=== PATIENT | female | born 1940 | race Caucasian/White ===

== ENCOUNTER → 2019-10-10 09:57 | Outpatient (CLI) | payer MEDICARE, SELFPAY ==
--- NOTE | ~2019-10-10 | XR_ITS ---
EXAMINATION: XR chest 2V EXAM DATE: 10/10/2019 10:33 INDICATION: Left anterior mid chest pain, symptoms for 2 weeks. TECHNIQUE: Frontal and lateral projections of the chest obtained and reviewed. There is no prior aguilar dy for comparison. FINDINGS: The lungs are clear. There are no pleural effusions. The cardiomediastinal silhouette is within normal limits. There is no pneumothorax suspected. The bones and soft tissues are unremarkab le. Moderate hyperinflation. IMPRESSION: No acute cardiopulmonary findings. Reviewed, dictated and finalized at location B. PROFIT JOB TITLES
== END ==
PROVIDERS: PCP Family Medicine; Visit Provider Physician Assistant
DX: R07.89 Other chest pain (principal)
CPT/HCPCS: 71046

== ENCOUNTER 2019-10-11 08:54 | Outpatient (CLI) | payer MEDICARE, SELFPAY ==
--- NOTE | 2019-10-11 09:01 | ECG_ITS ---
Measurements Intervals [place] Rate: 57 P: 62 MS: 206 QRS: 12 QRSD: 109 T: 56 QT: 419 QTc: 409 Interpretive Statements SINUS BRADYCARDIA WITH FIRST DEGREE AV BLOCK INTRAVENTRICULAR CONDUCTION DELAY DELAYED PRECORDIAL R/S TRANSITION ABNORMAL ECG Electronically Signed On 10-11-2019 9:31:52 AIRCRAFT TIME CLERK by Dipak Henry D.O.
== END 2019-10-11 08:55 | disposition home or self-care (01) ==
PROVIDERS: PCP Family Medicine; Visit Provider Physician Assistant
DX: R07.89 Other chest pain (principal); I45.9 Conduction disorder, unspecified; I44.0 Atrioventricular block, first degree
CPT/HCPCS: 93005

== ENCOUNTER 2020-05-05 07:46 | Outpatient (CLI) | payer MEDICARE, SELFPAY ==
--- NOTE | ~2020-05-05 | DEXA_ITS ---
Bone Density Report Name: Heavenly Sarmiento Age: 80 Sex: Female Ethnicity: White Date of : 1940 Indication: postmenopausal; height loss; hysterectomy; Referring Provider: BARRY FRAZIER Study: Bone densitometry was performed. Exam Date: May 05, 2020 Accession number: [id number] Bone Density: Region BMD T-score Z-score Classification AP Spine (L1-L4) 0.992 -0.5 2.2 Normal Femoral Neck (Left) 0.642 -1.9 0.5 Osteopenia Total Hip (Left) 0.746 -1.6 0.5 Osteopenia Total Hip Bilateral Avg 0.731 -1.8 0.4 Osteopenia Femoral Neck (Right) 0.603 -2.2 0.1 Osteopenia Total Hip (Right) 0.715 -1.9 0.3 Osteopenia World Health Organization criteria for BMD impression classify patients as: Normal (T-score at or above -1.0), Osteopenia (T-score between -1.0 and -2.5), or Osteoporosis (T-score at or below -2.5). 10-year Fracture Risk: FRAX not reported because: Treated for osteoporosis Clinical Information Provided by Patient: Is being treated for osteoporosis Has used the following medications: Evista (i.e. raloxifene), Vitamin D, Calcium Has the following medical conditions: Hysterectomy Patient maximum height was 65.5 Menopause Age: 44 Onset of menses at age 12 Number of children 3 Impression: The patient has low bone mass, based on the Right Femoral Neck T-score. Discussion: It is important to ask patients whether they are taking their medications and to encourage continued and appropriate compliance with their osteoporosis therapies to reduce fracture risk. It is also important to review their risk factors and encourage appropriate calcium and vitamin D intakes, exercise, fall prevention and other lifestyle measures. Follow-Up: Consider a repeat BMD and Vertebral Fracture Assessment (VFA) exam in 2 years or sooner if medically necessary, to reassess this patient's status. Reported by: ANA on 05/05/2020 8:23:00 AM. Reviewed, dictated and finalized at location AAldair SIEGEL
--- NOTE | ~2020-05-05 | MM_ITS ---
EXAMINATION: MM screening nandini BI [place] HISTORY: Screening mammogram TECHNIQUE: Craniocaudal and mediolateral oblique 3-D tomosynthesis images were obtained and synthetic 2-D images were generated. CAD analysis was submitted and interpreted. COMPARISON: 04/08/2019, 03/29/2017, 03/21/2016 bilateral digital screening mammogram examinations BREAST PARENCHYMAL COMPOSITION: There are scattered areas of fibroglandular density. FINDINGS: There is a biopsy marker on the left; history of prior benign left breast biopsies includin g a needle biopsy and an open biopsy. Stable 6 mm circumscribed low-density mass lower outer left breast. There is no evidence of suspicious mass, calcification, or architectural distortion to suggest malign william in either breast. There has been no suspicious interval change. IMPRESSION: 1. No mammographic evidence of malignancy. 2. Recommend routine screening mammography in one year. BI-RADS Category 2: Benign finding(s). Reviewed, dictated and finalized at location A.
== END 2020-05-05 07:47 | disposition home or self-care (01) ==
LOC: ANHIMG 07:48
PROVIDERS: PCP Family Medicine; Visit Provider Obstetrics & Gynecology Gynecology
DX: Z12.31 Encounter for screening mammogram for malignant neoplasm of breast (principal); Z78.0 Asymptomatic menopausal state; M85.852 Other specified disorders of bone density and structure, left thigh; M85.851 Other specified disorders of bone density and structure, right thigh
CPT/HCPCS: 77063; 77067; 77080

== ENCOUNTER → 2020-10-12 12:15 | Outpatient (CLI) | payer MEDICARE, SELFPAY ==
--- NOTE | ~2020-10-12 | US_ITS ---
EXAMINATION: US thyroid DATE: 10/12/2020 12:35 INDICATION: Thyroid nodule. TECHNIQUE: Multiple ultrasound images of the thyroid were obtained. COMPARISON: Ultrasound 11/16/2018 FINDINGS: The right thyroid lobe measures 3.1 x 1.3 x 0.9 cm. The left thyroid lobe is absent. There is a 4 mm nodule in right thyroid lobe. IMPRESSION: 1. Stable 4 mm nodule in right thyroid lobe, likely not clinically significant. No follow-up is neede d. Reviewed, dictated and finalized at location A. E MILLER IMPRESSION: 1. Stable 4 mm nodule in right thyroid lobe, likely not clinically significant. No follow-up is needed.
== END ==
PROVIDERS: PCP Family Medicine; Visit Provider Family Medicine
DX: E04.1 Nontoxic single thyroid nodule (principal)
CPT/HCPCS: 76536

== ENCOUNTER 2021-05-07 09:27 | Outpatient (CLI) | payer MEDICARE, SELFPAY ==
--- NOTE | ~2021-05-07 | MM_ITS ---
EXAMINATION: MM screening nandini BI [place] HISTORY: Screening mammogram TECHNIQUE: Craniocaudal and mediolateral oblique 3-D tomosynthesis images were obtained and synthetic 2-D images were generated. CAD analysis was submitted and interpreted. COMPARISON: No prior mammogram is available for comparison at this institution. BREAST PARENCHYMAL COMPOSITION: FINDINGS: 7 and 7.6 mm masses are noted in the upper outer posterior left breast. Diagnostic left nandini mogram and left breast ultrasound examination are recommended. Otherwise there is no evidence of suspicious mass, calcification, or architectural distortion to sugg est malignancy in either breast. There has been no other suspicious interval change. IMPRESSION: 1. Mid to upper outer left breast masses 2. Diagnostic left mammogram and left breast ultrasound are recommended BI-RADS Category 0: Incomplete: Needs additional imaging evaluation. Reviewed, dictated and finalized at location A.
== END 2021-05-07 09:28 | disposition home or self-care (01) ==
LOC: ANHIMG 09:29
PROVIDERS: PCP Family Medicine; Visit Provider Obstetrics & Gynecology Gynecology
DX: Z12.31 Encounter for screening mammogram for malignant neoplasm of breast (principal); R92.8 Other abnormal and inconclusive findings on diagnostic imaging of breast
CPT/HCPCS: 77063; 77067

== ENCOUNTER 2021-05-26 12:24 | Outpatient (CLI) | payer MEDICARE, SELFPAY ==
--- NOTE | ~2021-05-26 | MMUS_ITS ---
EXAMINATION: MM diagnostic nandini LT w [place], US breast LT limited HISTORY: Follow-up left breast masses TECHNIQUE: Additional 3-D tomosynthesis images of the left breast were performed and synthetic 2-D im ages were generated. CAD analysis was submitted and interpreted. High resolution Limited left breast ultrasound was performed. COMPARISON: Comparison to multiple prior studies sequentially, with oldest reviewed study dated 03/29. BREAST PARENCHYMAL COMPOSITION: Breast composed of scattered areas of fibroglandular density. FINDINGS: MAMMOGRAPHIC FINDINGS: There are 2 masses in the upper outer quadrant of the left breast. There is a tissue marker in the up per outer quadrant posteriorly. The masses bilingual case manager 8 mm or less with circumscribed margins. ULTRASOUND: Left breast ultrasound: At 1:00 near the nipple there is a small cluster of microcysts measuring 3 mm . At 2:00, 5 cm from the nipple there is a 6 mm cyst. At 3:00, 4 cm from the nipple, there is an irregular shaped hypoechoic mass with internal vascularity and mixed posterior attenuation measuring 7 x 5 x 4 mm. IMPRESSION: 1. Irregular shape 7 mm left breast mass at 3:00, 4 cm from the nipple with internal vascularity. 2. Ultrasound-guided left breast biopsy recommended. BI-RADS category 4, suspicious findings. Reviewed, dictated and finalized at location A. IMPRESSION: 1. Irregular shape 7 mm left breast mass at 3:00, 4 cm from the nipple with int ernal vascularity. 2. Ultrasound-guided left breast biopsy recommended. BI-RADS category 4, suspicious findings.
== END 2021-05-26 12:25 | disposition home or self-care (01) ==
LOC: ANHIMG 12:25
PROVIDERS: PCP Family Medicine; Visit Provider Obstetrics & Gynecology Gynecology
DX: R92.8 Other abnormal and inconclusive findings on diagnostic imaging of breast (principal)
CPT/HCPCS: 76642; 77061; 77065; G0279

== ENCOUNTER 2021-11-19 00:48 | Day surgery (SDC) | payer MEDICARE, SELFPAY ==
[2021-11-09 15:01] VITALS: BMI 25.7
[2021-11-19 09:31] VITALS: BP 173/81; PULSE 83; RESP 20; TEMP 36.4; O2SAT 100; BMI 25.4
--- NOTE | 2021-11-19 09:42 | WPDANESEPPF ---
Anes - Initial Pre Proc Eval Procedure: Operation Date: 11/19/21 10:30 Proposed Procedures p Screening Colonoscopy - Prabhu Vickers MD Date/Time: 11/19/21 09:42 Surgeon: Prabhu Vickers MD Pre Op Diagnosis: neoplasm screening Patient Data Age: 81 Gender: F Height: 1.63 m Weight: 67.1 kg Last Vital Signs Temp 36.4 C 11/19/21 09:31 Pulse 83 11/19/21 09:31 Resp 20 11/19/21 09:31 BP 173/81 H 11/19/21 09:31 Pulse Ox 100 11/19/21 09:31 Allergies Allergy/AdvReac Type Severity Reaction Status Date / Time No Known Allergies Allergy Verified 11/19/21 09:26 Home Medications Medication Instructions Recorded Confirmed Type cholecalciferol (vitamin D3) 1,250 1,250 mcg PO .COMPLEX 12/17/20 11/09/21 History mcg (50,000 unit) capsule risedronate 150 mg tablet 150 mg PO MONTHLY 04/26/21 11/09/21 History zolpidem 10 mg tablet 10 mg PO .HS PRN #30 tablet 09/20/21 11/09/21 Rx lisinopril 20 mg tablet 20 mg PO DAILY #90 tablet 10/18/21 11/09/21 Rx levothyroxine 50 mcg tablet See Rx Instructions .ROUTE 11/03/21 11/09/21 Rx .COMPLEX #90 tablet simvastatin 20 mg tablet See Rx Instructions .ROUTE 11/08/21 11/09/21 Rx .COMPLEX #90 tablet lorazepam 0.5 mg tablet 0.5 mg PO TID PRN #90 tablet 11/18/21 Rx Patient hx anesthesia problems: none Family hx anesthesia problems: none Results Review: All pre-operative results and documents have been reviewed as part of the pre-operative evaluation. FORMERLY [facility], [facility] Past Medical History Medical History Acute sinusitis Allergic rhinitis Anxiety Arthralgia of right hip Bleeding hemorrhoids Bruise Calculus of gallbladder with cholecystitis Chronic renal insufficiency Chronic renal insufficiency, stage III (moderate) Constipation Dry mouth Dysuria Essential (primary) hypertension Hypothyroidism (acquired) Impacted cerumen of right ear Insomnia Mixed hyperlipidemia Mouth sore Multinodular goiter Pain in both lower extremities Paresthesia of foot Renal failure Situational depression Stress Thrush, oral Thyroid nodule Vitamin D deficiency Surgical History Surgical History S/P cholecystectomy Family History Family History Other Family history of chronic obstructive pulmonary disease Family history of elevated blood lipids Family history of lung disease Family history of thyroid disease Hypertension Social History Social History Second hand tobacco smoke exposure: No Alcohol intake: never Substance use: never Substance use type: does not use Living arrangements: with family Gender identity (if verbalized by the patient): Female Anes - Eval Final PreProcedure Day of Procedure 11/19/21 09:42 Patient weight: normal Heart: regular rate and rhythm Lungs: clear to auscultation Airway: Mallampati scale class II Neurological: alert and oriented Last oral intake: >/= 8 hours ASA classification: III Emergent: no Anesthetic plan: proceed Anesthesia type and monitoring: general GIVS and standard monitoring Results Review: All pre-operative results and documents have been reviewed as part of the pre-operative evaluation. Informed Consent: The patient's anesthetic plan and its attendant risks and benefits were discussed with the patient/family/POA. Questions were solicited and answers provided to the satisfaction of the patient/family/POA.
[2021-11-19] MEDS: LACTATED RINGERS 1,000 ML 150 ML IV CONT (09:44)
--- NOTE | 2021-11-19 09:57 | WPDGICN ---
Assessment and Plan Assessment and plan (1) History of colon polyps: Code(s): Z86.010 - Personal history of colonic polyps Status: Acute Assessment and Plan: Patient has a prior history of colon polyps. In fact required surgical resection at 1 point. Plan is for surveillance colonoscopy now and consider this at intervals in the future if she remains healthy. (2) Family hx of colon cancer: Code(s): Z80.0 - Family history of malignant neoplasm of digestive organs Status: Acute Assessment and Plan: Family history is significant there is sister has had colon cancer. Suggesting genetic tendency towards colon polyps and cancer. Plan is for surveillance colonoscopy at this time. GI Consult Note Consult date/time: 11/19/21 09:57 HPI: Heavenly Sarmiento is a 81 year old female Presents for screening colonoscopy. Patient has a prior history of colon polyps most recently performed elsewhere in 2017. Her family history is significant for colon cancer in her sister. Patient herself has had a large colon polyp requiring surgical resection in the past. At present she complains of rather vague left-sided abdominal pain. But denies to call it a pain. She states her bowel habits tend towards constipation. patient presents today for neoplasia screening. Review of Systems Review of Systems: All systems reviewed & are unremarkable except as noted in HPI and below PMFSH Past Medical History Medical History Acute sinusitis Allergic rhinitis Anxiety Arthralgia of right hip Bleeding hemorrhoids Bruise Calculus of gallbladder with cholecystitis Chronic renal insufficiency Chronic renal insufficiency, stage III (moderate) Constipation Dry mouth Dysuria Essential (primary) hypertension Hypothyroidism (acquired) Impacted cerumen of right ear Insomnia Mixed hyperlipidemia Mouth sore Multinodular goiter Pain in both lower extremities Paresthesia of foot Renal failure Situational depression Stress Thrush, oral Thyroid nodule Vitamin D deficiency Surgical History Surgical History S/P cholecystectomy Family History Family History Other Family history of chronic obstructive pulmonary disease Family history of elevated blood lipids Family history of lung disease Family history of thyroid disease Hypertension Social History Social History Second hand tobacco smoke exposure: No Alcohol intake: never Substance use: never Substance use type: does not use Living arrangements: with family Gender identity (if verbalized by the patient): Female Meds Home Medications and Allergies Home Medications Medication Instructions Recorded Confirmed Type cholecalciferol (vitamin D3) 1,250 1,250 mcg PO .COMPLEX 12/17/20 11/19/21 History mcg (50,000 unit) capsule risedronate 150 mg tablet 150 mg PO MONTHLY 04/26/21 11/19/21 History zolpidem 10 mg tablet 10 mg PO .HS PRN #30 tablet 09/20/21 11/19/21 Rx lisinopril 20 mg tablet 20 mg PO DAILY #90 tablet 10/18/21 11/19/21 Rx levothyroxine 50 mcg tablet See Rx Instructions .ROUTE 11/03/21 11/19/21 Rx .COMPLEX #90 tablet simvastatin 20 mg tablet See Rx Instructions .ROUTE 11/08/21 11/19/21 Rx .COMPLEX #90 tablet lorazepam 0.5 mg tablet 0.5 mg PO TID PRN #90 tablet 11/18/21 11/19/21 Rx Allergies Allergy/AdvReac Type Severity Reaction Status Date / Time No Known Allergies Allergy Verified 11/19/21 09:26 Vital Signs Vital Signs - 24 hr 11/19/21 09:31 Temperature 97.6 F Pulse Rate 83 Respiratory Rate 20 Blood Pressure 173/81 H Pulse Oximetry 100 Exam Narrative: Physical exam reveals patient to be alert. Vital signs stable. HEENT exam is unremarkable. Lungs are clear to auscultation and p
[2021-11-19 10:40] VITALS: BP 128/63; PULSE 67; RESP 20; O2SAT 99
[2021-11-19 10:50] VITALS: BP 136/73; PULSE 65; RESP 19; O2SAT 100
[2021-11-19 11:00] VITALS: BP 149/82; PULSE 64; RESP 17; O2SAT 100
== END 2021-11-19 11:22 | disposition home or self-care (01) ==
PROVIDERS: PCP Family Medicine; Visit Provider Internal Medicine Gastroenterology
PROC: 0DJD8ZZ Inspection of Lower Intestinal Tract, Via Natural or Artificial Opening Endoscopic (ICD-10-PCS; CPT 45378; principal; 2021-11-19 10:30)
DX: Z12.11 Encounter for screening for malignant neoplasm of colon (principal); K64.8 Other hemorrhoids; Z98.0 Intestinal bypass and anastomosis status; Z86.010 Personal history of colon polyps; Z80.0 Family history of malignant neoplasm of digestive organs; E78.2 Mixed hyperlipidemia; E55.9 Vitamin D deficiency, unspecified; I12.9 Hypertensive chronic kidney disease with stage 1 through stage 4 chronic kidney disease, or unspecified chronic kidney disease; N18.30 Chronic kidney disease, stage 3 unspecified; E03.9 Hypothyroidism, unspecified; K59.00 Constipation, unspecified
CPT/HCPCS: G0105; J2704; J7120

== ENCOUNTER 2022-06-10 10:12 | Outpatient (CLI) | payer MEDICARE, SELFPAY ==
--- NOTE | ~2022-06-10 | MM_ITS ---
EXAMINATION: MM screening nandini BI [place] HISTORY: Screening mammogram, family history of breast cancer in her sister. TECHNIQUE: Craniocaudal and mediolateral oblique 3-D tomosynthesis images were obtained and synthetic 2-D images were generated. CAD analysis was submitted and interpreted. COMPARISON: 05/26/2021, 05/07/2021, 05/05/2020 BREAST PARENCHYMAL COMPOSITION: There are scattered areas of fibroglandular density. FINDINGS: Stable left breast masses are consistent with benign findings. No suspicious mass, calcific ation, or architectural distortion are identified in either breast to suggest malignancy. There has b een no suspicious interval change. IMPRESSION: 1. No mammographic evidence of malignancy. 2. Recommend routine screening mammography while the patient remains in good health. BI-RADS Category 2: Benign finding(s). Reviewed, dictated and finalized at location A. IMPRESSION: 1. No mammographic evidence of malignancy. 2. Recommend routine screening mammography while the patient remains in good he alth. BI-RADS Category 2: Benign finding(s).
--- NOTE | ~2022-06-10 | DEXA_ITS ---
Bone Density Report Name: CHIO MORENO Age: 82 Sex: Female Ethnicity: White Date of : 1940 Indication: osteopenia; monitoring treatment; hysterectomy; Referring Provider: BARRY FRAZIER Study: Bone densitometry was performed. Exam Date: June 10, 2022 Accession number: [id number] Bone Density: Region BMD T-score Z-score Classification AP Spine(L1-L4) 1.049 0.0 2.8 Normal Femoral Neck (Left) 0.626 -2.0 0.4 Osteopenia Total Hip (Left) 0.712 -1.9 0.4 Osteopenia Femoral Neck (Right) 0.600 -2.2 0.2 Osteopenia Total Hip (Right) 0.717 -1.8 0.4 Osteopenia Total Hip Mean 0.715 -1.9 0.4 Osteopenia World Health Organization criteria for BMD impression classify patients as: Normal (T-score at or above -1.0), Osteopenia (T-score between -1.0 and -2.5), or Osteoporosis (T-score at or below -2.5). 10-year Fracture Risk: FRAX not reported because: Treated for osteoporosis Previous Exams: Region Exam Age BMD T-score BMD Change BMD Change Date g/cm2 vs Baseline vs Previous AP Spine (L1-L4) 06/10/2022 82 1.049 0.0 0.056 (5.7%)* 0.056 (5.7%)* 05/05/2020 80 0.992 -0.5 Total Hip(Left) 06/10/2022 82 0.712 -1.9 -0.033 (-4.5%) -0.033 (-4.5%) 05/05/2020 80 0.746 -1.6 Total Hip(Right) 06/10/2022 82 0.717 -1.8 0.002 (0.3%) 0.002 (0.3%) 05/05/2020 80 0.715 -1.9 *Denotes significance at 95% confidence level, LSC for AP Spine = 0.022 g/cm2, LSC for Total Hip = 0.027 g/cm2 Clinical Information Provided by Patient: Is being treated for osteoporosis Has used the following medications: Actonel (i.e. risedronate), Vitamin D, Calcium Has the following medical conditions: Hysterectomy Menopause Age: 44 Does not regularly consume dairy products Onset of menses at age 12 Number of children 0 Impression: The patient has low bone mass, based on the Right Femoral Neck T-score. The BMD for the Total Hip(Left) decreased, changing by -4.5% since the last DXA exam. Discussion: SIGNIFICANT BONE LOSS OBSERVED. Adherence to therapy (including calcium and vitamin D intake) should be assessed. If compliance is not a factor, review management and exclusion of secondary causes of bone loss. It is important to ask patients whether they are taking their medications and to encourage continued and appropriate compliance with their osteoporosis therapies to reduce fracture risk. It is also important to review their risk factors and encoura
== END 2022-06-10 10:13 | disposition home or self-care (01) ==
PROVIDERS: PCP Family Medicine; Visit Provider Obstetrics & Gynecology Gynecology
DX: Z12.31 Encounter for screening mammogram for malignant neoplasm of breast (principal); Z78.0 Asymptomatic menopausal state; M85.88 Other specified disorders of bone density and structure, other site; M85.852 Other specified disorders of bone density and structure, left thigh; M85.851 Other specified disorders of bone density and structure, right thigh
CPT/HCPCS: 77063; 77067; 77080

== ENCOUNTER 2023-07-17 13:34 | Outpatient (CLI) | payer MEDICARE, SELFPAY ==
--- NOTE | ~2023-07-17 | MM_ITS ---
EXAMINATION: MM screening nandini BI w [place] HISTORY: Screening mammogram, family history of breast cancer in her sister. TECHNIQUE: Craniocaudal and mediolateral oblique 3-D tomosynthesis images were obtained and synthetic 2-D images were generated. CAD analysis was submitted and interpreted. COMPARISON: 06/10/2022, 05/26/2021, 05/07/2021 BREAST PARENCHYMAL COMPOSITION: There are scattered areas of fibroglandular density. FINDINGS: There are stable left breast masses, consistent with benign findings. No suspicious mass, c alcification, or architectural distortion are identified in either breast to suggest malignancy. Ther e has been no suspicious interval change. IMPRESSION: 1. No mammographic evidence of malignancy. 2. Recommend routine screening mammography while the patient remains in good health. BI-RADS Category 2: Benign finding(s). Reviewed, dictated and finalized at location A. E RESEARCHER IMPRESSION: 1. No mammographic evidence of malignancy. 2. Recommend routine screening mammography while the patient remains in good he alth. BI-RADS Category 2: Benign finding(s).
== END 2023-07-17 13:35 | disposition home or self-care (01) ==
LOC: ANHIMG 13:36
PROVIDERS: PCP Family Medicine; Visit Provider Obstetrics & Gynecology Gynecology
DX: Z12.31 Encounter for screening mammogram for malignant neoplasm of breast (principal)
CPT/HCPCS: 77063; 77067

== ENCOUNTER 2024-04-12 10:42 | Outpatient (CLI) | payer MEDICARE, SELFPAY ==
--- NOTE | ~2024-04-12 | CT_ITS ---
CT of the Abdomen and Pelvis: Indication: Diverticular Technique: 2.5 mm axial scans were obtained through the abdomen and pelvis following intravenous adm inistration of 100 cc of Omnipaque 350. Dose reduction technique was used on this scan by utilizing a utomated exposure control and iterative reconstruction technique. The dose-length product (DLP) was 5 24.08 mGy-cm. Findings: Scans through the lung bases are unremarkable. The liver, spleen, pancreas, right adrenal gland, and kidneys are within normal limits. Cholecystecto my clips are present. Left adrenal nodule measures 1 cm in diameter, statistically speaking indetermi micheal. There are atherosclerotic calcifications of the aorta. No lymphadenopathy. No bowel obstruction or bowel wall thickening. Bowel anastomosis noted. Images through the pelvis were performed. Urinary bladder unremarkable. No pelvic mass seen. No ascit es. Impression: No acute abnormality evident. 1 cm left adrenal gland, statistically most likely adenoma, though indeterminate by Hounsfield units. Reviewed, dictated and finalized at location . Impression: No acute abnormality evident. 1 cm left adrenal gland, statistically most likely adenoma, though indeterminat e by Hounsfield units.
[2024-04-12 11:27] LABS: Estimated Glomerular Filt Rate 39
== END 2024-04-12 10:43 ==
PROVIDERS: PCP Family Medicine; Visit Provider Physician Assistant Medical
DX: R19.5 Other fecal abnormalities (principal); K57.90 Diverticulosis of intestine, part unspecified, without perforation or abscess without bleeding
CPT/HCPCS: 74177; Q9967

== ENCOUNTER 2024-08-21 08:37 | Outpatient (CLI) | payer MEDICARE, SELFPAY ==
--- NOTE | ~2024-08-21 | MM_ITS ---
EXAMINATION: MM screening [facility] BI [facility] [place] HISTORY: Screening TECHNIQUE: Craniocaudal and mediolateral oblique 3-D tomosynthesis images were obtained and synthetic 2-D images were generated. CAD analysis was submitted and interpreted. COMPARISON: Comparison to multiple prior studies sequentially, with oldest reviewed study dated 04/08. BREAST PARENCHYMAL COMPOSITION: Not dense: There are scattered areas of fibroglandular density. FINDINGS: There are developing asymmetries in the upper central aspect of the right breast with possi ble architectural distortion. Stable left breast masses. There is tissue marker from previous benign left breast biopsy in the upper outer quadrant of the left breast posteriorly. IMPRESSION: 1. Developing right breast asymmetries with possible architectural distortion. 2. Additional mammographic views and possible breast ultrasound are recommended. BI-RADS Category 0: Incomplete: Needs additional imaging evaluation. Reviewed, dictated and finalized at location B. S DESIGNER IMPRESSION: 1. Developing right breast asymmetries with possible architectural distortion. 2. Additional mammographic views and possible breast ultrasound are recommended . BI-RADS Category 0: Incomplete: Needs additional imaging evaluation.
== END 2024-08-21 08:38 | disposition home or self-care (01) ==
LOC: ANHIMG 08:40
PROVIDERS: PCP Family Medicine; Visit Provider Obstetrics & Gynecology Gynecology
DX: Z12.31 Encounter for screening mammogram for malignant neoplasm of breast (principal); R92.8 Other abnormal and inconclusive findings on diagnostic imaging of breast
CPT/HCPCS: 77063; 77067

== ENCOUNTER 2024-08-30 12:08 | Outpatient (CLI) | payer MEDICARE, SELFPAY ==
--- NOTE | ~2024-08-30 | MMUS_ITS ---
EXAMINATION: MM diagnostic nandini RT w odell, US breast RT limited HISTORY: Follow-up right breast asymmetry TECHNIQUE: Additional 3-D tomosynthesis images of the right breast were performed and synthetic 2-D i mages were generated. CAD analysis was submitted and interpreted. High resolution Limited right breas t ultrasound was performed. COMPARISON: Comparison to multiple prior studies sequentially, with oldest reviewed study dated 05/15. BREAST PARENCHYMAL COMPOSITION: Not dense: There are scattered areas of fibroglandular density. FINDINGS: MAMMOGRAPHIC FINDINGS: There is a focal asymmetry in the upper central aspect of the right breast, posterior third with poss ible associated architectural distortion. ULTRASOUND: Limited right breast ultrasound: At 9:00, 7 cm from the nipple there is a normal-appearing intramamma ry lymph node measuring 6 mm with echogenic hilum and no cortical thickening. At 1:00, 4 cm from the nipple there is an irregular heterogeneous ill-defined mass with marginal vascularity and mixed poste rior attenuation measuring approximately 8 x 7 mm. This area of abnormality is indeterminate for amari elation to the mammographic findings. IMPRESSION: 1. Focal irregular shaped mass upper central aspect of the right breast posteriorly with possible cor related by ultrasound, although this is indeterminate. 2. Correlation with MRI of the breast with contrast recommended for further assessment. BI-RADS CATEGORY 0 - INCOMPLETE STUDY, NEED ADDITIONAL IMAGING EVALUATION. Reviewed, dictated and finalized at location A. NG TEACHER IMPRESSION: 1. Focal irregular shaped mass upper central aspect of the right breast posteri kendall with possible correlated by ultrasound, although this is indeterminate. 2. Correlation with MRI of the breast with contrast recommended for further ass essment. BI-RADS CATEGORY 0 - INCOMPLETE STUDY, NEED ADDITIONAL IMAGING EVALUATION.
--- OUTSIDE RECORDS SUMMARY | 2024-09-05 06:44 | XMS_ITS ---
Author Organization [facility] Address [address] [facility] [address] [place] [address] Care Team Providers Care Perinatal Educator Name Role Phone zzzzMigration, zzzzProvider Unavailable Unav ailable REASON FOR VISIT [facility] Encounters Encounter Location Date Provider Diagnosis [facility] [address] [facility] [address] [place] [address] 06/04/2023 zzzzProvider zzzzMigration Plan Of Treatment No Information Progress Notes * Roxy SARMIENTODOB:1940 (84 yo F)Acc No.[id number]:06/04/2023 Patient:?Roxy SARMIENTO :1940???Age:83 Y???Sex:Female [place]: [place], [address] Subjective: * Chief Complaints: * ???[facility] * Medical History:? * Surgical History:? * Hospitalization/Major Diagno stic Procedure:? * Medications:? Objective: * Vitals:? * Physical Examination:? Assessment: Plan: * Treatment: * Procedure Codes:? * * Date:?
--- OUTSIDE RECORDS SUMMARY | 2024-09-05 06:44 | XMS_ITS | Patient Health Record ---
Author Organization [facility] Address [address] [facility] [address] [place] [address] Support Name Relationship Address Phone Roxy Sarmiento Guarantor Unknown [phone] Reason For Referral No Information Plan Of Treatment No Information Insurance Providers Payer Name Payer Address Payer Phone Subscriber Number Group Number Insured Name Patient Relationship to Insured Coverage Start Date Coverage End Date DO NOT USE [id number] Roxy Sarmiento Self - patient is the insured 1
--- OUTSIDE RECORDS SUMMARY | 2024-09-05 06:44 | XMS_ITS ---
Author Organization [facility] Address [address] [facility] [address] [place] [address] Care Team Providers Care Warehouse Attendant Name Role Phone zzzzMigration, zzzzProvider Unavailable Unav ailable REASON FOR VISIT [facility] Encounters Encounter Location Date Provider Diagnosis [facility] [address] [facility] [address] [place] [address] 06/03/2023 zzzzProvider zzzzMigration Plan Of Treatment No Information Progress Notes * Roxy SARMIENTODOB:1940 (84 yo F)Acc No.[id number]:06/03/2023 Patient:?Roxy SARMIENTO :1940???Age:83 Y???Sex:Female [address]: [address] [place], [address] Subjective: * Chief Complaints: * ???[facility] * Medical History:? * Surgical History:? * Hospitalization/Major Diagno stic Procedure:? * Medications:? Objective: * Vitals:? * Physical Examination:? Assessment: Plan: * Treatment: * Procedure Codes:? * * Date:?
--- OUTSIDE RECORDS SUMMARY | 2024-09-05 06:46 | XMS_ITS | Continuity of Care Document ---
Author Organization [facility] Address [address] [place] [address] Phone Care Team Providers Care Shank Faker Name Role Phone [facility] Unavailable Unavail able Corinna Mendoza Unavailable Unavailable Advance Directives Directive Yes / No Effective Date File Name No Information Encounters Encounter Description Practice Location Reason(s) For Visit Diagnoses Date Provider Providers Copied on Encounter [facility], [id number] [place] [address] [address], [place], [place], [id number], [place] tel:[phone] [facility] No Information 0-200 0 [facility] [address] [facility], [address], [place], [place], [address] , [place]. tel:[phone] Consulting Provider: Corinna Mendoza, [address] [place] [address], [address]. tel:[phone] Family History Family Member Type Diagnosis Age At Onset No Information Payers Payer name Insurance type Covered green party ID Authoriza tion(s) No Information Social History Type Description Quantity Date Captured Comments Sex Female Smoking Status No Information Chief Complaint And Reason For Visit No Information Reason For Referral Reason For Referral No Information History Of Present Illness Encounter Date Complaint History Of Prese nt Illness No Information Functional Status Date Functional Assessmen t No Information Instructions Date Instruction Additional Infor mation No Information Assessments Type Assessment Date No Information Patient Care Teams Name Effective Dates (start - stop) Status Members No Information
--- OUTSIDE RECORDS SUMMARY | 2024-09-05 06:46 | XMS_ITS | Referral Summary ---
Author Organization [facility] Address [address] [place] [address] Care Team Providers Care Core Winder Name Role Phone Tisha Tubbs MD Primary Care Provider [phone] Kelley Perez MD Unavailable [phone] Allergies No known active allergies Medications simvastatin (ZOCOR) 20 mg tablet TK 1 T PO QD 2 02/27/2018 Active LORazepam (ATIVAN) 0.5 mg tablet TK 1 T PO QD PRN 1 02/20/2018 Active lisinopril (PRINIVIL,ZESTR IL) 40 mg tablet Take 20 mg by mouth 03/22/2018 Active levothyroxine (SYNTHROID, LEVOTHROID) 50 mcg tablet TK 1 T PO QD 1 03/01/2018 Activ e ergocalciferol (VITAMIN D) 50,000 unit capsule TK ONE C PO THREE TIMES A MONTH 4 02/26/2018 Active cranberry 400 mg capsule Take by mouth. Active calcium carbonate (CALCIUM 600 ORAL) Take by mouth. Active multivit-min/ir on/folic/lutein (CENTRUM SILVER WOMEN ORAL) Take by mouth Active zolpidem (AMBIEN) 10 mg tablet Take 10 mg by mouth daily 01/29/2020 Active risedronate (ACTONEL) 150 mg tablet Take 150 mg by mouth every 30 (thirty) days with water on empty stomach, nothing by mouth or lie down for next 30 minutes. 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 Gender Identity Not on file Sexual Orientation Not on file Last Filed Vital Signs Vital Sign Reading Time Taken Comments Blood Pressure 134/80 05/05/2021 1:33 PM CDT Pulse 74 05/05/2021 1:33 PM CDT Temperature - - Respiratory Rate - - Oxygen Saturation 95% 05/05/2021 1:33 PM CDT Inhaled Oxygen Concentration - - Weight 68.5 kg (151 lb 0.2 oz) 06/11/2021 9:40 A M CDT Height 165.1 cm (5' 5 ) 06/11/2021 9:40 AM CDT Body Mass Index 25.13 06/11/2021 9:40 AM CDT Plan of Treatment Not on file Insurance MEDICARE SOLUTIONS MEDICARE SOLUTIONS Care Teams Core Winder Relationship Specialty Start Date End Date Tisha Tubbs MD PCP - General 02/16/10 Kelley Perez MD [address] [place] [address] Referring Physician Gynecology 06/11/21
--- OUTSIDE RECORDS SUMMARY | 2024-09-05 06:46 | XMS_ITS | Clinical Summary ---
Author Organization [facility] Address [address] [place] [address] Care Team Providers Care Research Assistant Professor Name Role Phone Tisha Tubbs MD Primary Care Provider [phone] Kelley Perez MD Unavailable [phone] Allergies No known active allergies Medications simvastatin [...] salivary glan d 04/05/2018 Oral candidiasis 04/05/2018 Surgical History Surgery Date Site/Laterality Comments HYSTERECTOMY 08/14/1974 - 08/13/1975 COLECTOMY 08/14/2008 - 08/13/2009 GALLBLADDER SURGERY 08/14/2014 - 08/13/2015 THYROIDECTOMY / EXCISION CYST THYROID 08/14/2016 - 08/13 Medical History Medical History Date Comments Thyroid disease HTN (hypertension) Anxiety Hypothyroidism Hyperlipidemia Family History Medical History Relation Name Comments Lung cancer Brother Lung cancer Father Breast cancer Maternal Grandmother Aneurysm Mother Colon cancer Other sister Lung cancer Other sister Breast cancer Sister Relation Name Status Comments Brother Father Maternal Grandmother Mother Other sister Sister Social History Tobacco Use Types Packs/Day Years [...] on file 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 Gender Identity Not on file Sexual Orientation Not on file Obstetrics History Last Filed Vital Signs Vital Sign Reading [...] Treatment Not on file Insurance MEDICARE [facility] MEDICARE Address: [address] [address] [place] [address] MEDICARE SOL[facility]IONS [facility] MEDICARE Address: [address] [address] [place] [address] Care Teams Research Assistant Professor Relationship Specialty Start Date End Date Tisha Tubbs MD PCP - General 02/16/10 Kelley Perez MD [address] [place] [address] Referring Physician Gynecology 06/11/21
== END 2024-08-30 12:09 | disposition home or self-care (01) ==
LOC: ANHIMG 12:11
PROVIDERS: PCP Family Medicine; Visit Provider Obstetrics & Gynecology Gynecology
DX: R92.8 Other abnormal and inconclusive findings on diagnostic imaging of breast (principal)
CPT/HCPCS: 76642; 77061; 77065; G0279

== ENCOUNTER 2024-09-25 08:33 | Outpatient (CLI) | payer MEDICARE, SELFPAY ==
--- OUTSIDE RECORDS SUMMARY | 2024-09-24 11:11 | XMS_ITS | Patient Health Record ---
Author Organization [facility] Address [address] [facility] [address] [place] [address] Support Name Relationship Address Phone Roxy Sarmiento Guarantor Unknown [phone] Reason For Referral No Information Plan Of Treatment No Information Insurance Providers Payer Name Payer Address Payer Phone Subscriber Number Group Number Insured Name Patient Relationship to Insured Coverage Start Date Coverage End Date DO NOT USE [id number] Roxy Sarmiento Self - patient is the insured 1
--- OUTSIDE RECORDS SUMMARY | 2024-09-24 11:11 | XMS_ITS | Continuity of Care Document ---
Author Organization [facility] [place] [place] Address [address] [place] [address] Phone Care Team Providers Care Software Support Analyst Name Role Phone [facility] Unavailable Unavail able Corinna Mendoza Unavailable Advance Directives Directive Yes / No Effective Date File Name No Information Encounters Encounter Description Practice Location Reason(s) For Visit Diagnoses Date Provider Providers Copied on Encounter [facility], [address] [place] [address] [address], [place], [place], [address], [place] tel:[phone] [facility] No Information 0-200 0 [facility] [address] [facility], [address], [place], [place], [address] , [place]. tel:[phone] Consulting Provider: Corinna Mendoza, [address] [place] [address], [address]. tel:[phone] Family History Family Member Type Diagnosis Age At Onset No Information Payers Payer name Insurance type Covered alliance party ID Authoriza tion(s) No Information Social [...]
--- OUTSIDE RECORDS SUMMARY | 2024-09-24 11:11 | XMS_ITS | Clinical Summary ---
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
--- OUTSIDE RECORDS SUMMARY | 2024-09-24 11:11 | XMS_ITS | Referral Summary ---
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
--- OUTSIDE RECORDS SUMMARY | 2024-09-24 11:13 | XMS_ITS ---
Author Organization [facility] Address [address] [facility] [address] [place] [address] Care Team Providers Care Laborer Adjustable Steel Joist Name Role Phone zzzzMigration, zzzzProvider Unavailable Unav ailable REASON FOR VISIT [facility] Encounters Encounter Location Date Provider Diagnosis [facility] [address] [facility] [address] [place] [address] 06/03/2023 zzzzProvider zzzzMigration Plan Of Treatment No Information Progress Notes * Roxy MORENODOB:1940 (84 yo F)Acc No.[id number]:06/03/2023 Patient: Roxy TURCIOS :1940 A ge:83 Y S ex:Female [place]: [place], [address] Subjective: * Chief Complaints: * E MR-[facility]el * Medical History: * Surgical History: * Hospitalization/Major Diagno stic Procedure: * Medications: Objective: * Vitals: * Physical Examination: Assessment: Plan: * Treatment: * Procedure Codes: * * Date:
--- OUTSIDE RECORDS SUMMARY | 2024-09-24 11:13 | XMS_ITS ---
Author Organization [facility] Address [address] [facility] [address] [place] [address] Care Team Providers Care Neuropsychiatrist Name Role Phone zzzzMigration, zzzzProvider Unavailable Unav ailable REASON FOR VISIT [facility] [place] Encounter Location Date Provider Diagnosis [facility] [address] [facility] [address] [place] [address] 06/04/2023 zzzzProvider zzzzMigration Plan Of Treatment No Information Progress Notes * Roxy MORENODOB:1940 (84 yo F)Acc No.[id number]:06/04/2023 Patient: Roxy TURCIOS :1940 A ge:83 Y S ex:Female Address: [address] [place], [address] Subjective: * Chief Complaints: * E MR-Abel * Medical History: * Surgical History: * Hospitalization/Major Diagno stic Procedure: * Medications: Objective: * Vitals: * Physical Examination: Assessment: Plan: * Treatment: * Procedure Codes: * * Date:
--- NOTE | ~2024-09-25 | MR_ITS ---
MR breast BI wo/w con 09/25/2024 12:39 ROLL SKINNER INDICATION: Breast mass seen on recent examination. TECHNIQUE: MRI of the breasts perform using standard protocol pre-and post IV contrast with the follo wing sequences: Axial T2 STIR, axial T1, axial vibrant T1 with fat suppression precontrast and multip hasic postcontrast. 14 cc MultiHance administered intravenously. COMPARISON: Mammogram and ultrasound dated 08/30/2024 FINDINGS: There are scattered areas of fibroglandular elements. On precontrast sequences there is a m ass in the upper outer quadrant of the right breast which is slightly hyperintense on T1 and hypointe nse on T2. There is minimal background parenchymal enhancement. There is heterogeneous enhancement of mass in the upper outer quadrant at 12:00, posteriorly measuring 1.5 x 1 x 0.7 cm, 7.1 cm from the n ipple. The margins are irregular and the shape is irregular. There is rapid plateau enhancement. No e vidence of signal abnormalities in the axillary or internal mammary node distributions. LEFT BREAST: There are scattered areas of fibroglandular elements. No signal abnormalities on precont rast sequences. There is minimal background parenchymal enhancement. No enhancing lesions following contrast administration. No areas of enhancement meeting threshold criteria on CAD analysis. No e vidence of signal abnormalities in the axillary or internal mammary node distributions. IMPRESSION: 1: Right breast: Irregular shaped 1.5 cm right breast mass in the upper outer quadrant at approximat nikko 12:00, posteriorly. This mass exhibits rapid plateau enhancement and corresponds to the mammograp hic and ultrasound finding on prior examination. Recommend ultrasound-guided right breast biopsy. BI- RADS Category 4. 2: Left breast: Negative. No evidence of malignancy. BI-RADS category 1. Recommend annual mammogr aphy follow-up. Reviewed, dictated and finalized at location B. SKINNER IMPRESSION: 1: Right breast: Irregular shaped 1.5 cm right breast mass in the upper outer quadrant at approximately 12:00, posteriorly. This mass exhibits rapid plateau enhancement and corresponds to the mammographic and ultrasound finding on prior examination. Recommend ultrasound-guided right breast biopsy. BI-RADS Category 4. 2: Left breast: Negative. No evidence of malignancy. BI-RADS category 1. Re commend annual mammography follow-up.
--- OUTSIDE RECORDS SUMMARY | 2024-09-25 09:01 | XMS_ITS | Patient Health Record ---
Author Organization [facility] Address [address] [facility] [address] [place] [address] Support Name Relationship Address Phone Roxy Sarmiento Guarantor Unknown [phone] Reason For Referral No Information Plan Of Treatment No Information Insurance Providers Payer Name Payer Address Payer Phone Subscriber Number Group Number Insured Name Patient Relationship to Insured Coverage Start Date Coverage End Date DO NOT USE [id number] Roxy Sarmiento Self - patient is the insured 1
--- OUTSIDE RECORDS SUMMARY | 2024-09-25 09:02 | XMS_ITS ---
Author Organization [facility] Address [address] [facility] [address] [place] [address] Care Team Providers Care Route Returner Name Role Phone zzzzMigration, zzzzProvider Unavailable Unav ailable REASON FOR VISIT [facility] Encounters Encounter Location Date Provider Diagnosis [facility] [address] [facility] [address] [place] [address] 06/04/2023 zzzzProvider zzzzMigration Plan Of Treatment No Information Progress Notes * Roxy MORENODOB:1940 (84 yo F)Acc No.[id number]:06/04/2023 Patient: Roxy TURCIOS :1940 A ge:83 Y S ex:Female [place]: [address] [place], [address] Subjective: * Chief Complaints: * E MR-Abel * Medical History: * Surgical History: * Hospitalization/Major Diagno stic Procedure: * Medications: Objective: * Vitals: * Physical Examination: Assessment: Plan: * Treatment: * Procedure Codes: * * Date:
--- OUTSIDE RECORDS SUMMARY | 2024-09-25 09:02 | XMS_ITS | Referral Summary ---
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
--- OUTSIDE RECORDS SUMMARY | 2024-09-25 09:02 | XMS_ITS | Continuity of Care Document ---
Author Organization [facility] Address [address] [place] [address] Phone Care Team Providers Care Airset Molder Name Role Phone [facility] Unavailable Unavail able Corinna Mendoza Unavailable Advance Directives Directive Yes / No Effective Date File Name No Information Encounters Encounter Description Practice Location Reason(s) For Visit Diagnoses Date Provider Providers Copied on Encounter [facility], [address] [place] [address] [address], [place], [place], [address], [place] tel:[phone] [facility] No Information 0-200 0 [facility] [address] [facility], [address], [place], [place], [address] , [place]. tel:[phone] Consulting Provider: Corinna Mendoza, [address] [place] [address], [address]. tel:[phone] Family History Family Member Type Diagnosis Age At Onset No Information Payers Payer name Insurance type Covered constitution party ID Authoriza tion(s) No Information Social [...]
--- OUTSIDE RECORDS SUMMARY | 2024-09-25 09:02 | XMS_ITS ---
Author Organization [facility] Address [address] [facility] [address] [place] [address] Care Team Providers Care Applied Psychology Professor Name Role Phone zzzzMigration, zzzzProvider Unavailable Unav ailable REASON FOR VISIT [facility] [place] Encounter Location Date Provider Diagnosis [facility] [address] [facility] [address] [place] [address] 06/03/2023 zzzzProvider zzzzMigration Plan Of Treatment No Information Progress Notes * Roxy MORENODOB:1940 (84 yo F)Acc No.[id number]:06/03/2023 Patient: Roxy TURCIOS :1940 A ge:83 Y S ex:Female Address: [place], [address] Subjective: * Chief Complaints: * E MR-Abel * Medical History: * Surgical History: * Hospitalization/Major Diagno stic Procedure: * Medications: Objective: * Vitals: * Physical Examination: Assessment: Plan: * Treatment: * Procedure Codes: * * Date:
--- OUTSIDE RECORDS SUMMARY | 2024-09-25 09:02 | XMS_ITS | Clinical Summary ---
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
== END 2024-09-25 08:34 | disposition home or self-care (01) ==
PROVIDERS: PCP Family Medicine; Visit Provider Nurse Practitioner Women's Health
DX: R92.8 Other abnormal and inconclusive findings on diagnostic imaging of breast (principal); N63.10 Unspecified lump in the right breast, unspecified quadrant
CPT/HCPCS: 77049; A9577; C8908

== ENCOUNTER 2024-10-07 13:13 | Outpatient (CLI) | payer MEDICARE, SELFPAY ==
--- NOTE | ~2024-10-07 | DEXA_ITS ---
Bone Density Report Name: CHIO MORENO Age: 84 Sex: Female Ethnicity: White Date of : 1940 Indication: osteopenia; monitoring treatment; height loss; hysterectomy; Referring Provider: BARRY FRAZIER Study: Bone densitometry was performed. Exam Date: October 07, 2024 Accession number: [id number] Bone Density: Region BMD T-score Z-score Classification AP Spine(L1-L4) 1.032 -0.1 2.7 Normal Femoral Neck (Left) 0.621 -2.1 0.5 Osteopenia Total Hip (Left) 0.740 -1.7 0.7 Osteopenia Femoral Neck (Right) 0.618 -2.1 0.4 Osteopenia Total Hip (Right) 0.755 -1.5 0.8 Osteopenia Total Hip Mean 0.748 -1.6 0.8 Osteopenia World Health Organization criteria for BMD impression classify patients as: Normal (T-score at or above -1.0), Osteopenia (T-score between -1.0 and -2.5), or Osteoporosis (T-score at or below -2.5). 10-year Fracture Risk: FRAX not reported because: Treated for osteoporosis Previous Exams: Region Exam Age BMD T-score BMD Change BMD Change Date g/cm2 vs Baseline vs Previous AP Spine (L1-L4) 10/07/2024 84 1.032 -0.1 0.040 (4.0%)* -0.017 (-1.6%) 06/10/2022 82 1.049 0.0 0.056 (5.7%)* 0.056 (5.7%)* 05/05/2020 80 0.992 -0.5 Total Hip(Left) 10/07/2024 84 0.740 -1.7 -0.006 (-0.8%) 0.028 (3.9%)* 06/10/2022 82 0.712 -1.9 -0.033 (-4.5%) -0.033 (-4.5%) 05/05/2020 80 0.746 -1.6 Total Hip(Right) 10/07/2024 84 0.755 -1.5 0.040 (5.5%)* 0.038 (5.3%)* 06/10/2022 82 0.717 -1.8 0.002 (0.3%) 0.002 (0.3%) 05/05/2020 80 0.715 -1.9 *Denotes significance at 95% confidence level, LSC for AP Spine = 0.022 g/cm2, LSC for Total Hip = 0.027 g/cm2 Clinical Information Provided by Patient: Is being treated for osteoporosis Has used the following medications: Vitamin D, Calcium Has the following medical conditions: Hysterectomy Patient maximum height was 65.5 Menopause Age: 44 Does not regularly consume dairy products Onset of menses at age 12 Number of children 0 Impression: The patient has low bone mass, based on the Left Femoral Neck T-score. No significant bone loss was observed. Discussion: PATIENT UNDER TREATMENT WITH NO SIGNIFICANT BMD LOSS SINCE LAST EXAM. In an untreated patient, BMD typically declines with age. A lack of decline or gain is usually a sign that treatment is efficacious and fracture risk is reduced. It is important to ask patients whether they are taking their medications and to encourage continued and appropriate compliance with their osteoporosis therapies to reduce fracture risk. It is also important to review their risk factors and encourage appropriate calcium and vitamin D intakes, exercise, fall prevention and other lifestyle measures. Follow-Up: Consider a repeat BMD and Vertebral Fracture Assessment (VFA) exam in 2 years or sooner if medically necessary, to reassess this patient's status. Reported by: KAVEH on 10/07/2024 1:52:00 PM. Reviewed, dictated and finalized at location A. [facility]
--- OUTSIDE RECORDS SUMMARY | 2024-10-07 15:08 | XMS_ITS | Patient Health Record ---
Author Organization [facility] Address [address] [facility] [address] [place] [address] Support Name Relationship Address Phone Roxy Sarmiento Guarantor Unknown [phone] Reason For Referral No Information Plan Of Treatment No Information Insurance Providers Payer Name Payer Address Payer Phone Subscriber Number Group Number Insured Name Patient Relationship to Insured Coverage Start Date Coverage End Date DO NOT USE [id number] Roxy Sarmiento Self - patient is the insured 1
--- OUTSIDE RECORDS SUMMARY | 2024-10-07 15:11 | XMS_ITS ---
Author Organization [facility] ck Address [address] [facility] [address] [place] [address] Care Team Providers Care Glass Calibrator Name Role Phone zzzzMigration, zzzzProvider Unavailable Unav ailable REASON FOR VISIT [facility] Encounters Encounter Location Date Provider Diagnosis [facility] [address] [facility] [address] [place] [address] 06/04/2023 zzzzProvider zzzzMigration Plan Of Treatment No Information Progress Notes * Roxy MORENODOB:1940 (84 yo F)Acc No.[id number]:06/04/2023 Patient: Roxy TURCIOS :1940 A ge:83 Y S ex:Female [address]: [address] [place], [address] Subjective: * Chief Complaints: * E MR-Abel * Medical History: * Surgical History: * Hospitalization/Major Diagno stic Procedure: * Medications: Objective: * Vitals: * Physical Examination: Assessment: Plan: * Treatment: * Procedure Codes: * * Date:
--- OUTSIDE RECORDS SUMMARY | 2024-10-07 15:11 | XMS_ITS | Referral Summary ---
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
--- OUTSIDE RECORDS SUMMARY | 2024-10-07 15:11 | XMS_ITS ---
Author Organization [facility] ck Address [address] [facility] [address] [place] [address] Care Team Providers Care Nursery Nurse Name Role Phone zzzzMigration, zzzzProvider Unavailable Unav ailable REASON FOR VISIT [facility] Encounters Encounter Location Date Provider Diagnosis [facility] [address] [facility] [address] [place] [address] 06/03/2023 zzzzProvider zzzzMigration Plan Of Treatment No Information Progress Notes * Roxy MORENODOB:1940 (84 yo F)Acc No.[id number]:06/03/2023 Patient: Roxy TURCIOS :1940 A ge:83 Y S ex:Female Address: [address], [address] Subjective: * Chief Complaints: * E MR-Abel * Medical History: * Surgical History: * Hospitalization/Major Diagno stic Procedure: * Medications: Objective: * Vitals: * Physical Examination: Assessment: Plan: * Treatment: * Procedure Codes: * * Date:
--- OUTSIDE RECORDS SUMMARY | 2024-10-07 15:11 | XMS_ITS | Clinical Summary ---
Author Organization [facility] Address [address] [place] [address] Care Team Providers Care Photoengraver Apprentice Name Role Phone Tisha Tubbs MD Primary Care Provider [phone] Kelley Perez MD Unavailable [phone] Allergies No known active allergies Medications simvastatin [...] salivary glan d 04/05/2018 Oral candidiasis 04/05/2018 Encounters Date Type Department Care Team Description 09/30/2024 Orders Only [facility] Surgery [facility] [facility] [address] [place] [id number] Gladys Sheldon NP Abnormal mammogram (Primary Dx) from Last 3 Months Surgical History Surgery Date Site/Laterality Comments HYSTERECTOMY [...] on file Legal Sex Female 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 Gender Identity Not on file Sexual Orientation [...] 06/11/2021 9:40 AM CDT Plan of Treatment Health Maintenance Due Date Last Done Comments Depression Screening 1940 Fall Risk Assessment 1940 Osteoporosis Screening-Bone Density Scan 1940 Hepatitis B Screening 1957 Pneumococcal vaccine 65+ (1 of 1 - PCV) 1989 Zoster Vaccine (1 of 2) 1989 Well Visit 65+ 2004 Influenza Vaccine (#1) 2024 05/22/2018 DTaP/Tdap/Td Vaccine (2 - Td or Tdap) 05/02/2027 Insurance MEDICARE SOLUTIONS MEDICARE SOLUTIONS Care Teams Photoengraver Apprentice Relationship Specialty Start Date End Date Tisha Tubbs MD PCP - General 02/16/10 Kelley Perez MD [address] [address] Referring Physician Gynecology 06/11/21
--- OUTSIDE RECORDS SUMMARY | 2024-10-07 15:11 | XMS_ITS | Continuity of Care Document ---
Author Organization [facility] Address [address] [place] [address] Phone Care Team Providers Care Oil Filters Inspector Name Role Phone [facility] Unavailable Unavail able Corinna Mendoza Unavailable Advance Directives Directive Yes / No Effective Date File Name No Information Encounters Encounter Description Practice Location Reason(s) For Visit Diagnoses Date Provider Providers Copied on Encounter [facility], [id number] [place] [address] [address], [place], [place], [id number], [place] tel:[phone] [facility] No Information 0-200 0 [facility] [address] [facility], [address], [place], [place], [id number] , [place]. tel:[phone] Consulting Provider: Corinna Mendoza, [address] [place] [address], [address]. tel:[phone] Family History Family Member Type Diagnosis Age At Onset No Information Payers Payer name Insurance type Covered libertarian ID Authoriza tion(s) No Information Social History [...]
== END 2024-10-07 13:14 | disposition home or self-care (01) ==
LOC: ANHIMG 13:19
PROVIDERS: PCP Family Medicine; Visit Provider Obstetrics & Gynecology Gynecology
DX: Z78.0 Asymptomatic menopausal state (principal); M85.852 Other specified disorders of bone density and structure, left thigh; M85.851 Other specified disorders of bone density and structure, right thigh
CPT/HCPCS: 77080

== ENCOUNTER 2024-10-08 08:16 | Outpatient (CLI) | payer MEDICARE, SELFPAY ==
--- NOTE | ~2024-10-08 | CT_ITS ---
CLINICAL INDICATION: Adrenal mass COMPARISON: 04/12/2024 and dating back to 06/20/2011. TECHNIQUE: Multiple contiguous axial images of the abdomen and pelvis were performed following the ad ministration of with 100 mL Omnipaque-350 intravenous contrast The dose-length product (DLP) was 479.72 mGy-cm. Automated exposure control and iterative reconstruction technique were employed. FINDINGS/OBSERVATIONS: Visualized lower thorax: The bilateral lung bases are clear. The heart is enlarged, without pericardial effusion. Liver: The liver enhances homogeneously and is not enlarged measuring 17 cm in longitudinal dimension Gallbladder and biliary system: The gallbladder is surgically absent. Pancreas: The pancreas enhances homogeneously without ductal dilatation. Spleen: The spleen enhances homogeneously and is not enlarged measuring 9 cm in longitudinal dimension. Kidneys: The bilateral kidneys enhance symmetrically without hydronephrosis or renal calculi. Adrenal glands: 9.7 x 7.7 mm left adrenal nodule seen on the previous examination is less prominent on today's study, now measuring only 8.1 x 7 mm, likely secondary to patient positioning within the gantry. In compari son to previous examination performed 06/20/2011, this nodule measured 9.2 x 7.7 mm, demonstrating the same morphology, and most likely benign as it has not changed in more than 13 years. Gastrointestinal tract: Colonic diverticulosis without surrounding inflammatory change. Fecal stasis within the rectum. Appendix: The appendix is not definitively visualized. However, no pericecal inflammatory change is identified suggest the presence of acute appendicitis. Vasculature: Densely calcified atherosclerotic disease without aneurysmal dilatation. Lymph nodes: No pathologically enlarged or morphologically suspicious lymph nodes within the retroperitoneum or at the root of the mesentery. Pelvic structures: The bladder is distended, and otherwise unremarkable. The uterus is either surgically absent or markedly atrophic. Body wall and musculoskeletal: Small fat-containing umbilical hernia. Degenerative disease within the lower lumbar spine at the level of L5/S1 with disc space narrowing an d endplate changes. IMPRESSION: Stable findings within the left adrenal gland on contrast-enhanced imaging dating back to 2010, as de tailed above. Adrenal mass protocol imaging with MRI may be performed for confirmation, but not specifically recomm ended due to the longevity of the single contrast phase enhanced CT findings. Reviewed, dictated and finalized at location A. C TECHNICIAN IMPRESSION: Stable findings within the left adrenal gland on contrast-enhanced imaging dati ng back to 2010, as detailed above. Adrenal mass protocol imaging with MRI may be performed for confirmation, but n ot specifically recommended due to the longevity of the single contrast phase e nhanced CT findings.
[2024-10-08 08:34] LABS: Estimated Glomerular Filt Rate 39
== END 2024-10-08 08:17 | disposition home or self-care (01) ==
PROVIDERS: PCP Family Medicine; Visit Provider Family Medicine
DX: E27.8 Other specified disorders of adrenal gland (principal)
CPT/HCPCS: 74177; Q9967

== ENCOUNTER 2024-12-14 14:09 | Emergency (ER) | payer MEDICARE, SELFPAY ==
--- NOTE | 2024-12-14 14:19 | ED.GENADULT ---
HPI - General Adult General Chief complaint: Unspecified Stated complaint: SWELLING Time Seen by Provider: 12/14/24 14:19 Source: patient Mode of arrival: ambulatory Limitations: no limitations History of Present Illness HPI narrative: 84-year-old female with history of hypertension, stage III renal failure presents today with complaint of new swelling to bilateral lower extremities and to both hands for the past 4-5 days. Getting increasingly worse. Patient states rings to her fingers are tight. Has been checking her blood pressure at home and has been elevated. Thought maybe her machine was wrong so she went to the [facility] today and her blood pressure there was 177/90. No chest pain or shortness of breath. Patient states her sodium level was decreased on October labs, had labs recently rate checked and sodium level was normal. Patient states her creatinine was higher on November labs but has not discussed this with her primary care physician yet. Patient states she has increased fatigue over the past few days. All systems reviewed and negative except as noted above. Related Data Home Medications ?Medication ?Instructions ?Recorded ?Confirmed ?Last Taken ?Type calcium 600 mg (as carbonate)-vit 1 tablet PO DAILY 06/20/24 11/22/24 Unknown History D3 20 mcg (800 unit) chewable tablet (Caltrate plus D) perfluorohexyloctane (PF) 100 % 1 drp EACH EYE QID 06/20/24 11/22/24 Unknown History eye drops (Miebo (PF)) ergocalciferol (vitamin D2) 1,250 12/14/24 Unknown History mcg (50,000 unit) capsule Allergies Allergy/AdvReac Type Severity Reaction Status Date / Time No Known Allergies Allergy Verified 11/22/24 10:32 Review of Systems Review of Systems: CONSTITUTIONAL: Denies fever, chills, or sweats. Reports fatigue. EYES: Denies visual changes, redness, or discharge. ENT: Denies rhinorrhea, congestion, sore throat, or otalgia. CARDIOVASCULAR: Denies chest pain, palpitations. Reports edema bilateral lower extremities and to her hands.. RESPIRATORY: Denies cough or dyspnea. GASTROINTESTINAL: Denies abdominal pain, nausea, vomiting, or diarrhea. GENITOURINARY: Denies dysuria or hematuria. SKIN: Denies rash or itching. MUSCULOSKELETAL: Denies back pain, joint pain, or myalgia. NEUROLOGIC: Denies headache, numbness, or weakness. PSYCHIATRIC: Denies anxiety or depression. All other systems reviewed are negative, except as documented in HPI. [facility] Past Medical History Medical History (Updated 12/14/24 @ 14:44 by Tamara Leslie NP) Lump in throat Xerostomia Invasive ductal carcinoma of breast, female LLQ pain Irritable bowel syndrome Renal insufficiency Paresthesia of foot, bilateral Other halfway (current) drug therapy Other hyperlipidemia Gallstones Body mass index (BMI) exceeds 25 (02/23/18) Arthralgia of left hip Cataract (lens) fragments in eye following cataract surgery, bilateral Bruise Arthralgia of right hip Bleeding hemorrhoids Impacted cerumen of right ear Calculus of gallbladder with cholecystitis Renal failure Allergic rhinitis Acute sinusitis Pain in both lower extremities Dry mouth Chronic renal insufficiency Dysuria Constipation Thrush, oral Insomnia Stress Mouth sore Thyroid nodule Anxiety Chronic renal insufficiency, stage III (moderate) Essential (primary) hypertension Hypothyroidism (acquired) Mixed hyperlipidemia Multinodular goiter Situational depression Vitamin D deficiency Surgical History Surgical History S/P cholecystectomy Family History Family History Other Family history of chronic obstructive pulmonary disease Family history of elevated blood lipids Family history of lung disease Family history of thyroid disease Hypertension Social History Social History (Updated 11/22/24 @ 10:36 by Dolores Gracia) Social History: Caffeine-occasionally Smoking status: Never smoker Second hand tobacco smoke exposure: No Alcohol intake: never Substance use: never Substance use type: does not use Do You Feel Safe in your Home?: Yes Lack of Transportation: No Lack of Food: Never True Current Housing: I Have Housing Concerned About Future Housing: No Difficulty Paying Gas/Electric Bills: No Difficulty Paying for Meds: No Currently Unemployed: No Education: Trade/Vocational Certificate Difficulty w/ Childcare or Family Care: No Living arrangements: alone Additional living arrangements comments: Patient lives alone, is now living in a memory care facility. Occupation/Education: retired Gender identity (if verbalized by the patient): Female Sexual Orientation (if Verbalized by the Patient): Straight or Heterosexual Spiritual care concerns: No Agree to blood products: Yes Comments At time of signature, agree with nursing past medical, surgical, social and family history. There is no relevant family history pertinent to the presenting complaint. Exam Narrative: GENERAL: This is a well-nourished, well-developed patient, in no apparent distress. HEAD: normocephalic, atraumatic. EYES: PERRL. Sclera clear/white. Vision is grossly intact. EARS: External ears normal NOSE: External nose normal NECK: Neck supple, non-tender without lymphadenopathy, masses or thyromegaly. CARDIOVASCULAR: Regular rate and rhythm without murmurs, gallops, or rubs. RESPIRATORY: Clear to auscultation. Breath sounds equal bilaterally. No wheezes, rales, or rhonchi. SKIN: warm, Dry, intact with no suspicious lesions or rash, good texture and turgor. NEURO: awake, alert, and oriented to person, place and time. There were no obvious focal neurologic abnormalities. EXTREMITIES: No joint tenderness, effusion. 2+ nonpitting edema noted. Hands and fingers appear swollen and skin tight and shiny Course Course Level of Care: Express Care Visit Vital Signs Vital signs: Vital Signs Temperature 36.5 C 12/14/24 14:22 Pulse Rate 82 12/14/24 14:22 Respiratory Rate 16 12/14/24 14:22 Blood Pressure 211/57 H 12/14/24 14:22 Pulse Oximetry 98 12/14/24 14:22 Temperature 36.5 C 12/14/24 14:22 Pulse Rate 82 12/14/24 14:22 Respiratory Rate 16 12/14/24 14:22 Blood Pressure 211/57 H 12/14/24 14:22 Pulse Oximetry 98 12/14/24 14:22 Reviewed Transfer Transfered to: [place] Transportation: Other (private car with family member) Transfer rationale: Transferring patient to ER for further evaluation of elevated blood pressure, lower extremity edema. Accepting physician: Dr. Moncada Medical Decision Making MDM Narrative Medical decision making narrative: EKG normal sinus rhythm, heart rate 61, no ischemic findings 4-5 days of lower extremity edema, swelling to both hands. History of stage III renal failure. Blood pressure elevated today 200 systolic. No chest pain or shortness of breath. Transferring to ER for further evaluation. Vital Signs Vital Signs: Vital Signs Temperature 36.5 C 12/14/24 14:22 Pulse Rate 82 12/14/24 14:22 Respiratory Rate 16 12/14/24 14:22 Blood Pressure 211/57 H 12/14/24 14:22 Pulse Oximetry 98 12/14/24 14:22 Temperature 36.5 C 12/14/24 14:22 Pulse Rate 82 12/14/24 14:22 Respiratory Rate 16 12/14/24 14:22 Blood Pressure 211/57 H 12/14/24 14:22 Pulse Oximetry 98 12/14/24 14:22 Discharge Plan Discharge Clinical Impression: Hypertension, uncontrolled, Bilateral edema of lower extremity Patient Disposition: Acute Care Hospital Condition: Stable Patient Language: Albanian Prescriptions: No Action ergocalciferol (vitamin D2) 1,250 mcg (50,000 unit) capsule Caltrate 600 plus D 600 mg-20 mcg (800 unit) tablet,chewable 1 tablet PO DAILY Miebo (PF) 100 % drops 1 drp EACH EYE QID levothyroxine 50 mcg tablet 50 mcg PO DAILY Qty: 90 3RF cevimeline 30 mg capsule 1 cap PO TID 30 Days Qty: 90 2RF (DME) orthotics See Rx Instructions .Route .MEDSUPPLY Qty: 1 0RF Rx Instructions: As directed amlodipine 5 mg tablet 5 mg PO DAILY Qty: 90 1RF lorazepam 0.5 mg tablet 0.5 mg PO TID PRN (Reason: anxiety) Qty: 90 0RF zolpidem [Ambien] 10 mg tablet 10 mg PO .HS PRN (Reason: insomnia) Qty: 30 2RF lisinopril 30 mg tablet 30 mg PO DAILY Qty: 90 0RF simvastatin 20 mg tablet See Rx Instructions .ROUTE .COMPLEX Qty: 90 3RF Dose Instruction: TAKE 1 TABLET BY MOUTH EVERY DAY Rx Instructions: TAKE 1 TABLET BY MOUTH EVERY DAY Follow-up/Referrals: Tisha Tubbs MD [Primary Care Provider] - Time of Disposition: 14:44
--- NOTE | 2024-12-14 14:21 | ECG_ITS ---
Test Date: 2024-12-14 14:34:21 Measurements Intervals [place] Rate: 61 P: 60 CT: 181 QRS: 2 QRSD: 100 T: 58 QT: 382 QTc: 387 Interpretive Statements SINUS RHYTHM LOW QRS VOLTAGE IN EXTREMITY LEADS [QRS DEFLECTION < 0.5 mV IN LIMB LEADS] No previous ECG available for comparison Electronically Signed On 12-15-2024 16:00:15 CDT by Collin Crandall
[2024-12-14 14:22] VITALS: BP 211/57; PULSE 82; RESP 16; TEMP 36.5; O2SAT 98
== END 2024-12-14 14:58 | disposition short-term general hospital (02) ==
PROVIDERS: Emergency Provider Nurse Practitioner Family; PCP Family Medicine
DX: R60.0 Localized edema (principal); I12.9 Hypertensive chronic kidney disease with stage 1 through stage 4 chronic kidney disease, or unspecified chronic kidney disease; N18.30 Chronic kidney disease, stage 3 unspecified; E03.9 Hypothyroidism, unspecified; E55.9 Vitamin D deficiency, unspecified
CPT/HCPCS: 93005; 99213; G0463

== ENCOUNTER 2024-12-14 15:03 | Emergency (ER) | payer MEDICARE, SELFPAY ==
[2024-12-14] VITALS (17 sets, daily range): BP systolic 180–197; BP diastolic 59–85; PULSE 62–97; RESP 14–18; TEMP 36.5; O2SAT 96–100
--- NOTE | ~2024-12-14 | US_ITS ---
EXAMINATION: US venous doppler [facility] DATE: 12/14/2024 17:27 INDICATION: swelling, recent breast cancer dx . TECHNIQUE: Grayscale images without and with compression and Doppler images of the bilateral lower ex tremity veins were obtained. COMPARISON: None FINDINGS: The right common femoral vein, profunda (deep) femoral vein, femoral vein, popliteal vein, peroneal v ein, posterior tibial veins, gastrocnemius vein, and greater saphenous vein are patent. The left common femoral vein, profunda (deep) femoral vein, femoral vein, popliteal vein, peroneal v ein, posterior tibial veins, gastrocnemius vein, and greater saphenous vein are patent. IMPRESSION: Patent bilateral lower extremity veins. No evidence of deep venous thrombosis. Reviewed, dictated and finalized at location K.
--- NOTE | ~2024-12-14 | XR_ITS ---
EXAMINATION: XR chest 2V Exam Date/Time: 12/14/2024 17:00 CDT HISTORY: ble swelling, elev bnp Comparison: 10/10/2019. RESULT: Lines, tubes, and devices: Cholecystectomy clips. Lungs and pleura: No focal consolidation or pneumothorax. Mild diffuse and peripheral reticular opac ities. Mild bilateral costophrenic angle blunting. Cardiomediastinal silhouette: Stable. Other: No acute osseous or upper abdominal finding. IMPRESSION: Mild pulmonary edema with small bilateral pleural effusions. Reviewed, dictated and finalized at location K.
--- OUTSIDE RECORDS SUMMARY | 2024-12-14 16:42 | XMS_ITS | Clinical Summary ---
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 Active zolpidem (AMBIEN) 10 mg tablet Take 1 tablet (10 mg total) by mouth daily 0 Active amLODIPine (NORVASC) 5 mg tablet Take 1 tablet (5 mg total) by mouth daily 5 Active Miebo, PF, 100 % drops 5 Active cranberry 400 mg capsule Take by mouth. 12/03/19 25 Discontinu ed(Therapy completed) multivit-min/ir on/folic/lutein (CENTRUM SILVER WOMEN ORAL) Take by mouth 12/03/19 25 Discontinu ed(Therapy completed) risedronate (ACTONEL) 150 mg tablet Take 150 mg by mouth every 30 (thirty) days with water on empty stomach, nothing by mouth or lie down for next 30 minutes. 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 04/05/2018 Oral candidiasis 04/05/2018 Encounters Date Type Department Care Team Description 12/04/2024 Orders Only [facility] Surgery [address] [place] [phone] Kimmie Bradley MD PhD Encounter for other preprocedural examination (Primary Dx) 12/02/2024 2:30 PM CDT Office Visit [facility] Surgery [address] [place] [phone] Kimmie Bradley MD PhD Infiltrating ductal carcinoma of right breast (HCC) 11/05/2024 Telephone [facility] ([facility]) [address] [place] [phone] Viktoria Martinez RN Test Results (Right Breast Biopsy results 11/01/24) 11/01/2024 1:13 PM CDT - 11/01/2024 11:59 PM CDT Hospital Encounter [facility] [address] [place] [address] [phone] Abnormal mammogram Discharge Disposition: Discharge to home or self care 11/01/2024 12:30 PM CDT - 11/01/2024 11:59 PM CDT Hospital Encounter [facility] ([facility]) [address] [place] [address]18 Abnormal mammogram Discharge Disposition: Discharge to home or self care 10/25/2024 Results Follow-Up [facility] Surgery [facility] [place] [address] Gladys Sheldon NP 10/25/2024 Telephone [facility] ([facility]) [address] [place] [address] [phone] Nubia Linares RN 10/25/2024 Orders Only [facility] Surgery [facility] Floor [address] [place] [phone] Kathleen Mast CMA Mass of breast, unspecified laterality (Primary Dx); Malignant neoplasm of overlapping sites of right female breast, unspecified estrogen receptor status (HCC) 10/24/2024 7:27 PM CDT - 10/24/2024 11:59 PM CDT Hospital Encounter [facility] ([facility]) [address] [place] [address] [phone] Mass of right breast, unspecified quadrant Discharge Disposition: Discharge to home or self care 10/10/2024 Orders Only [facility] Surgery [facility] Floor [address] [place] [phone] Gladys Sheldon NP Mass of right breast, unspecified quadrant (Primary Dx) 09/30/2024 Orders Only [facility] Surgery [facility] Floor [address] [place] [phone] Gladys Sheldon, KAUSHIK Abnormal mammogram (Primary Dx) 09/25/2024 - 09/25/2024 11:59 PM 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 ([facility]) [address] [place] [phone] Discharge Disposition: Discharge to home or self care from Last 3 Months Immunizations Immunization Administration Dates Next Due Influenza, Quadrivalent, Hig h Dose, Preservative Free, Intrr 06/04/2020 Influenza, Quadrivalent, Spl it, Preservative Free, Intramuscular 05/22/2018 Tdap 05/02/2017 Surgical History Surgery Date Site/Laterality Comments HYSTERECTOMY 08/14/1974 - 08/13/1975 COLECTOMY 08/14/2008 - 08/13/2009 GALLBLADDER SURGERY 08/14/2014 - 08/13/2015 THYROIDECTOMY / EXCISION CYST THYROID 08/14/2016 - 08/13 BREAST BIOPSY 11/01/2024 Right CATARACT EXTRACTION 08/14/2021 - 08/13/2022 Bilateral Medical History Medical History Date Comments Thyroid disease HTN (hypertension) Anxiety Hypothyroidism Hyperlipidemia Family History Medical History Relation Name Comments Lung cancer Brother Throat cancer Brother Lung cancer Father Breast cancer Maternal Grandmother Aneurysm Mother Breast cancer Sister 1 Colon cancer Sister 2 Lung cancer Sister 2 Relation Name Status Comments Brother Father Maternal Grandmother Mother Sister 1 Sister 2 Social History Tobacco Use Types Packs/Day Years Used Date Smoking Tobacco: Never Smokeless Tobacco: Never Tobacco Cessation:Counseling Given: Not Answered Alcohol Use Standard Drinks/Week Comments No 0 (1 standard drink = 0.6 oz pur e alcohol) Comments No Sex and Gender Information Value Date Recorded Sex Assigned at Not on file Legal Sex Female 12:18 AM 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 AGENT Gender Identity Not on file Sexual Orientation Not on file Obstetrics History Last Filed Vital Signs Vital Sign Reading Time Taken Comments Blood Pressure 134/80 05/05/2021 1:33 PM CDT Pulse 74 05/05/2021 1:33 PM CDT Temperature - - Respiratory Rate - - Oxygen Saturation 95% 05/05/2021 1:33 PM CDT Inhaled Oxygen Concentration - - Weight 67.5 kg (148 lb 12.8 oz) 12/02/2024 2:53 PM CDT Height 165.1 cm (5' 5 ) 06/11/2021 9:40 AM CDT Body Mass Index 24.76 06/11/2021 9:40 AM CDT Plan of Treatment Upcoming Encounters Date Type Department Care Team (Latest Contact Info) Description 01/07/2025 9:40 AM CDT Hospital Encounter [facility] [address] [place] [address] [phone] Kimmie Bradley MD PhD [address] [place] [address] 01/07/2025 9:40 AM CDT - 01/07/2025 10:[address] [facility] [address] [place] [phone] Kimmie Bradley MD PhD [address] [place] [address] BIOPSY BREAST NEEDLE LOCALIZATION Scheduled Procedures Name Priority Associated Diagnoses Date/Ti me BIOPSY BREAST NEEDLE LOCALIZATION Malignant neoplasm of right female breast, unspecified estrogen receptor status, unspecified site of breast (HCC) 01/07/2025 9:40 AM CDT LUMPECTOMY Malignant neoplasm of right female breast, unspecified estrogen receptor status, unspecified site of breast (HCC) 01/07/2025 9:40 AM CDT Health Maintenance Due Date Last Done Comments Depression Screening 1940 Fall Risk Assessment 1940 Osteoporosis Screening-Bone Density Scan 1940 Hepatitis B Screening 1957 Pneumococcal vaccine 65+ (1 of 1 - PCV) 1989 Zoster Vaccine (1 of 2) 1989 Well Visit 65+ 2004 Influenza Vaccine (Season Ended) 2025 06/04/20 20, 05/22/2018 DTaP/Tdap/Td Vaccine (2 - Td or Tdap) 05/02/2027 Medical Devices Implanted Type Area Edging Machine Feeder Device Identifier Shelf Expiration Date Model / Serial / Lot [employer] Marker Image Hydromark Plus T5 Titanium 15ga Radiological Implant Sterile 3097-59-45-T5 - [id number] Implanted:Qty: 1 on 11/01/2024 at [facility] [employer] [id number] 10/04/2025 [id number] -T5 / / [id number] Procedures Procedure Name Priority Date/Time Associated Diagnosis Comments JUAN ANTONIO POST CLIP PLACEMENT RIGHT Schedule Routine, Read Routine (OP Routine) 11/01/2024 1:27 PM CDT Abnormal mammogram US GUIDED BREAST BIOPSY RIGHT Schedule Routine, Read Routine (OP Routine) 11/01/2024 1:13 PM CDT Abnormal mammogram SURGICAL PATHOLOGY Routine 11/01/2024 1: 06 PM CDT Abnormal mammogram BREAST IMAGING MG DIAGNOSTIC OUTSIDE CONSULT Routine 10/24/2024 7:27 PM CDT Mass of right breast, unspecified quadrant BREAST MRI OUTSIDE REFERENCE Routine 09/25/2024 12:00 AM RESERVATION SALES AGENT Mass of right breast, unspecified quadrant from Last 3 Months Results * Juan Antonio Post Clip Placement Right (11/01/2024 1:27 PM CDT) Anatomical Region Laterality Modality Breast Right Mammography 11/01/2024 1:43 PM CDT Addenda Addendum by Katie Suggs MD on 11/05/2024 1:32 PM CDT ADDENDUM: Pathology from biopsy of the RIGHT breast, 1:00, 4 cm from the nipple, showed invasive ductal carcinoma with lobular features, histologic grade 2/3; please refer to pathology report for details. Pathology is malignant and concordant. Surgical management is recommended. Radiology-pathology concordance was reviewed with Dr. George Manzo. Results and recommendations will be discussed with the patient by [facility] or referring provider staff and will be separately documented in the medical record. Electronically signed by: Katie Suggs M.D. Impressions 11/01/2024 1:43 PM CDT Successful vacuum-assisted core needle biopsy of the RIGHT breast. Pathology is pending. ASSESSMENT: Post Procedure Mammograms for Marker Placement Electronically signed by: Katie Suggs M.D. Narrative 11/01/2024 1:43 PM CDT EXAMINATION: RIGHT BREAST CORE BIOPSY UTILIZING SONOGRAPHIC GUIDANCE, PLACEMENT OF A BIOPSY TISSUE MARKER CLIP, AND RIGHT FULL FIELD DIGITAL MAMMOGRAM WITH DIGITAL BREAST TOMOSYNTHESIS HISTORY: Abnormal breast imaging. 84-year-old woman with outside hospital screening detected mass in the RIGHT breast at 1:00, 4 cm from the nipple. Ultrasound guided core needle biopsy is requested to evaluate for malignancy. COMPARISON: Outside hospital breast MRI 09/25/2024. Outside hospital RIGHT breast mammogram and ultrasound, most recently 08/30/2024. BREAST PARENCHYMAL COMPOSITION: There are scattered areas of fibroglandular density. PROCEDURE AND FINDINGS: The risks and potential benefits of the procedures were discussed with the patient and written informed consent was obtained. After sterile preparation of the skin, 1% lidocaine and 2% lidocaine with epinephrine were utilized for local anesthesia. A small skin incision was made with a #11 scalpel blade. A 14G vacuum-assisted biopsy needle was then advanced through the skin incision to the edge of the lesion of interest at 1:00, 4 cm from the nipple, from a lateral approach utilizing sonographic guidance. A total of 3 tissue cores were obtained through the lesion. A Hydromark dragonfly tissue marker clip was then placed at the biopsy site. Hemostasis was achieved. Dermabond bandage and an ice pack were applied. There was no evidence of significant immediate complication. The patient was given verbal as well as written post procedural instructions prior to release from the department. The tissue cores were submitted to surgical pathology in formalin for histologic analysis. A two-view RIGHT digital mammogram, including digital breast tomosynthesis, obtained post procedure demonstrates that the tissue marker clip is in expected position. The attending radiologist, Dr. Katie Suggs M.D., performed the entire procedure. Procedure Note Katie Suggs MD - 11/01/2024 EXAMINATION: RIGHT BREAST CORE BIOPSY UTILIZING SONOGRAPHIC GUIDANCE, PLACEMENT OF A BIOPSY TISSUE MARKER CLIP, AND RIGHT FULL FIELD DIGITAL MAMMOGRAM WITH DIGITAL BREAST TOMOSYNTHESIS HISTORY: Abnormal breast imaging. 84-year-old woman with outside hospital screening detected mass in the RIGHT breast at 1:00, 4 cm from the nipple. Ultrasound guided core needle biopsy is requested to evaluate for malignancy. COMPARISON: Outside hospital breast MRI 09/25/2024. Outside hospital RIGHT breast mammogram and ultrasound, most recently 08/30/2024. BREAST PARENCHYMAL COMPOSITION: There are scattered areas of fibroglandular density. PROCEDURE AND FINDINGS: The risks and potential benefits of the procedures were discussed with the patient and written informed consent was obtained. After sterile preparation of the skin, 1% lidocaine and 2% lidocaine with epinephrine were utilized for local anesthesia. A small skin incision was made with a #11 scalpel blade. A 14G vacuum-assisted biopsy needle was then advanced through the skin incision to the edge of the lesion of interest at 1:00, 4 cm from the nipple, from a lateral approach utilizing sonographic guidance. A total of 3 tissue cores were obtained through the lesion. A Hydromark dragonfly tissue marker clip was then placed at the biopsy site. Hemostasis was achieved. Dermabond bandage and an ice pack were applied. There was no evidence of significant immediate complication. The patient was given verbal as well as written post procedural instructions prior to release from the department. The tissue cores were submitted to surgical pathology in formalin for histologic analysis. A two-view RIGHT digital mammogram, including digital breast tomosynthesis, obtained post procedure demonstrates that the tissue marker clip is in expected position. The attending radiologist, Dr. Katie Suggs M.D., performed the entire procedure. IMPRESSION: Successful vacuum-assisted core needle biopsy of the RIGHT breast. Pathology is pending. ASSESSMENT: Post Procedure Mammograms for Marker Placement Electronically signed by: Katie Suggs M.D. us Kelley Perez MD IMG MAMMO PROCEDURES Chris andrea Result - Final * US Guided Breast Biopsy Right (11/01/2024 1:13 PM CDT) Anatomical Region Laterality Modality Breast Right Ultrasound 11/01/2024 1:43 PM CDT Addenda Addendum by Katie Suggs MD on 11/05/2024 1:32 PM CDT ADDENDUM: Pathology from biopsy of the RIGHT breast, 1:00, 4 cm from the nipple, showed invasive ductal carcinoma with lobular features, histologic grade 2/3; please refer to pathology report for details. Pathology is malignant and concordant. Surgical management is recommended. Radiology-pathology concordance was reviewed with Dr. George Manzo. Results and recommendations will be discussed with the patient by [facility] or referring provider staff and will be separately documented in the medical record. Electronically signed by: Katie Suggs M.D. Impressions 11/01/2024 1:43 PM CDT Successful vacuum-assisted core needle biopsy of the RIGHT breast. Pathology is pending. ASSESSMENT: Post Procedure Mammograms for Marker Placement Electronically signed by: Katie Suggs M.D. Narrative 11/01/2024 1:43 PM CDT EXAMINATION: RIGHT BREAST CORE BIOPSY UTILIZING SONOGRAPHIC GUIDANCE, PLACEMENT OF A BIOPSY TISSUE MARKER CLIP, AND RIGHT FULL FIELD DIGITAL MAMMOGRAM WITH DIGITAL BREAST TOMOSYNTHESIS HISTORY: Abnormal breast imaging. 84-year-old woman with outside hospital screening detected mass in the RIGHT breast at 1:00, 4 cm from the nipple. Ultrasound guided core needle biopsy is requested to evaluate for malignancy. COMPARISON: Outside hospital breast MRI 09/25/2024. Outside hospital RIGHT breast mammogram and ultrasound, most recently 08/30/2024. BREAST PARENCHYMAL COMPOSITION: There are scattered areas of fibroglandular density. PROCEDURE AND FINDINGS: The risks and potential benefits of the procedures were discussed with the patient and written informed consent was obtained. After sterile preparation of the skin, 1% lidocaine and 2% lidocaine with epinephrine were utilized for local anesthesia. A small skin incision was made with a #11 scalpel blade. A 14G vacuum-assisted biopsy needle was then advanced through the skin incision to the edge of the lesion of interest at 1:00, 4 cm from the nipple, from a lateral approach utilizing sonographic guidance. A total of 3 tissue cores were obtained through the lesion. A Hydromark dragonfly tissue marker clip was then placed at the biopsy site. Hemostasis was achieved. Dermabond bandage and an ice pack were applied. There was no evidence of significant immediate complication. The patient was given verbal as well as written post procedural instructions prior to release from the department. The tissue cores were submitted to surgical pathology in formalin for histologic analysis. A two-view RIGHT digital mammogram, including digital breast tomosynthesis, obtained post procedure demonstrates that the tissue marker clip is in expected position. The attending radiologist, Dr. Katie Suggs M.D., performed the entire procedure. Procedure Note Katie Suggs MD - 11/01/2024 EXAMINATION: RIGHT BREAST CORE BIOPSY UTILIZING SONOGRAPHIC GUIDANCE, PLACEMENT OF A BIOPSY TISSUE MARKER CLIP, AND RIGHT FULL FIELD DIGITAL MAMMOGRAM WITH DIGITAL BREAST TOMOSYNTHESIS HISTORY: Abnormal breast imaging. 84-year-old woman with outside hospital screening detected mass in the RIGHT breast at 1:00, 4 cm from the nipple. Ultrasound guided core needle biopsy is requested to evaluate for malignancy. COMPARISON: Outside hospital breast MRI 09/25/2024. Outside hospital RIGHT breast mammogram and ultrasound, most recently 08/30/2024. BREAST PARENCHYMAL COMPOSITION: There are scattered areas of fibroglandular density. PROCEDURE AND FINDINGS: The risks and potential benefits of the procedures were discussed with the patient and written informed consent was obtained. After sterile preparation of the skin, 1% lidocaine and 2% lidocaine with epinephrine were utilized for local anesthesia. A small skin incision was made with a #11 scalpel blade. A 14G vacuum-assisted biopsy needle was then advanced through the skin incision to the edge of the lesion of interest at 1:00, 4 cm from the nipple, from a lateral approach utilizing sonographic guidance. A total of 3 tissue cores were obtained through the lesion. A Hydromark dragonfly tissue marker clip was then placed at the biopsy site. Hemostasis was achieved. Dermabond bandage and an ice pack were applied. There was no evidence of significant immediate complication. The patient was given verbal as well as written post procedural instructions prior to release from the department. The tissue cores were submitted to surgical pathology in formalin for histologic analysis. A two-view RIGHT digital mammogram, including digital breast tomosynthesis, obtained post procedure demonstrates that the tissue marker clip is in expected position. The attending radiologist, Dr. Katie Suggs M.D., performed the entire procedure. IMPRESSION: Successful vacuum-assisted core needle biopsy of the RIGHT breast. Pathology is pending. ASSESSMENT: Post Procedure Mammograms for Marker Placement Electronically signed by: Katie Suggs M.D. Kelley Perez MD IMG MAMMO PROCEDURES Chris andrea Result - Final * Surgical pathology (11/01/2024 1:06 PM CDT) Tissue specimen (specimen) (Breast biopsy, needle core) 11/01/2024 1:06 PM CDT Comment:RIGHT breast 1:00, 4 cm fn. ultrasound guided biopsy. BIRADS 4C Narrative PATHOLOGY MERGED WITH [facility] - 11/05/2024 10:57 AM CDT EPIC results best viewed via link to PDF [facility] Wendy Contreras [facility] of Surgical Pathology [place] [address] Note to Patients: This report may contain a detailed description of human tissue sent by a health care provider to the laboratory for pathologic evaluation. The content of this report is essential for diagnosis and may provide important critical findings. This information may be unfamiliar to patients to review without a medical professional present. It is advised that the patient review this report in the presence of a health care provider who can answer questions and explain the details. SURGICAL PATHOLOGY REPORT FINAL Patient Name: CHIO SARMIENTO Gender: F : 1940 (Age: 84) Address: [address] [place] [address] [place] [address] Hospital #: [id number] Taken:11/01/2024 Received:11/01/2024 Reported: 11/05/2024 Patient Type: MERGED WITH [facility] Ancillary Service: Laboratory Location: Physician(s): Teresita Ma M.D. Ami Jay Trivedi, M.D. Diagnosis: Breast, right, 1:00 4 cm from nipple, ultrasound-guided core biopsy: - Invasive ductal carcinoma with lobular features - Linear dimension = 4 mm in core biopsy material, present in multiple cores - Histologic grade = 2/3 (tubules 3 + nuclei 2 + mitosis 1 = 6/9) by ESBR criteria - See biomarker report and comment. lns/11/04/2024 09:25 By this signature, I attest that the above diagnosis is based upon my personal examination of the slides(and/or other material indicated in the diagnosis). Kolby Yeager M.D. Report Electronically Reviewed and Signed Out By Kolby Yeager M.D. 11/05/2024 10:57:52 Diagnosis Comment This result was flagged as significant and was sent to Dr. Perez via [facility] chat on 11/04/[address] Wendy Marrero. Reason(s): To the best of our knowledge, this is the first diagnosis of this type of malignancy rendered for this patient. Sections of the breast lesion show an invasive carcinoma with primarily linear tumor cell growth with no definitive glandular formation. To differentiate between a ductal versus lobular carcinoma, an immunohistochemical stain for E-cadherin was performed (single antibody procedure with appropriate controls). The tumor cells are reactive to E-cadherin, supporting the diagnosis of invasive ductal carcinoma. Wendy Marrero D.O. History: The patient is an 84-year-old woman presenting for abnormal mammogram. Operative procedure: Right breast ultrasound-guided biopsy BI-RADS 4C. Specimen(s) Received: A: Right breast 1:00, 4cm fn. ultrasound guided biopsy. BIRADS 4C Gross Description: Received in formalin, labeled with the patient s identifiers and right breast 1:00 4 cm FN ultrasound-guided biopsy BI-RADS 4C are four yellow white cores of fibrofatty tissue (measuring 1.3-3.6 cm in length by 0.2 cm in diameter. Labeled A1 to A2. Jar 0. Placed in formalin immediately after collection. Total fixation time= 8.0 hours. [facility]/11/01/2024 18:58 PA(s): Brea Jett BREAST BIOMARKER RESULTS ESTROGEN RECEPTOR: Positive Ella Score: Proportion 5/5 Intensity 3/3 Total Score 8/8 PROGESTERONE RECEPTOR: Positive Ella Score: Proportion 5/5 Intensity 3/3 Total Score 8/8 HER-2: negative (score 0 by IHC - no membrane staining) Her2 Interpretation Guide Score 0: No membrane staining is observed in any tumor cells; Score 0/HER-2 ultralow: Incomplete membrane staining that is faint/barely perceptible in <=10% of tumor cells; Score 1+: Incomplete membrane staining that is faint/barely perceptible in >10% of tumor cells; Score 2+: circumferential membrane staining that is weak/moderate and within >10% of tumor cells, or complete and circumferential membrane staining that is intense and within <=10% of tumor cells; Score 3+: intense and uniform circumferential membrane staining in >10% of tumor cells. A strong membranous (chicken-wire) pattern should be present. KI-67: Not evaluated TUMOR HISTOLOGIC TYPE: Invasive ductal carcinoma (no special type) HISTOLOGICAL GRADE BY ESBR CRITERIA: 2 Technical Notes Estrogen receptor (ER), progesterone receptor (MI), and HER2 were evaluated by immunohistochemistry (IHC) by morphometric analysis in routine formalin-fixed paraffin-embedded tissue using a proprietary polymer- based detection system and instrumentation by [employer] per film reproducer's recommendation. The IHC results for ER (antibody SP1) and MI (antibody 1E2) were quantified and interpreted (positive vs negative) using the Elal score (total score range = 0 to 8; positive >2) (see: Mod Pathol 11:155, 1997; J Clin Oncol 17:1474, 1998; Mod Pathol 17:1545, 2004; Arch Pathol Lab Med 144:545, 2020). Pathway Her2 is a trademark of [employer] The IHC results for Pathway Her2 (antibody 4B5 rabbit monoclonal antibody) were scored in compliance with the ASCO/CAP guidelines (see: J Clin Oncol 25:118, 2007; Arch Pathol Lab Med 131:18, 2007, Arch Pathol Lab Med 142:1364, 2018). Ella score for estrogen and progesterone receptor evaluation: The Ella score combines the percentage of positive cells [proportion score: 0 (0%), 1 (<1%), 2 (1-10%), 3 (11- 33%), 4 (34-66%), 5 (>67%)] and the intensity of the reaction product (intensity score: 0-3). The two scores are added together for a final score. A combined score of >2 is considered positive. Her2 Interpretation guide Score 0: No membrane staining is observed, or immunoreactivity in <=10% of tumor cells; score 1+: incomplete membrane staning that is faint/barely perceptible and within >10% of tumor cells; score 2+: circumferential membrane staining that is incomplete and/or weak/moderate and within >10% of tumor cells, or complete and circumferential membrane staining that is intense and within <=10% of tumor cells; score 3+: intense and uniform circumferential membrane staining in >10% of tumor cells. A strong membranous (chicken-wire) pattern should be present. Ki-67 Technical Note and Interpretation: Testing for Ki-67 is performed at the request of the clinical teams. Ki-67 was evaluated by immunohistochemistry (IHC) in routine formalin-fixed paraffin-embedded tissue using rabbit monoclonal antibody to Ki-67 (clone [id number])and a proprietary polymer-based detection system andinstrumentation by [employer] per film reproducer's recommendation. The index was determined by manual morphometric analysis of at least 3 high power welch and calculating the proportion of tumor cells with positive nuclear staining. Control expression, sample adequacy, and uniformity of staining were all assessed. For uniform staining the index is determined by 3 randomly selected high power welch and calculating the proportion of tumor cells with positive nuclear staining. For non-uniform staining, the average across the stained specimen is reported (see: J Natl Cancer Inst 103:1656, 2011). Given the absence of inter-laboratory standardization for this assay, proliferation indices must be interpreted with caution and no prognostic thresholds can be provided. Published thresholds may or may not be relevant to the reported results and findings should be interpreted in conjunction with allother relevant clinical and pathological data. By this signature, I attest that the above diagnosis is based upon my personal examination of the slides(and/or other material). Addenda/Procedures The performance characteristics of some immunohistochemical stains, fluorescence in-situ hybridization tests and immunophenotyping by flow cytometry cited in this report (if any) were determined by the Surgical Pathology and Flow Cytometry Departments at [facility] as part of an ongoing quality assurance technician program and in compliance with federally mandated regulations drawn from the Clinical Laboratory Improvement Act of 1988 (CLIA '88). Some of these tests rely on the use of analyte specific reagents and are subject to specific labeling requirements by the US Food and Drug Administration. Such diagnostic tests may only be performed in a facility that is certified by the Department of Health and Human Services as a high complexity laboratory under CLIA '88. The FDA has determined that such clearance or approval is not necessary. This test is used for clinical purposes. It should not be regarded as investigational or for research. Nevertheless, federal rules concerning the medical use of analyte specific reagents require that the following disclaimer be attached to the report: This test was developed and its performance characteristics determined by the Surgical Pathology and Flow Cytometry Departments of [facility]. It has not been cleared or approved by the U. S. Food and Drug Administration. IMAGES AND SCANNED DOCUMENTS, IF INCLUDED, ONLY VIEWABLE IN PDF VERSION OF REPORT Kelley Perez MD LAB PATHOLOGY ORDERABLES Final Result PATHOLOGY [facility] [address]rd Floor [place], [place] [phone] * Breast Imaging DX Outside Consult (10/24/2024 7:27 PM CDT) Anatomical Region Laterality Modality Breast N/A Mammography 10/25/2024 10:2 7 AM CDT Impressions 10/25/2024 10:54 AM CDT 1. 1.6 cm irregular mass with spiculated margins within the upper central right breast is highly suspicious for malignancy and ultrasound-guided biopsy is recommended. 2. No evidence of malignancy in the left breast. The method of initial detection of finding was 3D screening mammography (Sdbt). OVERALL FINAL ASSESSMENT: SUSPICIOUS. BI-RADS Category 4C: High suspicion for malignancy. RECOMMENDATION: Ultrasound-guided biopsy of the irregular mass within the upper central right breast at approximately 1:00, 4 cm from the nipple. NOTE: The findings, conclusions and recommendations within this report do not replace the initial findings, conclusions and recommendations made at the facility where the study was performed based upon the imaging and clinical condition at that time. Review of the prior report and correlation with the clinical history are necessary. The provided images may or may not represent the [place] source data set and thus may contain changes which may lower the sensitivity of the second opinion interpretation. Dictated by: Khurram Sanhcez MD The radiology attending physician has personally reviewed this study, and had reviewed and/or edited this written report and agrees with it. Electronically signed by: Corinna Noe M.D. Narrative 10/25/2024 10:54 AM CDT EXAMINATION: REVIEW AND INTERPRETATION OF OUTSIDE IMAGING FACILITY PERFORMING OUTSIDE IMAGING: [facility] EXAM(S) REVIEWED: 1. BILATERAL SCREENING MAMMOGRAM WITH TOMOSYNTHESIS, 08/21/2024 2. RIGHT UNILATERAL DIAGNOSTIC MAMMOGRAM WITH TOMOSYNTHESIS, 08/30/2024 3. BILATERAL BREAST MRI WITH AND WITHOUT INTRAVENOUS CONTRAST, 09/25/2024 DATE OF INTERPRETATION: 10/25/2024 HISTORY: 84-year-old female with a developing right breast asymmetry on mammography, found to have a right breast mass on MRI, for which biopsy has been recommended but not yet performed. COMPARISON: 07/17/2023, 06/10/2022 BREAST PARENCHYMAL COMPOSITION: There are scattered areas of fibroglandular density. FINDINGS: Screening mammography with tomosynthesis, 08/21/2024: There is a focal asymmetry within the upper central right breast at posterior depth. No suspicious finding is seen in the left breast. There are two unchanged oval and circumscribed masses within the upper outer left breast, with biopsy clip associated with one of these. Right diagnostic mammogram with tomosynthesis, 08/30/2024: There is a spiculated mass within the upper central right breast at posterior depth corresponding to the focal asymmetry seen on screening mammography. By report, there is an irregular and heterogenous ill-defined mass with marginal vascularity and mixed posterior acoustic attenuation measuring up to 1.4 cm located at 1:00, 4 cm from the nipple. There are additionally normal appearing intramammary lymph nodes at 9:00, 7 cm from the nipple. There is no right axillary adenopathy. Breast MRI: Within the upper central right breast at posterior depth, there is a 1.6 cm irregular mass with spiculated margins corresponding to the mammographic findings. This mass is associated with type I persistent delayed enhancement kinetics. No suspicious mass or non-mass enhancement is seen in the left breast. 2 oval masses correspond with mammographically stable findings and are benign. There are no suspicious axillary lymph nodes. Procedure Note Corinna Noe MD - 10/25/2024 EXAMINATION: REVIEW AND INTERPRETATION OF OUTSIDE IMAGING FACILITY PERFORMING OUTSIDE IMAGING: [facility] EXAM(S) REVIEWED: 1. BILATERAL SCREENING MAMMOGRAM WITH TOMOSYNTHESIS, 08/21/2024 2. RIGHT UNILATERAL DIAGNOSTIC MAMMOGRAM WITH TOMOSYNTHESIS, 08/30/2024 3. BILATERAL BREAST MRI WITH AND WITHOUT INTRAVENOUS CONTRAST, 09/25/2024 DATE OF INTERPRETATION: 10/25/2024 HISTORY: 84-year-old female with a developing right breast asymmetry on mammography, found to have a right breast mass on MRI, for which biopsy has been recommended but not yet performed. COMPARISON: 07/17/2023, 06/10/2022 BREAST PARENCHYMAL COMPOSITION: There are scattered areas of fibroglandular density. FINDINGS: Screening mammography with tomosynthesis, 08/21/2024: There is a focal asymmetry within the upper central right breast at posterior depth. No suspicious finding is seen in the left breast. There are two unchanged oval and circumscribed masses within the upper outer left breast, with biopsy clip associated with one of these. Right diagnostic mammogram with tomosynthesis, 08/30/2024: There is a spiculated mass within the upper central right breast at posterior depth corresponding to the focal asymmetry seen on screening mammography. By report, there is an irregular and heterogenous ill-defined mass with marginal vascularity and mixed posterior acoustic attenuation measuring up to 1.4 cm located at 1:00, 4 cm from the nipple. There are additionally normal appearing intramammary lymph nodes at 9:00, 7 cm from the nipple. There is no right axillary adenopathy. Breast MRI: Within the upper central right breast at posterior depth, there is a 1.6 cm irregular mass with spiculated margins corresponding to the mammographic findings. This mass is associated with type I persistent delayed enhancement kinetics. No suspicious mass or non-mass enhancement is seen in the left breast. 2 oval masses correspond with mammographically stable findings and are benign. There are no suspicious axillary lymph nodes. IMPRESSION: 1. 1.6 cm irregular mass with spiculated margins within the upper central right breast is highly suspicious for malignancy and ultrasound-guided biopsy is recommended. 2. No evidence of malignancy in the left breast. The method of initial detection of finding was 3D screening mammography (Sdbt). OVERALL FINAL ASSESSMENT: SUSPICIOUS. BI-RADS Category 4C: High suspicion for malignancy. RECOMMENDATION: Ultrasound-guided biopsy of the irregular mass within the upper central right breast at approximately 1:00, 4 cm from the nipple. NOTE: The findings, conclusions and recommendations within this report do not replace the initial findings, conclusions and recommendations made at the facility where the study was performed based upon the imaging and clinical condition at that time. Review of the prior report and correlation with the clinical history are necessary. The provided images may or may not represent the [place] source data set and thus may contain changes which may lower the sensitivity of the second opinion interpretation. Dictated by: Khurram Sanchez MD The radiology attending physician has personally reviewed this study, and had reviewed and/or edited this written report and agrees with it. Electronically signed by: Corinna Noe M.D. us Gladys Sheldon NP IMG MAMMO PROCEDURES Fi nal Result * Breast MRI Outside Reference (09/25/2024 12:00 AM RESERVATION SALES AGENT) Impressions RAD_MAMMO_[facility] - 10/24/2024 6:49 PM CDT These images are for Reference purposes only and have not been reviewed by [facility] Radiology. There will be no report generated by a [facility] Radiologist. 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
--- OUTSIDE RECORDS SUMMARY | 2024-12-14 16:43 | XMS_ITS | Encounter Summary ---
Author Organization [facility] Address [address] [facility] [address] [place] [address] Phone Care Team Providers Care Microbiological Laboratory Technician Name Role Phone Tisha Tubbs MD Primary Care Provider [phone] Kelley Perez MD Unavailable [phone] Encounter Details Date Type Department Care Team (Late st Contact Info) Description 10/25/2024 Results Follow-Up [facility] [address] [place] [address] Gladys Sheldon, [employer] [address] [id number] Social History Tobacco Use Types Packs/Day Years Used Date Smoking Tobacco: Never Smokeless Tobacco: Never Alcohol Use Standard Drinks/Week Comments No 0 (1 standard drink = 0.6 oz pur e alcohol) Comments No Sex and Gender Information Value Date Recorded Sex Assigned at Not on file 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 Gender Identity Not on file Sexual Orientation Not on file documented as of this encounter Plan of Treatment Upcoming Encounters Date Type Department Care Team (Latest Contact Info) Description 01/07/2025 9:40 AM CDT Hospital Encounter [facility] [address] [place], [place] [id number] Aft, Kimmie Ceballos MD PhD [address] [place], [place] [id number] 01/07/2025 9:40 AM CDT - 01/07/2025 10:55 AM CDT Surgery [facility] Operating [facility] [address] [place] [address] Aft, Kimmie Ceballos MD PhD [address] [place] [address] BIOPSY BREAST NEEDLE LOCALIZATION Scheduled Procedures Name Priority Associated Diagnoses Date/Ti fl BIOPSY BREAST NEEDLE LOCALIZATION Malignant neoplasm of right female breast, unspecified estrogen receptor status, unspecified site of breast (HCC) 01/07/2025 9:40 AM CDT LUMPECTOMY Malignant neoplasm of right female breast, unspecified estrogen receptor status, unspecified site of breast (HCC) 01/07/2025 9:40 AM CDT documented as of this encounter Visit Diagnoses Not on filedocumented in this encounter Care Teams Microbiological Laboratory Technician Relationship Specialty Start Date End Date Tisha Tubbs MD PCP - General 02/16/10 Kelley Perez MD [address] [address] Referring Physician Gynecology 06/11/21 documented as of this encounter
--- OUTSIDE RECORDS SUMMARY | 2024-12-14 16:43 | XMS_ITS | Referral Summary ---
Author Organization [facility] Address [address] [place] [phone] Care Team Providers [employer] Name Role Phone Tisha Tubbs MD Primary Care Provider [phone] Kelley Perez MD Unavailable [phone] Encounters Date Type Department Care Team Description 12/04/[address] [facility] Surgery [address] [place] [phone] AftKimmie MD PhD Encounter for other preprocedural examination (Primary Dx) 12/02/2024 2:30 PM CDT Office Visit 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) 11/05/2024 Telephone [facility] ([facility]) [address] [place] [phone] Viktoria Martinez RN Test Results (Right Breast Biopsy results 11/01/24) 11/01/2024 1:13 PM CDT - 11/01/2024 11:59 PM CDT Hospital Encounter [facility]) [address] [place] [address] Abnormal mammogram Discharge Disposition: Discharge to home or self care 11/01/2024 12:30 PM CDT - 11/01/2024 11:59 PM CDT Hospital Encounter [facility] ([facility]) [address] [place] [phone] Abnormal mammogram Discharge Disposition: Discharge to home or self care 10/25/2024 Results Follow-Up [facility] Surgery [address] [place] [address] Gladys Sheldon NP 10/25/2024 Telephone [facility] ([facility]) [address] [place] [phone] Nubia Linares RN 10/25/[address] [facility] Surgery [address] [place] [address] Floor [address] [place] [phone] Kathleen Mast CMA Mass of breast, unspecified laterality (Primary Dx); Malignant neoplasm of overlapping sites of right female breast, unspecified estrogen receptor status (HCC) 10/24/2024 7:27 PM CDT - 10/24/2024 11:59 PM CDT Hospital Encounter [facility] ([facility]) [address] [place] [address] Mass of right breast, unspecified quadrant Discharge Disposition: Discharge to home or self care 10/10/[address] [facility] Surgery [address] [place] [address] Floor [address] [place] [phone] Gladys Sheldon NP Mass of right breast, unspecified quadrant (Primary Dx) 09/30/[address] 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 Oral candidiasis 04/05/2018 Immunizations Immunization Administration Dates Next Due Influenza, Quadrivalent, Hig h Dose, Preservative Free, Intrr 06/04/2020 Influenza, Quadrivalent, Spl it, Preservative Free, Intramuscular 05/22/2018 Tdap 05/02/2017 Social History Tobacco Use Types Packs/Day Years Used Date Smoking Tobacco: Never Smokeless Tobacco: Never Tobacco Cessation:Counseling Given: Not Answered Alcohol Use Standard Drinks/Week Comments No 0 (1 standard drink = 0.6 oz pur e alcohol) Comments No Sex and Gender Information Value Date Recorded Sex Assigned at Not on file Legal Sex Female 12:18 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 Gender Identity Not on file Sexual Orientation Not on file Last Filed Vital Signs Vital Sign Reading Time Taken Comments Blood Pressure 134/80 05/05/2021 1:33 PM CDT Pulse 74 05/05/2021 1:33 PM CDT Temperature - - Respiratory Rate - - Oxygen Saturation 95% 05/05/2021 1: 33 PM CDT Inhaled Oxygen Concentration - - Weight 67.5 kg (148 lb 12.8 oz) 12/02/2024 2:53 PM CDT Height 165.1 cm (5' 5 ) 06/11/2021 9:40 AM CDT Body Mass Index 24.76 06/11/2021 9:40 AM CDT Plan of Treatment Upcoming Encounters Date Type Department Care Team (Latest Contact Info) Description 01/07/2025 9:40 AM CDT Hospital Encounter [facility] Operating [facility] [address] [place] [phone] Ramyt, Kimmie Ceballos MD PhD [address] [place] [address] 01/07/2025 9:40 AM CDT - 01/07/2025 10:55 AM CDT Surgery [facility] Operating [facility]) [address] [place] [phone] Kirk, Kimmie Ceballos MD PhD [address] [place] [address] BIOPSY BREAST NEEDLE LOCALIZATION Scheduled Procedures Name Priority Associated Diagnoses Date/Ti me BIOPSY BREAST NEEDLE LOCALIZATION Malignant neoplasm of right female breast, unspecified estrogen receptor status, unspecified site of breast (HCC) 01/07/2025 9:40 AM CDT LUMPECTOMY Malignant neoplasm of right female breast, unspecified estrogen receptor status, unspecified site of breast (HCC) 01/07/2025 9:40 AM CDT Medical Devices Implanted Type Area Personal Banking Representative Device Identifier Shelf Expiration Date Model / Serial / Lot [employer] Marker Image Hydromark Plus T5 Titanium 15ga Radiological Implant Sterile 4009-09-28-T5 - [id number] Implanted:Qty: 1 on 11/01/2024 at [facility] [employer] [id number] 10/04/2025 [id number] -T5 / / [id number] Procedures Procedure Name Priority Date/Time Associated Diagnosis [...] MRI OUTSIDE REFERENCE Routine 09/25/2024 12:00 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 Mass of right breast, unspecified quadrant from [...] will be discussed with the patient by [facility] or referring provider staff and will [...] will be discussed with the patient by [facility] or referring provider staff and will [...] cores were obtained through the lesion. A [employer] tissue marker clip was then placed at [...] ultrasound guided biopsy. BIRADS 4C Narrative PATHOLOGY [facility] - 11/05/2024 10:57 AM CDT EPIC results best viewed via link to PDF [facility] Wendy Contreras [facility] [place] [address] Note to Patients: This report may contain [...] Gender: F : 1940 (Age: 84) Address: [address] [place], [place] [id number] Hospital #: [id number] Taken:11/01/2024 Received:11/01/2024 Reported: 11/05/2024 Patient Type: [facility] Ancillary Service: Laboratory Location: Physician(s): Teresita [...] criteria - See biomarker report and comment. 11/04/2024 09:25 By this signature, I attest that the above diagnosis is based upon my personal examination of the slides(and/or other material indicated in the diagnosis). Kolby Yeager M.D. Report Electronically Reviewed and Signed Out By Kolby Yeager M.D. 11/05/2024 10:57:52 Diagnosis Comment This result was flagged as significant and was sent to Dr. Perez via [facility] on 11/04/[address] Wendy Marrero. Reason(s): [...] after collection. Total fixation time= 8.0 hours. [facility]/11/01/2024 18:58 PA(s): Brea Jett BREAST BIOMARKER RESULTS [...] Technical Notes Estrogen receptor (ER), progesterone receptor (AL), and HER2 were evaluated by immunohistochemistry (IHC) by morphometric analysis in routine formalin-fixed paraffin-embedded tissue using a proprietary polymer- based detection system and instrumentation by [employer] per ar manager's recommendation. The IHC results for ER (antibody SP1) and AL (antibody 1E2) were quantified and interpreted (positive vs negative) using the Ella score (total score range = 0 to 8; positive >2) (see: Mod Pathol 11:155, 1998; J Clin Oncol 17:1474, 1998; Mod Pathol 17:1545, 2004; Arch Pathol Lab Med 144:545, 2020). Pathway Her2 is a trademark of [employer] The IHC results for Pathway Her2 [...] a proprietary polymer-based detection system andinstrumentation by [employer] per ar manager's recommendation. The index was determined by manual [...] Surgical Pathology and Flow Cytometry Departments at [facility] as part of an ongoing advanced quality engineer program and in compliance with federally mandated [...] Surgical Pathology and Flow Cytometry Departments of [facility]. It has not been cleared or approved by the U. S. Food and Drug Administration. IMAGES AND SCANNED DOCUMENTS, IF INCLUDED, ONLY VIEWABLE IN PDF VERSION OF REPORT us Kelley Perez MD LAB PATHOLOGY ORDERABLES Final Result PATHOLOGY [facility] 3rd Floor [place], [place] [phone] * Breast Imaging DX Outside Consult (10/24/2024 [...] images may or may not represent the [place] source data set and thus may contain changes which may lower the sensitivity of the second opinion interpretation. Dictated by: Khurram Sanchez MD The radiology attending physician has personally reviewed this study, and had reviewed and/or edited this written report and agrees with it. Electronically signed by: Corinna Neo M.D. Narrative 10/25/2024 10:54 AM CDT EXAMINATION: REVIEW AND INTERPRETATION OF OUTSIDE IMAGING FACILITY PERFORMING OUTSIDE IMAGING: [facility] EXAM(S) REVIEWED: 1. BILATERAL SCREENING MAMMOGRAM WITH [...] OF OUTSIDE IMAGING FACILITY PERFORMING OUTSIDE IMAGING: [facility] EXAM(S) REVIEWED: 1. BILATERAL SCREENING MAMMOGRAM WITH [...] images may or may not represent the [place] source data set and thus may contain changes which may lower the sensitivity of the second opinion interpretation. Dictated by: Khurram Sanchez MD The radiology attending physician has personally reviewed this study, and had reviewed and/or edited this written report and agrees with it. Electronically signed by: Corinna Noe M.D. Gladys Sheldon CSM CONSULTANT IMG MAMMO PROCEDURES Fi nal Result * Breast MRI Outside Reference (09/25/2024 12:00 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) Impressions [facility] - 10/24/2024 6:49 PM CDT These images are for Reference purposes only and have not been reviewed by [facility] Radiology. There will be no report generated by a [facility] Radiologist. Narrative [facility] - 10/24/2024 6:49 PM CDT EXAMINATION: Images For Reference Purposes Only Gladys Sheldon NP IMG MAMMO PROCEDURES Fi nal Result [facility] from Last 3 [address] [facility] MEDICARE ADVANTAGE [facility] MEDICARE ADVANTAGE [facility] MEDICARE ADVANTAGE Care Teams [employer] Relationship Specialty Start Date End Date Tisha Tubbs MD PCP - General 02/16/10 Kelley Perez MD [address] [address] Referring Physician Gynecology 06/11/21
--- NOTE | 2024-12-14 17:05 | ED.RECABL ---
HPI - Recheck/Abnormal Lab/Rx General Chief Complaint: Recheck/Abnormal Lab/Rx Stated Complaint: sent from with leg swelling Time Seen by Provider: 12/14/24 15:31 Source: patient Mode of arrival: ambulatory Limitations: no limitations History of Present Illness HPI narrative: Patient is an 84-year-old female who presents the ED with report of elevated blood pressure. Patient reports she woke up this morning and took her weight and noted she has gained 5 lbs over the past 1 week. She has been having some swelling in her BLE. She states she became very anxious about this weight gain. She then went to the [facility] and had her blood pressure taken, at which point it was elevated into the 150s systolic. Patient has history of hypertension and is on lisinopril 30 mg, amlodipine 5 mg daily. She took both of her blood pressure medications today, but states her blood pressure remained elevated. She reports over the past week, she has had some swelling in her lower extremities. She went to an urgent care prior to arrival and was sent here for further evaluation. Patient denies dizziness, lightheadedness, vision changes, headache, focal numbness or weakness, lower extremity pain, chest pain, shortness of breath. She does admit to feeling anxious. She reports she was also recently diagnosed with a right breast cancer which is well contained, negative lymph nodes, scheduled to undergo lumpectomy later this month. She has been increasingly anxious about this diagnosis as well. Has history of anxiety, is prescribed Ativan at home p.r.n.. Has not taken this today. Related Data Home Medications ?Medication ?Instructions ?Recorded ?Confirmed ?Last Taken ?Type calcium 600 mg (as carbonate)-vit 1 tablet PO DAILY 06/20/24 11/22/24 Unknown History D3 20 mcg (800 unit) chewable tablet (Caltrate plus D) perfluorohexyloctane (PF) 100 % 1 drp EACH EYE QID 06/20/24 11/22/24 Unknown History eye drops (Miebo (PF)) ergocalciferol (vitamin D2) 1,250 12/14/24 Unknown History mcg (50,000 unit) capsule Allergies Allergy/AdvReac Type Severity Reaction Status Date / Time No Known Allergies Allergy Verified 11/22/24 10:32 Review of Systems Review of Systems: All systems reviewed & are unremarkable except as noted in HPI. All systems reviewed & are unremarkable except as noted in HPI and below PMFSH Past Medical History Medical History Lump in throat Xerostomia Invasive ductal carcinoma of breast, female LLQ pain Irritable bowel syndrome Renal insufficiency Paresthesia of foot, bilateral Other [facility] drug therapy Other hyperlipidemia Gallstones Body mass index (BMI) exceeds 25 (02/23/18) Arthralgia of left hip Cataract (lens) fragments in eye following cataract surgery, bilateral Bruise Arthralgia of right hip Bleeding hemorrhoids Impacted cerumen of right ear Calculus of gallbladder with cholecystitis Renal failure Allergic rhinitis Acute sinusitis Pain in both lower extremities Dry mouth Chronic renal insufficiency Dysuria Constipation Thrush, oral Insomnia Stress Mouth sore Thyroid nodule Anxiety Chronic renal insufficiency, stage III (moderate) Essential (primary) hypertension Hypothyroidism (acquired) Mixed hyperlipidemia Multinodular goiter Situational depression Vitamin D deficiency Surgical History Surgical History S/P cholecystectomy Family History Family History Other Family history of chronic obstructive pulmonary disease Family history of elevated blood lipids Family history of lung disease Family history of thyroid disease Hypertension Social History Social History Social History: Caffeine-occasionally Smoking status: Never smoker Second hand tobacco smoke exposure: No Alcohol intake: never Substance use: never Substance use type: does not use Do You Feel Safe in your Home?: Yes Lack of Transportation: No Lack of Food: Never True Current Housing: I Have Housing Concerned About Future Housing: No Difficulty Paying Gas/Electric Bills: No Difficulty Paying for Meds: No Currently Unemployed: No Education: Trade/Vocational Certificate Difficulty w/ Childcare or Family Care: No Living arrangements: alone Additional living arrangements comments: Patient lives alone, is now living in a memory care facility. Occupation/Education: retired Gender identity (if verbalized by the patient): Female Sexual Orientation (if Verbalized by the Patient): Straight or Heterosexual Spiritual care concerns: No Agree to blood products: Yes Exam Narrative: GENERAL: Well appearing, well-nourished, non-toxic, in no acute distress. HEAD: Normocephalic, atraumatic. RESPIRATORY: Airway patent, respirations nonlabored. Clear to auscultation bilaterally, no rales, rhonchi, wheezing. No significant focal lung sounds. CARDIOVASCULAR: Regular rate and rhythm without murmurs, rubs, or gallops. Peripheral pulses intact. MUSCULOSKELETAL: Moves all extremities. No gross deformities. Trace pitting edema in bilateral lower extremities. Symmetric. No significant calf tenderness or pain throughout extremities. SKIN: Warm, dry, normal color. NEURO: A&O X3. Speech clear. Cranial nerves II-XII grossly intact. Steady gait. No ataxic movements. PSYCHIATRIC: Mildly anxious. Normal interaction. Course Vital Signs Vital signs: Vital Signs Temperature 97.7 F 12/14/24 15:08 Pulse Rate 83 12/14/24 15:08 Respiratory Rate 18 12/14/24 15:08 Blood Pressure 196/59 H 12/14/24 15:08 Pulse Oximetry 98 12/14/24 15:08 Oxygen Delivery Room Air 12/14/24 15:08 Temperature 97.7 F 12/14/24 15:08 Pulse Rate 76 12/14/24 21:30 Respiratory Rate 14 12/14/24 21:10 Blood Pressure 197/71 H 12/14/24 20:01 Pulse Oximetry 97 12/14/24 21:30 Oxygen Delivery Room Air 12/14/24 15:08 MDM - Recheck/Abnormal Lab/Rx MDM Narrative Medical decision making narrative: Patient presented to ED with lower extremity swelling, hypertension, anxiety. Patient was hypertensive upon arrival here to the [address] [place] [address]. She does have history of hypertension and is on lisinopril and amlodipine. She does admit to feeling very anxious about her blood pressure being elevated. She showed me records of her blood pressure recordings over the past week and blood pressure does seem fairly well controlled, typically 130s to 150 systolic. She is asymptomatic regarding this. She is denying any red flag symptoms. Denies chest pain or shortness of breath, dizziness, lightheadedness, vision changes, focal weakness or numbness, headache. EKG performed at urgent care today reviewed, no ischemic changes. Troponin here within normal limits. Basic laboratory studies were unremarkable. No leukocytosis. Very mild anemia, consistent with previous records. Stable electrolytes. Stable kidney function. TSH within normal range. Venous Doppler ultrasound was obtained and negative for DVT bilaterally. BNP was obtained and was slightly elevated to 1110. Patient does not have any previous history of CHF. She denies any respiratory complaints, shortness of breath, dyspnea with exertion. She notes that she walked 2 miles on the treadmill yesterday without issue. Chest x-ray was obtained and does show mild pulmonary edema/pleural effusions. BLE swelling is mild, no signs of severe fluid overload. Discussed lab and imaging findings extensively with patient and family at bedside. Discussed possibility of new onset CHF. Overall patient has been stable throughout ED stay. No oxygen requirement. Discussed admission for further workup/echo versus discharge home with close outpatient follow-up. Utilize shared decision-making. Patient would prefer to go home. She does not wish to be admitted at this time. She states she will contact her PCP on Monday to follow-up. Family is in agreement with this. Patient feels comfortable going home. She states she will not feel less anxious until she is able to be at home. She was given small dose of Ativan here with some improvement. Blood pressure down to 180s systolic. She was given her nighttime dose of amlodipine here. She remains asymptomatic otherwise regarding this. Will start patient on small dose of Lasix to help with diuresis. Discussed VERY strict return precautions and patient voiced understanding. She is in agreement with plan. Discharged in stable condition. Medical Records Attestation: I reviewed the patient's medical records. Lab Data Attestation: I reviewed the patient's lab results. 12/14/24 17:32 12/14/24 17:32 Labs: Lab Results 12/14/24 Range/Units 17:32 WBC 9.0 (4.5-10.0) K/mm3 RBC 3.79 L (4.2-5.4) M/mm3 Hgb 10.8 L (12.0-15.0) g/dL Hct 33.4 L (37.0-47.0) % MCV 88.1 (80-100) fl MCH 28.5 (26-34) pg MCHC 32.3 (32-36) g/dl RDW 13.3 (11.5-14.5) % Plt Count 284 (150-375) k/mm3 MPV 9.6 (7.4-10.4) fl Immature Gran % (Auto) 0.3 (0-0.5) % Neut % (Auto) 87.3 H (45.5-73.1) % Lymph % (Auto) 5.8 L (18.3-44.2) % [place] % (Auto) 6.0 (2.6-8.5) % Eos % (Auto) 0.3 (0-4.4) % Baso % (Auto) 0.3 (0.2-1.2) % Lymph # (Auto) 0.52 L (0.9-3.2) K/mm3 [place] # (Auto) 0.5 (0.1-0.6) K/mm3 Eos # (Auto) 0.0 (0-0.3) K/mm3 Baso # (Auto) 0.0 (0.0-0.1) K/mm3 Abs Immat Gran (auto) 0.03 (0.00-0.031) K/mm3 Absolute Neuts (auto) 7.9 H (1.3-6.7) K/mm3 Absolute Nucleated RBC 0.000 (0.0-0.012) K/mm3 Nucleated RBC % 0.0 (0.0-0.2) % PT 13.2 (11.1-14.7) Seconds INR 1.0 APTT 21.1 L (22.3-36.8) Seconds Sodium 135 L (137-145) mmol/L Potassium 4.2 (3.4-5.0) mmol/L Chloride 106 (98-107) mmol/L Carbon Dioxide 18 L (22-30) mmol/L Anion Gap 11 (4-12) mmol/L BUN 28 H (7-17) mg/dL Creatinine 1.34 H (0.7-1.0) mg/dL Estim Creat Clear Calc 24 ml/min Estimated GFR 38 L (59 - ) Glucose 111 H (65-110) mg/dL Calcium 9.1 (8.4-10.2) mg/dL Total Bilirubin 0.5 (0.2-1.3) mg/dL AST 27 (14-36) U/L ALT 26 (6-35) U/L Alkaline Phosphatase 68 (38-126) U/L Troponin I 0.033 (0.000-0.034) ng/mL NT-Pro-B Natriuret Pep 1110 H (19.9-100) pg/mL Total Protein 7.0 (6.3-8.2) g/dL Albumin 4.0 (3.5-5.1) g/dL TSH (Reflex) 1.940 (0.465-4.68) uIU/mL Imaging Data Attestation: I personally reviewed and interpreted this imaging study as follows: Radiologist's impression: ITS Impressions Venous Doppler Study 12/14/24 18:22 IMPRESSION: Patent bilateral lower extremity veins. No evidence of deep venous thrombosis. Chest X-Ray 12/14/24 19:24 IMPRESSION: Mild pulmonary edema with small bilateral pleural effusions. Discharge Plan Discharge Clinical Impression: Elevated brain natriuretic peptide (BNP) level, Swelling of both lower extremities, Elevated blood pressure reading with diagnosis of hypertension Patient Disposition: Home Condition: Stable Instructions: Antibiotic Form, Heart Failure (ED), Chronic Hypertension (ED), Leg Edema (ED) Additional Instructions: Take Lasix daily as prescribed in the mornings. Your marker for congestive heart failure was elevated today. You will need further workup for congestive heart failure, including an echocardiogram. Follow-up closely with your primary care doctor for further evaluation of this. Call office first thing Monday morning to make appointment WITHIN THE NEXT 1 WEEK. Also recommend follow-up with Cardiology. Continue blood pressure medications. Continue to monitor blood pressure and keep recording of numbers. Return to the ED if you experience worsening or severe swelling of legs, persistent weight gain, difficulty breathing or feeling short of breath, chest pain, dizziness, lightheadedness, vision changes, numbness or weakness of arm or leg, passing out, or any other symptoms of concern. Patient Language: Divehi Prescriptions: New furosemide [Lasix] 20 mg tablet 20 mg PO DAILY Qty: 15 0RF No Action ergocalciferol (vitamin D2) 1,250 mcg (50,000 unit) capsule Caltrate 600 plus D 600 mg-20 mcg (800 unit) tablet,chewable 1 tablet PO DAILY Miebo (PF) 100 % drops 1 drp EACH EYE QID levothyroxine 50 mcg tablet 50 mcg PO DAILY Qty: 90 3RF cevimeline 30 mg capsule 1 cap PO TID 30 Days Qty: 90 2RF (DME) orthotics See Rx Instructions .Route .MEDSUPPLY Qty: 1 0RF Rx Instructions: As directed amlodipine 5 mg tablet 5 mg PO DAILY Qty: 90 1RF lorazepam 0.5 mg tablet 0.5 mg PO TID PRN (Reason: anxiety) Qty: 90 0RF zolpidem [Ambien] 10 mg tablet 10 mg PO .HS PRN (Reason: insomnia) Qty: 30 2RF lisinopril 30 mg tablet 30 mg PO DAILY Qty: 90 0RF simvastatin 20 mg tablet See Rx Instructions .ROUTE .COMPLEX Qty: 90 3RF Dose Instruction: TAKE 1 TABLET BY MOUTH EVERY DAY Rx Instructions: TAKE 1 TABLET BY MOUTH EVERY DAY Follow-up/Referrals: Tisha Tubbs MD [Primary Care Provider] - Collin Crandall MD [Physician] - (CARDIOLOGY) Time of Disposition: 21:38
[2024-12-14 17:46] LABS: Alanine Aminotransferase 26 U/L (6-35); Alkaline Phosphatase 68 U/L (38-126); Anion Gap 11 mmol/L (4-12); Aspartate Amino Transferase 27 U/L (14-36); Bilirubin,Total 0.5 mg/dL (0.2-1.3); Blood Urea Nitrogen 28 mg/dL (7-17); Calcium 9.1 mg/dL (8.4-10.2); Carbon Dioxide 18 mmol/L (22-30); Chloride 106 mmol/L (98-107); Estimated CRCL calculation 24 ml/min; Estimated Glomerular Filt Rate 38; Glucose 111 mg/dL (65-110); Potassium 4.2 mmol/L (3.4-5.0); Sodium 135 mmol/L (137-145)
[2024-12-14 17:48] LABS: Basophils Percent Auto 0.3 % (0.2-1.2); Eosinophils Percent Auto 0.3 % (0-4.4); Hematocrit 33.4 % (37.0-47.0); Hemoglobin 10.8 g/dL (12.0-15.0); Immature Granulocyte Absolute 0.03 K/mm3 (0.00-0.031); Immature Granulocyte Percent A 0.3 % (0-0.5); Lymphocytes Absolute Auto 0.52 K/mm3 (0.9-3.2); Lymphocytes Percent Auto 5.8 % (18.3-44.2); Mean Corpuscular HGB Conc 32.3 g/dl (32-36); Mean Corpuscular Hemoglobin 28.5 pg (26-34); Mean Corpuscular Volume 88.1 fl (80-100); Mean Platelet Volume 9.6 fl (7.4-10.4); Monocytes Absolute Auto 0.5 K/mm3 (0.1-0.6); Neutrophils Absolute Auto 7.9 K/mm3 (1.3-6.7); Neutrophils Percent Auto 87.3 % (45.5-73.1); Platelet Count Result 284 k/mm3 (150-375); Red Blood Count 3.79 M/mm3 (4.2-5.4); Red Cell Distribution Width 13.3 % (11.5-14.5)
[2024-12-14 17:53] LABS: Partial Thromboplastin Time 21.1 Seconds (22.3-36.8)
[2024-12-14 17:54] LABS: Prothrombin Time 13.2 Seconds (11.1-14.7)
[2024-12-14 17:58] LABS: NT Pro B Type Natriuretic Pept 1110 pg/mL (19.9-100); Troponin I 0.033 ng/mL (0.000-0.034)
[2024-12-14] MEDS: FUROSEMIDE 20 MG TABLET PO (20:32)
[2024-12-14] MEDS: LORazepam (*CRX) 0.5 MG TABLET PO (20:32)
[2024-12-14] MEDS: amLODIPine BESYLATE 5 MG TABLET PO (21:45)
== END 2024-12-14 22:13 | disposition home or self-care (01) ==
PROVIDERS: Emergency Provider Physician Assistant; PCP Family Medicine
DX: R22.43 Localized swelling, mass and lump, lower limb, bilateral (principal); I12.9 Hypertensive chronic kidney disease with stage 1 through stage 4 chronic kidney disease, or unspecified chronic kidney disease; R79.89 Other specified abnormal findings of blood chemistry; N18.30 Chronic kidney disease, stage 3 unspecified; C50.911 Malignant neoplasm of unspecified site of right female breast; E03.9 Hypothyroidism, unspecified; E78.2 Mixed hyperlipidemia; E55.9 Vitamin D deficiency, unspecified; K58.9 Irritable bowel syndrome, unspecified; H59.023 Cataract (lens) fragments in eye following cataract surgery, bilateral; F41.9 Anxiety disorder, unspecified; Z90.49 Acquired absence of other specified parts of digestive tract; Z79.899 Other long term (current) drug therapy
CPT/HCPCS: 36415; 71046; 80053; 83880; 84443; 84484; 85025; 85610; 85730; 93970; 99284; A9270

== ENCOUNTER 2025-01-03 08:25 | Outpatient (CLI) | payer MEDICARE, SELFPAY ==
--- NOTE | ~2025-01-03 | NM_ITS ---
EXAMINATION: NM nicki stress w perfusion DATE: 01/03/2025 13:30 CDT INDICATION: Heart failure TECHNIQUE: Rest images were obtained following intravenous administration of 8.9 mCi Tc99m tetrofosmi n (Myoview). The patient was infused intravenously with Lexiscan (regadenoson). Then, 30 mCi Tc99m te trofosmin (Myoview) was administered intravenously, and stress images were obtained. Data was reconst ructed into short axis and horizontal and vertical long axis SPECT images. Gated SPECT images were al so obtained. COMPARISON: None. FINDINGS: There is no definite reversible or fixed perfusion abnormality to suggest ischemia or infar ction. There is no segmental wall motion abnormality. Left ventricular ejection fraction measures 8 0%. IMPRESSION: 1. No definite ischemia or infarct. 2. Normal left ventricular ejection fraction measuring 80%. Reviewed, dictated and finalized at location B.
--- OUTSIDE RECORDS SUMMARY | 2025-01-03 08:32 | XMS_ITS | Referral Summary ---
Author Organization [facility] Address [address] [place] [address] Care Team Providers Care Front Desk Officer Name Role Phone Tisha Tubbs MD Primary Care Provider [phone] Kelley Perez MD Unavailable Encounters Date Type Department Care Team Description 01/01/2025 Telephone [facility] for Preoperative Assessment and Planning [facility] ([facility]) [address] [place], [place] [phone] Arely Thompson, LÓPEZ 12/04/2024 Orders Only [facility] Surgery [address] [place] [phone] Kimmie Bradley MD PhD Encounter for other preprocedural examination (Primary Dx) 12/02/2024 2:30 PM CDT Office Visit [facility] Surgery [address] [place] [phone] Kimmie Bradley MD PhD Infiltrating ductal carcinoma of right breast (HCC) 11/05/2024 Telephone [facility] Breast Imaging [facility] ([facility]) [facility] [place] [address] Viktoria Martinez RN Test Results (Right Breast Biopsy results 11/01/24) 11/01/2024 1:13 PM CDT - 11/01/2024 11:59 PM CDT Hospital Encounter [facility] [address] [place] [address] Abnormal mammogram Discharge Disposition: Discharge to home or self care 11/01/2024 12:30 PM CDT - 11/01/2024 11:59 PM CDT Hospital Encounter [facility] ([facility]) [address] [place] [address] Abnormal mammogram Discharge Disposition: Discharge to home or self care 10/25/2024 Results Follow-Up [facility] Surgery [address] [place] [address] Gladys Sheldon NP Breast Imaging DX Outside Consult 10/25/2024 Telephone [facility] ([facility]) [address] [place] [address] Nubia Linares RN 10/25/2024 Orders Only [facility] Surgery [address] [place] [address] Floor [address] [place] [phone] Kathleen Mast CMA Mass of breast, unspecified laterality (Primary Dx); Malignant neoplasm of overlapping sites of right female breast, unspecified estrogen receptor status (HCC) 10/24/2024 7:27 PM CDT - 10/24/2024 11:59 PM CDT Hospital Encounter [facility] Radiology [facility] ([facility]) [address] [place] [address] Mass of right breast, unspecified quadrant Discharge Disposition: Discharge to home or self care 10/10/2024 Orders Only [facility] Surgery [facility] Floor [address] [place] [phone] Gladys Sheldon NP Mass of right breast, unspecified quadrant (Primary Dx) from Last 3 Months Allergies No known active allergies Medications simvastatin (ZOCOR) 20 mg tabletIndicati ons:hyperlipid emia Take 1 tablet (20 mg total) by mouth nightly 2 02/28/20 18 Active LORazepam (ATIVAN) 0.5 mg tabletIndicati ons:anxiety Take 1 tablet (0.5 mg total) by mouth as needed for anxiety 1 02/21/20 18 Active levothyroxine (SYNTHROID, LEVOTHROID) 50 mcg tabletIndicati ons:hypothyroi dism Take 1 tablet (50 mcg total) by mouth line rider before breakfast 1 03/01/20 18 Active ergocalciferol (VITAMIN D) 50,000 unit capsuleIndicat ions:Vitamin D Deficiency Take 1 capsule (50,000 Units total) by mouth every 14 (fourteen) days Takes every other 02/27/20 18 Active calcium carbonate (CALCIUM 600 ORAL)Indicatio ns:supplement Take 1 tablet by mouth with lunch Active zolpidem (AMBIEN) 10 mg tabletIndicati ons:Sleep-Onse t Insomnia Take 1 tablet (10 mg total) by mouth daily 01/29/20 20 Active amLODIPine (NORVASC) 5 mg tabletIndicati ons:hypertensi on Take 1 tablet (5 mg total) by mouth every morning 09/08/19 25 Active Miebo, PF, 100 % dropsIndicatio ns:Dry Eye Administer 1 drop into both eyes 4 (four) times a day 11/27/19 25 Active cevimeline (EVOXAC) 30 mg capsuleIndicat ions:Xerostomi a Secondary to Sjogren's Syndrome Take 1 capsule (30 mg total) by mouth 3 (three) times a day Active lisinopriL (PRINIVIL,ZEST RIL) 30 mg tabletIndicati ons:hypertensi on Take 1 tablet (30 mg total) by mouth every morning Active xylitoL (XyliMelts) 550 mg muco-adhesive buccal tabletIndicati ons:dry mouth Apply 1 tablet to mouth as needed Active furosemide (LASIX) 20 mg tabletIndicati ons:Edema Take 2 tablets (40 mg total) by mouth daily New medication x 6 days for swelling 12/21/19 25 Active lisinopril (PRINIVIL,ZEST RIL) 40 mg tablet Take 30 mg by mouth 03/22/20 18 025 Discontinued Active Problems Problem Noted Date Diagnosed Date [...] Packs/Day Years Used Date Smoking Tobacco: Never Passive Smoke Exposure: Past Smokeless Tobacco: Never Alcohol Use Standard Drinks/Week Comments No 0 (1 standard drink = 0.6 oz pur e alcohol) AUDIT-C Answer Date Recorded Q1: How often do you have a drink containing alcohol? Never 12/19/2024 Q2: How many drinks containi ng alcohol do you have on a typical day when you are drinking? Patient does not drink Q3: How often do you have si x or more drinks on one occasion? 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 Gender Identity Not on file Sexual Orientation Not on file Last Filed Vital Signs Vital Sign Reading Time Taken Comments Blood Pressure 134/80 05/05/2021 1:33 PM CDT Pulse 74 05/05/2021 1:33 PM CDT Temperature - - Respiratory Rate - - Oxygen Saturation 95% 05/05/2021 1:33 PM CDT Inhaled Oxygen Concentration - - Weight 65.3 kg (144 lb) 12/19/2024 2:54 PM CDT Height 166.4 cm (5' 5.5 ) 12/19/2024 2:54 PM CDT Body Mass Index 23.6 12/19/2024 2:54 PM CDT Plan of Treatment Upcoming Encounters Date Type Department Care Team (Latest Contact Info) Description 01/07/2025 9:40 AM CDT Hospital Encounter [facility]) [address] [place] [address] Kimmie Bradley MD PhD [address] [place] [address] 01/07/2025 9:40 AM CDT Anesthesia Event [facility]) [address] [place] [address] Marielena Barnes, KAUSHIK [address] [place] [address] 01/07/2025 9:40 AM CDT - 01/07/2025 10:55 AM CDT Surgery [facility]) [address] [place] [address] Aft, Kimmie Ceballos MD PhD [address] [place] [address] BIOPSY BREAST NEEDLE LOCALIZATION Scheduled Procedures Name Priority Associated Diagnoses Date/Ti me BIOPSY BREAST NEEDLE LOCALIZATION Malignant neoplasm of right female breast, unspecified estrogen receptor status, unspecified site of breast (HCC) 01/07/2025 9:40 AM CDT LUMPECTOMY Malignant neoplasm of right female breast, unspecified estrogen receptor status, unspecified site of breast (HCC) 01/07/2025 9:40 AM CDT Medical Devices Implanted Type Area Business Travel Consultant Device Identifier Shelf Expiration Date Model / Serial / Lot Sybari Marker Image Hydromark Plus T5 Titanium 15ga Radiological Implant Sterile 4009-09-28-T5 - [id number] Implanted:Qty: 1 on 11/01/2024 at [facility] Sy[employer]ari [id number] 10/04/2025 4009-09-28 -T5 / / [id number] Procedures Procedure Name Priority Date/Time Associated Diagnosis [...] CDT Mass of right breast, unspecified quadrant from [...] will be discussed with the patient by [facility] or referring provider staff and will [...] will be discussed with the patient by [facility] or referring provider staff and will [...] ultrasound guided biopsy. BIRADS 4C Narrative PATHOLOGY [facility] - 11/05/2024 10:57 AM CDT EPIC results best viewed via link to PDF [facility] Wendy Contreras [facility] [place] [address] Note to Patients: This report may contain [...] Gender: F : 1940 (Age: 84) Address: [address] [place] [address] , [place] [address] Hospital #: [id number] Taken:11/01/2024 Received:11/01/2024 Reported: 11/05/2024 Patient Type: [facility] Ancillary Service: Laboratory Location: Physician(s): Teresita Ma [...] and was sent to Dr. Perez via [employer] chat on 11/04/[address] Wendy Marrero. [...] after collection. Total fixation time= 8.0 hours. [facility]/11/01/2024 18:58 PA(s): Brea Jett BREAST BIOMARKER [...] Technical Notes Estrogen receptor (ER), progesterone receptor ([place]), and HER2 were evaluated by immunohistochemistry (IHC) by morphometric analysis in routine formalin-fixed paraffin-embedded tissue using a proprietary polymer- based detection system and instrumentation by [employer] per child development assistant's recommendation. The IHC results for ER (antibody SP1) and [place] (antibody 1E2) were quantified and interpreted (positive vs negative) using the Ella score (total score range = 0 to 8; positive >2) (see: Mod Pathol 11:155, 1998; J Clin Oncol 17:1474, 1999; Mod Pathol 17:1545, 2004; Arch Pathol Lab Med 144:545, 2020). Pathway Her2 is a trademark of [employer] The IHC results for Pathway Her2 [...] a proprietary polymer-based detection system andinstrumentation by [employer] per child development assistant's recommendation. The index was determined by manual [...] Surgical Pathology and Flow Cytometry Departments at [facility] as part of an ongoing quality worker program and in compliance with federally mandated [...] Surgical Pathology and Flow Cytometry Departments of [facility]. It has not been cleared or approved by the U. S. Food and Drug Administration. IMAGES AND SCANNED DOCUMENTS, IF INCLUDED, ONLY VIEWABLE IN PDF VERSION OF REPORT us Kelley Perez MD LAB PATHOLOGY ORDERABLES Final Result PATHOLOGY [facility] 3rd Floor [place], [place] [phone] * Breast Imaging DX Outside Consult (10/24/2024 [...] images may or may not represent the [place] source data set and thus may contain [...] OF OUTSIDE IMAGING FACILITY PERFORMING OUTSIDE IMAGING: [facility] EXAM(S) REVIEWED: 1. BILATERAL SCREENING MAMMOGRAM WITH [...] OF OUTSIDE IMAGING FACILITY PERFORMING OUTSIDE IMAGING: [facility] EXAM(S) REVIEWED: 1. BILATERAL SCREENING MAMMOGRAM WITH [...] images may or may not represent the [place] source data set and thus may contain changes which may lower the sensitivity of the second opinion interpretation. Dictated by: Khurram Sanchez MD The radiology attending physician has personally reviewed this study, and had reviewed and/or edited this written report and agrees with it. Electronically signed by: Corinna Noe M.D. Gladys Sheldon MEDICAL ADMINISTRATIVE SPECIALIST IMG MAMMO PROCEDURES Fi nal Result from Last 3 Months Insurance [facility] MEDICARE ADVANTAGE [facility] MEDICARE ADVANTAGE [facility] MEDICARE ADVANTAGE Care Teams Front Desk Officer Relationship Specialty Start Date End Date Tisha Tubbs MD PCP - General 02/16/10 Kelley Perez MD [address] [place] [address] Referring Physician Gynecology 06/11/21
--- OUTSIDE RECORDS SUMMARY | 2025-01-03 08:32 | XMS_ITS | Clinical Summary ---
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 1 03/01/20 18 Active ergocalciferol (VITAMIN D) 50,000 unit capsuleIndicat ions:Vitamin D Deficiency Take 1 capsule (50,000 Units total) by mouth every 14 (fourteen) days Takes every other 4 02/27/20 18 Active calcium carbonate (CALCIUM 600 [...] Type Department Care Team Description 01/01/2025 Telephone [facility] for Preoperative Assessment and Planning [facility] ([facility]) [address] [place] [address] Arely Thompson RN 12/04/2024 Orders Only [facility] Surgery [address] [place] [phone] Kimmie Bradley MD PhD Encounter for other preprocedural examination (Primary Dx) 12/02/2024 2:30 PM CDT Office Visit [facility] Surgery [address] [place] [phone] Kimmie Bradley MD PhD Infiltrating ductal carcinoma of right breast (HCC) 11/05/2024 Telephone [facility] ([facility]) [address] [place] [address] Viktoria Martinez RN Test Results (Right Breast Biopsy results 11/01/24) 11/01/2024 1:13 PM CDT - 11/01/2024 11:59 PM CDT Hospital Encounter [facility] ([facility]) [address] [place] [address] Abnormal mammogram Discharge Disposition: Discharge to home or self care 11/01/2024 12:30 PM CDT - 11/01/2024 11:59 PM CDT Hospital Encounter [facility] Breast Imaging [facility] ([facility]) [address] [place] [address] Abnormal mammogram Discharge Disposition: Discharge to home or self care 10/25/2024 Results Follow-Up [facility] Surgery [address] [place] [phone] Gladys Sheldon NP Breast Imaging DX Outside Consult 10/25/2024 Telephone [facility] ([facility]) [address] [place] [address] Nubia Linares RN 10/25/2024 Orders Only [facility] Surgery [facility] Floor [address] [place] [phone] Kathleen Mast CMA Mass of breast, unspecified laterality (Primary Dx); Malignant neoplasm of overlapping sites of right female breast, unspecified estrogen receptor status (HCC) 10/24/2024 7:27 PM CDT - 10/24/2024 11:59 PM CDT Hospital Encounter [facility] ([facility]) [address] [place] [address] Mass of right breast, unspecified quadrant Discharge Disposition: Discharge to home or self care 10/10/2024 Orders Only [facility] Surgery [address] [place] [address] Floor [address] [place] [phone] Gladys Sheldon NP Mass of right breast, unspecified quadrant (Primary Dx) from Last 3 Months Immunizations Immunization Administration Dates Next Due Influenza, Quadrivalent, Hig h Dose, Preservative Free, Intrr 06/04/2020 Influenza, Quadrivalent, Spl it, Preservative Free, Intramuscular 05/22/2018 Tdap 05/02/2017 Surgical History Surgery Date Site/Laterality Comments HYSTERECTOMY 08/14/1974 - 08/13/1975 partial COLECTOMY 08/14/2008 - 08/13/2009 CHOLECYSTECTOMY 08/14/2014 - 08/13/2015 THYROIDECTOMY / EXCISION CYST [...] cancer Sister 2 Lung cancer Sister 2 Anesthesia problems Neg Hx Malig Hyperthermia Neg Hx Pseudochol deficiency Neg Hx Relation Name Status Comments Brother Father Maternal [...] on file 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 Gender Identity Not on file Sexual Orientation [...] Description 01/07/2025 9:40 AM CDT Hospital Encounter [facility] ([facility]) [address] [place] [address] Aft, Kimmie Ceballos MD PhD [address] [place] [address] 01/07/2025 9:40 AM CDT Anesthesia Event [facility] Operating Room [facility] ([facility]) [address] [place] [address] Marielena Barnes NP [address] [place] [address] 01/07/2025 9:40 AM CDT - 01/07/2025 10:55 AM CDT Surgery [facility] Operating Room [facility] ([facility]) [address] [place] [address] Aft, Kimmie Ceballos MD PhD [address] [place] [address] BIOPSY BREAST NEEDLE LOCALIZATION Scheduled Procedures Name [...] Tdap) 05/02/2027 Medical Devices Implanted Type Area Core Blower Operator Device Identifier Shelf Expiration Date Model / Serial / Lot TRAN.SL Marker Image Hydromark Plus T5 Titanium 15ga Radiological Implant Sterile 4009-09-28-T5 - [id number] Implanted:Qty: 1 on 11/01/2024 at [facility] TRAN.SL [id number] 10/04/2025 4009-09-28 -T5 / / [id number] Procedures Procedure Name Priority Date/Time Associated Diagnosis [...] be discussed with the patient by [facility] or referring provider staff and [...] will be discussed with the patient by [facility] or referring provider staff and [...] were obtained through the lesion. A Hydromark Fliporaonfly tissue marker clip was then placed at [...] ultrasound guided biopsy. BIRADS 4C Narrative PATHOLOGY [facility] - 11/05/2024 10:57 AM CDT EPIC results best viewed via link to PDF [facility] Wendy Contreras [facility] [place] [address] Note to Patients: This report may contain [...] Gender: F : 1940 (Age: 84) Address: [address] [place], [place] [phone] Hospital #: [id number] Taken:11/01/2024 Received:11/01/2024 Reported: 11/05/2024 Patient Type: [facility] Ancillary Service: Laboratory Location: Physician(s): Teresita Ma [...] criteria - See biomarker report and comment. /11/04/2024 09:25 By this signature, I attest that the above diagnosis is based upon my personal examination of the slides(and/or other material indicated in the diagnosis). Kolby Yeager M.D. Report Electronically Reviewed and Signed Out By Kolby Yeager M.D. 11/05/2024 10:57:52 Diagnosis Comment This result was flagged as significant and was sent to Dr. Perez via [employer] chat on 11/04/[address] Wendy Marrero. [...] after collection. Total fixation time= 8.0 hours. [facility]/11/01/2024 18:58 PA(s): Brea Jett BREAST BIOMARKER [...] Technical Notes Estrogen receptor (ER), progesterone receptor ([place]), and HER2 were evaluated by immunohistochemistry (IHC) by morphometric analysis in routine formalin-fixed paraffin-embedded tissue using a proprietary polymer- based detection system and instrumentation by [employer] per program clinician's recommendation. The IHC results for ER (antibody SP1) and [place] (antibody 1E2) were quantified and interpreted (positive vs negative) using the Ella score (total score range = 0 to 8; positive >2) (see: Mod Pathol 11:155, 1997; J Clin Oncol 17:1474, 1998; Mod Pathol 17:1545, 2004; Arch Pathol Lab Med 144:545, 2020). Pathway Her2 is a trademark of [employer] The IHC results for Pathway Her2 [...] a proprietary polymer-based detection system andinstrumentation by [employer] per program clinician's recommendation. The index was determined by manual [...] Surgical Pathology and Flow Cytometry Departments at [facility] as part of an ongoing quality compliance consultant program and in compliance with federally mandated [...] Surgical Pathology and Flow Cytometry Departments of [facility]. It has not been cleared or approved by the U. S. Food and Drug Administration. IMAGES AND SCANNED DOCUMENTS, IF INCLUDED, ONLY VIEWABLE IN PDF VERSION OF REPORT us Kelley Perez MD LAB PATHOLOGY ORDERABLES Final Result PATHOLOGY [facility] 3rd Floor [place], [place] [phone] * Breast Imaging DX Outside Consult (10/24/2024 [...] images may or may not represent the [place] source data set and thus may contain [...] OF OUTSIDE IMAGING FACILITY PERFORMING OUTSIDE IMAGING: [facility] EXAM(S) REVIEWED: 1. BILATERAL SCREENING [...] OF OUTSIDE IMAGING FACILITY PERFORMING OUTSIDE IMAGING: [facility] EXAM(S) REVIEWED: 1. BILATERAL SCREENING [...] images may or may not represent the hughes source data set and thus may contain changes which may lower the sensitivity of the second opinion interpretation. Dictated by: Khurram Sanchez MD The radiology attending physician has personally reviewed this study, and had reviewed and/or edited this written report and agrees with it. Electronically signed by: Corinna Noe M.D. Gladys Sheldon PATENT DRAFTER IMG MAMMO PROCEDURES Fi nal Result from Last 3 Months Insurance [facility] MEDICARE ADVANTAGE U[employer] MEDICARE ADVANTAGE [facility] MEDICARE ADVANTAGE Care Teams Air Battle Manager Relationship Specialty Start Date End Date Tisha Tubbs MD PCP - General 02/16/10 Kelley Perez MD [address] [address] Referring Physician Gynecology 06/11/21
--- NOTE | 2025-01-03 08:37 | EST_ITS ---
Patient Info Name: Heavenly Sarmiento Age: 84 years : 1940 Gender: Female Ht: 64 in Wt: 148 lbs BSA: 1.75 m2 HR: 82 bpm BP: 194 / 79 mmHg Exam Date: 01/03/2025 8:37 AM Patient Status: O Admit Date: 01/03/2025 Exam Type: CA stress nicki w NM A regadenoson stress test was performed. Staff Referring Physician: Dipak Henry DO Attending Provider: Dipak Henry DO Exercise Technologist: Marla Llamas Exercise Physician: Dipak Henry DO Summary 1. 1. Negative lexiscan stress test for ischemic ST changes by ECG criteria. 2. 2. Baseline hypertension. 3. 3. Nuclear scan to follow and will be reported separately. Please correlate with it. 4. 4. Patient informed of the above results. Protocol: Lexiscan Stress ECG Details Stage: REST Duration (min): 3 min : 43 sec HR (bpm): 81 SBP (mmHg): 194 DBP (mmHg): 79 Stage: REST Duration (min): 9 min : 10 sec HR (bpm): 83 SBP (mmHg): 194 DBP (mmHg): 79 Stage: STAGE 1 Duration (min): 1 min : 0 sec HR (bpm): 100 SBP (mmHg): 194 DBP (mmHg): 79 Stage: RECOVERY Duration (min): 1 min : 0 sec HR (bpm): 100 SBP (mmHg): 213 DBP (mmHg): 75 Stage: RECOVERY Duration (min): 2 min : 0 sec HR (bpm): 99 SBP (mmHg): 213 DBP (mmHg): 75 Stage: RECOVERY Duration (min): 3 min : 0 sec HR (bpm): 97 SBP (mmHg): 184 DBP (mmHg): 73 Stage: RECOVERY Duration (min): 4 min : 0 sec HR (bpm): 96 SBP (mmHg): 184 DBP (mmHg): 73 Stage: RECOVERY Duration (min): 5 min : 0 sec HR (bpm): 85 SBP (mmHg): 185 DBP (mmHg): 64 Stage: RECOVERY Duration (min): 5 min : 20 sec HR (bpm): 94 SBP (mmHg): 185 DBP (mmHg): 64 Rest HR: 83 bpm Peak HR: 101 bpm Rest Sys BP: 194 mmHg Peak Sys BP: 213 mmHg Max Pred HR: 135 bpm % Max Pred HR: 75 % Target HR: 115 bpm Max RPP: 21,513 bpm*mmHg Termination Reason: Completed protocol Cardiac Symptoms: Shortness of breath, Stomach discomfort Total Time: 1 min : 0 sec Rest Arreola BP: 79 mmHg Peak Arreola BP: 75 mmHg Total Dose: 0.4 mg Resting ECG Sinus rhythm. Stress ECG No ST changes. Arrhythmias None. Report Signatures
--- NOTE | 2025-01-03 12:03 | ECHO_ITS ---
Patient Info Name: Heavenly Sarmiento Age: 84 years : 1940 Gender: Female Ht: 65 in Wt: 148 lbs BSA: 1.76 m2 BP: 192 / 91 mmHg Technical Quality: Good Exam Date: 01/03/2025 12:10 PM Patient Status: O Admit Date: 01/03/2025 Exam Type: CA echo doppler color flow Complete two-dimensional, color flow and Doppler transthoracic echocardiogram is performed. Staff Referring Physician: Dipak Henry DO Manager Commission: Sendy Chi Attending Provider: Dipak Henry DO Summary 1. Complete two-dimensional, color flow and Doppler transthoracic echocardiogram is performed. 2. Left ventricular chamber dimension is normal. 3. Left ventricular systolic function is normal, estimated at 65-70. 4. The left ventricular diastolic function is grade I diastolic dysfunction. 5. E/e' 16 is elevated. 6. Left atrial chamber dimension is moderately enlarged. 7. There is mild aortic valve sclerosis. 8. There is trace mitral valve regurgitation. 9. There is trace tricuspid valve regurgitation. 10. Mild pulmonary hypertension, estimated pulmonary arterial systolic pressure is 45 mmHg. 11. There is small circumferential pericardial effusion. Left Ventricle E/e' 16 is elevated. Left ventricular chamber dimension is normal. Left ventricular systolic function is normal, estimated at 65-70. The left ventricular diastolic function is grade I diastolic dysfunction. Right Ventricle Right ventricular chamber dimension is normal. Right ventricular systolic function is normal and with normal TAPSE 2.3 cm. Left Atria Left atrial chamber dimension is moderately enlarged. Right Atria Right atrial chamber dimension is normal. Aortic Valve The aortic valve is trileaflet. There is mild aortic valve sclerosis. There is no aortic valve stenosis. There is no aortic valve regurgitation. Pulmonic Valve There is no pulmonic regurgitation. Mitral Valve There is no mitral valve stenosis. There is trace mitral valve regurgitation. Tricuspid Valve There is trace tricuspid valve regurgitation. Mild pulmonary hypertension, estimated pulmonary arterial systolic pressure is 45 mmHg. Pericardium/Pleural There is small circumferential pericardial effusion. No cardiac tamponade. Inferior Vena Cava Normal inferior vena cava with >50% collapse upon inspiration consistent with normal right atrial pressure, 5 mmHg. Aorta The aortic root size at the sinus of Valsalva is normal. Left Ventricular Outflow Tract Name Value Normal LVOT 2D LVOT Diameter 2.0 cm LVOT Doppler LVOT Peak Velocity 121 cm/s LVOT Peak Gradient 6 mmHg LVOT Mean Gradient 3 mmHg LVOT VTI 31 cm LVOT VTI/AV VTI Ratio 0.8 LVOT Stroke Volume 98 ml LVOT CO 15.3 l/min LVOT CI 8.7 l/min/m2 Pulmonic Valve Name Value Normal PV Doppler PV Peak Velocity 126 cm/s PV Peak Gradient 6 mmHg Mitral Valve Name Value Normal MV Diastolic Function MV E Peak Velocity 107 cm/s MV A Peak Velocity 145 cm/s MV E/A 0.7 MV Decel Time (PW) 231 ms MV Annular TDI MV E/e' (Septal) 19.6 MV E/e' (Lateral) 13.7 MV E/e' (Average) 16.7 Tricuspid Valve Name Value Normal TV Regurgitation Doppler TR Peak Velocity 315 cm/s TR Peak Gradient 40 mmHg Estimated PAP/RSVP RA Pressure 5 mmHg <=5 PA Systolic Pressure 45 mmHg <36 RV Systolic Pressure 45 mmHg <36 TV Annular TDI TV Lateral Perla s' Velocity 15.2 cm/s >=9.5 Aorta Name Value Normal Ascending Aorta Ao Root Diameter (MM) 3.5 cm Ao Root Diam Index (MM) 2.0 cm/m2 Aortic Valve Name Value Normal AV Doppler AV Peak Velocity 159 cm/s AV Peak Gradient 10 mmHg AV Mean Gradient 6 mmHg AV VTI 39 cm AV Area (Cont Eq VTI) 2.5 cm2 >=3.0 AV Area (Cont Eq Odell) 2.4 cm2 AV DI (Odell) 0.76 AV Regurgitation 2D LVOT Area 3.1 cm2 Ventricles Name Value Normal LV Dimensions 2D/MM IVS Diastolic Thickness (2D) 1.1 cm 0.6-1.0 LVID Diastole (2D) 4.5 cm 3.8-5.2 LVIW Diastolic Thickness (2D) 1.0 cm 0.6-0.9 LVID Systole (2D) 2.6 cm 2.2-3.5 LVOT Diameter 2.0 cm LV Mass (2D Cubed) 171.64 g 67.00-162.00 LV Mass Index (2D Cubed) 97 g/m2 43-95 Relative Wall Thickness (2D) 0.45 <=0.42 LV Fractional Shortening/Ejection Fraction 2D/MM LV Fractional Shortening (2D) 44 % 27-45 LV EF (2D Teichholz) 75 % LV Diastolic Volume (4C MOD) 105 ml LV EF (4C MOD) 71 % LV Diastolic Volume (2C MOD) 109 ml LV EF (2C MOD) 71 % LV Diastolic Volume (BP MOD) 108 ml 46-106 LV Diastolic Volume Index (BP MOD) 61 ml/m2 29-61 LV Systolic Volume (BP MOD) 31 ml 14-42 LV Systolic Volume Index (BP MOD) 18 ml/m2 8-24 LV EF (BP MOD) 71 % 54-74 LV Diastolic Length (4C) 8.6 cm LV Systolic Length (4C) 6.3 cm LV Stroke Volume (4C MOD) 74 ml RV Dimensions 2D/MM RVID Diastole (2D) 3.4 cm 2.1-3.5 Atria Name Value Normal LA Dimensions LA Dimension (MM) 3.8 cm 2.7-3.8 LA Volume (4C A-L) 91 ml LA Volume (BP A-L) 79 ml RA Dimensions RA Systolic Major [place] Length (4C) 4.7 cm 2.2-2.8 RA Area (4C) 16.5 cm2 <=18.0 Report Signatures
== END 2025-01-03 08:26 | disposition home or self-care (01) ==
PROVIDERS: PCP Family Medicine; Visit Provider Internal Medicine Cardiovascular Disease
DX: I50.9 Heart failure, unspecified (principal); Z01.810 Encounter for preprocedural cardiovascular examination; I08.3 Combined rheumatic disorders of mitral, aortic and tricuspid valves
CPT/HCPCS: 78452; 93017; 93306; A9502; J2785

== ENCOUNTER 2025-02-24 10:50 | Outpatient (CLI) | payer MEDICARE, SELFPAY ==
--- NOTE | ~2025-02-24 | US_ITS ---
Renal-Bladder ultrasound Clinical History: Heart failure Technique: Real-time sonographic imaging of the kidneys and urinary bladder was performed. Findings: The right kidney measures 10.1 cm in length and the left kidney measures 9.3 cm. There is n o hydronephrosis or renal calculus identified. Renal cortical echogenicity is increased. No renal mas s lesion is identified. The urinary bladder is moderately distended at the time of this exam. No intraluminal echoes are iden tified. No abnormal wall thickening is seen. Bilateral pleural effusions are noted. Impression: Echogenic kidneys suggest chronic medical renal disease. Bilateral pleural effusions noted. Reviewed, dictated and finalized at location . Impression: Echogenic kidneys suggest chronic medical renal disease. Bilateral pleural effusions noted.
== END 2025-02-24 10:51 | disposition home or self-care (01) ==
LOC: MICIMG 10:52
PROVIDERS: PCP Family Medicine; Visit Provider Internal Medicine Nephrology
DX: I50.30 Unspecified diastolic (congestive) heart failure (principal); I13.0 Hypertensive heart and chronic kidney disease with heart failure and stage 1 through stage 4 chronic kidney disease, or unspecified chronic kidney disease; N18.32 Chronic kidney disease, stage 3b; N17.9 Acute kidney failure, unspecified
CPT/HCPCS: 76775

== ENCOUNTER 2025-03-18 13:21 | Emergency (ER) | payer MEDICARE, SELFPAY ==
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
[2025-03-18 13:23] VITALS: BP 160/59; PULSE 94; RESP 16; TEMP 36.4; O2SAT 96
--- OUTSIDE RECORDS SUMMARY | 2025-03-18 13:24 | XMS_ITS | Clinical Summary ---
Author Organization [facility] Address [address] [place] [phone] Care Team Providers Care Roof Shingler Name Role Phone Kelley Perez MD Unavailable [phone] Aft, Kimmie Ceballos MD PhD Unavailable [phone] Inder Chaves DO Unavailable [phone] Tisha Tubbs MD Primary Care Provider [phone] Aleksandra Hawkins MD Unavailable [phone] Allergies No known active allergies Medications simvastatin (ZOCOR) 20 mg tablet Take 1 tablet (20 mg total) by mouth nightly 2 8 Active LORazepam (ATIVAN) 0.5 mg tablet Take 1 tablet (0.5 mg total) by mouth as needed for anxiety 1 8 Active levothyroxine (SYNTHROID, LEVOTHROID) 50 mcg tablet Take 1 tablet (50 mcg total) by mouth 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 1 8 Active ergocalciferol (VITAMIN D) 50,000 unit capsule Take 1 capsule (50,000 Units total) by mouth every 14 (fourteen) days Takes every other 4 8 Active calcium carbonate (CALCIUM 600 ORAL) Take 1 tablet by mouth with lunch Active zolpidem (AMBIEN) 10 mg tablet Take 1 tablet (10 mg total) by mouth daily 0 Active amLODIPine (NORVASC) 5 mg tablet Take 1 tablet (5 mg total) by mouth 2 (two) times a day 5 Active Miebo, PF, 100 % drops Administer 1 drop into both eyes 4 (four) times a day 5 Active lisinopriL (PRINIVIL,ZEST RIL) 30 mg tablet Take 1 tablet (30 mg total) by mouth every morning Active xylitoL (XyliMelts) 550 mg muco-adhesive buccal tablet Apply 1 tablet to mouth as needed Active spironolactone (ALDACTONE) 25 mg tablet Take 1 tablet (25 mg total) by mouth daily 5 Active clobetasoL (TEMOVATE) 0.05 % cream 5 Active metOLazone (ZAROXOLYN) 2.5 mg tablet TAKE 1 TABLET BY MOUTH EVERY MORNING WITH BUMETANIDE 5 Active bumetanide (BUMEX) 1 mg tablet Take 1 tablet (1 mg total) by mouth 2 (two) times a day 5 Active cevimeline (EVOXAC) 30 mg capsule Take 1 capsule (30 mg total) by mouth 3 (three) times a day 03/10/20 Discontinu ed(Patient Reported) furosemide (LASIX) 20 mg tablet Take 2 tablets (40 mg total) by mouth daily New medication x 6 days for swelling 5 03/10/20 Discontinu ed(Patient Reported) oxyCODONE (ROXICODONE) 5 mg immediate release tabletIndicati ons:Pain Take 1 tablet (5 mg total) by mouth every 4 (four) hours as needed for pain 5 tablet 5 03/10/20 Discontinu ed(Patient Reported) potassium chloride ER 10 mEq CR capsule TAKE 1 CAPSULE BY MOUTH EVERY OTHER DAY 5 03/10/20 Discontinu ed(Patient Reported) Active Problems Problem Noted Date Diagnosed Date Malignant neoplasm of upper- inner quadrant of right breast in female, estrogen receptor positive 11/01/2024 Cancer Staging:Pathologic stage from 03/10/2025:Stage Unknown(pT1c, pNX, cM0, G2, ER+, GA+, HER2-) - Signed by Aleksandra Hawkins MD on 03/10/2025 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 04/05/2018 Oral candidiasis 04/05/2018 Encounters Date Type Department Care Team Description 03/10/2025 11:30 AM CDT Treatment [facility] Office Building 2 Radiation Oncology [address] [place] [phone] Aleksandra Hawkins MD 03/10/2025 10:30 AM CDT Consult [facility] Medical Office Building 2 Radiation Oncology [address] [place] [phone] Aleksandra Hawkins MD Malignant neoplasm of upper-inner quadrant of right breast in female, estrogen receptor positive (HCC) 02/26/2025 Telephone [facility] Oncology [address] [place] [phone] Lindsay Poe CMA 02/17/2025 Telephone [facility] Office Building 2 Radiation Oncology [address] [place] [phone] Evelia Urrutia MA 02/13/2025 2:30 PM CDT Office Visit [facility] Oncology [address] [place] [phone] Inder Chaves DO Malignant neoplasm of upper-inner quadrant of right breast in female, estrogen receptor positive (HCC) (Primary Dx); Malignant neoplasm of right female breast, unspecified estrogen receptor status, unspecified site of breast (HCC) 01/15/2025 1:45 PM CDT Office Visit [facility] Surgery [address] [place] [address] [address] [place] [phone] Kimmie Bradley MD PhD Malignant neoplasm of right female breast, unspecified estrogen receptor status, unspecified site of breast (HCC) (Primary Dx) 01/15/2025 Orders Only [facility] Surgery [address] [place] [address] [address] [place] [phone] Kimmie Bradley MD PhD Malignant neoplasm of right female breast, unspecified estrogen receptor status, unspecified site of breast (HCC) (Primary Dx) 01/07/2025 10:03 AM CDT Anesthesia Event [facility] Operating Room [facility] ([facility]) [address] [place] [phone] Olvin Ramos MD DDS Wilkens, Kelly Ann, NP 01/07/2025 9:40 AM CDT - 01/07/2025 10:55 AM CDT Surgery [facility] Operating Room [facility] ([facility]) [address] [place] [phone] Aft, Kimmie Ceballos MD PhD BIOPSY BREAST NEEDLE LOCALIZATION 01/07/2025 7:44 AM CDT - 01/07/2025 11:59 PM CDT Hospital Encounter [facility] ([facility]) [address] [place] [phone] Encounter for other preprocedural examination Discharge Disposition: Discharge to home or self care 01/07/2025 6:45 AM CDT - 01/07/2025 11:59 PM CDT Hospital Encounter [facility] Breast [facility] ([facility]) [address] [place] [phone] Encounter for other preprocedural examination Discharge Disposition: Discharge to home or self care 01/07/2025 6:00 AM CDT - 01/07/2025 12:36 PM CDT Hospital Encounter [facility] Operating Room [facility] ([facility]) [address] [place] [phone] Kimmie Bradley MD PhD Encounter for other preprocedural examination (Primary Dx); Malignant neoplasm of right female breast, unspecified estrogen receptor status, unspecified site of breast (HCC) Discharge Disposition: Discharge to home or self care 01/01/2025 Telephone [facility] for Preoperative Assessment and Planning [facility] ([facility]) [address] [place] [phone] Arely Thompson RN from Last 3 Months Immunizations Immunization Administration [...] Right CATARACT EXTRACTION 08/14/2021 - 08/13/2022 Bilateral BREAST LUMPECTOMY 01/07/2025 Right Medical History Medical History Date Comments Thyroid disease HTN (hypertension) Anxiety Hypothyroidism Hyperlipidemia Congestive heart failure (CHF) (HCC) Kidney disease with fluid retention Family History Medical History Relation Name Comments Lung cancer Brother 1 Throat cancer Brother 2 Lung cancer Father Cancer Father's Brother No Known Problems Maternal Grandfather Breast cancer Maternal Grandmother Aneurysm Mother No Known Problems Paternal Grandfather No Known Problems Paternal Grandmother Breast cancer Sister 1 Colon cancer Sister 2 Lung cancer Sister 2 Anesthesia problems Neg Hx Malig Hyperthermia Neg Hx Pseudochol deficiency Neg Hx Relation Name Status Comments Brother 1 Brother 2 Father Father's Brother Maternal Grandfather Maternal Grandmother Mother Paternal Grandfather Paternal Grandmother Sister 1 Sister 2 Social History Tobacco Use Types Packs/Day Years Used Date Smoking Tobacco: Never Passive Smoke Exposure: Past Smokeless Tobacco: Never Alcohol Use Standard Drinks/Week Comments No 0 (1 standard drink = 0.6 oz pur e alcohol) AUDIT-C Answer Date Recorded Q1: How often do you have a drink containing alcohol? Never 02/14/2025 Q2: How many drinks containi ng alcohol do you have on a typical day when you are drinking? Patient does not drink Q3: How often do you have si x or more drinks on one occasion? Never 02/14/2025 Personal Safety Answer Date Recorded Have you ever been in or are you currently in a harmful physical or emotional relationship or is someone making you feel afraid or unsafe? 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 Gender Identity Not on file Sexual Orientation Not on file Occupation Industry Job Start Date Job End Date Retired Not on file Not on file Not on file Obstetrics History Last Filed Vital Signs Vital Sign Reading Time Taken Comments Blood Pressure 177/66 03/10/2025 10:00 AM CDT Pulse 71 03/10/2025 10:00 AM CDT Temperature 36.7 C (98 F) 02/13/2025 2:38 PM CDT Respiratory Rate 16 02/13/2025 2:38 PM CDT Oxygen Saturation 95% 03/10/2025 10:00 AM CDT Inhaled Oxygen Concentration - - Weight 67 kg (147 lb 12.8 oz) 03/10/2025 10:00 A M CDT Height 161 cm (5' 3.39) 02/13/2025 2:45 PM CDT Body Mass Index 25.86 02/13/2025 2:45 PM CDT Plan of Treatment Health Maintenance Due Date Last Done Comments Depression Screening 1940 Osteoporosis Screening-Bone Density Scan 1940 Hepatitis B Screening 1957 Pneumococcal vaccine 65+ (1 of 1 - PCV) 1989 Zoster Vaccine (1 of 2) 1989 Well Visit 65+ 2004 Influenza Vaccine (#1) 2025 06/04/2020, 2017 Fall Risk Assessment 01/07/2026 01/07/2025 DTaP/Tdap/Td Vaccine (2 - Td or Tdap) 05/02/2027 Medical Devices Implanted Type Area Customer Relations Advisor Device Identifier Shelf Expiration Date Model / Serial / Lot Hammer & Chisel Marker Image Hydromark Plus T5 Titanium 15ga Radiological Implant Sterile 4009-09-28-T5 - [id number] Implanted:Qty: 1 on 11/01/2024 at [facility] [employer] [id number] 10/04/2025 4010-02-1 5-T5 / / [id number] D [employer] Ghiatas 20ga 20cm 7cm Beaded Needle Breast Wire Localization [id number] - [id number] Implanted:Qty: 1 on 01/07/2025 at [facility] Right: Breast [employer] [id number] / / Procedures Procedure Name Priority Date/Time Associated Diagnosis Comments RADIOLOGIC EXAMINATION OF SURGICAL SPECIMEN Schedule Routine, Read Routine (OP Routine) 01/07/2025 10:57 AM CDT Encounter for other preprocedural examination SURGICAL PATHOLOGY Routine 01/07/2025 10 :34 AM CDT Malignant neoplasm of right female breast, unspecified estrogen receptor status, unspecified site of breast (HCC) LUMPECTOMY 01/07/2025 10:08 AM CDT Malignant neoplasm of right female breast, unspecified estrogen receptor status, unspecified site of breast (HCC) Special Needs Faxitron BIOPSY BREAST NEEDLE LOCALIZATION 01/07/2025 10:08 AM CDT Malignant neoplasm of right female breast, unspecified estrogen receptor status, unspecified site of breast (HCC) Special Needs Faxitron JUAN ANTONIO POST CLIP PLACEMENT RIGHT IP Routine 01/07/2025 9:19 AM CDT Encounter for other preprocedural examination US GUIDED BREAST LOCALIZATION RIGHT Schedule Routine, Read Routine (OP Routine) 01/07/2025 8:56 AM CDT Encounter for other preprocedural examination from Last 3 Months Results * Radiologic Examination of Surgical Specimen (01/07/2025 10:57 AM CDT) Anatomical Region Laterality Modality Breast N/A Mammography 01/07/2025 3:20 PM CDT Impressions 01/07/2025 3:20 PM CDT Successful ultrasound-guided wire localization of the area of interest within the RIGHT breast. Electronically signed by: Melody Jacobs M.D. Narrative 01/07/2025 3:20 PM CDT EXAMINATION: RIGHT BREAST NEEDLE LOCALIZATION UTILIZING ULTRASOUND GUIDANCE; SURGICAL SPECIMEN RADIOGRAPH HISTORY: 84-year-old woman with recently diagnosed right breast malignancy at 1:00, 4 cm from the nipple presenting for localization prior to partial mastectomy. PROCEDURE AND FINDINGS: The procedure was discussed with the patient and informed consent was obtained. After sterile preparation of the skin, 1% lidocaine was utilized for local anesthesia. A hook-wire system was inserted into the area of interest from a lateral approach utilizing sonographic guidance. There was no evidence of significant immediate complication. A surgical specimen was subsequently received from the operating room and was imaged using digital radiography. The lesion of interest (dragonfly tissue marker, wire and mass) is included within the surgical specimen. These findings were communicated to the surgeon. The attending radiologist, Dr. Melody Jacobs M.D., was present throughout the entire procedure. Dr. Inder Guillen (diagnostic resident doctor) also participated in this examination. Procedure Note Melody Jacobs MD - 01/07/2025 EXAMINATION: RIGHT BREAST NEEDLE LOCALIZATION UTILIZING ULTRASOUND GUIDANCE; SURGICAL SPECIMEN RADIOGRAPH HISTORY: 84-year-old woman with recently diagnosed right breast malignancy at 1:00, 4 cm from the nipple presenting for localization prior to partial mastectomy. PROCEDURE AND FINDINGS: The procedure was discussed with the patient and informed consent was obtained. After sterile preparation of the skin, 1% lidocaine was utilized for local anesthesia. A hook-wire system was inserted into the area of interest from a lateral approach utilizing sonographic guidance. There was no evidence of significant immediate complication. A surgical specimen was subsequently received from the operating room and was imaged using digital radiography. The lesion of interest (dragonfly tissue marker, wire and mass) is included within the surgical specimen. These findings were communicated to the surgeon. The attending radiologist, Dr. Melody Jacobs M.D., was present throughout the entire procedure. Dr. Inder Guillen (diagnostic resident doctor) also participated in this examination. IMPRESSION: Successful ultrasound-guided wire localization of the area of interest within the RIGHT breast. Electronically signed by: Melody Jacobs M.D. Kimmie Bradley MD PhD IMG MAMMO PROCEDURES Final Result * Surgical pathology (01/07/2025 10:34 AM CDT) Tissue (Breast, excisional biopsy/ partial mastectomy) 01/07/2025 10:34 AM CDT Narrative PATHOLOGY [facility] - 01/10/2025 11:52 AM CDT EPIC results best viewed via link to PDF [facility]re[facility] [place] [address] Note to Patients: This report may contain [...] Gender: F : 1940 (Age: 84) Address: [address] [place], [place] [id number] Hospital #: [id number] Taken:01/07/2025 Received:01/07/2025 Reported: 01/10/2025 Patient Type: [facility] Service: Surgery Location: Physician(s): Aldair Head M.D. Laura S. Bird, M.D. 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 Delta Parr MD PhD Report Electronically Reviewed and Signed Out By Delta Parr MD PhD 01/10/2025 11:52:33 Microscopic Description and Comment: Microscopic examination substantiates the above cited diagnosis. The attending pathologist personally reviewed one or more Faxitron radiograph(s) taken for the purpose of radiographic/pathologic correlation, including localizing clip(s) and/or calcification(s). The radiographic findings were correlated with the histologic findings. The areas of interest were embedded for histologic examination. The imaging findings support the above diagnosis. Don Edwards M.D. History: The patient is an 84-year-old woman with right breast invasive ductal carcinoma. Operative Procedure: Right lumpectomy with needle localization. Specimen(s) Received: A: Right breast cancer, long stitch lateral short stitch superior Gross Description: Received in formalin, labeled with the patient s identifiers and right breast cancer, long stitch lateral short stitch superior -Collected: 1034 on 01/07/2025 -Received: 1111 on 01/07/2025 -Placed in formalin: 1113 on 01/07/2025 -Cold ischemic time: Less than 1 hour -Formalin Fixation time: 33.5 hours -Specimen dimensions: Medial to Lateral: 3.8 cm Superior to Inferior: 3.4 cm Anterior to Posterior: 1.5 cm -Skin dimensions: No skin included -Weight: 10 g -Orientation: There is a short stitch superior and a long stitch lateral. Additionally, a needle localization wire protrudes from the lateral aspect. - Margins inked: Superior: Blue Inferior: Green Anterior: Yellow Posterior: Black -Sectioned: Lateral to medial -Number of slices: 9 (slice 1 = lateral end) -Gross findings: A 1.5 x 1.5 x 0.9 cm firm, infiltrative and ill-defined rodriguez-white mass is identified in slices 3-7. A dragonfly biopsy clip is identified within the mass in slice 6. -Distance from surgical margin: Mass Superior: 0.7 cm Inferior: 0.5 cm Anterior: 0.2 cm Posterior: 0.1 cm Medial: 1.0 cm Lateral: 1.5 cm -Specimen radiographed: Yes -Radiograph findings: A dragonfly biopsy clip is identified. -Diagram: No -Additional notes: It is entirely submitted. -Summary of sections: A1-A2 Slice 1, perpendicular (lateral end) A3-A4 Slice 2, bisected A5-A6 Slice 3 with mass, bisected A7-A8 Slice 4 with mass, bisected A9-A10 Slice 5 with mass, bisected A11-A12 Slice 6 with mass and site of biopsy clip, bisected A13-A14 Slice 7 with mass, bisected A15 Slice 8, intact A16 Slice 9, perpendicular (medial end). Jar 0 dxb/01/08/2025 16:13 PA(s): ZEE Johnson, PA(ASCP)CM CANCER CASE SUMMARY FOR INVASIVE CARCINOMA OF THE BREAST Procedure: Excision (less than total mastectomy) Specimen laterality: Right Tumor site invasive carcinoma: 1 o c lock Distance from nipple (centimeters): 4cm Histologic type of invasive carcinoma: Invasive ductal carcinoma (no special type or not otherwise specified) Tumor size: Greatest dimension: 15mm Histologic grade (Izzy Histologic Score): Tubular differentiation: Score 3 Nuclear pleomorphism: Score 2 Mitotic rate: Score 1 Overall grade: Grade 2: scores of 6 or 7 Tumor focality: Single focus of invasive carcinoma Ductal carcinoma in situ (DCIS): DCIS is present Negative for extensive intraductal component (EIC) Estimated size (extent) of DCIS (greatest dimension using gross & microscopic evaluation): at least 5 mm Architectural patterns: Solid Nuclear grade: Grade 2 (intermediate) Necrosis: Not identified Lobular carcinoma in situ (LCIS): Not identified Extent of tumor: Not applicable (skin, nipple, and skeletal muscle are absent or are uninvolved) Margins for invasive carcinoma: Margins negative for invasive carcinoma Distance from closest margin: 1 mm Margin: anterior and posterior Margins for DCIS: Margins uninvolved by DCIS Distance from closest margin: 4 mm Margin: anterior and posterior Lymph nodes: Total number of lymph nodes examined (sentinel and nonsentinel): 0 Lymph node involvement: Not Applicable (no regional lymph nodes submitted or found) Response to presurgical therapy: No known presurgical therapy Lymphovascular Invasion: Not identified Dermal Lymphovascular Invasion: No skin present Distant Site(s) Involved, if applicable (select all that apply): Not applicable Pathologic Stage Classification (pTNM, AJCC 8th Edition): Primary tumor (invasive carcinoma) (pT): pT1: Tumor <=20 mm in greatest dimension pT1c: Tumor >10 mm but <=20 mm in greatest dimension Lymph nodes (pN): pN not assigned (no nodes submitted or found) Distant metastasis (pM): Not applicable The pathologic stage assigned here should be regarded as provisional, and may change after integration of clinical data not provided with this report. CAP VERSION: InvasiveBreast 4.10 By this signature, I attest that the above diagnosis is based upon my personal examination of the slides(and/or other material). Addenda/Procedures The performance characteristics of some immunohistochemical stains, fluorescence in-situ hybridization tests and immunophenotyping by flow cytometry cited in this report (if any) were determined by the Surgical Pathology and Flow Cytometry Departments at [facility] as part of an ongoing quality control manager program and in compliance with federally mandated [...] Surgical Pathology and Flow Cytometry Departments of [facility]. It has not been cleared or approved by the U. S. Food and Drug Administration. IMAGES AND SCANNED DOCUMENTS, IF INCLUDED, ONLY VIEWABLE IN PDF VERSION OF REPORT us Kimmie Bradley MD PhD LAB PATHOLOGY ORDERABLES F inal Result PATHOLOGY [facility] 3rd Floor [place], [place] [phone] * Juan Antonio Post Clip Placement Right (01/07/2025 9:19 AM CDT) Anatomical Region Laterality Modality Breast Right Mammography 01/07/2025 3:20 PM CDT Impressions 01/07/2025 3:20 PM CDT Successful ultrasound-guided wire localization of the area of interest within the RIGHT breast. Electronically signed by: Melody Jacobs M.D. Narrative 01/07/2025 3:20 PM CDT EXAMINATION: RIGHT BREAST NEEDLE LOCALIZATION UTILIZING ULTRASOUND GUIDANCE; SURGICAL SPECIMEN RADIOGRAPH HISTORY: 84-year-old woman with recently diagnosed right breast malignancy at 1:00, 4 cm from the nipple presenting for localization prior to partial mastectomy. PROCEDURE AND FINDINGS: The procedure was discussed with the patient and informed consent was obtained. After sterile preparation of the skin, 1% lidocaine was utilized for local anesthesia. A hook-wire system was inserted into the area of interest from a lateral approach utilizing sonographic guidance. There was no evidence of significant immediate complication. A surgical specimen was subsequently received from the operating room and was imaged using digital radiography. The lesion of interest (dragonfly tissue marker, wire and mass) is included within the surgical specimen. These findings were communicated to the surgeon. The attending radiologist, Dr. Melody Jacobs M.D., was present throughout the entire procedure. Dr. Inder Guillen (diagnostic resident doctor) also participated in this examination. Procedure Note Melody Jacobs MD - 01/07/2025 EXAMINATION: RIGHT BREAST NEEDLE LOCALIZATION UTILIZING ULTRASOUND GUIDANCE; SURGICAL SPECIMEN RADIOGRAPH HISTORY: 84-year-old woman with recently diagnosed right breast malignancy at 1:00, 4 cm from the nipple presenting for localization prior to partial mastectomy. PROCEDURE AND FINDINGS: The procedure was discussed with the patient and informed consent was obtained. After sterile preparation of the skin, 1% lidocaine was utilized for local anesthesia. A hook-wire system was inserted into the area of interest from a lateral approach utilizing sonographic guidance. There was no evidence of significant immediate complication. A surgical specimen was subsequently received from the operating room and was imaged using digital radiography. The lesion of interest (dragonfly tissue marker, wire and mass) is included within the surgical specimen. These findings were communicated to the surgeon. The attending radiologist, Dr. Melody Jacobs M.D., was present throughout the entire procedure. Dr. Inder Guillen (diagnostic resident doctor) also participated in this examination. IMPRESSION: Successful ultrasound-guided wire localization of the area of interest within the RIGHT breast. Electronically signed by: Melody Jacobs M.D. Kimmie Bradley MD PhD IMG MAMMO PROCEDURES Final Result * US Guided Breast Localization Right (01/07/2025 8:56 AM CDT) Anatomical Region Laterality Modality Breast Right Ultrasound 01/07/2025 3:20 PM CDT Impressions 01/07/2025 3:20 PM CDT Successful ultrasound-guided wire localization of the area of interest within the RIGHT breast. Electronically signed by: Melody Jacobs M.D. Narrative 01/07/2025 3:20 PM CDT EXAMINATION: RIGHT BREAST NEEDLE LOCALIZATION UTILIZING ULTRASOUND GUIDANCE; SURGICAL SPECIMEN RADIOGRAPH HISTORY: 84-year-old woman with recently diagnosed right breast malignancy at 1:00, 4 cm from the nipple presenting for localization prior to partial mastectomy. PROCEDURE AND FINDINGS: The procedure was discussed with the patient and informed consent was obtained. After sterile preparation of the skin, 1% lidocaine was utilized for local anesthesia. A hook-wire system was inserted into the area of interest from a lateral approach utilizing sonographic guidance. There was no evidence of significant immediate complication. A surgical specimen was subsequently received from the operating room and was imaged using digital radiography. The lesion of interest (dragonfly tissue marker, wire and mass) is included within the surgical specimen. These findings were communicated to the surgeon. The attending radiologist, Dr. Melody Jacobs M.D., was present throughout the entire procedure. Dr. Inder Guillen (diagnostic resident doctor) also participated in this examination. Procedure Note Melody Jacobs MD - 01/07/2025 EXAMINATION: RIGHT BREAST NEEDLE LOCALIZATION UTILIZING ULTRASOUND GUIDANCE; SURGICAL SPECIMEN RADIOGRAPH HISTORY: 84-year-old woman with recently diagnosed right breast malignancy at 1:00, 4 cm from the nipple presenting for localization prior to partial mastectomy. PROCEDURE AND FINDINGS: The procedure was discussed with the patient and informed consent was obtained. After sterile preparation of the skin, 1% lidocaine was utilized for local anesthesia. A hook-wire system was inserted into the area of interest from a lateral approach utilizing sonographic guidance. There was no evidence of significant immediate complication. A surgical specimen was subsequently received from the operating room and was imaged using digital radiography. The lesion of interest (dragonfly tissue marker, wire and mass) is included within the surgical specimen. These findings were communicated to the surgeon. The attending radiologist, Dr. Melody Jacobs M.D., was present throughout the entire procedure. Dr. Inder Guillen (diagnostic resident doctor) also participated in this examination. IMPRESSION: Successful ultrasound-guided wire localization of the area of interest within the RIGHT breast. Electronically signed by: Melody Jacobs M.D. Kimmie Bradley MD PhD IMG MAMMO PROCEDURES Final Result from Last 3 Months Insurance UHC MEDICARE ADVANTAGE UHC MEDICARE ADVANTAGE UHC MEDICARE ADVANTAGE Advance Directives For more information, please contact: [phone] Documents on File Type Date Recorded Patient Office Technician [place] Advance Directives and Damon shah Will 01/07/2025 6:13 AM Care Teams Roof Shingler Relationship Specialty Start Date End Date Tisha Tubbs MD [address] [place] [address] MEDICAL ONCOLOGY, [address] [address] PCP - General Family Medicine 02/11/25 Kelley Perez MD [address] [address] Referring Physician Gynecology 06/11/21 Aft, Kimmie Ceballos MD PhD [address] [place] [address] 8 [place] [address] Surgeon Surgical Oncology 02/11/25 Inder Chaves DO [address] [place] [address] MEDICAL ONCOLOGY, [address] [address] Medical Oncologist/Scalp Treatment Operator Hematology and Oncology 02/11/25 Aleksandra Hawkins MD [address] [place] [id number] Radiation Oncologist Radiation Oncology 02/24/25
--- OUTSIDE RECORDS SUMMARY | 2025-03-18 13:24 | XMS_ITS | Referral Summary ---
Author Organization [facility] Address [address] [place] [address] Care Team Providers Care Crossing Gateman Name Role Phone Kelley Perez MD Unavailable [phone] Aft, Kimmie Ceballos MD PhD Unavailable [phone] Inder Chaves DO Unavailable [phone] Tisha Tubbs MD Primary Care Provider [phone] Aleksandra Hawkins MD Unavailable [phone] Encounters Date Type Department Care Team Description 03/10/2025 11:30 AM CDT Treatment [facility] Office Building 2 Radiation Oncology [address] [place] [address] Aleksandra Hawkins MD 03/10/2025 10:30 AM CDT Consult [facility] Office Building 2 Radiation Oncology [address] [place] [address] [phone] Aleksandra Hawkins MD Malignant neoplasm of upper-inner quadrant of right breast in female, estrogen receptor positive (HCC) 02/26/2025 Telephone [facility] Oncology [address] [place] [address] [address] [place] [address] Lindsay Poe CMA 02/17/2025 Telephone [facility] Medical Office Building 2 Radiation Oncology [address] [place] [address] Evelia Urrutia MA 02/13/2025 2:30 PM CDT Office Visit [facility] [place] On[facility] [address] [place] [address] Inder Chaves DO Malignant neoplasm of upper-inner quadrant of right breast in female, estrogen receptor positive (HCC) (Primary Dx); Malignant neoplasm of right female breast, unspecified estrogen receptor status, unspecified site of breast (HCC) 01/15/2025 Orders Only [facility] Surgery [address] [place] [address] 8 [place] [phone] Kimmie Bradley MD PhD Malignant neoplasm of right female breast, unspecified estrogen receptor status, unspecified site of breast (HCC) (Primary Dx) 01/15/2025 1:45 PM CDT Office Visit [facility] Surgery [address] [place] [phone] Kimmie Bradley MD PhD Malignant neoplasm of right female breast, unspecified estrogen receptor status, unspecified site of breast (HCC) (Primary Dx) 01/07/2025 6:45 AM CDT - 01/07/2025 11:59 PM CDT Hospital Encounter [facility] Advanced [facility] ([facility]) [address] [place] [address] Encounter for other preprocedural examination Discharge Disposition: Discharge to home or self care 01/07/2025 7:44 AM CDT - 01/07/2025 11:59 PM CDT Hospital Encounter [facility] Advanced Medicine [facility] ([facility]) [address] [place] [address] Encounter for other preprocedural examination Discharge Disposition: Discharge to home or self care 01/07/2025 9:40 AM CDT - 01/07/2025 10:55 AM CDT Surgery [facility] ([facility]) [address] [place] [address] Kimmie Bradley MD PhD BIOPSY BREAST NEEDLE LOCALIZATION 01/07/2025 10:03 AM CDT Anesthesia Event [facility] ([facility]) [address] [place] [address] Olvin Ramos MD DDS Marielena Barnes NP 01/07/2025 6:00 AM CDT - 01/07/2025 12:36 PM CDT Hospital Encounter [facility] ([facility]) [address] [place] [address] Aft, Kimmie Ceballos MD PhD Encounter for other preprocedural examination (Primary Dx); Malignant neoplasm of right female breast, unspecified estrogen receptor status, unspecified site of breast (HCC) Discharge Disposition: Discharge to home or self care 01/01/2025 Telephone [facility] for Preoperative Assessment and Planning [facility] Advanced [facility] ([facility]) [address] [place] [address] [phone] Arely Thompson RN from Last 3 Months Allergies No known active allergies Medications simvastatin (ZOCOR) 20 mg tablet Take 1 tablet (20 mg total) by mouth nightly 2 8 Active LORazepam (ATIVAN) 0.5 mg tablet Take 1 tablet (0.5 mg total) by mouth as needed for anxiety 1 8 Active levothyroxine (SYNTHROID, LEVOTHROID) 50 mcg tablet Take 1 tablet (50 mcg total) by mouth legal research analyst before breakfast 1 8 Active ergocalciferol (VITAMIN [...] mouth 3 (three) times a day 03/10/20 25 Discontinu ed(Patient Reported) furosemide (LASIX) 20 mg tablet Take 2 tablets (40 mg total) by mouth daily New medication x 6 days for swelling 5 03/10/20 25 Discontinu ed(Patient Reported) oxyCODONE (ROXICODONE) 5 mg immediate release tabletIndicati ons:Pain Take 1 tablet (5 mg total) by mouth every 4 (four) hours as needed for pain 5 tablet 5 03/10/20 25 Discontinu ed(Patient Reported) potassium chloride ER 10 mEq CR capsule TAKE 1 CAPSULE BY MOUTH EVERY OTHER DAY 5 03/10/20 25 Discontinu ed(Patient Reported) Active Problems Problem Noted Date Diagnosed Date Malignant neoplasm of upper- inner quadrant of right breast in female, estrogen receptor positive 11/01/2024 Cancer Staging:Pathologic stage from 03/10/2025:Stage Unknown(pT1c, pNX, cM0, G2, ER+, SD+, HER2-) - Signed by Aleksandra Hawkins MD [...] on file Legal Sex Female 12:18 AM PULLER THROUGH Gender Identity Not on file Sexual Orientation Not on file Occupation Industry Job Start Date Job End Date Retired Not on file Not on file Not on file Last Filed Vital Signs [...] 02/13/2025 2:45 PM CDT Plan of Treatment Not on file Medical Devices Implanted Type Area Remelt Sugar Boiler Device Identifier Shelf Expiration Date Model / Serial / Lot ViperMed Marker Image Hydromark Plus T5 Titanium 15ga Radiological Implant Sterile 5479-89-01-T5 - [id number] Implanted:Qty: 1 on 11/01/2024 at [facility] ViperMed [id number] 10/04/20254009-09-1 5-T5 / / [id number] D Bard Peripheral Vascular Enzo 20ga 20cm 7cm Beaded Needle Breast Wire Localization [id number] - [id number] Implanted:Qty: 1 on 01/07/2025 at [facility] Right: Breast Bard Peripheral Vascular [id number] / / Procedures Procedure Name Priority Date/Time [...] the entire procedure. Dr. Inder Guillen (diagnostic residential builder) also participated in this examination. Procedure Note [...] the entire procedure. Dr. Inder Guillen (diagnostic residential builder) also participated in this examination. IMPRESSION: Successful ultrasound-guided wire localization of the area of interest within the RIGHT breast. Electronically signed by: Melody Jacobs M.D. us Kimmie Bradley MD PhD IMG MAMMO PROCEDURES Final Result * Surgical pathology (01/07/2025 10:34 AM CDT) Tissue (Breast, excisional biopsy/ partial mastectomy) 01/07/2025 10:34 AM CDT Narrative PATHOLOGY [facility] - 01/10/2025 11:52 AM CDT EPIC results best viewed via link to PDF [facility] Wendy Contreras [facility] [place] [address] Note to Patients: This report may contain [...] Gender: F : 1940 (Age: 84) Address: [address] [place], [place] [id number] Hospital #: [id number] Taken:01/07/2025 Received:01/07/2025 Reported: 01/10/2025 Patient Type: [facility] Service: Surgery Location: Physician(s): Aldair Head M.D. Laura S. Bird, M.D. 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 It has not been cleared or approved by the U. S. Food and Drug Administration. IMAGES AND SCANNED DOCUMENTS, IF INCLUDED, ONLY VIEWABLE IN PDF VERSION OF REPORT us Kimmie Bradley MD PhD LAB PATHOLOGY ORDERABLES F inal Result PATHOLOGY [facility] 3rd Floor [place], [place] [phone] * Juan Antonio Post Clip Placement Right [...] the entire procedure. Dr. Inder Guillen (diagnostic residential builder) also participated in this examination. Procedure Note [...] the entire procedure. Dr. Inder Guillen (diagnostic residential builder) also participated in this examination. IMPRESSION: Successful [...] the entire procedure. Dr. Inder Guillen (diagnostic residential builder) also participated in this examination. Procedure Note [...] the entire procedure. Dr. Inder Guillen (diagnostic residential builder) also participated in this examination. IMPRESSION: Successful ultrasound-guided wire localization of the area of interest within the RIGHT breast. Electronically signed by: Melody Jacobs M.D. Kimmie Bradley MD PhD IMG MAMMO PROCEDURES Final Result from Last 3 Months Insurance [facility] MEDICARE ADVANTAGE [facility] MEDICARE Address: [address] [address] UHC MEDICARE ADVANTAGE [facility] MEDICARE Address: [facility] [address] [place] [address] [facility] MEDICARE ADVANTAGE [facility] MEDICARE Address: [facility] [address] [place] [address] Advance Directives For more information, please contact: [phone] Documents on File Type Date Recorded Patient Blower And Compressor Assembler Expl anation Advance Directives and Livin g Will 01/07/2025 6:13 AM Care Teams Crossing Gateman Relationship Specialty Start Date End Date Tisha Tubbs MD [address] [place] [address] MEDICAL ONCOLOGY, [address] [address] PCP - General Family Medicine 02/11/25 Kelley Perez MD 2022 [facility] [address] [place] [address] Referring Physician Gynecology 06/11/21 Aft, Kimmie Ceballos MD PhD 4500 [facility] 8 [place] [address] Surgeon Surgical Oncology 02/11/25 Inder Chaves DO [address] [place] [address] MEDICAL ONCOLOGY, [facility] [address] [place] [address] Medical Oncologist/Credit Investigator Hematology and Oncology 02/11/25 Aleksandra Hawkins MD [address] [place] [address] [address] [place] [address] Radiation Oncologist Radiation Oncology 02/24/25
--- OUTSIDE RECORDS SUMMARY | 2025-03-18 14:35 | XMS_ITS | Referral Summary ---
Author Organization [facility] Address [address] [place] [address] Care Team Providers Care Magento Developer Name Role Phone Kelley Perez MD Unavailable [phone] Aft, Kimmie Ceballos MD PhD Unavailable [phone] Inder Chaves DO Unavailable [phone] Tisha Tubbs MD Primary Care Provider [phone] Aleksandra Hawkins MD Unavailable [phone] Encounters Date Type Department Care Team Description 03/10/2025 11:30 AM CDT Treatment [facility] Office Building 2 Radiation Oncology [address] [place] [address] Aleksandra Hawkins MD 03/10/2025 10:30 AM CDT Consult [facility] Office Building 2 Radiation Oncology [address] [place] [phone] Aleksandra Hawkins MD Malignant neoplasm of upper-inner quadrant of right breast in female, estrogen receptor positive (HCC) 02/26/2025 Telephone [facility] Oncology [address] [place] [address] [address] [place] [address] Lindsay Poe CMA 02/17/2025 Telephone [facility] Medical Office Building 2 Radiation Oncology [address] [place] [address] Evelia Urrutia MA 02/13/2025 2:30 PM CDT Office Visit [facility] [place] Oncology [facility] [address] [place] [address] Inder Chaves DO Malignant neoplasm of upper-inner quadrant of right breast in female, estrogen receptor positive (HCC) (Primary Dx); Malignant neoplasm of right female breast, unspecified estrogen receptor status, unspecified site of breast (HCC) 01/15/2025 Orders Only [facility] Surgery [address] [place] [address] 8 [place] [phone] Kimmie Bradley MD PhD Malignant neoplasm of right female breast, unspecified estrogen receptor status, unspecified site of breast (HCC) (Primary Dx) 01/15/2025 1:45 PM CDT Office Visit [facility] Surgery [address] [place] [phone] Kimmie Bradley MD PhD Malignant neoplasm of right female breast, unspecified estrogen receptor status, unspecified site of breast (HCC) (Primary Dx) 01/07/2025 6:45 AM CDT - 01/07/2025 11:59 PM CDT Hospital Encounter [facility] Advanced [facility] ([facility]) [address] [place] [address] Encounter for other preprocedural examination Discharge Disposition: Discharge to home or self care 01/07/2025 7:44 AM CDT - 01/07/2025 11:59 PM CDT Hospital Encounter [facility] Advanced [facility] ([facility]) [address] [place] [address] Encounter for other preprocedural examination Discharge Disposition: Discharge to home or self care 01/07/2025 9:40 AM CDT - 01/07/2025 10:[address] [facility] ([facility]) [address] [place] [address] Kimmie Bradley MD PhD BIOPSY BREAST NEEDLE LOCALIZATION 01/07/2025 10:03 AM CDT Anesthesia Event [facility] ([facility]) [address] [place] [address] Olvin Ramos MD DDS Marielena Barnes NP 01/07/2025 6:00 AM CDT - 01/07/2025 12:36 PM CDT Hospital Encounter [facility] Operating Room [place] [facility] ([facility]) [address] [place] [address] Aft, Kimmie Ceballos MD PhD Encounter for other preprocedural examination (Primary Dx); Malignant neoplasm of right female breast, unspecified estrogen receptor status, unspecified site of breast (HCC) Discharge Disposition: Discharge to home or self care 01/01/2025 Telephone [facility] for Preoperative Assessment and Planning [facility] ([facility]) [address] [place] [phone] Arely Thompson RN from Last 3 Months [...] 1 tablet (50 mcg total) by mouth call center assistant before breakfast 1 8 Active ergocalciferol (VITAMIN [...] from 03/10/2025:Stage Unknown(pT1c, pNX, cM0, G2, ER+, WA+, HER2-) - Signed by Aleksandra Hawkins MD [...] on file Legal Sex 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 Gender Identity Not on file Sexual Orientation [...] on file Medical Devices Implanted Type Area Accordion Repairer Device Identifier Shelf Expiration Date Model / Serial / Lot Fonality Marker Image Hydromark Plus T5 Titanium 15ga Radiological Implant Sterile 1704-00-13-T5 - [id number] Implanted:Qty: 1 on 11/01/2024 at [facility] Fonality [id number] 10/04/20254009-09-1 5-T5 / / [id number] Bard Peripheral Vascular Enoz 20ga 20cm 7cm Beaded Needle Breast Wire Localization 14566 - [id number] Implanted:Qty: 1 on 01/07/2025 at [facility] Right: Breast Bard Peripheral Vascular [id number] / / Procedures Procedure Name Priority Date/Time [...] the entire procedure. Dr. Inder Guillen (diagnostic vice president precision market insights) also participated in this examination. Procedure Note [...] the entire procedure. Dr. Inder Guillen (diagnostic vice president precision market insights) also participated in this examination. IMPRESSION: Successful ultrasound-guided wire localization of the area of interest within the RIGHT breast. Electronically signed by: Melody Jacobs M.D. us Kimmie Bradley MD PhD IMG MAMMO PROCEDURES Final Result * Surgical pathology (01/07/2025 10:34 AM CDT) Tissue (Breast, excisional biopsy/ partial mastectomy) 01/07/2025 10:34 AM CDT Narrative PATHOLOGY [facility] - 01/10/2025 11:52 AM CDT EPIC results best viewed via link to PDF [facility] Wendy Contreras Laboratory [place] [address] Note to Patients: This report may contain [...] Gender: F : 1940 (Age: 84) Address: [address] [place], [place] [address] Hospital #: [id number] Taken:01/07/2025 Received:01/07/2025 Reported: 01/10/2025 Patient Type: [facility] Service: Surgery Location: Physician(s): Aldair [...] and posterior margins - Biopsy site changes [facility]/01/10/2025 06:40 By this signature, I attest [...] and Flow Cytometry Departments at [facility] as part of an ongoing chief quality [...] and Flow Cytometry Departments of [facility]. It has not been cleared or approved by the U. S. Food and Drug Administration. IMAGES AND SCANNED DOCUMENTS, IF INCLUDED, ONLY VIEWABLE IN PDF VERSION OF REPORT us Kimmie Bradley MD PhD LAB PATHOLOGY ORDERABLES F inal Result PATHOLOGY [facility] 3rd Floor [place], [place] [phone] * Juan Antonio Post Clip Placement Right [...] the entire procedure. Dr. Inder Guillen (diagnostic vice president precision market insights) also participated in this examination. Procedure Note [...] the entire procedure. Dr. Inder Guillen (diagnostic vice president precision market insights) also participated in this examination. IMPRESSION: Successful [...] the entire procedure. Dr. Inder Guillen (diagnostic vice president precision market insights) also participated in this examination. Procedure Note [...] the entire procedure. Dr. Inder Guillen (diagnostic vice president precision market insights) also participated in this examination. IMPRESSION: Successful ultrasound-guided wire localization of the area of interest within the RIGHT breast. Electronically signed by: Melody Jacobs M.D. Kimmie Bradley MD PhD IMG MAMMO PROCEDURES Final Result from Last 3 Months Insurance [facility] MEDICARE ADVANTAGE [facility]ICARE Address: [address] [address] UHC MEDICARE ADVANTAGE [facility] MEDICARE Address: [facility] [address] [place] [address] [facility] MEDICARE ADVANTAGE [facility] MEDICARE Address: [facility] [address] [place] [address] Advance Directives For more information, please contact: [phone] Documents on File Type Date Recorded Patient Speed Winder Expl anation Advance Directives and Livin g Will 01/07/2025 6:13 AM Care Teams Magento Developer Relationship Specialty Start Date End Date Tisha Tubbs MD [address] [place] [address] MEDICAL ONCOLOGY, [address] [address] PCP - General Family Medicine 02/11/25 Kelley Perez MD 2022 [facility] [address] [place] [address] Referring Physician Gynecology 06/11/21 Aft, Kimmie Ceballos MD PhD 4500 [facility] 8 [place] [address] Surgeon Surgical Oncology 02/11/25 Inder Chaves DO [address] [place] [address] MEDICAL ONCOLOGY, [facility] [address] [place] [address] Medical Oncologist/Public Health Internship Hematology and Oncology 02/11/25 Aleksandra Hawkins MD [address] [place] [address] 160 [place] [address] Radiation Oncologist Radiation Oncology 02/24/25
--- OUTSIDE RECORDS SUMMARY | 2025-03-18 14:35 | XMS_ITS | Clinical Summary ---
Author Organization [facility] Address [address] [place] [id number] Care Team Providers Care Ecclesiastical Worker Name Role Phone Kelley Perez MD Unavailable [phone] Aft, Kimmie Ceballos MD PhD Unavailable [phone] Inder Chaves DO Unavailable [phone] Tisha Tubbs MD Primary Care Provider [phone] Aleksandra Hawkins MD Unavailable [phone] Allergies No known active allergies Medications simvastatin (ZOCOR) 20 mg tablet Take 1 tablet (20 mg total) by mouth nightly 2 8 Active LORazepam (ATIVAN) 0.5 mg tablet Take 1 tablet (0.5 mg total) by mouth as needed for anxiety 1 8 Active levothyroxine (SYNTHROID, LEVOTHROID) 50 mcg tablet Take 1 tablet (50 mcg total) by mouth external grinder tool before breakfast 1 8 Active ergocalciferol (VITAMIN [...] from 03/10/2025:Stage Unknown(pT1c, pNX, cM0, G2, ER+, VA+, HER2-) - Signed by Aleksandra Hawkins MD on 03/10/2025 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 04/05/2018 Oral candidiasis 04/05/2018 Encounters Date Type Department Care Team Description 03/10/2025 11:30 AM CDT Treatment [facility] Office Building 2 Radiation Oncology [address] [place] [phone] Aleksandra Hawkins MD 03/10/2025 10:30 AM CDT Consult [facility] Medical Office Building 2 Radiation Oncology [address] [place] [phone] Aleksandra Hawkins MD Malignant neoplasm of upper-inner quadrant of right breast in female, estrogen receptor positive (HCC) 02/26/2025 Telephone [facility] Oncology [address] [place] [phone] Lindsay Poe CMA 02/17/2025 Telephone [facility] Office Building 2 Radiation Oncology [address] [place] [phone] Evelia Urrutia MA 02/13/2025 2:30 PM CDT Office Visit [facility] Oncology [address] [place] [phone] Inder Chaves DO Malignant neoplasm of upper-inner quadrant of right breast in female, estrogen receptor positive (HCC) (Primary Dx); Malignant neoplasm of right female breast, unspecified estrogen receptor status, unspecified site of breast (HCC) 01/15/2025 1:45 PM CDT Office Visit [facility] Surgery [address] [place] [address] 8 [place] [phone] Kimmie Bradley MD PhD Malignant neoplasm of right female breast, unspecified estrogen receptor status, unspecified site of breast (HCC) (Primary Dx) 01/15/2025 Orders Only [facility] Surgery [address] [place] [address] 8 [place] [phone] Kimmie Bradley MD PhD Malignant neoplasm of right female breast, unspecified estrogen receptor status, unspecified site of breast (HCC) (Primary Dx) 01/07/2025 10:03 AM CDT Anesthesia Event [facility] ([facility]) [address] [place] [phone] Olvin Ramos MD DDS Wilkens, Kelly Ann, NP 01/07/2025 9:40 AM CDT - 01/07/2025 10:55 AM CDT Surgery [facility] Operating [facility] ([facility]) [address] [place] [phone] Aft, Kimmie Ceballos MD PhD BIOPSY BREAST NEEDLE LOCALIZATION 01/07/2025 7:44 AM CDT - 01/07/2025 11:59 PM CDT Hospital Encounter [facility] Breast [facility] ([facility]) [address] [place] [phone] Encounter for other preprocedural examination Discharge Disposition: Discharge to home or self care 01/07/2025 6:45 AM CDT - 01/07/2025 11:59 PM CDT Hospital Encounter [facility] Breast [facility] ([facility]) [address] [place] [phone] Encounter for other preprocedural examination Discharge Disposition: Discharge to home or self care 01/07/2025 6:00 AM CDT - 01/07/2025 12:36 PM CDT Hospital Encounter [facility] Operating [facility] ([facility]) [address] [place] [phone] Kimmie Bradley MD PhD Encounter for other preprocedural examination (Primary Dx); Malignant neoplasm of right female breast, unspecified estrogen receptor status, unspecified site of breast (HCC) Discharge Disposition: Discharge to home or self care 01/01/2025 Telephone [facility] for Preoperative Assessment and Planning [facility] ([facility]) [address] [place] [phone] Arely Thompson RN from Last 3 Months [...] on file Legal Sex Female 12:18 AM DIRECTOR OF PUBLICATIONS Gender Identity Not on file Sexual Orientation [...] Tdap) 05/02/2027 Medical Devices Implanted Type Area Sorting And Folding Supervisor Device Identifier Shelf Expiration Date Model / Serial / Lot Weeleo Marker Image Hydromark Plus T5 Titanium 15ga Radiological Implant Sterile 4009-09-28-T5 - [id number] Implanted:Qty: 1 on 11/01/2024 at [facility] [employer] [id number] 10/04/2025 4010-02-1 5-T5 / / [id number] D Bard Peripheral V[employer] Ghiatas 20ga 20cm 7cm Beaded Needle Breast Wire Localization [id number] - [id number] Implanted:Qty: 1 on 01/07/2025 at [facility] Right: Breast [employer] [id number] / / Procedures Procedure Name Priority Date/Time [...] procedure. Dr. Inder Guillen (diagnostic vice president safety) also participated in this examination. Procedure Note [...] procedure. Dr. Inder Guillen (diagnostic vice president safety) also participated in this examination. IMPRESSION: Successful [...] results best viewed via link to PDF [facility]re[facility] [place] [address] Note to Patients: This report may contain [...] Gender: F : 1940 (Age: 84) Address: [address] [place], [place] [id number] Hospital #: [id number] Taken:01/07/2025 Received:01/07/2025 Reported: 01/10/2025 Patient Type: [facility] Service: Surgery Location: Physician(s): Aldair Head M.D. [...] and posterior margins - Biopsy site changes [facility]/01/10/2025 06:40 By this signature, I attest that [...] Surgical Pathology and Flow Cytometry Departments at [facility] as part of an ongoing software quality automation engineer program and in compliance with federally [...] Surgical Pathology and Flow Cytometry Departments of [facility]. It has not been cleared or approved by the U. S. Food and Drug Administration. IMAGES AND SCANNED DOCUMENTS, IF INCLUDED, ONLY VIEWABLE IN PDF VERSION OF REPORT us Kimmie Bradley MD PhD LAB PATHOLOGY ORDERABLES F inal Result PATHOLOGY [facility] 3rd Floor [place], [place] [phone] * Juan Antonio Post Clip Placement Right [...] procedure. Dr. Inder Guillen (diagnostic vice president safety) also participated in this examination. Procedure Note [...] procedure. Dr. Inder Guillen (diagnostic vice president safety) also participated in this examination. IMPRESSION: Successful [...] procedure. Dr. Inder Guillen (diagnostic vice president safety) also participated in this examination. Procedure Note [...] procedure. Dr. Inder Guillen (diagnostic vice president safety) also participated in this examination. IMPRESSION: Successful ultrasound-guided wire localization of the area of interest within the RIGHT breast. Electronically signed by: Melody Jacobs M.D. Kimmie Bradley MD PhD IMG MAMMO PROCEDURES Final Result from Last 3 Months Insurance UHC MEDICARE ADVANTAGE UHC MEDICARE ADVANTAGE UHC MEDICARE ADVANTAGE Advance Directives For more information, please contact: [phone] Documents on File Type Date Recorded Patient Poultry Scalder [place] Advance Directives and Damon shah Will 01/07/2025 6:13 AM Care Teams Ecclesiastical Worker Relationship Specialty Start Date End Date Tisha Tubbs MD [address] [place] [address] MEDICAL ONCOLOGY, [address] [phone] PCP - General Family Medicine 02/11/25 Kelley Perez MD [address] [address] Referring Physician Gynecology 06/11/21 Aft, Kimmie Ceballos MD PhD [address] [place] [address] 8 [place] [address] Surgeon Surgical Oncology 02/11/25 Inder Chaves DO [address] [place] [address] MEDICAL ONCOLOGY, [address] [address] Medical Oncologist/Spider Assembler Hematology and Oncology 02/11/25 Aleksandra Hawkins MD [address] [place] [address] [phone] Radiation Oncologist Radiation Oncology 02/24/25
[2025-03-18] MEDS: TETANUS,DIPHTHERIA,AC PERTUSSIS ADULT (0.5 ML) BOOSTRIX IM (15:04)
[2025-03-18 15:43] VITALS: BP 174/66; PULSE 80; RESP 14; O2SAT 99
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
== END 2025-03-18 16:46 | disposition home or self-care (01) ==
PROVIDERS: Emergency Provider Emergency Medicine; PCP Family Medicine
DX: S02.2XXA Fracture of nasal bones, initial encounter for closed fracture (principal); S01.21XA Laceration without foreign body of nose, initial encounter; Z23 Encounter for immunization; I12.9 Hypertensive chronic kidney disease with stage 1 through stage 4 chronic kidney disease, or unspecified chronic kidney disease; N18.30 Chronic kidney disease, stage 3 unspecified; E03.9 Hypothyroidism, unspecified; E78.2 Mixed hyperlipidemia; K58.9 Irritable bowel syndrome, unspecified; Z85.3 Personal history of malignant neoplasm of breast; Z90.49 Acquired absence of other specified parts of digestive tract; Z79.899 Other long term (current) drug therapy; V47.0XXA Car driver injured in collision with fixed or stationary object in nontraffic accident, initial encounter
CPT/HCPCS: 70450; 70486; 90471; 90715; 99282; 99284

== ENCOUNTER 2025-03-21 18:12 | Inpatient (IN) | payer MEDICARE, SELFPAY ==
[2025-03-21] VITALS (8 sets, daily range): BP systolic 169–192; BP diastolic 62–74; PULSE 86–100; RESP 16–19; TEMP 36.5–36.6; O2SAT 95–98; BMI 24.2
--- NOTE | ~2025-03-21 | XR_ITS ---
CHEST RADIOGRAPH CLINICAL HISTORY: Shortness of breath COMPARISON: 03/25/2025. Reference is also made to a CT examination of the chest dated 03/25/2025 which demonstrated a large pericardial effusion and bilateral pleural effusions.. TECHNIQUE: Single portable view of the chest. FINDINGS The cardiomediastinal silhouette is enlarged, unchanged. Bilateral pleural effusions persist, left gr eater than right. Increased interstitial markings are identified bilaterally, findings suggesting mild pulmonary vascul ar congestion. The remainder of the lungs are otherwise clear. IMPRESSION: Redemonstration of cardiomegaly, likely representing pericardial effusion, unchanged from CT examinat ion dated 03/25/2025 (prior to thoracentesis). Bilateral pleural effusions, left greater than right with mild pulmonary vascular congestion. Reviewed, dictated and finalized at location A. IMPRESSION: Redemonstration of cardiomegaly, likely representing pericardial effusion, unch anged from CT examination dated 03/25/2025 (prior to thoracentesis). Bilateral pleural effusions, left greater than right with mild pulmonary vascul ar congestion.
--- NOTE | ~2025-03-21 | XR_ITS ---
XR chest 1V 03/25/2025 13:11 Indication: Shortness of breath Procedure: AP view of the chest Comparison: Comparison to multiple prior studies sequentially, with oldest reviewed study dated 10/10. Findings: Enlarged cardiopericardial silhouette, consider pericardial effusion. There is pulmonary ed veronica. Small pleural effusions. No pneumothorax. No significant change from prior examination. Impression: 1: Pulmonary edema. 2: Bilateral pleural effusions. 3: Enlarged cardiopericardial silhouette. Cannot exclude pericardial effusion. Reviewed, dictated and finalized at location A. Impression: 1: Pulmonary edema. 2: Bilateral pleural effusions. 3: Enlarged cardiopericardial silhouette. Cannot exclude pericardial effusion.
--- NOTE | ~2025-03-21 | CT_ITS ---
CLINICAL INDICATION: Abnormal chest x-ray COMPARISON: Reference is made to radiographic evaluation of the chest performed approximately 20 rebecca sebastien earlier TECHNIQUE: Multiple contiguous axial images of the chest was performed without the administration of intravenous contrast. This CT examination was performed utilizing dose reduction techniques. DLP: 223 mGy-cm FINDINGS/OBSERVATIONS: LUNG: Redemonstration of large bilateral pleural effusions, with only the bilateral upper lobes aerated. HEART: The heart is enlarged, with a large pericardial effusion. MEDIASTINUM: Extensive mediastinal and hilar lymphadenopathy is identified, along with a large pericardial effusio n SOFT TISSUES OF THE CHEST: Unremarkable. BONES OF THE CHEST: No acute fracture. No lytic or blastic lesions are identified. IMPRESSION: Extensive mediastinal and hilar lymphadenopathy, for which malignancy is suspected. Large bilateral pleural effusions are redemonstrated, with only the bilateral upper lobes aerated. All findings are a significant interval change from previous CT examination of the abdomen and pelvis dated 10/08/2024, which was without lymphadenopathy and without pericardial effusion. No pleural effusions were detected on the previous examination for which cross-sectional imaging of t he abdomen and pelvis is recommended. Reviewed, dictated and finalized at location A. IMPRESSION: Extensive mediastinal and hilar lymphadenopathy, for which malignancy is suspec andrea. Large bilateral pleural effusions are redemonstrated, with only the bilateral u pper lobes aerated. All findings are a significant interval change from previous CT examination of the abdomen and pelvis dated 10/08/2024, which was without lymphadenopathy and w ithout pericardial effusion. No pleural effusions were detected on the previous examination for which cross- sectional imaging of the abdomen and pelvis is recommended.
--- NOTE | ~2025-03-21 | CT_ITS ---
EXAMINATION: CT brain wo con DATE: 03/25/2025 13:21 INDICATION: Altered mental status TECHNIQUE: Computed tomography (CT) of the head was performed without intravenous contrast. Sagittal and coronal reconstructions were performed. Automated exposure control and iterative reconstruction t echnique were employed. The dose-length product was 605.33 mGy-cm. COMPARISON: head CT dated 03/18/2025 and brain MR dated 03/25/2025 FINDINGS: No acute intracranial hemorrhage, acute infarction or abnormal extra axial fluid collection. There is mild scattered white matter hypoattenuation consistent with chronic small vessel ischemic disease. S ymmetric prominence of the sulci and subarachnoid spaces overlying the convexities consistent with m ild age-appropriate diffuse cerebral volume loss. Ventricles are normal and symmetric. No mass/mass effect. Changes of bilateral intraocular lens replacement. The orbits and mastoid air cells are diamante l. Mild mucosal thickening the bilateral ethmoid sinuses and dependent mucus in the lateral aspect of the bilateral sphenoid sinuses. Bilateral cj bullosa. IMPRESSION: 1. Normal aging brain. No acute intracranial process. 2. Persistent sinus disease. Reviewed, dictated and finalized at location A.
--- NOTE | ~2025-03-21 | MR_ITS ---
EXAMINATION: MR brain/brain stem wo/w con DATE: 03/25/2025 13:06 INDICATION: Persistent altered mental status. Assess for stroke. TECHNIQUE: Magnetic resonance imaging (MRI) of the brain and brainstem was performed without and with 14 mL Multihance intravenous contrast. Sequences included sagittal and axial T1-weighted SE, axial d iffusion-weighted FS SE, axial T2*-weighted GRE, axial T2-weighted FLAIR, and axial T2-weighted FSE. Postcontrast axial and coronal T1-weighted SE was obtained. Apparent diffusion coefficient (ADC) maps were created. COMPARISON: Head CT and CT angiogram dated 03/21/2025 FINDINGS: There are no areas of restricted diffusion to suggest acute infarction. No intracranial hemorrhage or abnormal intracranial mass lesion. There are scattered areas of nonspecific increased T2-weighted si gnal intensity in the cerebral white matter, predominantly involving the deep and periventricular whi te matter. There are no intraparenchymal signal abnormalities seen on the other pulse sequences. The ventricles are symmetric and normal in size. There are no abnormal extra-axial fluid collections. Abdulaziz w voids are seen in the cerebral arteries on the T2-weighted sequences consistent with their expected patency. Mild mucosal thickening the bilateral ethmoid and sphenoid sinuses with fluid/mucus in the lateral aspect of the bilateral sphenoid sinuses. Changes of bilateral intraocular lens replacement. There are no areas of abnormal enhancement on the post contrast images. IMPRESSION: 1. Normal aging brain with mild periventricular predominant scattered white matter T2 hyperintensity consistent with chronic small vessel ischemic disease. No acute intracranial process. 2. Mucus in the bilateral sphenoid sinuses. Correlate clinically for acute sinusitis. Reviewed, dictated and finalized at location A. IMPRESSION: 1. Normal aging brain with mild periventricular predominant scattered white mat ter T2 hyperintensity consistent with chronic small vessel ischemic disease. No acute intracranial process. 2. Mucus in the bilateral sphenoid sinuses. Correlate clinically for acute sinu sitis.
--- NOTE | ~2025-03-21 | XR_ITS ---
EXAMINATION: [id number] DATE: 03/26/2025 11:57 INDICATION: Status post right thoracentesis TECHNIQUE: frontal and lateral views of the chest were obtained. COMPARISON: Chest radiograph dated 03/25/2025 FINDINGS: Significant interval decrease in size of a now very small right pleural effusion with blunting at the tricuspid and ankle. Opacities at the medial right lower lung zone could represent residual atelecta sis and/or pneumonia. Persistent opacities in the left mid to lower lung zone consistent with unchang ed moderate sized left pleural effusion with associated atelectasis and/or pneumonia. No pneumothorax . Enlarged cardiac silhouette which on prior CT correspond to a combination of both cardiomegaly and a large pericardial effusion. Cholecystectomy clips in right upper quadrant. IMPRESSION: 1. Very small residual right pleural effusion with no pneumothorax post right thoracentesis. 2. Unchanged moderate-sized left pleural effusion. 3. Opacities at the medial right lung base and in the left mid to lower lung zone consistent with ass ociated atelectasis and/or pneumonia. 4. Enlarged cardiac silhouette which on prior CT corresponding to a combination of cardiomegaly and a large pericardial effusion. Reviewed, dictated and finalized at location A. IMPRESSION: 1. Very small residual right pleural effusion with no pneumothorax post right t horacentesis. 2. Unchanged moderate-sized left pleural effusion. 3. Opacities at the medial right lung base and in the left mid to lower lung zo ne consistent with associated atelectasis and/or pneumonia. 4. Enlarged cardiac silhouette which on prior CT corresponding to a combination of cardiomegaly and a large pericardial effusion.
--- NOTE | ~2025-03-21 | US_ITS ---
EXAMINATION: US biopsy renal DATE: 03/26/2025 12:44 INDICATION: Nephrotic range proteinuria and paraproteinemia TECHNIQUE: The procedure including the risks, benefits, and alternatives was discussed with the patie nt. Risks discussed included bleeding and infection. The patient understood the risks and agreed to p roceed. A timeout was performed to verify the patient's name, date of , and procedure to be p erformed. The skin overlying the left kidney was prepped and draped in usual sterile fashion. Anest hetic was administered with 1% lidocaine subcutaneously. An 18 gauge core biopsy needle was then use d to obtain 4 core biopsy specimens under continuous sonographic guidance. The entry site was cleaned and dressed. There were no immediate complications. FINDINGS: Ultrasound images demonstrate the needle in the kidney. IMPRESSION: 1. Ultrasound-guided random left kidney core needle biopsy. Reviewed, dictated and finalized at location A.
--- NOTE | ~2025-03-21 | XR_ITS ---
EXAMINATION: XR chest 1V portable DATE: 03/22/2025 11:12 INDICATION: Congestive heart failure TECHNIQUE: frontal view of the chest was obtained. COMPARISON: Chest radiograph dated 12/14/2024 FINDINGS: There appears to be cardiomegaly which appears new since the prior study even accounting for differen boo in PA versus AP technique. Interstitial opacities in bilateral mid and lower lung zone superimpos ed over basilar predominant groundglass opacity at the right mid to lower lung and more dense retroca rdiac consolidation in the left lower lung zone. No pneumothorax. Calcified mediastinal lymph nodes c onsistent with old granulomatous disease. IMPRESSION: 1. Mild pulmonary edema versus less likely pneumonia superimposed over small right and moderate-sized left pleural effusions. 2. Cardiomegaly which appears new since 12/14/24 Reviewed, dictated and finalized at location A. IMPRESSION: 1. Mild pulmonary edema versus less likely pneumonia superimposed over small ri ght and moderate-sized left pleural effusions. 2. Cardiomegaly which appears new since 12/14/24
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
--- NOTE | ~2025-03-21 | US_ITS ---
EXAMINATION: US thoracentesis DATE: 03/26/2025 12:08 INDICATION: Right pleural effusion TECHNIQUE: The procedure and its risks and benefits were discussed with the patient. Potential risks discussed included bleeding, infection, and pneumothorax. The patient understood the risks and agreed to proceed. The skin was prepped and draped in sterile fashion. 1% lidocaine was used for local anes thesia. Under ultrasound guidance, a 5 Fr catheter with trochar was advanced into the right pleural e ffusion. Fluid was aspirated. The catheter was removed, and a dressing was applied. There were no imm ediate complications. FINDINGS: Ultrasound images demonstrate a moderate-sized right pleural effusion and the catheter within the flu id. IMPRESSION: 1. Successful ultrasound-guided thoracentesis yielding 1000 mL of clear straw-colored fluid. Reviewed, dictated and finalized at location A. IMPRESSION: 1. Successful ultrasound-guided thoracentesis yielding 1000 mL of clear straw- colored fluid.
--- NOTE | 2025-03-21 18:26 | ECG_ITS ---
Test Date: 2025-03-21 18:14:19 Measurements Intervals [place] Rate: 89 P: 46 MO: 242 QRS: 5 QRSD: 109 T: 75 QT: 316 QTc: 386 Interpretive Statements SINUS RHYTHM WITH FIRST DEGREE AV BLOCK WITH OCCASIONAL VENTRICULAR PREMATURE COMPLEXES POSSIBLE LEFT ATRIAL ENLARGEMENT LOW QRS VOLTAGE IN LIMB LEADS BORDERLINE R WAVE PROGRESSION, ANTERIOR LEADS BORDERLINE ST-T WAVE ABNORMALITY- LAT/HIGH LAT LEADS BASELINE ARTIFACT- I, II, III, AVR, AVL, AVF, V1-V6 ABNORMAL ECG Compared to ECG 12/14/2024 14:34:21 NO SIGNIFICANT CHANGE Electronically Signed On 03-22-2025 07:29:36 CDT by Dipak Henry D.O.
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
--- OUTSIDE RECORDS SUMMARY | 2025-03-21 18:42 | XMS_ITS | Encounter Summary ---
Author Organization 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 Name Role Phone Kelley Perez MD Unavailable [phone] Kirk, Kimmie Ceballos MD PhD Unavailable [phone] Inder Chaves DO Unavailable [phone] Tisha Tubbs MD Primary Care Provider [phone] Aleksandra Hawkins MD Unavailable [phone] Encounter Details Date Type Department Care Team (Late st Contact Info) Description 03/19/2025 7:25 PM CDT Treatment [facility] Medical Office Building 2 Radiation Oncology [address] [place] [id number] Social History Tobacco Use Types Packs/Day Years [...] on file 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 Gender Identity Not on file Sexual Orientation Not on file Occupation Industry Job Start Date Job End Date Retired Not on file Not on file Not on file documented as of this encounter Plan of Treatment Not on file documented as of this encounter Visit Diagnoses Not on filedocumented in this encounter Care Teams Shale Planer Operator Helper Relationship Specialty Start Date End Date Tisha Tubbs MD [address] [place] [address] MEDICAL ONCOLOGY, [facility] [address] [place] [address] PCP - General Family Medicine 02/11/25 Kelley Perez MD [id number] [id number] Referring Physician Gynecology 06/11/21 Aft, Kimmie Ceballos MD PhD [id number] [facility] [address] [place] [address] Surgeon Surgical Oncology 02/11/25 Inder Chaves DO [address] [place] [address] MEDICAL ONCOLOGY, [address] [address] Medical Oncologist/Light Rail Signal Technician Hematology and Oncology 02/11/25 Aleksandra Hawkins MD [address] [place] [address] [id number] Radiation Oncologist Radiation Oncology 02/24/25 documented as of this encounter
--- OUTSIDE RECORDS SUMMARY | 2025-03-21 18:42 | XMS_ITS | Clinical Summary ---
Author Organization [facility] Address [address] [place] [phone] Care Team Providers Care Documentation Spec Name Role Phone Kelley Perez MD Unavailable [phone] Aft, Kimmie Ceballos MD PhD Unavailable [phone] Inder Chaves DO Unavailable [phone] Tisha Tubbs MD Primary Care Provider [phone] Aleksandra Hawkins MD Unavailable [phone] Allergies No known active allergies Medications simvastatin (ZOCOR) 20 mg tablet Take 1 tablet (20 mg total) by mouth nightly 2 8 Active LORazepam (ATIVAN) 0.5 mg tablet Take 1 tablet (0.5 mg total) by mouth as needed for anxiety 1 8 Active levothyroxine (SYNTHROID, LEVOTHROID) 50 mcg tablet Take 1 tablet (50 mcg total) by mouth iron pellet tester before breakfast 1 8 Active ergocalciferol (VITAMIN [...] from 03/10/2025:Stage Unknown(pT1c, pNX, cM0, G2, ER+, FL+, HER2-) - Signed by Aleksandra Hawkins MD on 03/10/2025 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 04/05/2018 Oral candidiasis 04/05/2018 Encounters Date Type Department Care Team Description 03/19/2025 7:25 PM CDT Treatment [facility] Medical Office Building 2 Radiation Oncology [address] [place] [address] 03/18/2025 7:40 PM CDT Treatment [facility] Medical [facility] Building 2 Radiation Oncology [address] [place] [address] 03/10/2025 11:30 AM CDT Treatment [facility] Medical [facility] Building 2 Radiation Oncology [address] [place] [address] Aleksandra Hawkins MD 03/10/2025 10:30 AM CDT Consult [facility] Building 2 Radiation Oncology [address] [place] [phone] Aleksandra Hawkins MD Malignant neoplasm of upper-inner quadrant of right breast in female, estrogen receptor positive (HCC) 02/26/2025 Telephone [facility] Oncology [address] [place] [phone] Lindsay Poe CMA 02/17/2025 Telephone [facility] Medical Office Building 2 Radiation Oncology [address] [place] [address] Evelia Urrutia MA 02/13/2025 2:30 PM CDT Office Visit [facility] Physicians [facility] Oncology [address] [place] [phone] Inder Chaves DO Malignant neoplasm of upper-inner quadrant of right breast in female, estrogen receptor positive (HCC) (Primary Dx); Malignant neoplasm of right female breast, unspecified estrogen receptor status, unspecified site of breast (HCC) 01/15/2025 1:45 PM CDT Office Visit [facility] Surgery [facility] [address] [place] [address] Aft, Kimmie Ceballos MD PhD Malignant neoplasm of right female breast, unspecified estrogen receptor status, unspecified site of breast (HCC) (Primary Dx) 01/15/2025 Orders Only [facility] Surgery [address] [facility] Floor 8 [place] [address] Kimmie Bradley MD PhD Malignant neoplasm of right female breast, unspecified estrogen receptor status, unspecified site of breast (HCC) (Primary Dx) 01/07/2025 10:03 AM CDT Anesthesia Event [facility] ([facility]) [address] [place] [address] Olvin Ramos MD DDS Marielena Barnes NP 01/07/2025 9:40 AM CDT - 01/07/2025 10:55 AM CDT Surgery [facility] Operating [facility] ([facility]) [address] [place] [address] Kimmei Bradley MD PhD BIOPSY BREAST NEEDLE LOCALIZATION 01/07/2025 7:44 AM CDT - 01/07/2025 11:59 PM CDT Hospital Encounter [facility] ([facility]) [address] [place] [address] Encounter for other preprocedural examination Discharge Disposition: Discharge to home or self care 01/07/2025 6:45 AM CDT - 01/07/2025 11:59 PM CDT Hospital Encounter [facility] Breast [facility] ([facility]) [address] [place] [address] Encounter for other preprocedural examination Discharge Disposition: Discharge to home or self care 01/07/2025 6:00 AM CDT - 01/07/2025 12:36 PM CDT Hospital Encounter [facility] Operating [facility] ([facility]) [address] [place] [address] Kimmie Bradley MD PhD Encounter for other preprocedural examination (Primary Dx); Malignant neoplasm of right female breast, unspecified estrogen receptor status, unspecified site of breast (HCC) Discharge Disposition: Discharge to home or self care 01/01/2025 Telephone [facility] for Preoperative Assessment and Planning [place] [facility] ([facility]) [address] [place] [address] Arely Thompson RN from Last 3 Months [...] on file 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 Gender Identity Not on file Sexual Orientation [...] Tdap) 05/02/2027 Medical Devices Implanted Type Area Bilingual Patient Support Caseworker Device Identifier Shelf Expiration Date Model / Serial / Lot [employer] Hosting Marker Image Hydromark Plus T5 Titanium 15ga Radiological Implant Sterile 4009-09-28-T5 - [id number] Implanted:Qty: 1 on 11/01/2024 at [facility] [employer] [id number] 10/04/2025 4010-02-1 5-T5 / / [id number] D Bard Peripheral Vascular Ghiatas 20ga 20cm 7cm Beaded Needle Breast Wire Localization [id number] - [id number] Implanted:Qty: 1 on 01/07/2025 at [facility] Right: Breast [employer] [id number] / / Procedures Procedure Name Priority Date/Time [...] of breast (HCC) Special Needs Faxitron JUAN ANTONOI POST CLIP PLACEMENT RIGHT IP Routine 01/07/2025 [...] entire procedure. Dr. Inder Guillen (diagnostic resident hall director) also participated in this examination. Procedure Note [...] to the surgeon. The attending radiologist, Dr. Mleody Jacobs M.D., was present throughout the entire procedure. Dr. Inder Guillen (diagnostic resident hall director) also participated in this examination. IMPRESSION: Successful ultrasound-guided wire localization of the area of interest within the RIGHT breast. Electronically signed by: Melody Jacobs M.D. us Kimmie Bradley MD PhD IMG MAMMO PROCEDURES Final Result * Surgical pathology (01/07/2025 10:34 AM CDT) Tissue (Breast, excisional biopsy/ partial mastectomy) 01/07/2025 10:34 AM CDT Narrative PATHOLOGY [facility] - 01/10/2025 11:52 AM CDT EPIC results best viewed via link to PDF [facility] Contre[facility] [place] [address] Note to Patients: This report may contain [...] Gender: F : 1940 (Age: 84) Address: [address] [place], [place] [id number] Hospital #: [id number] Taken:01/07/2025 Received:01/07/2025 Reported: 01/10/2025 Patient Type: [facility] Service: Surgery Location: Physician(s): Aldair Head M.D. 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 It has not been cleared or approved by the U. S. Food and Drug Administration. IMAGES AND SCANNED DOCUMENTS, IF INCLUDED, ONLY VIEWABLE IN PDF VERSION OF REPORT us Kimmie Bradley MD PhD LAB PATHOLOGY ORDERABLES F inal Result PATHOLOGY [facility] 3rd Floor [place], [place] [phone] * Juan Antonio Post Clip Placement Right [...] entire procedure. Dr. Inder Guillen (diagnostic resident hall director) also participated in this examination. Procedure Note [...] entire procedure. Dr. Inder Guillen (diagnostic resident hall director) also participated in this examination. IMPRESSION: Successful [...] entire procedure. Dr. Inder Guillen (diagnostic resident hall director) also participated in this examination. Procedure Note Meoldy Jacobs MD - 01/07/2025 EXAMINATION: RIGHT BREAST [...] the surgeon. The attending radiologist, Dr. Melody Vidhya Arlene, M.D., was present throughout the entire procedure. Dr. Inder Guillen (diagnostic resident hall director) also participated in this examination. IMPRESSION: Successful ultrasound-guided wire localization of the area of interest within the RIGHT breast. Electronically signed by: Melody Jacobs M.D. Kimmie Bradley MD PhD IMG MAMMO PROCEDURES Final Result from Last 3 Months Insurance [facility] MEDICARE ADVANTAGE Member Subscriber Plan / Payer ( fective 2017-Present) Name:Chio Sarmiento Relation to Subscriber:Self Name:Chio Sarmiento Payer ID:[id number] (NAIC) Type:[facility] MEDICARE Address: [place] [id number] UHC MEDICARE ADVANTAGE [facility] MEDICARE ADVANTAGE Advance Directives For more information, please contact: [phone] Documents on File Type Date Recorded Patient Portable Sawyer Expl anation Advance Directives and Livin g Will 01/07/2025 6:13 AM Care Teams Documentation Spec Relationship Specialty Start Date End Date Tisha Tubbs MD [address] [place] [address] MEDICAL ONCOLOGY, [address] [address] PCP - General Family Medicine 02/11/25 Kelley Perez MD [address] [facility] [address] [place], [place] [phone] Referring Physician Gynecology 06/11/21 Aft, Kimmie Ceballos MD PhD [address] [facility] 8 [place] [address] Surgeon Surgical Oncology 02/11/25 Inder Chaves DO [address] [place] [address] MEDICAL ONCOLOGY, [facility] [address] [place], [place] [phone] Medical Oncologist/Jewelry Appraiser Hematology and Oncology 02/11/25 Aleksandra Hawkins MD [address] [place] [address] [phone] Radiation Oncologist Radiation Oncology 02/24/25
--- OUTSIDE RECORDS SUMMARY | 2025-03-21 18:42 | XMS_ITS | Encounter Summary ---
Author Organization [facility] Address [address] [place] [address] Care Team Providers Care Baggage Porter Name Role Phone Kelley Perez MD Unavailable [phone] Kirk, Kimmie Ceballos MD PhD Unavailable [phone] Inder Chaves DO Unavailable [phone] Tisha Tubbs MD Primary Care Provider [phone] Aleksandra Hawkins MD Unavailable [phone] Encounter Details Date Type Department Care Team (Late st Contact Info) Description 03/18/2025 7:[address] 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 Gender Identity Not on file Sexual Orientation Not on file Occupation Industry Job Start Date Job End Date Retired Not on file Not on file Not on file documented as of this encounter Plan of Treatment Not on file documented as of this encounter Visit Diagnoses Not on filedocumented in this encounter Care Teams Baggage Porter Relationship Specialty Start Date End Date Tisha Tubbs MD [address] [place] [address] MEDICAL ONCOLOGY, [facility] [address] [place] [address] PCP - General Family Medicine 02/11/25 Kelley Perez MD [address] [id number] Referring Physician Gynecology 06/11/21 Aft, Kimmie Ceballos MD PhD [address] [facility] 8 [place] [address] Surgeon Surgical Oncology 02/11/25 Inder Chaves DO [address] [place] [address] MEDICAL ONCOLOGY, [address] [address] Medical Oncologist/Ammonia Still Operator Hematology and Oncology 02/11/25 Aleksandra Hawkins MD [address] [place] [address] [phone] Radiation Oncologist Radiation Oncology 02/24/25 documented as of this encounter
[2025-03-21 18:50] LABS: Hematocrit 28.5 % (37.0-47.0); Hemoglobin 9.6 g/dL (12.0-15.0); Immature Granulocyte Percent A 0.2 % (0-0.5); Lymphocytes Absolute Auto 0.33 K/mm3 (0.9-3.2); Mean Corpuscular HGB Conc 33.7 g/dl (32-36); Mean Corpuscular Hemoglobin 27.1 pg (26-34); Mean Corpuscular Volume 80.5 fl (80-100); Nucleated Red Blood Cells Absolute Auto 0.000 K/mm3 (0.0-0.012); Nucleated Red Blood Cells Perc 0.0 % (0.0-0.2); Platelet Count Result 366 k/mm3 (150-375); Red Blood Count 3.54 M/mm3 (4.2-5.4); White Blood Count 6.1 K/mm3 (4.5-10.0)
[2025-03-21 19:01] LABS: Alanine Aminotransferase 22 U/L (6-35); Albumin Level 3.9 g/dL (3.5-5.1); Alkaline Phosphatase 71 U/L (38-126); Anion Gap 9 mmol/L (4-12); Aspartate Amino Transferase 29 U/L (14-36); Bilirubin,Total 0.2 mg/dL (0.2-1.3); Blood Urea Nitrogen 44 mg/dL (7-17); Calcium 9.0 mg/dL (8.4-10.2); Carbon Dioxide 25 mmol/L (22-30); Chloride 87 mmol/L (98-107); Estimated CRCL calculation 16 ml/min; Estimated Glomerular Filt Rate 24; Glucose 156 mg/dL (65-110); Potassium 2.9 mmol/L (3.4-5.0); Sodium 121 mmol/L (137-145); Total Protein 7.1 g/dL (6.3-8.2)
[2025-03-21 19:12] LABS: Acetaminophen < 10 ug/mL (10-30); Salicylate < 1.0 mg/dL (2-20)
[2025-03-21 19:13] LABS: Troponin I 0.028 ng/mL (0.000-0.034)
[2025-03-21 19:32] LABS: Thyroid Stimulating Hormone Reflex 4.470 uIU/mL (0.465-4.68)
[2025-03-21 19:35] LABS: INR 0.9
[2025-03-21 20:00] LABS: Urea Random Urine 232 MG/DL
[2025-03-21 20:07] LABS: Add Urine Microscopic? YES; Appearance Urine Clear (Clear); Glucose Urine UA Negative (Negative); Leukocyte Esterase Ur Negative LEU/UL (Negative); Nitrate Urine Negative (Negative); Non Pathogenic Casts 0-2; Specific Grav Ur 1.010 (1.001-1.035)
[2025-03-21 20:09] LABS: Cannabinoid Screen Urine Negative (Negative)
[2025-03-21] MEDS: SODIUM CHLORIDE 3% 195 ML 65 ML IV CONT (20:23)
[2025-03-21] MEDS: POTASSIUM CHLORIDE 20 MEQ ER TABLET PO (20:34)
[2025-03-21 20:51] LABS: Partial Thromboplastin Time 20.0 Seconds (22.3-36.8); Prothrombin Time 12.3 Seconds (11.1-14.7)
--- NOTE | 2025-03-21 20:53 | PC.NURSE ---
Patient keeps repeating that she has to pee-spoke with family about a purwick as patient doesn't want a bedpan-they decided that she was too confused to understand, so this RN elected to place a patient diaper on patient
[2025-03-21 21:14] LABS: Free T4 Free Thyroxine Reflex 1.60 ng/dL (0.78-2.19)
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
[2025-03-21] MEDS: KCL 20 MEQ/SW 100 ML 100 ML 50 MEQ IVPB (21:48)
[2025-03-21] MEDS: SODIUM CHLORIDE 0.9% IV 1,000 ML 75 ML IV CONT (21:55)
[2025-03-21 21:56] LABS: Anion Gap 9 mmol/L (4-12); Blood Urea Nitrogen 45 mg/dL (7-17); Calcium 8.6 mg/dL (8.4-10.2); Carbon Dioxide 22 mmol/L (22-30); Chloride 88 mmol/L (98-107); Estimated CRCL calculation 18 ml/min; Estimated Glomerular Filt Rate 28; Glucose 120 mg/dL (65-110); Magnesium 1.9 mg/dL (1.6-2.3); Potassium 2.9 mmol/L (3.4-5.0); Sodium 119 mmol/L (137-145)
[2025-03-21 22:31] LABS: Total Triiodothyronine (T3) 0.70 NG/ML (0.82-1.58)
--- NOTE | 2025-03-21 22:59 | ADMGEN ---
This patient, Heavenly Sarmiento, was admitted to IMU Room 206-02 at 2208. Patient/family oriented to hospital policies and general routines including ID bracelet, bed and alarms, visiting hours, pain management, procedures, bathroom and other care routines, personal items, smoking policy, room service/diet, and visiting hours. Information on how to activate the Rapid Response Team has been discussed. Patient/Family are encouraged to report perceived risks to care and to ask questions if they do not understand what they are told or what they should do.
[2025-03-21] MEDS: MELATONIN 5 MG TABLET PO (23:44)
[2025-03-21] MEDS: ACETAMINOPHEN 500 MG TABLET 1000 MG PO (23:44)
[2025-03-22] VITALS (16 sets, daily range): BP systolic 147–171; BP diastolic 51–64; PULSE 64–96; RESP 18–28; TEMP 36.4–36.9; O2SAT 92–97
[2025-03-22 02:17] LABS: Sodium 121 mmol/L (137-145)
[2025-03-22] MEDS: SODIUM CHLORIDE 3% 200 ML 65 ML IV CONT (03:21)
[2025-03-22 06:22] LABS: Hematocrit 25.3 % (37.0-47.0); Hemoglobin 8.4 g/dL (12.0-15.0); Immature Granulocyte Percent A 0.4 % (0-0.5); Lymphocytes Absolute Auto 0.32 K/mm3 (0.9-3.2); Mean Corpuscular HGB Conc 33.2 g/dl (32-36); Mean Corpuscular Hemoglobin 27.0 pg (26-34); Mean Corpuscular Volume 81.4 fl (80-100); Nucleated Red Blood Cells Absolute Auto 0.000 K/mm3 (0.0-0.012); Nucleated Red Blood Cells Perc 0.0 % (0.0-0.2); Platelet Count Result 300 k/mm3 (150-375); Red Blood Count 3.11 M/mm3 (4.2-5.4); White Blood Count 5.6 K/mm3 (4.5-10.0)
[2025-03-22 06:32] LABS: Ammonia < 9 umol/L (9-30)
[2025-03-22] MEDS: LEVOTHYROXINE SODIUM 50 MCG TABLET PO (06:46)
[2025-03-22 06:49] LABS: Albumin Level 3.0 g/dL (3.5-5.1); Anion Gap 8 mmol/L (4-12); Blood Urea Nitrogen 36 mg/dL (7-17); Calcium 8.2 mg/dL (8.4-10.2); Carbon Dioxide 20 mmol/L (22-30); Chloride 97 mmol/L (98-107); Estimated CRCL calculation 18 ml/min; Estimated Glomerular Filt Rate 27; Glucose 108 mg/dL (65-110); Magnesium 1.8 mg/dL (1.6-2.3); Potassium 3.2 mmol/L (3.4-5.0); Sodium 125 mmol/L (137-145)
[2025-03-22] MEDS: SIMVASTATIN 20 MG TABLET PO (08:28)
[2025-03-22] MEDS: CALCIUM/VITAMIN D 500 MG/5 MCG (200 I.U.) TABLET PO (08:28)
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
[2025-03-22 11:32] LABS: Immature Reticulocyte Fraction 4.1 % (3.0-15.9); Reticulocyte Hemoglobin Conten 30.3 pg (28.2-36.6); Reticulocytes Absolute 0.03 10^6/uL (0.02-0.10)
[2025-03-22 11:41] LABS: Iron 36 ug/dL (37-170)
[2025-03-22 11:44] LABS: Anion Gap 8 mmol/L (4-12); Blood Urea Nitrogen 35 mg/dL (7-17); Calcium 8.4 mg/dL (8.4-10.2); Carbon Dioxide 19 mmol/L (22-30); Chloride 96 mmol/L (98-107); Estimated CRCL calculation 17 ml/min; Estimated Glomerular Filt Rate 26; Glucose 119 mg/dL (65-110); Potassium 3.2 mmol/L (3.4-5.0); Sodium 123 mmol/L (137-145)
[2025-03-22 11:51] LABS: Percent Iron Saturation 14 % (20-50)
[2025-03-22] MEDS: COSYNTROPIN 0.25 MG/ML VIAL IV PUSH (12:00)
[2025-03-22 12:19] LABS: Ferritin 60.80 ng/mL (11.1-264)
--- NOTE | 2025-03-22 13:42 | PM.IMPN ---
Progress Note: A&P Assessment and Plan (1) Acute hyponatremia: Code(s): E87.1 - Hypo-osmolality and hyponatremia Status: Acute Assessment and Plan: Improving Na 123 from 119 On NS with 1600 cc fluid restriction n per Nephrology Metolazone on hold (2) CKD (chronic kidney disease): Code(s): N18.9 - Chronic kidney disease, unspecified Status: Chronic Assessment and Plan: -CKD worsening over last 3 months, better today than February 19 -Cr 2.0, BUN 44, eGFR 24 and eCrCl 16 -Avoid nephrotoxins, hold metolazone and lisinopril Further workup GINNY, ESR, Immunofixation, kappa lambda ratio. Nephrology following, Oncology consulted per Neph request (3) Acute hypokalemia: Code(s): E87.6 - Hypokalemia Status: Acute Assessment and Plan: -Potassium 3.2 from 2.9 -Added magnesium level -continue replacement and monitor (4) Acute metabolic encephalopathy: Code(s): G93.41 - Metabolic encephalopathy Status: Acute Assessment and Plan: -See hyponatremia above -No evidence of infection, urine drug screen negative -CTA Head and Neck with calcified atheromatous disease and Cervical lymphadenopathy with known breast cancer -Urinary retention noted on admission and patient constantly complaining of needing to urinate, even after catheter insertion improving, alert adn oriented x 2 today at bedside (5) Breast cancer: Code(s): C50.919 - Malignant neoplasm of unspecified site of unspecified female breast Status: Acute Assessment and Plan: -Recent diagnosis, need to clarify treatment ongoing. (6) Hypothyroidism (acquired): Code(s): E03.9 - Hypothyroidism, unspecified Status: Chronic Assessment and Plan: -TSH wnl, continue levothyroxine (7) Benign hypertension with chronic kidney disease: Code(s): I12.9 - Hypertensive chronic kidney disease with stage 1 through stage 4 chronic kidney disease, or unspecified chronic kidney disease Status: Chronic Assessment and Plan: -Monitor blood pressure, especially in light of holding lisinopril and metolazone (8) Anemia: Code(s): D64.9 - Anemia, unspecified Status: Chronic Assessment and Plan: -Chronic and multifactoral including breast cancer and CKD worsening -Stable with HGB 9.6 on ER arrival (9) Urinary retention: Code(s): R33.9 - Retention of urine, unspecified Status: Acute Assessment and Plan: -Discovered on patient arrival to IMU from ER -She complained of constant need to urinate -Bladder scan with over 900 mL urine retention -Oliveros catheter inserted -Daughter states patient has always urinated very small amounts at a time -This may be contributing cause of renal dysfunction and current hyponatremia??? (10) Insomnia: Code(s): G47.00 - Insomnia, unspecified Status: Chronic Assessment and Plan: -Patient takes zolpidem at home to sleep or uses Tylenol PM -Ordered Tylenol and melatonin on admission -Avoid zolpidem with ongoing confusion -Consider trazodone as next agent to try if needed Plan Iron deficieincy anemia Hb 8.4, Isat 14 IV iron 500/1000 FOBT pending DVT prophylaxis on SCD, while awaiting FOBT Subjective Date/time seen: 03/22/25 13:42 Interval history: Comfortable at bedside Na improving Review of Systems Review of Systems: ROS unobtainable: Yes unobtainable due to mental status (confusion) Exam Narrative: GENERAL: Moderately ill-appearing, confused elderly female, no acute respiratory distress HEAD: Normocephalic, atraumatic. ENT:? Mucous membranes moist. CHEST: Clear to auscultation.? No respiratory distress. HEART: Regular rate and rhythm. ? Normal peripheral pulses. ABDOMEN: Soft, nontender, nondistended. Urinary catheter draining pale yellow urine that appears clear. EXTREMITIES: Normal range of motion. No peripheral edema. SKIN: Warm dry normal color NEURO: Awake, confused, moves all extremities equally Objective Data Vital Signs Vital Signs: Vital Signs - 24 hr 03/21/25 18:11 03/21/25 18:26 03/21/25 19:00 Temperature 97.8 F Pulse Rate 91 86 90 Respiratory Rate 19 17 Blood Pressure 192/66 H 169/66 H Pulse Oximetry 98 97 Oxygen Delivery Room Air 03/21/25 20:00 03/21/25 20:45 03/21/25 21:45 Temperature Pulse Rate 93 100 96 Respiratory Rate 16 19 17 Blood Pressure 179/71 H 189/74 H 177/68 H Pulse Oximetry 97 96 95 Oxygen Delivery 03/21/25 22:25 03/21/25 23:22 03/22/25 00:00 Temperature 97.7 F 97.8 F Pulse Rate 99 100 Respiratory Rate 18 16 Blood Pressure 186/62 H 177/66 H Pulse Oximetry 96 97 Oxygen Delivery Room Air 03/22/25 00:00 03/22/25 02:00 03/22/25 03:34 Temperature Pulse Rate 96 82 Respiratory Rate Blood Pressure Pulse Oximetry Oxygen Delivery Room Air 03/22/25 04:00 03/22/25 04:44 03/22/25 08:00 Temperature 97.9 F 97.9 F Pulse Rate 85 86 77 Respiratory Rate 18 22 H Blood Pressure 164/57 H 158/64 H Pulse Oximetry 97 96 Oxygen Delivery 03/22/25 08:00 03/22/25 08:00 03/22/25 10:00 Temperature Pulse Rate 64 72 Respiratory Rate Blood Pressure Pulse Oximetry Oxygen Delivery Room Air 03/22/25 12:00 Temperature 97.5 F L Pulse Rate 87 Respiratory Rate 28 H Blood Pressure 147/56 H Pulse Oximetry 96 Oxygen Delivery Intake/Output Intake/Output: Intake & Output 03/19/25 03/20/25 03/21/25 03/22/25 23:59 23:59 23:59 23:59 Intake Total 195 1310 Output Total 1450 600 Balance -1255 710 Meds/Results Medications: Active Medications Generic Name Dose Route Start Last Admin Trade Name Alexandre PRN Reason Stop Dose Admin Acetaminophen 650 mg 03/21/25 23:22 Acetaminophen 325 Mg Tablet PO Q6H PRN Pain or Fever Amlodipine Besylate 5 mg 03/21/25 23:25 03/22/25 08:28 Amlodipine Besylate 5 Mg Tablet PO 5 mg Q12HR [facility] Administration Artificial Tears 1 drop 03/22/25 09:00 03/22/25 08:32 Artificial Tears Ophth Soln 15 Ml Bottle EACH EYE Not Given QID [facility] Azelastine HCl 2 spray 03/22/25 09:00 03/22/25 08:32 Azelastine Hcl Nasal 0.1% 137 Mcg/Spr 30 Ml Btl NASAL Not Given DAILY [facility] Calcium Carbonate 500 mg 03/22/25 09:00 03/22/25 08:28 Calcium/Vitamin D 500 Mg/5 Mcg (200 I.U.) Tablet PO 500 mg QAM [facility] Administration Hydralazine HCl 25 mg 03/21/25 23:25 08/09/25 08:28 Hydralazine Hcl 25 Mg Tablet PO 25 mg TID [facility] Administration Sodium Chloride 1,000 mls @ 75 mls/hr 03/21/25 20:30 03/21/25 21:55 Normal Saline Iv IV CONT 75 mls/hr .[id number] [facility] Administration Levothyroxine Sodium 50 mcg 03/22/25 06:30 03/22/25 06:46 Levothyroxine Sodium 50 Mcg Tablet PO 50 mcg DAILY@0630 [facility] Administration Lisinopril 30 mg 03/22/25 10:50 Lisinopril 10 Mg Tablet PO QAM [facility] Melatonin 5 mg 03/21/25 23:25 03/21/25 23:44 Melatonin 5 Mg Tablet PO 5 mg HS [facility] Administration Nifedipine 60 mg 03/23/25 09:00 Nifedipine 30 Mg Tab.Er.24 PO QAM [facility] Simvastatin 20 mg 03/22/25 09:00 03/22/25 08:28 Simvastatin 20 Mg Tablet PO 20 mg QAM [facility] Administration Radiology Results: ITS Impressions Head/Neck CTA 03/21/25 19:38 IMPRESSION: 1. Moderate to severe calcified atheromatous disease within the carotid bulbs and proximal internal carotid arteries bilaterally. 2. . Percent stenosis per NASCET criteria is 27% on the right and 45% on the left. 3. Cervical lymphadenopathy. 4. Extensive venous collateralization within the posterior soft tissues of the head and neck. 5. No acute intracranial hemorrhage or suspicious mass effect. Chest X-Ray 03/22/25 11:20 IMPRESSION: 1. Mild pulmonary edema versus less likely pneumonia superimposed over small right and moderate-sized left pleural effusions. 2. Cardiomegaly which appears new since 12/14/24 Labs Labs: Laboratory Results - last 24 hr 03/21/25 03/21/25 03/21/25 18:41 19:46 21:10 WBC 6.1 RBC 3.54 L Hgb 9.6 L Hct 28.5 L MCV 80.5 MCH 27.1 MCHC 33.7 RDW 12.9 Plt Count 366 MPV 9.6 Immature Gran % (Auto) 0.2 Neut % (Auto) 87.9 H Lymph % (Auto) 5.4 L [place] % (Auto) 6.0 Eos % (Auto) 0.2 Baso % (Auto) 0.3 Lymph # (Auto) 0.33 L [place] # (Auto) 0.4 Eos # (Auto) 0.0 Baso # (Auto) 0.0 Abs Immat Gran (auto) 0.01 Absolute Neuts (auto) 5.4 Absolute Nucleated RBC 0.000 Nucleated RBC % 0.0 ESR Absolute Retic Percent Retic Immature Retic Fraction Retic Hgb Content PT 12.3 INR 0.9 APTT 20.0 L Sodium 121 L 119 L* Potassium 2.9 L 2.9 L Chloride 87 L 88 L Carbon Dioxide 25 22 Anion Gap 9 9 BUN 44 H D 45 H Creatinine 2.00 H 1.75 H Estim Creat Clear Calc 16 18 Estimated GFR 24 L 28 L Glucose 156 H 120 H Calcium 9.0 8.6 Phosphorus Magnesium 1.9 Iron TIBC % Saturation Ferritin Total Bilirubin 0.2 AST 29 ALT 22 Alkaline Phosphatase 71 Ammonia Troponin I 0.028 Total Protein 7.1 Albumin 3.9 TSH (Reflex) 4.470 Free T4 1.60 Total T3 0.70 L Cortisol Baseline Cortisol Resp 30 Min Urine Color Yellow Urine Appearance Clear Urine pH 7.0 Ur Specific [place] 1.010 Urine Protein 3+ H Urine Glucose (UA) Negative Urine Ketones Negative Ur Blood (Man) Negative Urine Nitrate Negative Urine Bilirubin Negative Urine Urobilinogen 0.2 Leukocyte Esterase Rfl Negative Urine RBC 0-2 Urine WBC 0-5 Ur Squamous Epith Cells None seen Urine Bacteria None seen Urine Casts 0-2 Ur Random Sodium 70 Ur Random Potassium 20.1 Ur Random Urea 232 Urine Creatinine 32.3 Salicylates < 1.0 L Urine Opiates Screen Negative Urine Methadone Screen Negative Acetaminophen < 10 L Ur Barbiturates Screen Negative Ur Phencyclidine Scrn Negative Ur Amphetamine Screen Negative U Benzodiazepines Scrn Negative Urine Cocaine Screen Negative U Cannabinoids Screen Negative Ethyl Alcohol < 10 03/21/25 03/22/25 03/22/25 21:10 01:50 06:14 WBC 5.6 RBC 3.11 L Hgb 8.4 L Hct 25.3 L MCV 81.4 MCH 27.0 MCHC 33.2 RDW 12.9 Plt Count 300 MPV 8.9 Immature Gran % (Auto) 0.4 Neut % (Auto) 88.2 H Lymph % (Auto) 5.7 L [place] % (Auto) 5.3 Eos % (Auto) 0.0 Baso % (Auto) 0.4 Lymph # (Auto) 0.32 L [place] # (Auto) 0.3 Eos # (Auto) 0.0 Baso # (Auto) 0.0 Abs Immat Gran (auto) 0.02 Absolute Neuts (auto) 5.0 Absolute Nucleated RBC 0.000 Nucleated RBC % 0.0 ESR Absolute Retic Percent Retic Immature Retic Fraction Retic Hgb Content PT INR APTT Sodium 121 L 125 L Potassium 3.2 L Chloride 97 L Carbon Dioxide 20 L Anion Gap 8 BUN 36 H Creatinine 1.80 H Estim Creat Clear Calc 18 Estimated GFR 27 L Glucose 108 Calcium 8.2 L Phosphorus 3.8 Magnesium Cancelled 1.8 Iron TIBC % Saturation Ferritin Total Bilirubin AST ALT Alkaline Phosphatase Ammonia < 9 L Troponin I Total Protein Albumin 3.0 L TSH (Reflex) Free T4 Total T3 Cortisol Baseline Cortisol Resp 30 Min Urine Color Urine Appearance Urine pH Ur Specific [place] Urine Protein Urine Glucose (UA) Urine Ketones Ur Blood (Man) Urine Nitrate Urine Bilirubin Urine Urobilinogen Leukocyte Esterase Rfl Urine RBC Urine WBC Ur Squamous Epith Cells Urine Bacteria Urine Casts Ur Random Sodium Ur Random Potassium Ur Random Urea Urine Creatinine Salicylates Urine Opiates Screen Urine Methadone Screen Acetaminophen Ur Barbiturates Screen Ur Phencyclidine Scrn Ur Amphetamine Screen U Benzodiazepines Scrn Urine Cocaine Screen U Cannabinoids Screen Ethyl Alcohol 03/22/25 03/22/25 11:23 12:35 WBC RBC Hgb Hct MCV MCH MCHC RDW Plt Count MPV Immature Gran % (Auto) Neut % (Auto) Lymph % (Auto) [place] % (Auto) Eos % (Auto) Baso % (Auto) Lymph # (Auto) [place] # (Auto) Eos # (Auto) Baso # (Auto) Abs Immat Gran (auto) Absolute Neuts (auto) Absolute Nucleated RBC Nucleated RBC % ESR > 140 H Absolute Retic 0.03 Percent Retic 1.07 Immature Retic Fraction 4.1 Retic Hgb Content 30.3 PT INR APTT Sodium 123 L Potassium 3.2 L Chloride 96 L Carbon Dioxide 19 L Anion Gap 8 BUN 35 H Creatinine 1.82 H Estim Creat Clear Calc 17 Estimated GFR 26 L Glucose 119 H Calcium 8.4 Phosphorus Magnesium Iron 36 L TIBC 254 L % Saturation 14 L Ferritin 60.80 Total Bilirubin AST ALT Alkaline Phosphatase Ammonia Troponin I Total Protein Albumin TSH (Reflex) Free T4 Total T3 Cortisol Baseline 21.20 Cortisol Resp 30 Min 36.70 Urine Color Urine Appearance Urine pH Ur Specific [place] Urine Protein Urine Glucose (UA) Urine Ketones Ur Blood (Man) Urine Nitrate Urine Bilirubin Urine Urobilinogen Leukocyte Esterase Rfl Urine RBC Urine WBC Ur Squamous Epith Cells Urine Bacteria Urine Casts Ur Random Sodium Ur Random Potassium Ur Random Urea Urine Creatinine Salicylates Urine Opiates Screen Urine Methadone Screen Acetaminophen Ur Barbiturates Screen Ur Phencyclidine Scrn Ur Amphetamine Screen U Benzodiazepines Scrn Urine Cocaine Screen U Cannabinoids Screen Ethyl Alcohol Quality VTE Prophylaxis VTE prophylaxis: pharmacologic ordered
[2025-03-22 14:06] LABS: Cortisol 60 Minute 44.20 ug/dL
[2025-03-22] MEDS: ARTIFICIAL TEARS OPHTH SOLN 15 ML BOTTLE 1 DROP EACH EYE ×3 (14:15→20:42)
[2025-03-22] MEDS: IRON SUCROSE COMPLEX 400 MG, IRON SUCROSE COMPLEX 100 MG in SODIUM CHLORIDE 0.9% IV 250 ML 78.57 MG IVPB (14:15)
[2025-03-22 16:48] LABS: Sodium 123 mmol/L (137-145)
[2025-03-22] MEDS: SODIUM CHLORIDE 3% 195 ML 65 ML IV CONT (17:49)
[2025-03-22] MEDS: MELATONIN 5 MG TABLET PO (20:42)
[2025-03-22 21:31] LABS: IFOB Positive Control Positive; Immunochemical Fecal Occult Bl Negative (N)
[2025-03-22 21:53] LABS: Sodium 124 mmol/L (137-145)
[2025-03-23] VITALS (18 sets, daily range): BP systolic 138–169; BP diastolic 50–70; PULSE 69–94; RESP 12–20; TEMP 36.6–36.8; O2SAT 90–96
[2025-03-23] MEDS: SODIUM CHLORIDE 3% 195 ML 65 ML IV CONT (00:54)
[2025-03-23 05:00] LABS: Hematocrit 25.0 % (37.0-47.0); Hemoglobin 8.2 g/dL (12.0-15.0); Immature Granulocyte Percent A 0.4 % (0-0.5); Lymphocytes Absolute Auto 0.56 K/mm3 (0.9-3.2); Mean Corpuscular HGB Conc 32.8 g/dl (32-36); Mean Corpuscular Hemoglobin 27.1 pg (26-34); Mean Corpuscular Volume 82.5 fl (80-100); Nucleated Red Blood Cells Absolute Auto 0.000 K/mm3 (0.0-0.012); Nucleated Red Blood Cells Perc 0.0 % (0.0-0.2); Platelet Count Result 342 k/mm3 (150-375); Red Blood Count 3.03 M/mm3 (4.2-5.4); White Blood Count 6.7 K/mm3 (4.5-10.0)
[2025-03-23 05:21] LABS: Alanine Aminotransferase 16 U/L (6-35); Albumin Level 2.8 g/dL (3.5-5.1); Alkaline Phosphatase 61 U/L (38-126); Anion Gap 7 mmol/L (4-12); Aspartate Amino Transferase 20 U/L (14-36); Bilirubin,Total 0.3 mg/dL (0.2-1.3); Blood Urea Nitrogen 35 mg/dL (7-17); Calcium 8.1 mg/dL (8.4-10.2); Carbon Dioxide 20 mmol/L (22-30); Chloride 99 mmol/L (98-107); Estimated CRCL calculation 17 ml/min; Estimated Glomerular Filt Rate 25; Glucose 96 mg/dL (65-110); Magnesium 2.0 mg/dL (1.6-2.3); Potassium 2.7 mmol/L (3.4-5.0); Sodium 126 mmol/L (137-145); Total Protein 5.5 g/dL (6.3-8.2)
[2025-03-23 05:24] LABS: Iron 332 ug/dL (37-170)
[2025-03-23 05:34] LABS: Percent Iron Saturation 148 % (20-50)
[2025-03-23 06:05] LABS: Ferritin 121.00 ng/mL (11.1-264)
[2025-03-23] MEDS: KCL 20 MEQ/SW 100 ML 100 ML 50 MEQ IVPB (06:55)
[2025-03-23] MEDS: LEVOTHYROXINE SODIUM 50 MCG TABLET PO (06:55)
[2025-03-23] MEDS: POTASSIUM CHLORIDE 20 MEQ PACKET (FOR LIQUID) 40 MEQ PO (06:56)
--- NOTE | 2025-03-23 08:49 | PM.PNNEP ---
Progress Note: A&P Assessment and Plan (1) CKD (chronic kidney disease): Code(s): N18.9 - Chronic kidney disease, unspecified Status: Chronic Assessment and Plan: The patient has chronic kidney disease. Her creatinine has been abnormal for several years. The patient does have chronic hypertension which can cause CKD, and the patient has hyperlipidemia and so could have occult vascular disease in the kidneys as well. her smallish kidneys are consistent with these. The patient also has a monoclonal antibody in her urine. 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 For some reason serum protein electrophoresis has not been done even though ordered. Will check this, and immunofixation, kappa lambda ratio, and consult Dr. Thompson. Sed rate is greater than 140 Urine protein to creatinine ratio is greater than 8 urinalysis is bland renal ultrasound is unremarkable ( in February) creatinine has been up and down. Today it is 1.9. Discussed with Saadia and the patient. The patient probably will need a kidney biopsy. I will let Dr. Coffey decide when to do this. Blood pressure is still a little bit too high for this. Will make more medication adjustments. (2) Hyponatremia: Code(s): E87.1 - Hypo-osmolality and hyponatremia Status: Acute Assessment and Plan: The patient has hyponatremia. Looking back her sodium has been low intermittently but usually only in the low 130s. Never this bad. cortisol level was low but Cortrosyn stim test is okay. TSH is okay. No pulmonary or [employer] issues that would cause hyponatremia. The patient has breast cancer but no evidence of disease. The patient has a paraprotein in the urine. The patient was on metolazone as an outpatient. The patient is pre renal. the sodium level was 121 on admission and then dropped to 119. She received hypertonic saline more than once during the course of treatment yesterday and this morning sodium level is up to 126. At this point will continue fluid restriction and recheck a sodium this afternoon. (3) Hypokalemia: Code(s): E87.6 - Hypokalemia Status: Acute Assessment and Plan: Potassium is low again today. Most likely this is total volume depletion of potassium so it is being a little difficult to correct. She received another K run today. Will check a potassium this afternoon. Check a urine potassium tomorrow morning In case the potassium still low tomorrow. (4) Urinary retention: Code(s): R33.9 - Retention of urine, unspecified Status: Acute Assessment and Plan: The patient has a Oliveros catheter in (5) Acute metabolic encephalopathy: Code(s): G93.41 - Metabolic encephalopathy Status: Acute Assessment and Plan: This is improved with a higher sodium. (6) Anasarca: Code(s): R60.1 - Generalized edema Status: Acute Assessment and Plan: Most likely due to nephrotic range proteinuria and mild pulmonary hypertension. Currently she has no swelling (7) Anemia: Code(s): D64.9 - Anemia, unspecified Status: Chronic Assessment and Plan: hemoglobin is low. iron levels very high, but the ferritin is only 121. Retic count 1.07. She will be seeing Hematology as an outpatient. (8) Essential (primary) hypertension: Code(s): I10 - Essential (primary) hypertension Status: Acute Assessment and Plan: blood pressure has been high. At home she is on amlodipine 5mg twice a day, hydralazine 25 3 times a day, lisinopril 30mg a day, along with the diuretics. Yesterday he restarted the lisinopril and we are starting the nifedipine. Hopefully blood pressure will come down fairly soon. The blood pressure will have to be under better control for her to get a biopsy (9) Mixed hyperlipidemia: Code(s): E78.2 - Mixed hyperlipidemia Status: Acute Assessment and Plan: the patient is on a statin (10) Breast cancer: Code(s): C50.919 - Malignant neoplasm of unspecified site of unspecified female breast Status: Acute Assessment and Plan: she had a lumpectomy. She is getting radiation therapy soon. (11) Xerostomia: Code(s): K11.7 - Disturbances of salivary secretion Status: Acute Assessment and Plan: the patient is very thirsty at home. This may contribute to her hyponatremia although she says that she only drinks three 19oz bottles of fluid per day. She is not on any medication which cause her to be thirsty. Possibly she is chronically pre renal due to her nephrotic syndrome and 3rd spacing and so is thirsty from that issue. She could have Sjogren syndrome as well. Will check antibodies for this Subjective Date/time seen: 03/23/25 08:49 Interval history: patient is alert. Patient is feeling a little better. No appetite. Daughter, Saadia, is in the room. Review of Systems Cardiovascular: Cardiovascular: Reports no additional cardiovascular complaints Respiratory: Respiratory: Reports no additional respiratory complaints Gastrointestinal: Gastrointestinal: Reports no additional gastrointestinal complaints Genitourinary: Genitourinary: Reports no additional female genitourinary complaints Exam Narrative: WDWN in NAD skin no rash head ncat lungs clear cor reg no rub abd BS+ nontender and soft ext no edema. Objective Data Vital Signs Vital Signs: Vital Signs - 24 hr 03/22/25 10:00 03/22/25 12:00 03/22/25 12:00 Temperature 97.5 F L Pulse Rate 72 87 Respiratory Rate 28 H Blood Pressure 147/56 H Pulse Oximetry 96 Oxygen Delivery Room Air 03/22/25 12:00 03/22/25 14:00 03/22/25 16:00 Temperature Pulse Rate 90 87 93 Respiratory Rate Blood Pressure Pulse Oximetry Oxygen Delivery 03/22/25 16:00 03/22/25 16:00 03/22/25 18:00 Temperature 98.5 F Pulse Rate 96 94 Respiratory Rate 18 Blood Pressure 171/51 H Pulse Oximetry 96 Oxygen Delivery Room Air 03/22/25 20:00 03/22/25 20:28 03/22/25 20:35 Temperature 97.8 F Pulse Rate 83 87 87 Respiratory Rate 18 18 Blood Pressure 154/60 H Pulse Oximetry 92 92 Oxygen Delivery Room Air 03/22/25 22:00 03/22/25 22:02 03/22/25 23:34 Temperature 98.3 F Pulse Rate 75 87 Respiratory Rate 18 Blood Pressure 152/53 H Pulse Oximetry 92 92 Oxygen Delivery Room Air 03/23/25 00:00 03/23/25 00:05 03/23/25 01:25 Temperature Pulse Rate 69 87 84 Respiratory Rate 18 Blood Pressure Pulse Oximetry 92 Oxygen Delivery Room Air 03/23/25 03:56 03/23/25 04:00 03/23/25 04:24 Temperature 97.8 F Pulse Rate 94 87 94 Respiratory Rate 16 16 Blood Pressure 169/55 H Pulse Oximetry 95 95 Oxygen Delivery Room Air 03/23/25 06:00 03/23/25 08:00 Temperature 98.3 F Pulse Rate 92 92 Respiratory Rate 16 Blood Pressure 166/70 H Pulse Oximetry 93 Oxygen Delivery Intake/Output Intake/Output: Intake & Output 03/20/25 03/21/25 03/22/25 03/23/25 23:59 23:59 23:59 23:59 Intake Total 195 3080.0 495 Output Total 1450 1150 500 Balance -1255 1930.0 -5 Meds/Results Medications: Active Medications Generic Name Dose Route Start Last Admin Trade Name Freq PRN Reason Stop Dose Admin Acetaminophen 650 mg 03/21/25 23:22 Acetaminophen 325 Mg Tablet PO Q6H PRN Pain or Fever Amlodipine Besylate 5 mg 03/21/25 23:25 03/22/25 20:42 Amlodipine Besylate 5 Mg Tablet PO 5 mg Q12HR [facility] Administration Artificial Tears 1 drop 03/22/25 09:00 03/22/25 20:42 Artificial Tears Ophth Soln 15 Ml Bottle EACH EYE 1 drop QID [facility] Administration Azelastine HCl 2 spray 03/22/25 09:00 03/22/25 08:32 Azelastine Hcl Nasal 0.1% 137 Mcg/Spr 30 Ml Btl NASAL Not Given DAILY [facility] Calcium Carbonate 500 mg 03/22/25 09:00 03/22/25 08:28 Calcium/Vitamin D 500 Mg/5 Mcg (200 I.U.) Tablet PO 500 mg QAM [facility] Administration Hydralazine HCl 25 mg 03/21/25 23:25 03/22/25 17:50 Hydralazine Hcl 25 Mg Tablet PO 25 mg TID [facility] Administration Levothyroxine Sodium 50 mcg 03/22/25 06:30 03/23/25 06:55 Levothyroxine Sodium 50 Mcg Tablet PO 50 mcg DAILY@0630 [facility] Administration Lisinopril 30 mg 03/22/25 10:50 03/22/25 14:16 Lisinopril 10 Mg Tablet PO 30 mg QAM [facility] Administration Melatonin 5 mg 03/21/25 23:25 03/22/25 20:42 Melatonin 5 Mg Tablet PO 5 mg HS [facility] Administration Nifedipine 60 mg 03/23/25 09:00 Nifedipine 30 Mg Tab.Er.24 PO QAM [facility] Simvastatin 20 mg 03/22/25 09:00 03/22/25 08:28 Simvastatin 20 Mg Tablet PO 20 mg QAM [facility] Administration Radiology Results: ITS Impressions Head/Neck CTA 03/21/25 19:38 IMPRESSION: 1. Moderate to severe calcified atheromatous disease within the carotid bulbs and proximal internal carotid arteries bilaterally. 2. . Percent stenosis per NASCET criteria is 27% on the right and 45% on the left. 3. Cervical lymphadenopathy. 4. Extensive venous collateralization within the posterior soft tissues of the head and neck. 5. No acute intracranial hemorrhage or suspicious mass effect. Chest X-Ray 03/22/25 11:20 IMPRESSION: 1. Mild pulmonary edema versus less likely pneumonia superimposed over small right and moderate-sized left pleural effusions. 2. Cardiomegaly which appears new since 12/14/24 Labs Labs: Laboratory Results - last 24 hr 03/22/25 03/22/25 03/22/25 11:23 12:35 13:11 WBC RBC Hgb Hct MCV MCH MCHC RDW Plt Count MPV Immature Gran % (Auto) Neut % (Auto) Lymph % (Auto) [place] % (Auto) Eos % (Auto) Baso % (Auto) Lymph # (Auto) [place] # (Auto) Eos # (Auto) Baso # (Auto) Abs Immat Gran (auto) Absolute Neuts (auto) Absolute Nucleated RBC Nucleated RBC % ESR > 140 H Absolute Retic 0.03 Percent Retic 1.07 Immature Retic Fraction 4.1 Retic Hgb Content 30.3 Sodium 123 L Potassium 3.2 L Chloride 96 L Carbon Dioxide 19 L Anion Gap 8 BUN 35 H Creatinine 1.82 H Estim Creat Clear Calc 17 Estimated GFR 26 L Glucose 119 H Serum Osmolality Cancelled Calcium 8.4 Phosphorus Magnesium Iron 36 L TIBC 254 L % Saturation 14 L Ferritin 60.80 Total Bilirubin AST ALT Alkaline Phosphatase Total Protein Albumin Cortisol Baseline 21.20 Cortisol Resp 30 Min 36.70 Cortisol Resp 60 Min 44.20 Stl Occult Blood (IFOB) 03/22/25 03/22/25 03/22/25 16:37 21:17 21:38 WBC RBC Hgb Hct MCV MCH MCHC RDW Plt Count MPV Immature Gran % (Auto) Neut % (Auto) Lymph % (Auto) [place] % (Auto) Eos % (Auto) Baso % (Auto) Lymph # (Auto) [place] # (Auto) Eos # (Auto) Baso # (Auto) Abs Immat Gran (auto) Absolute Neuts (auto) Absolute Nucleated RBC Nucleated RBC % ESR Absolute Retic Percent Retic Immature Retic Fraction Retic Hgb Content Sodium 123 L 124 L Potassium Chloride Carbon Dioxide Anion Gap BUN Creatinine Estim Creat Clear Calc Estimated GFR Glucose Serum Osmolality Calcium Phosphorus Magnesium Iron TIBC % Saturation Ferritin Total Bilirubin AST ALT Alkaline Phosphatase Total Protein Albumin Cortisol Baseline Cortisol Resp 30 Min Cortisol Resp 60 Min Stl Occult Blood (IFOB) Negative 03/23/25 04:22 WBC 6.7 RBC 3.03 L Hgb 8.2 L Hct 25.0 L MCV 82.5 MCH 27.1 MCHC 32.8 RDW 13.1 Plt Count 342 MPV 9.6 Immature Gran % (Auto) 0.4 Neut % (Auto) 83.3 H Lymph % (Auto) 8.4 L [place] % (Auto) 7.5 Eos % (Auto) 0.1 Baso % (Auto) 0.3 Lymph # (Auto) 0.56 L [place] # (Auto) 0.5 Eos # (Auto) 0.0 Baso # (Auto) 0.0 Abs Immat Gran (auto) 0.03 Absolute Neuts (auto) 5.6 Absolute Nucleated RBC 0.000 Nucleated RBC % 0.0 ESR Absolute Retic Percent Retic Immature Retic Fraction Retic Hgb Content Sodium 126 L Potassium 2.7 L* Chloride 99 Carbon Dioxide 20 L Anion Gap 7 BUN 35 H Creatinine 1.90 H Estim Creat Clear Calc 17 Estimated GFR 25 L Glucose 96 Serum Osmolality Calcium 8.1 L Phosphorus 3.9 Magnesium 2.0 Iron 332 H TIBC 224 L % Saturation 148 H Ferritin 121.00 Total Bilirubin 0.3 AST 20 ALT 16 Alkaline Phosphatase 61 Total Protein 5.5 L Albumin 2.8 L Cortisol Baseline Cortisol Resp 30 Min Cortisol Resp 60 Min Stl Occult Blood (IFOB)
[2025-03-23] MEDS: SIMVASTATIN 20 MG TABLET PO (09:14)
[2025-03-23] MEDS: CALCIUM/VITAMIN D 500 MG/5 MCG (200 I.U.) TABLET PO (09:14)
[2025-03-23] MEDS: AZELASTINE HCL NASAL 0.1% 137 MCG/SPR 30 ML BTL 2 SPRAY NASAL (09:15)
[2025-03-23 09:31] LABS: Magnesium 2.0 mg/dL (1.6-2.3); Potassium 4.0 mmol/L (3.4-5.0)
[2025-03-23] MEDS: ARTIFICIAL TEARS OPHTH SOLN 15 ML BOTTLE 1 DROP EACH EYE ×3 (12:41→20:44)
[2025-03-23 14:47] LABS: Anion Gap 7 mmol/L (4-12); Blood Urea Nitrogen 34 mg/dL (7-17); Calcium 8.3 mg/dL (8.4-10.2); Carbon Dioxide 19 mmol/L (22-30); Chloride 101 mmol/L (98-107); Estimated CRCL calculation 16 ml/min; Estimated Glomerular Filt Rate 24; Glucose 137 mg/dL (65-110); Potassium 3.7 mmol/L (3.4-5.0); Sodium 127 mmol/L (137-145)
--- NOTE | 2025-03-23 16:49 | PM.IMPN ---
Progress Note: A&P Assessment and Plan (1) Acute hyponatremia: Code(s): E87.1 - Hypo-osmolality and hyponatremia Status: Acute Assessment and Plan: Improving Na 127 from 119 On NS with 1600 cc fluid restriction n per Nephrology Metolazone on hold (2) CKD (chronic kidney disease): Code(s): N18.9 - Chronic kidney disease, unspecified Status: Chronic Assessment and Plan: -CKD worsening over last 3 months, better today than February 19 -Cr 2.0, BUN 44, eGFR 24 and eCrCl 16 -Avoid nephrotoxins, hold metolazone and lisinopril Further workup GINNY, ESR, Immunofixation, kappa lambda ratio. Nephrology following, Oncology consulted per Neph request (3) Acute hypokalemia: Code(s): E87.6 - Hypokalemia Status: Acute Assessment and Plan: -Potassium 3.7 from 2.9 -Added magnesium level -continue replacement and monitor (4) Acute metabolic encephalopathy: Code(s): G93.41 - Metabolic encephalopathy Status: Acute Assessment and Plan: -See hyponatremia above -No evidence of infection, urine drug screen negative -CTA Head and Neck with calcified atheromatous disease and Cervical lymphadenopathy with known breast cancer -Urinary retention noted on admission and patient constantly complaining of needing to urinate, even after catheter insertion resolved (5) Breast cancer: Code(s): C50.919 - Malignant neoplasm of unspecified site of unspecified female breast Status: Acute Assessment and Plan: -Recent diagnosis, need to clarify treatment ongoing. (6) Hypothyroidism (acquired): Code(s): E03.9 - Hypothyroidism, unspecified Status: Chronic Assessment and Plan: -TSH wnl, continue levothyroxine (7) Benign hypertension with chronic kidney disease: Code(s): I12.9 - Hypertensive chronic kidney disease with stage 1 through stage 4 chronic kidney disease, or unspecified chronic kidney disease Status: Chronic Assessment and Plan: -Monitor blood pressure, especially in light of holding lisinopril and metolazone (8) Anemia: Code(s): D64.9 - Anemia, unspecified Status: Chronic Assessment and Plan: -Chronic and multifactoral including breast cancer and CKD worsening -Stable with HGB 9.6 on ER arrival (9) Urinary retention: Code(s): R33.9 - Retention of urine, unspecified Status: Acute Assessment and Plan: -Discovered on patient arrival to IMU from ER -She complained of constant need to urinate -Bladder scan with over 900 mL urine retention -Oliveros catheter inserted -Daughter states patient has always urinated very small amounts at a time -This may be contributing cause of renal dysfunction and current hyponatremia??? (10) Insomnia: Code(s): G47.00 - Insomnia, unspecified Status: Chronic Assessment and Plan: -Patient takes zolpidem at home to sleep or uses Tylenol PM -Ordered Tylenol and melatonin on admission -Avoid zolpidem with ongoing confusion -Consider trazodone as next agent to try if needed Plan Iron deficiency anemia Hb 8.2, Isat 14 IV iron 1000/1000 FOBT pending DVT prophylaxis on SCD, while awaiting FOBT Subjective Date/time seen: 03/23/25 16:49 Interval history: Comfortable at bedside Patient markedly improving Review of Systems Review of Systems: ROS unobtainable: Yes unobtainable due to mental status (confusion) Exam Narrative: GENERAL: Moderately ill-appearing, confused elderly female, no acute respiratory distress HEAD: Normocephalic, atraumatic. ENT:? Mucous membranes moist. CHEST: Clear to auscultation.? No respiratory distress. HEART: Regular rate and rhythm. ? Normal peripheral pulses. ABDOMEN: Soft, nontender, nondistended. Urinary catheter draining pale yellow urine that appears clear. EXTREMITIES: Normal range of motion. No peripheral edema. SKIN: Warm dry normal color NEURO: Awake, and oriented x3, non focal Objective Data Vital Signs Vital Signs: Vital Signs - 24 hr 03/22/25 18:00 03/22/25 20:00 03/22/25 20:28 Temperature 97.8 F Pulse Rate 94 83 87 Respiratory Rate 18 Blood Pressure 154/60 H Pulse Oximetry 92 Oxygen Delivery 03/22/25 20:35 03/22/25 22:00 03/22/25 22:02 Temperature Pulse Rate 87 75 Respiratory Rate 18 Blood Pressure Pulse Oximetry 92 92 Oxygen Delivery Room Air Room Air 03/22/25 23:34 03/23/25 00:00 03/23/25 00:05 Temperature 98.3 F Pulse Rate 87 69 87 Respiratory Rate 18 18 Blood Pressure 152/53 H Pulse Oximetry 92 92 Oxygen Delivery Room Air 03/23/25 01:25 03/23/25 03:56 03/23/25 04:00 Temperature Pulse Rate 84 94 87 Respiratory Rate 16 Blood Pressure Pulse Oximetry 95 Oxygen Delivery Room Air 03/23/25 04:24 03/23/25 06:00 03/23/25 08:00 Temperature 97.8 F 98.3 F Pulse Rate 94 92 92 Respiratory Rate 16 16 Blood Pressure 169/55 H 166/70 H Pulse Oximetry 95 93 Oxygen Delivery 03/23/25 08:00 03/23/25 08:00 03/23/25 10:00 Temperature Pulse Rate 77 85 Respiratory Rate Blood Pressure Pulse Oximetry Oxygen Delivery Room Air 03/23/25 12:00 03/23/25 12:00 03/23/25 12:00 Temperature 98.0 F Pulse Rate 90 74 Respiratory Rate 16 Blood Pressure 147/55 H Pulse Oximetry 95 Oxygen Delivery Room Air 03/23/25 14:00 03/23/25 15:18 03/23/25 16:00 Temperature 98.2 F Pulse Rate 78 90 Respiratory Rate 12 Blood Pressure 138/51 L Pulse Oximetry 94 Oxygen Delivery Room Air 03/23/25 16:00 Temperature Pulse Rate 93 Respiratory Rate Blood Pressure Pulse Oximetry Oxygen Delivery Intake/Output Intake/Output: Intake & Output 03/20/25 03/21/25 03/22/25 03/23/25 23:59 23:59 23:59 23:59 Intake Total 195 3080.0 495 Output Total 1450 1150 850 Balance -1255 1930.0 -355 Meds/Results Medications: Active Medications Generic Name Dose Route Start Last Admin Trade Name Freq PRN Reason Stop Dose Admin Acetaminophen 650 mg 03/21/25 23:22 Acetaminophen 325 Mg Tablet PO Q6H PRN Pain or Fever Amlodipine Besylate 5 mg 03/21/25 23:25 03/23/25 09:14 Amlodipine Besylate 5 Mg Tablet PO 5 mg Q12HR [facility] Administration Artificial Tears 1 drop 03/22/25 09:00 03/23/25 12:41 Artificial Tears Ophth Soln 15 Ml Bottle EACH EYE 1 drop QID [facility] Administration Azelastine HCl 2 spray 03/22/25 09:00 03/23/25 09:15 Azelastine Hcl Nasal 0.1% 137 Mcg/Spr 30 Ml Btl NASAL 2 spray DAILY [facility] Administration Calcium Carbonate 500 mg 03/22/25 09:00 03/23/25 09:14 Calcium/Vitamin D 500 Mg/5 Mcg (200 I.U.) Tablet PO 500 mg QAM [facility] Administration Hydralazine HCl 25 mg 03/21/25 23:25 03/23/25 12:41 Hydralazine Hcl 25 Mg Tablet PO 25 mg TID [facility] Administration Levothyroxine Sodium 50 mcg 03/22/25 06:30 03/23/25 06:55 Levothyroxine Sodium 50 Mcg Tablet PO 50 mcg DAILY@0630 [facility] Administration Lisinopril 30 mg 03/22/25 10:50 03/23/25 09:14 Lisinopril 10 Mg Tablet PO 30 mg QAM [facility] Administration Melatonin 5 mg 03/21/25 23:25 03/22/25 20:42 Melatonin 5 Mg Tablet PO 5 mg HS [facility] Administration Nifedipine 60 mg 03/23/25 09:00 03/23/25 09:14 Nifedipine 30 Mg Tab.Er.24 PO 60 mg QAM [facility] Administration Simvastatin 20 mg 03/22/25 09:00 03/23/25 09:14 Simvastatin 20 Mg Tablet PO 20 mg QAM [facility] Administration Radiology Results: ITS Impressions Head/Neck CTA 03/21/25 19:38 IMPRESSION: 1. Moderate to severe calcified atheromatous disease within the carotid bulbs and proximal internal carotid arteries bilaterally. 2. . Percent stenosis per NASCET criteria is 27% on the right and 45% on the left. 3. Cervical lymphadenopathy. 4. Extensive venous collateralization within the posterior soft tissues of the head and neck. 5. No acute intracranial hemorrhage or suspicious mass effect. Chest X-Ray 03/22/25 11:20 IMPRESSION: 1. Mild pulmonary edema versus less likely pneumonia superimposed over small right and moderate-sized left pleural effusions. 2. Cardiomegaly which appears new since 12/14/24 Labs Labs: Laboratory Results - last 24 hr 03/22/25 03/22/25 03/23/25 21:17 21:38 04:22 WBC 6.7 RBC 3.03 L Hgb 8.2 L Hct 25.0 L MCV 82.5 MCH 27.1 MCHC 32.8 RDW 13.1 Plt Count 342 MPV 9.6 Immature Gran % (Auto) 0.4 Neut % (Auto) 83.3 H Lymph % (Auto) 8.4 L Miller % (Auto) 7.5 Eos % (Auto) 0.1 Baso % (Auto) 0.3 Lymph # (Auto) 0.56 L Miller # (Auto) 0.5 Eos # (Auto) 0.0 Baso # (Auto) 0.0 Abs Immat Gran (auto) 0.03 Absolute Neuts (auto) 5.6 Absolute Nucleated RBC 0.000 Nucleated RBC % 0.0 Sodium 124 L 126 L Potassium 2.7 L* Chloride 99 Carbon Dioxide 20 L Anion Gap 7 BUN 35 H Creatinine 1.90 H Estim Creat Clear Calc 17 Estimated GFR 25 L Glucose 96 Calcium 8.1 L Phosphorus 3.9 Magnesium 2.0 Iron 332 H TIBC 224 L % Saturation 148 H Ferritin 121.00 Total Bilirubin 0.3 AST 20 ALT 16 Alkaline Phosphatase 61 Total Protein 5.5 L Albumin 2.8 L Stl Occult Blood (IFOB) Negative 03/23/25 03/23/25 09:15 14:08 WBC RBC Hgb Hct MCV MCH MCHC RDW Plt Count MPV Immature Gran % (Auto) Neut % (Auto) Lymph % (Auto) Miller % (Auto) Eos % (Auto) Baso % (Auto) Lymph # (Auto) Miller # (Auto) Eos # (Auto) Baso # (Auto) Abs Immat Gran (auto) Absolute Neuts (auto) Absolute Nucleated RBC Nucleated RBC % Sodium 127 L Potassium 4.0 3.7 Chloride 101 Carbon Dioxide 19 L Anion Gap 7 BUN 34 H Creatinine 1.96 H Estim Creat Clear Calc 16 Estimated GFR 24 L Glucose 137 H Calcium 8.3 L Phosphorus Magnesium 2.0 Iron TIBC % Saturation Ferritin Total Bilirubin AST ALT Alkaline Phosphatase Total Protein Albumin Stl Occult Blood (IFOB) Quality VTE Prophylaxis VTE prophylaxis: pharmacologic ordered
[2025-03-23] MEDS: IRON SUCROSE COMPLEX 400 MG, IRON SUCROSE COMPLEX 100 MG in SODIUM CHLORIDE 0.9% IV 250 ML 78.57 MG IVPB (17:33)
[2025-03-23] MEDS: MELATONIN 5 MG TABLET PO (20:43)
[2025-03-24] VITALS (16 sets, daily range): BP systolic 140–154; BP diastolic 47–70; PULSE 68–97; RESP 16–18; TEMP 36.6–36.8; O2SAT 92–97
[2025-03-24 04:24] LABS: Hematocrit 27.7 % (37.0-47.0); Hemoglobin 8.6 g/dL (12.0-15.0); Immature Granulocyte Percent A 0.7 % (0-0.5); Lymphocytes Absolute Auto 0.57 K/mm3 (0.9-3.2); Mean Corpuscular HGB Conc 31.0 g/dl (32-36); Mean Corpuscular Hemoglobin 26.6 pg (26-34); Mean Corpuscular Volume 85.8 fl (80-100); Nucleated Red Blood Cells Absolute Auto 0.000 K/mm3 (0.0-0.012); Nucleated Red Blood Cells Perc 0.0 % (0.0-0.2); Platelet Count Result 365 k/mm3 (150-375); Red Blood Count 3.23 M/mm3 (4.2-5.4); White Blood Count 8.8 K/mm3 (4.5-10.0)
[2025-03-24 04:38] LABS: Alanine Aminotransferase 16 U/L (6-35); Albumin Level 3.2 g/dL (3.5-5.1); Alkaline Phosphatase 66 U/L (38-126); Anion Gap 9 mmol/L (4-12); Aspartate Amino Transferase 22 U/L (14-36); Bilirubin,Total 0.3 mg/dL (0.2-1.3); Blood Urea Nitrogen 35 mg/dL (7-17); Calcium 8.6 mg/dL (8.4-10.2); Carbon Dioxide 18 mmol/L (22-30); Chloride 103 mmol/L (98-107); Estimated CRCL calculation 15 ml/min; Estimated Glomerular Filt Rate 22; Glucose 111 mg/dL (65-110); Magnesium 2.1 mg/dL (1.6-2.3); Potassium 3.4 mmol/L (3.4-5.0); Sodium 130 mmol/L (137-145); Total Protein 6.1 g/dL (6.3-8.2)
[2025-03-24] MEDS: LEVOTHYROXINE SODIUM 50 MCG TABLET PO (05:46)
[2025-03-24] MEDS: CALCIUM/VITAMIN D 500 MG/5 MCG (200 I.U.) TABLET PO (08:07)
[2025-03-24] MEDS: ARTIFICIAL TEARS OPHTH SOLN 15 ML BOTTLE 1 DROP EACH EYE ×3 (08:07→20:25)
[2025-03-24] MEDS: SIMVASTATIN 20 MG TABLET PO (08:08)
[2025-03-24 11:09] LABS: Osmolality, Serum 268 mOsmol/kg (280-301)
--- NOTE | 2025-03-24 12:38 | P.PNNP_ITS ---
Progress Note: A&P Assessment and Plan (1) Hyponatremia: Code(s): E87.1 - Hypo-osmolality and hyponatremia Status: Acute Assessment and Plan: * acute on chronic * usually runs in the low 130s * evaluation/risk factors noted: * TSH okay * cortisol low but Cortrosyn stim test is okay * issues with pulmonary edema noted by CXR * no MANAGER SAS issues (head CT negative) * urinary retention noted on admission * does have a history of breast cancer * paraproteinemia noted * was on metolazone as an outpatient * urine electrolytes prerenal * s/p 3% saline x 2 since admission * on fluid restriction as well * follow trend of repeat sodium levels (2) Acute kidney injury: Code(s): N17.9 - Acute kidney failure, unspecified Status: Acute Assessment and Plan: * abrupt decline noted in January 2025 * outpatient evaluation for this issue noted: * renal ultrasound with medical renal disease * nephrotic range proteinuria * complements, ANCA, dsDNA-Ab, antiGBM-Ab negative * SPEP with poorly defined band (possible M-spike) migrating in the gamma region * UPEP with a monoclonal band in the gamma globulin region. * further testing on this admission noted: * elevated sed rate (> 140) * bland urine sediment * further serologies pending * concerning that she received contrast (CTA head/neck on 03/21) * tentative plan renal biopsy for definitive diagnosis * follow trend of labs and UOP (3) Stage 3b chronic kidney disease: Code(s): N18.32 - Chronic kidney disease, stage 3b Status: Acute Assessment and Plan: * baseline creatinine running around 1.1 - 1.4mg/dl since 2020 * presumably due to hypertension, vascular disease, and age-related change (4) Acute metabolic encephalopathy: Code(s): G93.41 - Metabolic encephalopathy Status: Acute Assessment and Plan: * only mild improvement per family * initially thought to be secondary to hyponatremia * however, still persists even with improvement in sodium level * CT of head negative * check MRI of brain * consult Neurology (5) Anasarca: Code(s): R60.1 - Generalized edema Status: Acute Assessment and Plan: * due to nephrotic range proteinuria, LIZ/CKD and mild pulmonary hypertension * swelling/edema better * however, still with issues with pulmonary edema * diuretics on hold given low sodium (but may need to restart) * follow clinical exam (6) Anemia: Code(s): D64.9 - Anemia, unspecified Status: Chronic Assessment and Plan: * as noted * possibly related to LIZ/CKD and maybe malignancy(?) * iron studies noted * consider Epogen while inpatient * follow trend of H/H (7) Essential (primary) hypertension: Code(s): I10 - Essential (primary) hypertension Status: Acute Assessment and Plan: * difficult to control recently * blood pressure adjustment noted * follow trend of hemodynamics (8) Hypokalemia: Code(s): E87.6 - Hypokalemia Status: Acute Assessment and Plan: * suspect due to total body store depletion due to outpatient diuretics and possibly diminished oral intake * replete as needed * follow trend of K+ (9) Urinary retention: Code(s): R33.9 - Retention of urine, unspecified Status: Acute Assessment and Plan: * as noted on admission * marley catheter in place Long and extensive discussion with family at bedside regarding her acute and chronic medical issues -- they are still quite concerned by the patient's altered mental status/encephalopathy which still has not returned to baseline since admission; will order MRI of brain and Neurology consultation for further assessment. Will continue to follow. L Subjective Date/time seen: 03/24/25 12:38 Interval history: Follow-up for acute kidney/acute renal failure on chronic kidney disease and hyponatremia, Chart reviewed -- assuming care from Dr. Marshall; sodium has improved and renal function relatively stable but mentation has not really significantly improved from my discussion with family; slow to respond to questions and diminished appetite noted as well; difficulty with sleeping as well. Exam 2 Narrative: General: elderly but WD/WN female in NAD Heart: normal S1 and S2; no rub Lungs: decreased at the bases Abdomen: soft, nontender, nondistended, positive bowel sounds Extremities: no cyanosis or clubbing; trace edema Skin: warm and dry Objective Data Vital Signs Vital Signs: Vital Signs Temp Pulse Resp BP Pulse Ox O2 Del Method 03/24/25 12:16 97.9 F 94 18 151/70 H 94 03/24/25 12:00 88 03/24/25 12:00 Room Air 03/24/25 10:00 86 03/24/25 08:01 98.3 F 97 18 152/59 H 94 03/24/25 08:00 91 03/24/25 08:00 Room Air 03/24/25 06:00 68 03/24/25 04:00 94 03/24/25 04:00 97.9 F 94 16 150/54 H 97 03/24/25 03:21 Room Air 03/24/25 02:00 76 03/24/25 00:00 85 03/24/25 00:00 Room Air 03/23/25 23:38 98.1 F 88 16 155/52 H 94 03/23/25 22:00 79 Intake/Output Intake/Output: Intake & Output 03/21/25 03/22/25 03/23/25 03/24/25 23:59 23:59 23:59 23:59 Intake Total 195 3080.0 745 600 Output Total 1450 4160 637 1917 Balance -1255 1930.0 -105 -525 Meds/Results Medications: Active Medications Generic Name Dose Route Start Last Admin Trade Name Freq PRN Reason Stop Dose Admin Acetaminophen 650 mg 03/21/25 23:22 Acetaminophen 325 Mg Tablet PO Q6H PRN Pain or Fever Amlodipine Besylate 5 mg 03/21/25 23:25 03/24/25 20:25 Amlodipine Besylate 5 Mg Tablet PO 5 mg Q12HR [facility]AV[facility] Administration Artificial Tears 1 drop 03/22/25 09:00 03/24/25 20:25 Artificial Tears Ophth Soln 15 Ml Bottle EACH EYE 1 drop QID [facility] Administration Azelastine HCl 2 spray 03/22/25 09:00 03/24/25 09:40 Azelastine Hcl Nasal 0.1% 137 Mcg/Spr 30 Ml Btl NASAL Not Given DAILY HEAVEN Calcium Carbonate 500 mg 03/22/25 09:00 03/24/25 08:07 Calcium/Vitamin D 500 Mg/5 Mcg (200 I.U.) Tablet PO 500 mg QAM [facility] Administration Enoxaparin Sodium 30 mg 03/24/25 13:30 03/24/25 15:07 Enoxaparin 30 Mg/0.3 Ml Syringe SUB-Q 30 mg DAILY [facility]AV[facility] Administration Hydralazine HCl 25 mg 03/21/25 23:25 03/24/25 18:21 Hydralazine Hcl 25 Mg Tablet PO 25 mg TID [facility]AV[facility] Administration Levothyroxine Sodium 50 mcg 03/22/25 06:30 03/24/25 05:46 Levothyroxine Sodium 50 Mcg Tablet PO 50 mcg DAILY@0630 [facility] Administration Lisinopril 30 mg 03/22/25 10:50 03/24/25 08:08 Lisinopril 10 Mg Tablet PO 30 mg QAM [facility] Administration Melatonin 5 mg 03/21/25 23:25 03/24/25 20:25 Melatonin 5 Mg Tablet PO 5 mg HS [facility]AV[facility] Administration Nifedipine 60 mg 03/23/25 09:00 03/24/25 08:08 Nifedipine 30 Mg Tab.Er.24 PO 60 mg QAM [facility] Administration Quetiapine Fumarate 12.5 mg 03/24/25 21:00 03/24/25 20:25 Quetiapine Fumarate 12.5 Mg Tablet PO 12.5 mg HS HEAVEN Administration Simvastatin 20 mg 03/22/25 09:00 03/24/25 08:08 Simvastatin 20 Mg Tablet PO 20 mg QAM [facility] Administration Tamsulosin HCl 0.4 mg 03/24/25 13:45 03/24/25 15:07 Tamsulosin Hcl 0.4 Mg Capsule PO 0.4 mg QAM [facility] Administration Radiology Results: ITS Impressions Head/Neck CTA 03/21/25 19:38 IMPRESSION: 1. Moderate to severe calcified atheromatous disease within the carotid bulbs and proximal internal carotid arteries bilaterally. 2. . Percent stenosis per NASCET criteria is 27% on the right and 45% on the left. 3. Cervical lymphadenopathy. 4. Extensive venous collateralization within the posterior soft tissues of the head and neck. 5. No acute intracranial hemorrhage or suspicious mass effect. Chest X-Ray 03/22/25 11:20 IMPRESSION: 1. Mild pulmonary edema versus less likely pneumonia superimposed over small right and moderate-sized left pleural effusions. 2. Cardiomegaly which appears new since 12/14/24 Labs Labs: Laboratory Tests 03/24/25 04:16 03/24/25 04:16 Calcium 8.6 Phosphorus 3.7 Magnesium 2.1 Total Bilirubin 0.3 AST 22 ALT 16 Alkaline Phosphatase 66 Total Protein 6.1 L Albumin 3.2 L
--- NOTE | 2025-03-24 12:38 | PM.PNNEP ---
Progress Note: A&P Assessment and Plan (1) Hyponatremia: Code(s): E87.1 - Hypo-osmolality and hyponatremia Status: Acute Assessment and Plan: acute on chronic usually runs in the low 130s evaluation/risk factors noted: TSH okay cortisol low but Cortrosyn stim test is okay issues with pulmonary edema noted by CXR no FREELANCE DATA ENTRY issues (head CT negative) urinary retention noted on admission does have a history of breast cancer paraproteinemia noted was on metolazone as an outpatient urine electrolytes prerenal s/p 3% saline x 2 since admission on fluid restriction as well follow trend of repeat sodium levels (2) Acute kidney injury: Code(s): N17.9 - Acute kidney failure, unspecified Status: Acute Assessment and Plan: abrupt decline noted in January 2025 outpatient evaluation for this issue noted: renal ultrasound with medical renal disease nephrotic range proteinuria complements, ANCA, dsDNA-Ab, antiGBM-Ab negative SPEP with poorly defined band (possible M-spike) migrating in the gamma region UPEP with a monoclonal band in the gamma globulin region. further testing on this admission noted: elevated sed rate (> 140) bland urine sediment further serologies pending concerning that she received contrast (CTA head/neck on 03/21) tentative plan renal biopsy for definitive diagnosis follow trend of labs and UOP (3) Stage 3b chronic kidney disease: Code(s): N18.32 - Chronic kidney disease, stage 3b Status: Acute Assessment and Plan: baseline creatinine running around 1.1 - 1.4mg/dl since 2020 presumably due to hypertension, vascular disease, and age-related change (4) Acute metabolic encephalopathy: Code(s): G93.41 - Metabolic encephalopathy Status: Acute Assessment and Plan: only mild improvement per family initially thought to be secondary to hyponatremia however, still persists even with improvement in sodium level CT of head negative check MRI of brain consult Neurology (5) Anasarca: Code(s): R60.1 - Generalized edema Status: Acute Assessment and Plan: due to nephrotic range proteinuria, LIZ/CKD and mild pulmonary hypertension swelling/edema better however, still with issues with pulmonary edema diuretics on hold given low sodium (but may need to restart) follow clinical exam (6) Anemia: Code(s): D64.9 - Anemia, unspecified Status: Chronic Assessment and Plan: as noted possibly related to LIZ/CKD and maybe malignancy(?) iron studies noted consider Epogen while inpatient follow trend of H/H (7) Essential (primary) hypertension: Code(s): I10 - Essential (primary) hypertension Status: Acute Assessment and Plan: difficult to control recently blood pressure adjustment noted follow trend of hemodynamics (8) Hypokalemia: Code(s): E87.6 - Hypokalemia Status: Acute Assessment and Plan: suspect due to total body store depletion due to outpatient diuretics and possibly diminished oral intake replete as needed follow trend of K+ (9) Urinary retention: Code(s): R33.9 - Retention of urine, unspecified Status: Acute Assessment and Plan: as noted on admission marley catheter in place Long and extensive discussion with family at bedside regarding her acute and chronic medical issues -- they are still quite concerned by the patient's altered mental status/encephalopathy which still has not returned to baseline since admission; will order MRI of brain and Neurology consultation for further assessment. Will continue to follow. Subjective Date/time seen: 03/24/25 12:38 Interval history: Follow-up for acute kidney/acute renal failure on chronic kidney disease and hyponatremia, Chart reviewed -- assuming care from Dr. Marshall; sodium has improved and renal function relatively stable but mentation has not really significantly improved from my discussion with family; slow to respond to questions and diminished appetite noted as well; difficulty with sleeping as well. Exam Narrative: General: elderly but WD/WN female in NAD Heart: normal S1 and S2; no rub Lungs: decreased at the bases Abdomen: soft, nontender, nondistended, positive bowel sounds Extremities: no cyanosis or clubbing; trace edema Skin: warm and dry Objective Data Vital Signs Vital Signs: Vital Signs Temp Pulse Resp BP Pulse Ox O2 Del Method 03/24/25 12:16 97.9 F 94 18 151/70 H 94 03/24/25 12:00 88 03/24/25 12:00 Room Air 03/24/25 10:00 86 03/24/25 08:01 98.3 F 97 18 152/59 H 94 03/24/25 08:00 91 03/24/25 08:00 Room Air 03/24/25 06:00 68 03/24/25 04:00 94 03/24/25 04:00 97.9 F 94 16 150/54 H 97 03/24/25 03:21 Room Air 03/24/25 02:00 76 03/24/25 00:00 85 03/24/25 00:00 Room Air 03/23/25 23:38 98.1 F 88 16 155/52 H 94 03/23/25 22:00 79 Intake/Output Intake/Output: Intake & Output 03/21/25 03/22/25 03/23/25 03/24/25 23:59 23:59 23:59 23:59 Intake Total 195 3080.0 745 600 Output Total 1450 8915 664 7618 Balance -1255 1930.0 -105 -525 Meds/Results Medications: Active Medications Generic Name Dose Route Start Last Admin Trade Name Freq PRN Reason Stop Dose Admin Acetaminophen 650 mg 03/21/25 23:22 Acetaminophen 325 Mg Tablet PO Q6H PRN Pain or Fever Amlodipine Besylate 5 mg 03/21/25 23:25 03/24/25 20:25 Amlodipine Besylate 5 Mg Tablet PO 5 mg Q12HR [facility] Administration Artificial Tears 1 drop 03/22/25 09:00 03/24/25 20:25 Artificial Tears Ophth Soln 15 Ml Bottle EACH EYE 1 drop QID [facility] Administration Azelastine HCl 2 spray 03/22/25 09:00 03/24/25 09:40 Azelastine Hcl Nasal 0.1% 137 Mcg/Spr 30 Ml Btl NASAL Not Given DAILY [facility] Calcium Carbonate 500 mg 03/22/25 09:00 03/24/25 08:07 Calcium/Vitamin D 500 Mg/5 Mcg (200 I.U.) Tablet PO 500 mg QAM [facility] Administration Enoxaparin Sodium 30 mg 03/24/25 13:30 03/24/25 15:07 Enoxaparin 30 Mg/0.3 Ml Syringe SUB-Q 30 mg DAILY [facility] Administration Hydralazine HCl 25 mg 03/21/25 23:25 03/24/25 18:21 Hydralazine Hcl 25 Mg Tablet PO 25 mg TID [facility] Administration Levothyroxine Sodium 50 mcg 03/22/25 06:30 03/24/25 05:46 Levothyroxine Sodium 50 Mcg Tablet PO 50 mcg DAILY@0630 [facility] Administration Lisinopril 30 mg 03/22/25 10:50 03/24/25 08:08 Lisinopril 10 Mg Tablet PO 30 mg QAM [facility] Administration Melatonin 5 mg 03/21/25 23:25 03/24/25 20:25 Melatonin 5 Mg Tablet PO 5 mg HS [facility] Administration Nifedipine 60 mg 03/23/25 09:00 03/24/25 08:08 Nifedipine 30 Mg Tab.Er.24 PO 60 mg QAM [facility] Administration Quetiapine Fumarate 12.5 mg 03/24/25 21:00 03/24/25 20:25 Quetiapine Fumarate 12.5 Mg Tablet PO 12.5 mg HS [facility] Administration Simvastatin 20 mg 03/22/25 09:00 03/24/25 08:08 Simvastatin 20 Mg Tablet PO 20 mg QAM [facility] Administration Tamsulosin HCl 0.4 mg 03/24/25 13:45 03/24/25 15:07 Tamsulosin Hcl 0.4 Mg Capsule PO 0.4 mg QAM [facility] Administration Radiology Results: ITS Impressions Head/Neck CTA 03/21/25 19:38 IMPRESSION: 1. Moderate to severe calcified atheromatous disease within the carotid bulbs and proximal internal carotid arteries bilaterally. 2. . Percent stenosis per NASCET criteria is 27% on the right and 45% on the left. 3. Cervical lymphadenopathy. 4. Extensive venous collateralization within the posterior soft tissues of the head and neck. 5. No acute intracranial hemorrhage or suspicious mass effect. Chest X-Ray 03/22/25 11:20 IMPRESSION: 1. Mild pulmonary edema versus less likely pneumonia superimposed over small right and moderate-sized left pleural effusions. 2. Cardiomegaly which appears new since 12/14/24 Labs Labs: Laboratory Tests 03/24/25 04:16 03/24/25 04:16 Calcium 8.6 Phosphorus 3.7 Magnesium 2.1 Total Bilirubin 0.3 AST 22 ALT 16 Alkaline Phosphatase 66 Total Protein 6.1 L Albumin 3.2 L
--- NOTE | 2025-03-24 12:59 | P.PNIM_ITS ---
Progress Note: A&P Assessment and Plan (1) Acute hyponatremia: Code(s): E87.1 - Hypo-osmolality and hyponatremia Status: Acute Assessment and Plan: Improving Na 130 from 119 On NS with 1600 cc fluid restriction n per Nephrology Metolazone on hold (2) CKD (chronic kidney disease): Code(s): N18.9 - Chronic kidney disease, unspecified Status: Chronic Assessment and Plan: -CKD worsening over last 3 months, better today than February 19 -Cr 2.0, BUN 44, eGFR 24 and eCrCl 16 -Avoid nephrotoxins, hold metolazone and lisinopril Further workup GINNY, ESR, Immunofixation, kappa lambda ratio. Nephrology following, Oncology consulted per Neph request (3) Acute hypokalemia: Code(s): E87.6 - Hypokalemia Status: Acute Assessment and Plan: -Potassium 3.4 from 2.9 -Added magnesium level -continue replacement and monitor (4) Acute metabolic encephalopathy: Code(s): G93.41 - Metabolic encephalopathy Status: Acute Assessment and Plan: -See hyponatremia above -No evidence of infection, urine drug screen negative -CTA Head and Neck with calcified atheromatous disease and Cervical lymphadenopathy with known breast cancer -Urinary retention noted on admission and patient constantly complaining of needing to urinate, even after catheter insertion resolved (5) Breast cancer: Code(s): C50.919 - Malignant neoplasm of unspecified site of unspecified female breast Status: Acute Assessment and Plan: -Recent diagnosis, need to clarify treatment ongoing. (6) Hypothyroidism (acquired): Code(s): E03.9 - Hypothyroidism, unspecified Status: Chronic Assessment and Plan: -TSH wnl, continue levothyroxine (7) Benign hypertension with chronic kidney disease: Code(s): I12.9 - Hypertensive chronic kidney disease with stage 1 through stage 4 chronic kidney disease, or unspecified chronic kidney disease Status: Chronic Assessment and Plan: -Monitor blood pressure, especially in light of holding lisinopril and m etolazone (8) Anemia: Code(s): D64.9 - Anemia, unspecified Status: Chronic Assessment and Plan: -Chronic and multifactoral including breast cancer and CKD worsening -Stable with HGB 9.6 on ER arrival (9) Urinary retention: Code(s): R33.9 - Retention of urine, unspecified Status: Acute Assessment and Plan: on marley Tamsulosin and Urology consulted (10) Insomnia: Code(s): G47.00 - Insomnia, unspecified Status: Chronic Assessment and Plan: Started on Seroquel nighttime observe tonight Plan Iron deficiency anemia Hb 8.2, Isat 14 IV iron 1000/1000 FOBT pending DVT prophylaxis on SqLovenox Awaiting PT/OT for discharge disposition Subjective Date/time seen: 03/24/25 12:59 Interval history: Comfortable at bedside Patient markedly improving Review of Systems Review of Systems: ROS unobtainable: Yes unobtainable due to mental status (confusion) Exam Narrative: GENERAL: Moderately ill-appearing, confused elderly female, no acute respiratory distress HEAD: Normocephalic, atraumatic. ENT:? Mucous membranes moist. CHEST: Clear to auscultation.? No respiratory distress. HEART: Regular rate and rhythm. ? Normal peripheral pulses. ABDOMEN: Soft, nontender, nondistended. Urinary catheter draining pale yellow urine that appears clear. EXTREMITIES: Normal range of motion. No peripheral edema. SKIN: Warm dry normal color NEURO: Awake, and oriented x3, non focal Objective Data Vital Signs Vital Signs: Vital Signs - 24 hr 03/23/25 14:00 03/23/25 15:18 03/23/25 16:00 Temperature 98.2 F Pulse Rate 78 90 Respiratory Rate 12 Blood Pressure 138/51 L Pulse Oximetry 94 Oxygen Delivery Room Air Fraction of Inspired Oxygen 03/23/25 16:00 03/23/25 18:00 03/23/25 20:00 Temperature 98.1 F Pulse Rate 93 90 80 Respiratory Rate 16 Blood Pressure 143/50 H Pulse Oximetry 96 Oxygen Delivery Fraction of Inspired Oxygen 03/23/25 20:00 03/23/25 20:00 03/23/25 20:29 Temperature Pulse Rate 78 70 Respiratory Rate 20 Blood Pressure Pulse Oximetry 90 Oxygen Delivery Room Air Room Air Fraction of Inspired Oxygen 21 03/23/25 22:00 03/23/25 23:38 03/24/25 00:00 Temperature 98.1 F Pulse Rate 79 88 Respiratory Rate 16 Blood Pressure 155/52 H Pulse Oximetry 94 Oxygen Delivery Room Air Fraction of Inspired Oxygen 03/24/25 00:00 03/24/25 02:00 03/24/25 03:21 Temperature Pulse Rate 85 76 Respiratory Rate Blood Pressure Pulse Oximetry Oxygen Delivery Room Air Fraction of Inspired Oxygen 03/24/25 04:00 03/24/25 04:00 03/24/25 06:00 Temperature 97.9 F Pulse Rate 94 94 68 Respiratory Rate 16 Blood Pressure 150/54 H Pulse Oximetry 97 Oxygen Delivery Fraction of Inspired Oxygen 03/24/25 08:00 03/24/25 08:00 03/24/25 08:01 Temperature 98.3 F Pulse Rate 91 97 Respiratory Rate 18 Blood Pressure 152/59 H Pulse Oximetry 94 Oxygen Delivery Room Air Fraction of Inspired Oxygen 03/24/25 10:00 03/24/25 12:16 Temperature 97.9 F Pulse Rate 86 94 Respiratory Rate 18 Blood Pressure 151/70 H Pulse Oximetry 94 Oxygen Delivery Fraction of Inspired Oxygen Intake/Output Intake/Output: Intake & Output 03/21/25 03/22/25 03/23/25 03/24/25 23:59 23:59 23:59 23:59 Intake Total 195 3080.0 745 120 Output Total 1450 1150 850 375 Balance -1255 1930.0 -105 -255 Meds/Results Medications: Active Medications Generic Name Dose Route Start Last Admin Trade Name Freq PRN Reason Stop Dose Admin Acetaminophen 650 mg 03/21/25 23:22 Acetaminophen 325 Mg Tablet PO Q6H PRN Pain or Fever Amlodipine Besylate 5 mg 03/21/25 23:25 03/24/25 08:08 Amlodipine Besylate 5 Mg Tablet PO 5 mg Q12HR [facility] Administration Artificial Tears 1 drop 03/22/25 09:00 03/24/25 08:07 Artificial Tears Ophth Soln 15 Ml Bottle EACH EYE 1 drop QID [facility] Administration Azelastine HCl 2 spray 03/22/25 09:00 03/24/25 09:40 Azelastine Hcl Nasal 0.1% 137 Mcg/Spr 30 Ml Btl NASAL Not Given DAILY [facility] Calcium Carbonate 500 mg 03/22/25 09:00 03/24/25 08:07 Calcium/Vitamin D 500 Mg/5 Mcg (200 I.U.) Tablet PO 500 mg QAM [facility] Administration Hydralazine HCl 25 mg 03/21/25 23:25 03/24/25 08:07 Hydralazine Hcl 25 Mg Tablet PO 25 mg TID [facility] Administration Levothyroxine Sodium 50 mcg 03/22/25 06:30 03/24/25 05:46 Levothyroxine Sodium 50 Mcg Tablet PO 50 mcg DAILY@0630 [facility] Administration Lisinopril 30 mg 03/22/25 10:50 03/24/25 08:08 Lisinopril 10 Mg Tablet PO 30 mg QAM [facility] Administration Melatonin 5 mg 03/21/25 23:25 03/23/25 20:43 Melatonin 5 Mg Tablet PO 5 mg HS [facility] Administration Nifedipine 60 mg 03/23/25 09:00 03/24/25 08:08 Nifedipine 30 Mg Tab.Er.24 PO 60 mg QAM [facility] Administration Simvastatin 20 mg 03/22/25 09:00 03/24/25 08:08 Simvastatin 20 Mg Tablet PO 20 mg QAM [facility] Administration Radiology Results: ITS Impressions Head/Neck CTA 03/21/25 19:38 IMPRESSION: 1. Moderate to severe calcified atheromatous disease within the carotid bulbs and proximal internal carotid arteries bilaterally. 2. . Percent stenosis per NASCET criteria is 27% on the right and 45% on the left. 3. Cervical lymphadenopathy. 4. Extensive venous collateralization within the posterior soft tissues of the head and neck. 5. No acute intracranial hemorrhage or suspicious mass effect. Chest X-Ray 03/22/25 11:20 IMPRESSION: 1. Mild pulmonary edema versus less likely pneumonia superimposed over small right and moderate-sized left pleural effusions. 2. Cardiomegaly which appears new since 12/14/24 Labs Labs: Laboratory Results - last 24 hr 03/21/25 03/22/25 03/23/25 19:31 11:23 14:08 WBC RBC Hgb Hct MCV MCH MCHC RDW Plt Count MPV Immature Gran % (Auto) Neut % (Auto) Lymph % (Auto) [place] % (Auto) Eos % (Auto) Baso % (Auto) Lymph # (Auto) [place] # (Auto) Eos # (Auto) Baso # (Auto) Abs Immat Gran (auto) Absolute Neuts (auto) Absolute Nucleated RBC Nucleated RBC % Sodium 127 L Potassium 3.7 Chloride 101 Carbon Dioxide 19 L Anion Gap 7 BUN 34 H Creatinine 1.96 H Estim Creat Clear Calc 16 Estimated GFR 24 L Glucose 137 H Serum Osmolality 268 L Calcium 8.3 L Phosphorus Magnesium Total Bilirubin AST ALT Alkaline Phosphatase Total Protein Albumin Ur Random Potassium Ur 24 Hour Volume U Protein 24 Hr Presump U [place] Chn Meghna 24hr U Tot [place] Light 24h U Lambda Chn Meghna 24h U Tot Lambda Light 24h Ur GLORIA Interpret 24 hr Sjogren's Anti-SS-A >8.0 H Sjogren's Anti-SS-B <0.2 Free [place] & Lambda LC 03/23/25 03/24/25 18:45 04:16 WBC 8.8 RBC 3.23 L Hgb 8.6 L Hct 27.7 L MCV 85.8 MCH 26.6 MCHC 31.0 L RDW 13.3 Plt Count 365 MPV 9.2 Immature Gran % (Auto) 0.7 H Neut % (Auto) 85.5 H Lymph % (Auto) 6.5 L [place] % (Auto) 6.7 Eos % (Auto) 0.1 Baso % (Auto) 0.5 Lymph # (Auto) 0.57 L [place] # (Auto) 0.6 Eos # (Auto) 0.0 Baso # (Auto) 0.0 Abs Immat Gran (auto) 0.06 H Absolute Neuts (auto) 7.5 H Absolute Nucleated RBC 0.000 Nucleated RBC % 0.0 Sodium 130 L Potassium 3.4 Chloride 103 Carbon Dioxide 18 L Anion Gap 9 BUN 35 H Creatinine 2.11 H Estim Creat Clear Calc 15 Estimated GFR 22 L Glucose 111 H Serum Osmolality Calcium 8.6 Phosphorus 3.7 Magnesium 2.1 Total Bilirubin 0.3 AST 22 ALT 16 Alkaline Phosphatase 66 Total Protein 6.1 L Albumin 3.2 L Ur Random Potassium 32.4 Ur 24 Hour Volume Cancelled U Protein 24 Hr Presump Cancelled U [place] Chn Meghna 24hr Cancelled U Tot [place] Light 24h Cancelled U Lambda Chn Meghna 24h Cancelled U Tot Lambda Light 24h Cancelled Ur GLORIA Interpret 24 hr Cancelled Sjogren's Anti-SS-A Sjogren's Anti-SS-B Free [place] & Lambda LC Cancelled Quality VTE Prophylaxis VTE prophylaxis: pharmacologic ordered
[2025-03-24 13:08] LABS: Osmolality, Urine 274 mOsmol/kg (.)
--- NOTE | 2025-03-24 13:53 | ECG_ITS ---
Test Date: 2025-03-24 14:26:00 Measurements Intervals [place] Rate: 78 P: -4 CT: 185 QRS: 37 QRSD: 105 T: 61 QT: 336 QTc: 385 Interpretive Statements SINUS RHYTHM LOW QRS VOLTAGE IN LIMB LEADS BORDERLINE R WAVE PROGRESSION, ANTERIOR LEADS BORDERLINE ST-T WAVE ABNORMALITY- INF/HIGH LAT LEADS BASELINE ARTIFACT- I, II, AVR, AVF, V1-V2 BORDERLINE ECG Compared to ECG 03/21/2025 18:14:19 NO SIGNIFICANT CHANGE Electronically Signed On 03-24-2025 14:28:35 CDT by Dipak Henry D.O.
[2025-03-24 14:08] LABS: Free Lambda Lt Chains, Serum 21.8 mg/L (5.7-26.3); Kappa/Lambda Ratio, Serum 14.51 (0.26-1.65)
[2025-03-24] MEDS: TAMSULOSIN HCL 0.4 MG CAPSULE PO (15:07)
[2025-03-24] MEDS: ENOXAPARIN 30 MG/0.3 ML SYRINGE SUB-Q (15:07)
[2025-03-24] MEDS: MELATONIN 5 MG TABLET PO (20:25)
[2025-03-24] MEDS: QUEtiapine FUMARATE 12.5 MG TABLET PO (20:25)
[2025-03-24] MEDS: OLANZapine 5 MG, WATER, STERILE FOR INJECTION 2.1 ML IM ×2 (21:39→23:35)
[2025-03-25] VITALS (15 sets, daily range): BP systolic 125–144; BP diastolic 48–54; PULSE 60–90; RESP 18; TEMP 36.1–36.4; O2SAT 91–98
[2025-03-25 04:34] LABS: Hematocrit 25.5 % (37.0-47.0); Hemoglobin 8.3 g/dL (12.0-15.0); Immature Granulocyte Percent A 0.6 % (0-0.5); Lymphocytes Absolute Auto 0.48 K/mm3 (0.9-3.2); Mean Corpuscular HGB Conc 32.5 g/dl (32-36); Mean Corpuscular Hemoglobin 26.9 pg (26-34); Mean Corpuscular Volume 82.5 fl (80-100); Nucleated Red Blood Cells Absolute Auto 0.000 K/mm3 (0.0-0.012); Nucleated Red Blood Cells Perc 0.0 % (0.0-0.2); Platelet Count Result 326 k/mm3 (150-375); Red Blood Count 3.09 M/mm3 (4.2-5.4); White Blood Count 7.2 K/mm3 (4.5-10.0)
[2025-03-25 04:54] LABS: Alanine Aminotransferase 18 U/L (6-35); Albumin Level 3.1 g/dL (3.5-5.1); Alkaline Phosphatase 67 U/L (38-126); Anion Gap 9 mmol/L (4-12); Aspartate Amino Transferase 24 U/L (14-36); Bilirubin,Total 0.4 mg/dL (0.2-1.3); Blood Urea Nitrogen 38 mg/dL (7-17); Calcium 8.5 mg/dL (8.4-10.2); Carbon Dioxide 18 mmol/L (22-30); Chloride 101 mmol/L (98-107); Estimated CRCL calculation 14 ml/min; Estimated Glomerular Filt Rate 21; Glucose 115 mg/dL (65-110); Magnesium 2.1 mg/dL (1.6-2.3); Potassium 3.0 mmol/L (3.4-5.0); Sodium 128 mmol/L (137-145); Total Protein 6.0 g/dL (6.3-8.2)
[2025-03-25] MEDS: LEVOTHYROXINE SODIUM 50 MCG TABLET PO (05:51)
--- NOTE | 2025-03-25 06:50 | PC.NURSE ---
Pt has exhibited increased confusion throughout the night, continually tried to get out of bed, and pull on lines/catheter. Pt's family was a bed side throughout the night, and exhibited concern multiple times about pt's increased confusion. Pt was given zyprexa which did little to calm pt or assist her in sleeping. Pt has been resting at night, however not sleeping. Pt exhibits exhaustion and has become fixated on ceratin aspects of her daily routine (example: thinks she needs to get out of bed and get to the [facility] to work out). Pt is becoming increasingly difficult to re-direct and becoming more agitated.
[2025-03-25] MEDS: SIMVASTATIN 20 MG TABLET PO (09:06)
[2025-03-25] MEDS: CALCIUM/VITAMIN D 500 MG/5 MCG (200 I.U.) TABLET PO (09:06)
[2025-03-25] MEDS: TAMSULOSIN HCL 0.4 MG CAPSULE PO (09:07)
--- NOTE | 2025-03-25 10:35 | P.PNIM_ITS ---
Progress Note: A&P Assessment and Plan (1) Acute hyponatremia: Code(s): E87.1 - Hypo-osmolality and hyponatremia Status: Acute Assessment and Plan: Improving Na 130 from 119 on admission On NS with 1600 cc fluid restriction n per Nephrology Metolazone on hold 03/25: sodium dipped down. will restart NS as confused and poor po intake (2) CKD (chronic kidney disease): Code(s): N18.9 - Chronic kidney disease, unspecified Status: Chronic Assessment and Plan: -CKD worsening over last 3 months, better today than February 19 -Cr 2.0, BUN 44, eGFR 24 and eCrCl 16 -Avoid nephrotoxins, hold metolazone and lisinopril Further workup GINNY, ESR, Immunofixation, kappa lambda ratio. Nephrology following, Oncology consulted per Neph request (3) Acute hypokalemia: Code(s): E87.6 - Hypokalemia Status: Acute Assessment and Plan: -Potassium 3.4 from 2.9 -Added magnesium level -continue replacement and monitor (4) Acute metabolic encephalopathy: Code(s): G93.41 - Metabolic encephalopathy Status: Acute Assessment and Plan: -See hyponatremia above -No evidence of infection, urine drug screen negative -CTA Head and Neck with calcified atheromatous disease and Cervical lymphadenopathy with known breast cancer -Urinary retention noted on admission and patient constantly complaining of needing to urinate, even after catheter insertion still persistent will repeat CT head. will need MRI brain as well, however restless, so might not readily happen. will consult neurology. delirium is a possibiltiy. on seroquel which will be stopped due to worsening agitation. zyprexa prn for now as tolerated (5) Breast cancer: Code(s): C50.919 - Malignant neoplasm of unspecified site of unspecified female breast Status: Acute Assessment and Plan: -Recent diagnosis, need to clarify treatment ongoing. (6) Hypothyroidism (acquired): Code(s): E03.9 - Hypothyroidism, unspecified Status: Chronic Assessment and Plan: -TSH wnl, continue levothyroxine (7) Benign hypertension with chronic kidney disease: Code(s): I12.9 - Hypertensive chronic kidney disease with stage 1 through stage 4 chronic kidney disease, or unspecified chronic kidney disease Status: Chronic Assessment and Plan: on lisinopril, nifedipine (8) Anemia: Code(s): D64.9 - Anemia, unspecified Status: Chronic Assessment and Plan: -Chronic and multifactoral including breast cancer and CKD worsening -Stable with HGB 9.6 on ER arrival (9) Urinary retention: Code(s): R33.9 - Retention of urine, unspecified Status: Acute Assessment and Plan: on marley Tamsulosin and Urology consulted (10) Insomnia: Code(s): G47.00 - Insomnia, unspecified Status: Chronic Assessment and Plan: Started on Seroquel nighttime . stop due to worsening agitation currentl on zyprexa prn Plan Iron deficiency anemia Hb 8.2, Isat 14 IV iron 1000/1000 FOBT pending DVT prophylaxis on Sq Lovenox Awaiting PT/OT for discharge disposition Subjective Date/time seen: 03/25/25 10:35 Interval history: patient agitated overnight, confusion worsened. daughter at bedside. discussed with nursing staff. agiated. has not been sleeping since admission. labs reviewed. remains afebrile. Review of Systems Review of Systems: ROS unobtainable: Yes unobtainable due to mental status (confusion) Exam Narrative: GENERAL: Moderately ill-appearing, confused elderly female, no acute respiratory distress HEAD: Normocephalic, atraumatic. ENT:? Mucous membranes dry CHEST: diminsihed breath sounds, No respiratory distress. HEART: Regular rate and rhythm. ? Normal peripheral pulses. ABDOMEN: Soft, nontender, nondistended. Urinary catheter draining pale yellow urine that appears clear. EXTREMITIES: Normal range of motion. No peripheral edema. SKIN: Warm dry normal color NEURO: awake, confused, follows some commands, knows self, not to time or place Objective Data Vital Signs Vital Signs: Vital Signs - 24 hr 03/24/25 12:00 03/24/25 12:00 03/24/25 12:16 Temperature 97.9 F Pulse Rate 88 94 Respiratory Rate 18 Blood Pressure 151/70 H Pulse Oximetry 94 Oxygen Delivery Room Air 03/24/25 14:00 03/24/25 16:00 03/24/25 16:00 Temperature Pulse Rate 79 92 Respiratory Rate Blood Pressure Pulse Oximetry Oxygen Delivery Room Air 03/24/25 16:15 03/24/25 18:00 03/24/25 20:00 Temperature 97.8 F 97.8 F Pulse Rate 93 77 81 Respiratory Rate 18 Blood Pressure 154/54 H 140/47 L Pulse Oximetry 94 94 Oxygen Delivery 03/24/25 20:00 03/24/25 22:00 03/24/25 23:52 Temperature 97.8 F Pulse Rate 84 89 90 Respiratory Rate 18 Blood Pressure 146/62 H Pulse Oximetry 92 Oxygen Delivery 03/25/25 00:00 03/25/25 00:00 03/25/25 02:00 Temperature Pulse Rate 81 78 Respiratory Rate Blood Pressure Pulse Oximetry Oxygen Delivery Room Air 03/25/25 04:00 03/25/25 04:00 03/25/25 04:32 Temperature 97.6 F Pulse Rate 78 90 Respiratory Rate 18 Blood Pressure 125/54 L Pulse Oximetry 93 Oxygen Delivery Room Air 03/25/25 06:00 03/25/25 08:00 03/25/25 08:12 Temperature Pulse Rate 81 76 73 Respiratory Rate Blood Pressure 139/52 L Pulse Oximetry 98 Oxygen Delivery Intake/Output Intake/Output: Intake & Output 03/22/25 03/23/25 03/24/25 03/25/25 23:59 23:59 23:59 23:59 Intake Total 3080.0 745 600 0 Output Total 0133 011 1358 303 Balance 1930.0 -105 -525 -303 Meds/Results Medications: Active Medications Generic Name Dose Route Start Last Admin Trade Name Freq PRN Reason Stop Dose Admin Acetaminophen 650 mg 03/21/25 23:22 Acetaminophen 325 Mg Tablet PO Q6H PRN Pain or Fever Amlodipine Besylate 5 mg 03/21/25 23:25 03/25/25 09:07 Amlodipine Besylate 5 Mg Tablet PO 5 mg Q12HR HEAVEN Administration Artificial Tears 1 drop 03/22/25 09:00 03/24/25 20:25 Artificial Tears Ophth Soln 15 Ml Bottle EACH EYE 1 drop QID HEAVEN Administration Azelastine HCl 2 spray 03/22/25 09:00 03/24/25 09:40 Azelastine Hcl Nasal 0.1% 137 Mcg/Spr 30 Ml Btl NASAL Not Given DAILY HEAVEN Calcium Carbonate 500 mg 03/22/25 09:00 03/25/25 09:06 Calcium/Vitamin D 500 Mg/5 Mcg (200 I.U.) Tablet PO 500 mg QAM HEAVEN Administration Enoxaparin Sodium 30 mg 03/24/25 13:30 03/24/25 15:07 Enoxaparin 30 Mg/0.3 Ml Syringe SUB-Q 30 mg DAILY HEAVEN Administration Hydralazine HCl 25 mg 03/21/25 23:25 03/25/25 09:06 Hydralazine Hcl 25 Mg Tablet PO 25 mg TID HEAVEN Administration Levothyroxine Sodium 50 mcg 03/22/25 06:30 03/25/25 05:51 Levothyroxine Sodium 50 Mcg Tablet PO 50 mcg DAILY@0630 HEAVEN Administration Lisinopril 30 mg 03/22/25 10:50 03/25/25 09:06 Lisinopril 10 Mg Tablet PO 10 mg QAM HEAVEN Administration Melatonin 5 mg 03/21/25 23:25 03/24/25 20:25 Melatonin 5 Mg Tablet PO 5 mg HS HEAVEN Administration Nifedipine 60 mg 03/23/25 09:00 03/25/25 09:06 Nifedipine 30 Mg Tab.Er.24 PO 60 mg QAM HEAVEN Administration Quetiapine Fumarate 12.5 mg 03/24/25 21:00 03/24/25 20:25 Quetiapine Fumarate 12.5 Mg Tablet PO 12.5 mg HS HEAVEN Administration Simvastatin 20 mg 03/22/25 09:00 03/25/25 09:06 Simvastatin 20 Mg Tablet PO 20 mg QAM HEAVEN Administration Tamsulosin HCl 0.4 mg 03/24/25 13:45 03/25/25 09:07 Tamsulosin Hcl 0.4 Mg Capsule PO 0.4 mg QAM HEAVEN Administration Radiology Results: ITS Impressions Head/Neck CTA 03/21/25 19:38 IMPRESSION: 1. Moderate to severe calcified atheromatous disease within the carotid bulbs and proximal internal carotid arteries bilaterally. 2. . Percent stenosis per NASCET criteria is 27% on the right and 45% on the left. 3. Cervical lymphadenopathy. 4. Extensive venous collateralization within the posterior soft tissues of the head and neck. 5. No acute intracranial hemorrhage or suspicious mass effect. Chest X-Ray 03/22/25 11:20 IMPRESSION: 1. Mild pulmonary edema versus less likely pneumonia superimposed over small right and moderate-sized left pleural effusions. 2. Cardiomegaly which appears new since 12/14/24 Labs Labs: Laboratory Results - last 24 hr 03/21/25 03/21/25 03/22/25 19:31 19:46 11:23 WBC RBC Hgb Hct MCV MCH MCHC RDW Plt Count MPV Immature Gran % (Auto) Neut % (Auto) Lymph % (Auto) [place] % (Auto) Eos % (Auto) Baso % (Auto) Lymph # (Auto) [place] # (Auto) Eos # (Auto) Baso # (Auto) Abs Immat Gran (auto) Absolute Neuts (auto) Absolute Nucleated RBC Nucleated RBC % Sodium Potassium Chloride Carbon Dioxide Anion Gap BUN Creatinine Estim Creat Clear Calc Estimated GFR Glucose Serum Osmolality 268 L Calcium Magnesium Total Bilirubin AST ALT Alkaline Phosphatase Total Protein Albumin Urine Osmolality 274 Sjogren's Anti-SS-A >8.0 H Sjogren's Anti-SS-B <0.2 [place]/Lambda Ratio 14.51 H Free [place] Light Chains 316.3 H Free Lambda Light Chain 21.8 03/25/25 04:24 WBC 7.2 RBC 3.09 L Hgb 8.3 L Hct 25.5 L MCV 82.5 MCH 26.9 MCHC 32.5 RDW 13.5 Plt Count 326 MPV 9.3 Immature Gran % (Auto) 0.6 H Neut % (Auto) 87.6 H Lymph % (Auto) 6.7 L [place] % (Auto) 4.3 Eos % (Auto) 0.4 Baso % (Auto) 0.4 Lymph # (Auto) 0.48 L [place] # (Auto) 0.3 Eos # (Auto) 0.0 Baso # (Auto) 0.0 Abs Immat Gran (auto) 0.04 H Absolute Neuts (auto) 6.3 Absolute Nucleated RBC 0.000 Nucleated RBC % 0.0 Sodium 128 L Potassium 3.0 L Chloride 101 Carbon Dioxide 18 L Anion Gap 9 BUN 38 H Creatinine 2.25 H Estim Creat Clear Calc 14 Estimated GFR 21 L Glucose 115 H Serum Osmolality Calcium 8.5 Magnesium 2.1 Total Bilirubin 0.4 AST 24 ALT 18 Alkaline Phosphatase 67 Total Protein 6.0 L Albumin 3.1 L Urine Osmolality Sjogren's Anti-SS-A Sjogren's Anti-SS-B [place]/Lambda Ratio Free [place] Light Chains Free Lambda Light Chain
[2025-03-25] MEDS: ENOXAPARIN 30 MG/0.3 ML SYRINGE SUB-Q (10:50)
[2025-03-25] MEDS: ARTIFICIAL TEARS OPHTH SOLN 15 ML BOTTLE 1 DROP EACH EYE ×2 (10:50→15:10)
[2025-03-25] MEDS: AZELASTINE HCL NASAL 0.1% 137 MCG/SPR 30 ML BTL 2 SPRAY NASAL (10:50)
[2025-03-25 11:09] LABS: Osmolality, Serum 271 mOsmol/kg (280-301)
[2025-03-25 11:48] LABS: Creatine Kinase 71 U/L (30-135)
[2025-03-25 12:08] LABS: Osmolality, Urine 324 mOsmol/kg (.)
--- NOTE | 2025-03-25 12:09 | PC.NURSE ---
Attempted to take pt to ct scan of the head. Pt unable to follow commands, keeps sitting up and attemtping to take off velcro straps holding her to bed. Informed Dr. Wakefield. Order for Zyprexa 5 mg IM
[2025-03-25] MEDS: OLANZapine 5 MG, WATER, STERILE FOR INJECTION 2.1 ML IM (12:22)
[2025-03-25] MEDS: SODIUM CHLORIDE 0.9% IV 1,000 ML 75 ML IV CONT (12:25)
[2025-03-25 12:31] LABS: Ammonia < 9 umol/L (9-30)
--- NOTE | 2025-03-25 12:40 | P.PNNP_ITS ---
Progress Note: A&P Assessment and Plan (1) Hyponatremia: Code(s): E87.1 - Hypo-osmolality and hyponatremia Status: Acute Assessment and Plan: * acute on chronic * usually runs in the low 130s * evaluation/risk factors noted: * TSH okay * cortisol low but Cortrosyn stim test is okay * issues with pulmonary edema noted by CXR * no BAIL AGENT issues (head CT negative) * urinary retention noted on admission * does have a history of breast cancer * paraproteinemia noted * was on metolazone as an outpatient * urine electrolytes prerenal * s/p 3% saline x 2 since admission * on fluid restriction as well * follow trend of repeat sodium levels (2) Acute kidney injury: Code(s): N17.9 - Acute kidney failure, unspecified Status: Acute Assessment and Plan: * abrupt decline noted in January 2025 * outpatient evaluation for this issue noted: * renal ultrasound with medical renal disease * nephrotic range proteinuria * complements, ANCA, dsDNA-Ab, antiGBM-Ab negative * SPEP with poorly defined band (possible M-spike) migrating in the gamma region * UPEP with a monoclonal band in the gamma globulin region. 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; GINNY negative; + SSA * tentative plan renal biopsy for definitive diagnosis * follow trend of labs and UOP (3) Stage 3b chronic kidney disease: Code(s): N18.32 - Chronic kidney disease, stage 3b Status: Acute Assessment and Plan: * baseline creatinine running around 1.1 - 1.4mg/dl since 2020 * presumably due to hypertension, vascular disease, and age-related change (4) Acute metabolic encephalopathy: Code(s): G93.41 - Metabolic encephalopathy Status: Acute Assessment and Plan: * only mild improvement per family * initially thought to be secondary to hyponatremia * however, still persists even with improvement in sodium level * CT of head negative * repeat CT of head and MRI of brain ordered * consulted Neurology (5) Anasarca: Code(s): R60.1 - Generalized edema Status: Acute Assessment and Plan: * due to nephrotic range proteinuria, LIZ/CKD and mild pulmonary hypertension * swelling/edema better * however, still with issues with pulmonary edema * diuretics on hold given low sodium (but may need to restart) * follow clinical exam (6) Anemia: Code(s): D64.9 - Anemia, unspecified Status: Chronic Assessment and Plan: * as noted * possibly related to LIZ/CKD and maybe malignancy(?) * iron studies noted * consider Epogen while inpatient * follow trend of H/H (7) Essential (primary) hypertension: Code(s): I10 - Essential (primary) hypertension Status: Acute Assessment and Plan: * difficult to control recently * blood pressure adjustment noted * follow trend of hemodynamics (8) Hypokalemia: Code(s): E87.6 - Hypokalemia Status: Acute Assessment and Plan: * suspect due to total body store depletion due to outpatient diuretics and possibly diminished oral intake * replete as needed * follow trend of K+ (9) Urinary retention: Code(s): R33.9 - Retention of urine, unspecified Status: Acute Assessment and Plan: * as noted on admission * marley catheter in place Will continue to follow. L Subjective Date/time seen: 03/25/25 12:40 Interval history: Follow-up for acute kidney injury/acute renal failure on chronic kidney disease and hyponatremia. Mentation still not at baseline with increasing confusion and agitation overnight and earlier this morning -- family at bedside and quite concerned by these issues; repeat CT of head and MRI of brain ordered for further evaluation; still not sleeping very well also and with diminished oral intake. Exam 2 Narrative: General: elderly but WD/WN female in NAD Heart: normal S1 and S2; no rub Lungs: decreased at the bases Abdomen: soft, nontender, nondistended, positive bowel sounds Extremities: no cyanosis or clubbing; trace edema Skin: warm and dry Objective Data Vital Signs Vital Signs: Vital Signs Temp Pulse Resp BP Pulse Ox O2 Del Method 03/25/25 12:00 63 18 135/50 L 91 03/25/25 10:00 74 03/25/25 08:12 73 139/52 L 98 03/25/25 08:00 76 03/25/25 06:00 81 03/25/25 04:32 97.6 F 90 18 125/54 L 93 03/25/25 04:00 78 03/25/25 04:00 Room Air 03/25/25 02:00 78 03/25/25 00:00 81 03/25/25 00:00 Room Air 03/24/25 23:52 97.8 F 90 18 146/62 H 92 03/24/25 22:00 89 03/24/25 20:00 84 03/24/25 20:00 97.8 F 81 18 140/47 L 94 Intake/Output Intake/Output: Intake & Output 03/22/25 03/23/25 03/24/25 03/25/25 23:59 23:59 23:59 23:59 Intake Total 3080.0 745 600 450 Output Total 3509 602 4236 303 Balance 1930.0 -105 -525 147 Meds/Results Medications: Active Medications Generic Name Dose Route Start Last Admin Trade Name Freq PRN Reason Stop Dose Admin Acetaminophen 650 mg 03/21/25 23:22 Acetaminophen 325 Mg Tablet PO Q6H PRN Pain or Fever Amlodipine Besylate 5 mg 03/21/25 23:25 03/25/25 09:07 Amlodipine Besylate 5 Mg Tablet PO 5 mg Q12HR HEAVEN Administration Artificial Tears 1 drop 03/22/25 09:00 03/25/25 18:48 Artificial Tears Ophth Soln 15 Ml Bottle EACH EYE Not Given QID HEAVEN Azelastine HCl 2 spray 03/22/25 09:00 03/25/25 10:50 Azelastine Hcl Nasal 0.1% 137 Mcg/Spr 30 Ml Btl NASAL 2 spray DAILY HEAVEN Administration Calcium Carbonate 500 mg 03/22/25 09:00 03/25/25 09:06 Calcium/Vitamin D 500 Mg/5 Mcg (200 I.U.) Tablet PO 500 mg QAM HEAVEN Administration Enoxaparin Sodium 30 mg 03/24/25 13:30 03/25/25 10:50 Enoxaparin 30 Mg/0.3 Ml Syringe SUB-Q 30 mg DAILY HEAVEN Administration Hydralazine HCl 25 mg 03/21/25 23:25 03/25/25 18:49 Hydralazine Hcl 25 Mg Tablet PO Not Given TID HEAVEN Levothyroxine Sodium 50 mcg 03/22/25 06:30 03/25/25 05:51 Levothyroxine Sodium 50 Mcg Tablet PO 50 mcg DAILY@0630 HEAVEN Administration Lisinopril 30 mg 03/22/25 10:50 03/25/25 09:06 Lisinopril 10 Mg Tablet PO 10 mg QAM HEAVEN Administration Lorazepam 0.5 mg 03/25/25 17:30 Lorazepam Inj (*Crx) 2 Mg/Ml Vial IV PUSH Q6H PRN Agitation Melatonin 5 mg 03/21/25 23:25 03/24/25 20:25 Melatonin 5 Mg Tablet PO 5 mg HS HEAVEN Administration Nifedipine 60 mg 03/23/25 09:00 03/25/25 09:06 Nifedipine 30 Mg Tab.Er.24 PO 60 mg QAM HEAVEN Administration Olanzapine 5 mg 03/25/25 17:30 Olanzapine 10 Mg Inj Vial IM Q6H PRN Agitation Perflutren Lipid Microsphere 0 ml 03/25/25 17:59 Perflutren Lipid Microspheres 1.5 Ml Vial Diluted To 10 Ml Total Volume IV PUSH 03/28/25 17:59 ONCE PRN adequate visualization Protocol Simvastatin 20 mg 03/22/25 09:00 03/25/25 09:06 Simvastatin 20 Mg Tablet PO 20 mg QAM HEAVEN Administration Tamsulosin HCl 0.4 mg 03/24/25 13:45 03/25/25 09:07 Tamsulosin Hcl 0.4 Mg Capsule PO 0.4 mg QAM HEAVEN Administration Radiology Results: ITS Impressions Head/Neck CTA 03/21/25 19:38 IMPRESSION: 1. Moderate to severe calcified atheromatous disease within the carotid bulbs and proximal internal carotid arteries bilaterally. 2. . Percent stenosis per NASCET criteria is 27% on the right and 45% on the left. 3. Cervical lymphadenopathy. 4. Extensive venous collateralization within the posterior soft tissues of the head and neck. 5. No acute intracranial hemorrhage or suspicious mass effect. Labs Labs: Laboratory Tests 03/25/25 04:24 03/25/25 04:24 Calcium 8.5 Magnesium 2.1 Total Bilirubin 0.4 AST 24 ALT 18 Alkaline Phosphatase 67 Total Creatine Kinase 71 Total Protein 6.0 L Albumin 3.1 L
[2025-03-25] MEDS: KCL 20 MEQ/SW 100 ML 100 ML 50 MEQ IVPB (13:46)
[2025-03-25 14:08] LABS: ANA by IFA Rfx Titer/Pattern Negative (.)
--- NOTE | 2025-03-25 15:43 | PCPTNOTE ---
Attempted PT evaluation at 10:45, but pt leaving for test. Attempted PT evaluation again at 11:02 when pt returned, but nursing reporting pt having increased confusion causing safety to participate in OOB activity at this time. Will follow.
[2025-03-25] MEDS: FUROSEMIDE INJ 40 MG/4 ML VIAL IV PUSH (16:05)
--- NOTE | 2025-03-25 18:19 | P.CONONC_ITS ---
Assessment and Plan Assessment and plan (1) Breast cancer: Code(s): C50.919 - Malignant neoplasm of unspecified site of unspecified female breast Status: Acute Assessment and Plan: Patient was diagnosed with early stage breast cancer status post lumpectomy in November of 2024. Plan was to start her on radiation therapy and then endocrine therapy. She was around the same time diagnosed with renal failure and proteinuria with possible congestive heart failure. There was a concern of multiple myeloma as well due to kidney failure and proteinuria. CT scan showed cervical and mediastinal lymphadenopathy as well as bilateral pleural effusion. There is also concern of lymphoma versus metastatic disease. I will order CA 15-3, serum protein electrophoresis with immunofixation, quantitative immunoglobulin level, serum free light chain studies as well as paracentesis for diagnostic and therapeutic purpose. I have recommended her to follow-up with Dr. Chaves for further management. I have answered all the questions to patient and the family satisfaction. (2) Anemia: Code(s): D64.9 - Anemia, unspecified Status: Chronic Assessment and Plan: This is likely secondary to anemia of chronic kidney disease. Iron studies were reviewed. We will check soluble transferrin receptor and methylmalonic acid level. Will check erythropoietin level and the workup for multiple myeloma. Patient will benefit from the Procrit injection as well. HPI Data of Consult Date/Time: 03/25/25 18:19 Requesting Physician: Amadou Soto MD Primary Care Provider: Tisha Tubbs MD Consult Narrative Narrative: Heavenly Sarmiento is a 85 year old female with history of early stage breast cancer status post lumpectomy done in November of 2024. Plan was to start patient on radiation therapy treatment and endocrine therapy. Patient has been managed by Dr. Chaves. She was admitted to the hospital with acute confusion and hyponatremia. Patient was also diagnosed with nephrotic range proteinuria in November of 2024. Dr. Coffey was planning to do the kidney biopsy to rule out multiple myeloma. Face CT done on March 18 showed no acute intracranial hemorrhage or masses. Head CT showed no acute intracranial hemorrhage or mass. CTA head and neck showed cervical lymphadenopathy. Brain MRI showed normal findings. Chest CT showed large bilateral pleural effusion with extensive mediastinal and hilar lymphadenopathy malignancy is suspected. Labs showed hemoglobin of 8.3, creatinine 2.25 sodium 128. Patient is slightly confused. No other new complaints. 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 Other hyperlipidemia Gallstones Body mass index (BMI) exceeds 25 (02/23/18) Arthralgia of left hip Cataract (lens) fragments in eye following cataract surgery, bilateral Bruise Arthralgia of right hip Bleeding hemorrhoids Impacted cerumen of right ear Calculus of gallbladder with cholecystitis Allergic rhinitis Acute sinusitis Pain in both lower extremities Dry mouth Chronic renal insufficiency Dysuria Constipation Thrush, oral Insomnia Stress Mouth sore Anxiety Chronic renal insufficiency, stage III (moderate) Essential (primary) hypertension Hypothyroidism (acquired) Mixed hyperlipidemia Multinodular goiter Situational depression Vitamin D deficiency Surgical History Surgical History S/P cholecystectomy Family History Family History Other Family history of chronic obstructive pulmonary disease Family history of elevated blood lipids Family history of lung disease Family history of thyroid disease Hypertension Social History Social History Social History: Caffeine-occasionally Smoking status: Never smoker Second hand tobacco smoke exposure: No Alcohol intake: never Substance use: never Substance use type: does not use Do You Feel Safe in your Home?: Yes Lack of Transportation: No Lack of Food: Never True Current Housing: I Have Housing Concerned About Future Housing: No Difficulty Paying Gas/Electric Bills: No Difficulty Paying for Meds: No Currently Unemployed: No Education: Trade/Vocational Certificate Difficulty w/ Childcare or Family Care: No Living arrangements: alone Additional living arrangements comments: Patient lives alone, is now living in a memory care facility. Occupation/Education: retired Gender identity (if verbalized by the patient): Female Sexual Orientation (if Verbalized by the Patient): Straight or Heterosexual Spiritual care concerns: No Agree to blood products: Yes Meds Home Medications and Allergies Home Medications ?Medication ?Instructions ?Recorded ?Confirmed ?Type calcium 600 mg (as carbonate)-vit 1 tablet PO DAILY 06/20/24 03/21/25 History D3 20 mcg (800 unit) chewable tablet (Caltrate plus D) levothyroxine 50 mcg tablet 50 mcg PO DAILY #90 tabs 06/20/24 03/21/25 Rx perfluorohexyloctane (PF) 100 % 1 drp EACH EYE QID 06/20/24 03/21/25 History eye drops (Miebo (PF)) simvastatin 20 mg tablet See Rx Instructions .Route 12/06/24 03/21/25 Rx .COMPLEX #90 tabs ergocalciferol (vitamin D2) 1,250 50,000 unit PO [id number] 12/14/24 03/21/25 History mcg (50,000 unit) capsule lorazepam 0.5 mg tablet 0.5 mg PO TID PRN anxiety #90 tabs 12/31/24 03/21/25 Rx azelastine 205.5 mcg (0.15 %) 2 spray intranasal DAILY #1 device 01/21/25 03/21/25 Rx nasal spray (Astepro Allergy) lisinopril 30 mg tablet 30 mg PO DAILY #90 tabs 01/21/25 03/21/25 Rx bumetanide 1 mg tablet 1 mg PO BID #60 tabs 01/29/25 03/21/25 Rx zolpidem 10 mg tablet (Ambien) 10 mg PO .HS PRN insomnia #30 tabs 02/11/25 03/21/25 Rx hydralazine 25 mg tablet 25 mg PO TID #90 tabs 03/13/25 03/21/25 Rx amlodipine 5 mg tablet 5 mg PO BID 03/21/25 03/21/25 History metolazone 2.5 mg tablet See Rx Instructions .Route .COMPLEX 03/21/25 03/21/25 History Allergies Allergy/AdvReac Type Severity Reaction Status Date / Time No Known Allergies Allergy Verified 03/18/25 13:26 Vital Signs Vital Signs - 24 hr 03/24/25 20:00 03/24/25 20:00 03/24/25 22:00 Temperature 36.6 C Pulse Rate 81 84 89 Respiratory Rate 18 Blood Pressure 140/47 L Pulse Oximetry 94 Oxygen Delivery 03/24/25 23:52 03/25/25 00:00 03/25/25 00:00 Temperature 36.6 C Pulse Rate 90 81 Respiratory Rate 18 Blood Pressure 146/62 H Pulse Oximetry 92 Oxygen Delivery Room Air 03/25/25 02:00 03/25/25 04:00 03/25/25 04:00 Temperature Pulse Rate 78 78 Respiratory Rate Blood Pressure Pulse Oximetry Oxygen Delivery Room Air 03/25/25 04:32 03/25/25 06:00 03/25/25 08:00 Temperature 36.4 C Pulse Rate 90 81 76 Respiratory Rate 18 Blood Pressure 125/54 L Pulse Oximetry 93 Oxygen Delivery 03/25/25 08:12 03/25/25 10:00 03/25/25 12:00 Temperature Pulse Rate 73 74 63 Respiratory Rate 18 Blood Pressure 139/52 L 135/50 L Pulse Oximetry 98 91 Oxygen Delivery 03/25/25 12:00 03/25/25 14:00 03/25/25 16:00 Temperature Pulse Rate 61 60 73 Respiratory Rate Blood Pressure Pulse Oximetry Oxygen Delivery 03/25/25 16:06 Temperature Pulse Rate 73 Respiratory Rate Blood Pressure 137/51 L Pulse Oximetry 98 Oxygen Delivery Exam 2 Narrative: Lungs are clear to auscultation bilateral Cardiovascular regular rate rhythm no murmurs Abdomen soft nontender nondistended bowel sounds are positive Extremities no edema Results Labs 03/25/25 04:24 03/25/25 04:24 Labs: Short CBC 03/25/25 Range/Units 04:24 WBC 7.2 (4.5-10.0) K/mm3 Hgb 8.3 L (12.0-15.0) g/dL Hct 25.5 L (37.0-47.0) % Plt Count 326 (150-375) k/mm3 BMP 03/25/25 04:24 Sodium 128 L Potassium 3.0 L Chloride 101 Carbon Dioxide 18 L BUN 38 H Creatinine 2.25 H Glucose 115 H Calcium 8.5 Cardiac Enzymes 03/25/25 Range/Units 04:24 Total Creatine Kinase 71 (30-135) U/L Liver Function 03/25/25 Range/Units 04:24 Total Bilirubin 0.4 (0.2-1.3) mg/dL AST 24 (14-36) U/L ALT 18 (6-35) U/L Alkaline Phosphatase 67 (38-126) U/L Albumin 3.1 L (3.5-5.1) g/dL
[2025-03-25 19:19] LABS: Anion Gap 8 mmol/L (4-12); Blood Urea Nitrogen 41 mg/dL (7-17); Calcium 8.8 mg/dL (8.4-10.2); Carbon Dioxide 18 mmol/L (22-30); Chloride 101 mmol/L (98-107); Estimated CRCL calculation 14 ml/min; Estimated Glomerular Filt Rate 20; Glucose 131 mg/dL (65-110); Potassium 3.5 mmol/L (3.4-5.0); Sodium 127 mmol/L (137-145)
[2025-03-25 19:28] LABS: Immunoglobulin A 158 mg/dL (70-400); Immunoglobulin G 620 mg/dL (700-1600); Immunoglobulin M 269 mg/dL (40-230)
[2025-03-25 19:31] LABS: NT Pro B Type Natriuretic Pept 3860 pg/mL (19.9-100)
[2025-03-25] MEDS: LORazepam INJ (*CRX) 2 MG/ML VIAL 0.5 MG IV PUSH (19:40)
--- NOTE | 2025-03-25 20:24 | P.CONCA_ITS ---
Assessment and Plan Assessment and plan (1) CKD (chronic kidney disease): Code(s): N18.9 - Chronic kidney disease, unspecified Status: Chronic (2) Acute hyponatremia: Code(s): E87.1 - Hypo-osmolality and hyponatremia Status: Acute Assessment and Plan: Improving. (3) Diastolic CHF: Code(s): I50.30 - Unspecified diastolic (congestive) heart failure Status: Acute Assessment and Plan: Diastolic dysfunction is mild compared to degree of volume overload necessitating diuresis, likely due to CKD. Diuretics had been held the last few days with worsening kidney function again. Plan for diagnostic and therapeutic thoracentesis. Will hold off on diuretics as it could worsen sodium level and kidney function, and leave it up to nephrology. (4) Essential (primary) hypertension: Code(s): I10 - Essential (primary) hypertension Status: Acute Assessment and Plan: Stable. (5) Mixed hyperlipidemia: Code(s): E78.2 - Mixed hyperlipidemia Status: Acute Assessment and Plan: On Simvastatin. (6) Pericardial effusion: Code(s): I31.39 - Other pericardial effusion (noninflammatory) Status: Acute Assessment and Plan: Large on CT chest. Obtain echo. (7) Mediastinal lymphadenopathy: Code(s): R59.0 - Localized enlarged lymph nodes Status: Acute Assessment and Plan: Oncology following. This could be lymphoma or metastasis. History of Present Illness History of Present Illness Consult date/time: 03/25/25 20:24 Reason For Visit: Moderate/severe symptomatic hyponatremia Narrative: 85 yr old woman who is my regular cardiology patient and a patient of Dr. Tubbs present to ER with confusion. She has a history of diastolic CHF, hypertension, dyslipidemia, anxiety, breast cancer diagnosed in December 2024. Daughter is at bedside. Patient is alert and responding. She has not slept in last 3 nights and appears anxious. States she is sob, but no chest pain. She was admitted and found to have very low sodium at 119 and has improved to 127 today. Several months ago before all this happened with swelling and she was able to walk 2 miles. 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 Denies chest pain, orthopnea, palpitations. Cardiovascular Procedures Echo/MUGA:: 01/03/25 Echo: EF 65-70%, grade I diastolic dysfunction (E/e' 16), mod LAE, trace MR/TR, RVSP 45 mmHg, small pericardial effusion. Electrophysiology:: 12/14/24 EKG: Sinus rhythm, low voltage in limb leads. Stress Tests:: 01/03/25 Lexiscan myoview: Negative. 12/14/24 CXR: Mild pulm edema with small bilateral pleural effusions. Review of Systems 2 Constitutional: Constitutional: Reports as per HPI, Reports chills, Reports fatigue and Denies fever(s) Cardiovascular: Cardiovascular: Reports as per HPI, Denies chest pain and Denies irregular heart rhythm Respiratory: Respiratory: Reports as per HPI and Reports dyspnea Gastrointestinal: Gastrointestinal: Reports as per HPI and Denies abdominal pain Genitourinary: Genitourinary: Reports as per HPI Musculoskeletal: Musculoskeletal: Reports as per HPI Neurologic: Reports as per HPI, Denies dizziness and Denies syncope [facility] Past Medical History Medical History (Updated 03/25/25 @ 20:36 by Dipak Henry DO) Family hx of colon cancer Adrenal mass 1 cm to 4 cm in diameter High serum cortisol Osteoporosis Rash Nephrotic range proteinuria Acute kidney injury Stage 3b chronic kidney disease Lump in throat Xerostomia Invasive ductal carcinoma of breast, female LLQ pain Irritable bowel syndrome Renal insufficiency Paresthesia of foot, bilateral 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 Other hyperlipidemia Gallstones Body mass index (BMI) exceeds 25 (02/23/18) Arthralgia of left hip Cataract (lens) fragments in eye following cataract surgery, bilateral Bruise Arthralgia of right hip Bleeding hemorrhoids Impacted cerumen of right ear Calculus of gallbladder with cholecystitis Allergic rhinitis Acute sinusitis Pain in both lower extremities Dry mouth Chronic renal insufficiency Dysuria Constipation Thrush, oral Insomnia Stress Mouth sore Anxiety Chronic renal insufficiency, stage III (moderate) Essential (primary) hypertension Hypothyroidism (acquired) Mixed hyperlipidemia Multinodular goiter Situational depression Vitamin D deficiency Surgical History Surgical History S/P cholecystectomy Family History Family History Other Family history of chronic obstructive pulmonary disease Family history of elevated blood lipids Family history of lung disease Family history of thyroid disease Hypertension Social History Social History Social History: Caffeine-occasionally Smoking status: Never smoker Second hand tobacco smoke exposure: No Alcohol intake: never Substance use: never Substance use type: does not use Do You Feel Safe in your Home?: Yes Lack of Transportation: No Lack of Food: Never True Current Housing: I Have Housing Concerned About Future Housing: No Difficulty Paying Gas/Electric Bills: No Difficulty Paying for Meds: No Currently Unemployed: No Education: Trade/Vocational Certificate Difficulty w/ Childcare or Family Care: No Living arrangements: alone Additional living arrangements comments: Patient lives alone, is now living in a memory care facility. Occupation/Education: retired Gender identity (if verbalized by the patient): Female Sexual Orientation (if Verbalized by the Patient): Straight or Heterosexual Spiritual care concerns: No Agree to blood products: Yes Meds Home Medications and Allergies Home Medications ?Medication ?Instructions ?Recorded ?Confirmed ?Type calcium 600 mg (as carbonate)-vit 1 tablet PO DAILY 06/20/24 03/21/25 History D3 20 mcg (800 unit) chewable tablet (Caltrate plus D) levothyroxine 50 mcg tablet 50 mcg PO DAILY #90 tabs 06/20/24 03/21/25 Rx perfluorohexyloctane (PF) 100 % 1 drp EACH EYE QID 06/20/24 03/21/25 History eye drops (Miebo (PF)) simvastatin 20 mg tablet See Rx Instructions .Route 12/06/24 03/21/25 Rx .COMPLEX #90 tabs ergocalciferol (vitamin D2) 1,250 50,000 unit PO [id number] 12/14/24 03/21/25 History mcg (50,000 unit) capsule lorazepam 0.5 mg tablet 0.5 mg PO TID PRN anxiety #90 tabs 12/31/24 03/21/25 Rx azelastine 205.5 mcg (0.15 %) 2 spray intranasal DAILY #1 device 01/21/25 03/21/25 Rx nasal spray (Astepro Allergy) lisinopril 30 mg tablet 30 mg PO DAILY #90 tabs 01/21/25 03/21/25 Rx bumetanide 1 mg tablet 1 mg PO BID #60 tabs 01/29/25 03/21/25 Rx zolpidem 10 mg tablet (Ambien) 10 mg PO .HS PRN insomnia #30 tabs 02/11/25 03/21/25 Rx hydralazine 25 mg tablet 25 mg PO TID #90 tabs 03/13/25 03/21/25 Rx amlodipine 5 mg tablet 5 mg PO BID 03/21/25 03/21/25 History metolazone 2.5 mg tablet See Rx Instructions .Route .COMPLEX 03/21/25 03/21/25 History Allergies Allergy/AdvReac Type Severity Reaction Status Date / Time No Known Allergies Allergy Verified 03/18/25 13:26 Vital Signs Vital Signs - 24 hr 03/24/25 22:00 03/24/25 23:52 03/25/25 00:00 Temperature 97.8 F Pulse Rate 89 90 Respiratory Rate 18 Blood Pressure 146/62 H Pulse Oximetry 92 Oxygen Delivery Room Air 03/25/25 00:00 03/25/25 02:00 03/25/25 04:00 Temperature Pulse Rate 81 78 Respiratory Rate Blood Pressure Pulse Oximetry Oxygen Delivery Room Air 03/25/25 04:00 03/25/25 04:32 03/25/25 06:00 Temperature 97.6 F Pulse Rate 78 90 81 Respiratory Rate 18 Blood Pressure 125/54 L Pulse Oximetry 93 Oxygen Delivery 03/25/25 08:00 03/25/25 08:12 03/25/25 10:00 Temperature Pulse Rate 76 73 74 Respiratory Rate Blood Pressure 139/52 L Pulse Oximetry 98 Oxygen Delivery 03/25/25 12:00 03/25/25 12:00 03/25/25 14:00 Temperature Pulse Rate 63 61 60 Respiratory Rate 18 Blood Pressure 135/50 L Pulse Oximetry 91 Oxygen Delivery 03/25/25 16:00 03/25/25 16:06 03/25/25 18:00 Temperature Pulse Rate 73 73 74 Respiratory Rate Blood Pressure 137/51 L Pulse Oximetry 98 Oxygen Delivery 03/25/25 20:00 Temperature 97 F L Pulse Rate 67 Respiratory Rate 18 Blood Pressure 144/48 H Pulse Oximetry 97 Oxygen Delivery Exam 2 Const: General: cooperative and anxious; No healthy appearing or comfortable Resp: Auscultation: no rales, no rhonchi, no wheezes and diminished lung sounds Cardio: Rate: regular rate Rhythm: regular rhythm Heart sounds: no murmurs Peripheral pulses: dorsalis pedis present GI: GI Palp: No abdominal tenderness and Yes Soft to palpation Extrem: Right lower extremity: no edema Left lower extremity: no edema Results Labs and Meds 03/25/25 04:24 03/25/25 18:54 Lab results: Cardiac Enzymes 03/25/25 Range/Units 04:24 AST 24 (14-36) U/L CBC 03/25/25 Range/Units 04:24 WBC 7.2 (4.5-10.0) K/mm3 RBC 3.09 L (4.2-5.4) M/mm3 Hgb 8.3 L (12.0-15.0) g/dL Hct 25.5 L (37.0-47.0) % Plt Count 326 (150-375) k/mm3 Lymph # (Auto) 0.48 L (0.9-3.2) K/mm3 [place] # (Auto) 0.3 (0.1-0.6) K/mm3 Eos # (Auto) 0.0 (0-0.3) K/mm3 Baso # (Auto) 0.0 (0.0-0.1) K/mm3 Comprehensive Metabolic Panel 03/25/25 03/25/25 Range/Units 04:24 18:54 Sodium 128 L 127 L (137-145) mmol/L Potassium 3.0 L 3.5 (3.4-5.0) mmol/L Chloride 101 101 (98-107) mmol/L Carbon Dioxide 18 L 18 L (22-30) mmol/L BUN 38 H 41 H (7-17) mg/dL Creatinine 2.25 H 2.33 H (0.7-1.0) mg/dL Glucose 115 H 131 H (65-110) mg/dL Calcium 8.5 8.8 (8.4-10.2) mg/dL AST 24 (14-36) U/L ALT 18 (6-35) U/L Alkaline Phosphatase 67 (38-126) U/L Total Protein 6.0 L (6.3-8.2) g/dL Albumin 3.1 L (3.5-5.1) g/dL Intake and Output 03/25/25 03/25/25 03/25/25 07:59 15:59 23:59 Intake Total 0 450 Output Total 303 Balance -303 0 450 Intake: Oral 0 450 Output: Catheter Urine 300 Urethral Catheter 300 Stool 3 Other: # Urine Diapers 3 Number of Bowel Movements Today 3 4 Patient Weight 03/25/25 23:59 Weight 63.4 kg
[2025-03-25 20:26] LABS: Vitamin B12 864.0 pg/mL (239-931)
[2025-03-26] VITALS (18 sets, daily range): BP systolic 115–153; BP diastolic 46–66; PULSE 60–98; RESP 20–28; TEMP 36.3–36.8; O2SAT 94–97
--- NOTE | 2025-03-26 | S_PTH ---
PATIENT: Heavenly Sarmiento LOC: [facility] U#:[id number] AGE/SX: 85/F ROOM: 207 RE03/21/[address]: Ruchi Zhu MD : 1940 BED: 01 DIS: 03/27/2025 SPEC #: [id number] RECD: 03/26/25 12:34 STATUS: LIZA REQ #: [id number] REBEKAH: 03/26/25 00:[address]: Wenceslao Thompson DEPT: [facility] Surgical RECD BY: Paul Tim ENTERED: 03/26/25 12:35 SP TYPE: Surgical OTHR DR: Tisha Tubbs, MD Dipak Miramontes DO Riaz Naseer, MD Onyema Nnanna, MD Henry E. Purcell, MD Tissues: A - Kidney Biopsy Procedures: Gross Exam Level 1 Intraoperative Comments: @ Ordering doctor for TL1 edited from [employer] to ELISEO @ by LEONARDA at 03/26/25 1236 @ Ordering doctor for IO edited from [place] to ELISEO @ by NOJULIO CESAR at 03/26/25 1236 @ Submitting doctor edited from Boke to ELISEO @ by NOJULIO CESAR at 03/26/25 1234
--- NOTE | 2025-03-26 | ECHO_ITS ---
Patient Info Name: Heavenly Sarmiento Age: 85 years : 1940 Gender: Female Ht: 64 in Wt: 139 lbs BSA: 1.70 m2 HR: 123 bpm BP: 115 / 66 mmHg Technical Quality: Good Exam Date: 03/26/2025 9:45 AM Patient Status: I Admit Date: 03/21/2025 Exam Type: CA echo doppler color flow Complete two-dimensional, color flow and Doppler transthoracic echocardiogram is performed. Staff Referring Physician: Ruchi Zhu MD Preschool Teacher: Sendy Chi Attending Provider: Amadou Soto Summary 1. Complete two-dimensional, color flow and Doppler transthoracic echocardiogram is performed. 2. Left ventricular chamber dimension is normal. 3. Left ventricular systolic function is hyperdynamic, estimated at >70. 4. The left ventricular diastolic function is abnormal. 5. E/e' 13 is mildly elevated. 6. There is mild aortic valve sclerosis. 7. There is trace tricuspid valve regurgitation. 8. Moderate pulmonary hypertension, estimated pulmonary arterial systolic pressure is 52 mmHg. 9. Dilated inferior vena cava with >50% collapse upon inspiration consistent with elevated right atrial pressure, 10 mmHg. 10. There is moderate to large circumferential pericardial effusion, and large is posteriorly at 2.1 cm. 11. Pleural effusion. Left Ventricle E/e' 13 is mildly elevated. Left ventricular chamber dimension is normal. Left ventricular systolic function is hyperdynamic, estimated at >70. The left ventricular diastolic function is abnormal. Right Ventricle Right ventricular chamber dimension is normal. Right ventricular systolic function is normal and with normal TAPSE 2.1 cm. Left Atria Left atrial chamber dimension is normal. Right Atria Right atrial chamber dimension is normal. Aortic Valve The aortic valve is trileaflet. There is mild aortic valve sclerosis. There is no aortic valve stenosis. There is no aortic valve regurgitation. Pulmonic Valve There is no pulmonic regurgitation. Mitral Valve There is no mitral valve stenosis. There is no mitral valve regurgitation. Tricuspid Valve There is trace tricuspid valve regurgitation. Moderate pulmonary hypertension, estimated pulmonary arterial systolic pressure is 52 mmHg. Pericardium/Pleural There is moderate to large circumferential pericardial effusion, and large is posteriorly at 2.1 cm. Pleural effusion. No cardiac tamponade. Inferior Vena Cava Dilated inferior vena cava with >50% collapse upon inspiration consistent with elevated right atrial pressure, 10 mmHg. Aorta The aortic root size at the sinus of Valsalva is normal. Left Ventricular Outflow Tract Name Value Normal LVOT 2D LVOT Diameter 1.9 cm LVOT Doppler LVOT Peak Velocity 132 cm/s LVOT Peak Gradient 7 mmHg LVOT Mean Gradient 4 mmHg LVOT VTI 33 cm LVOT VTI/AV VTI Ratio 0.7 LVOT Stroke Volume 93 ml LVOT CO 15.9 l/min LVOT CI 9.4 l/min/m2 Pulmonic Valve Name Value Normal PV Doppler PV Peak Velocity 133 cm/s PV Peak Gradient 7 mmHg Mitral Valve Name Value Normal MV Diastolic Function MV E Peak Velocity 133 cm/s MV A Peak Velocity 125 cm/s MV E/A 1.1 MV Decel Time (PW) 276 ms MV Annular TDI MV E/e' (Septal) 19.8 MV E/e' (Lateral) 9.9 MV E/e' (Average) 14.8 Tricuspid Valve Name Value Normal TV Regurgitation Doppler TR Peak Velocity 324 cm/s TR Peak Gradient 42 mmHg Estimated PAP/RSVP RA Pressure 10 mmHg <=5 PA Systolic Pressure 52 mmHg <36 RV Systolic Pressure 52 mmHg <36 TV Annular TDI TV Lateral Perla s' Velocity 15.5 cm/s >=9.5 Aorta Name Value Normal Ascending Aorta Ao Root Diameter (MM) 3.3 cm Ao Root Diam Index (MM) 1.9 cm/m2 Aortic Valve Name Value Normal AV Doppler AV Peak Velocity 205 cm/s AV Peak Gradient 17 mmHg AV Mean Gradient 10 mmHg AV VTI 47 cm AV Area (Cont Eq VTI) 2.0 cm2 >=3.0 AV Area (Cont Eq Odell) 1.8 cm2 AV DI (Odell) 0.65 AV Regurgitation 2D LVOT Area 2.9 cm2 Ventricles Name Value Normal LV Dimensions 2D/MM IVS Diastolic Thickness (2D) 1.1 cm 0.6-1.0 LVID Diastole (2D) 4.0 cm 3.8-5.2 LVIW Diastolic Thickness (2D) 1.1 cm 0.6-0.9 LVID Systole (2D) 2.3 cm 2.2-3.5 LVOT Diameter 1.9 cm LV Mass (2D Cubed) 146.61 g 67.00-162.00 LV Mass Index (2D Cubed) 86 g/m2 43-95 Relative Wall Thickness (2D) 0.57 <=0.42 LV Fractional Shortening/Ejection Fraction 2D/MM LV Fractional Shortening (2D) 42 % 27-45 LV EF (2D Teichholz) 73 % LV Diastolic Volume (4C MOD) 83 ml LV EF (4C MOD) 69 % LV Diastolic Volume (2C MOD) 107 ml LV EF (2C MOD) 77 % LV Diastolic Volume (BP MOD) 98 ml 46-106 LV Diastolic Volume Index (BP MOD) 58 ml/m2 29-61 LV Systolic Volume (BP MOD) 26 ml 14-42 LV Systolic Volume Index (BP MOD) 15 ml/m2 8-24 LV EF (BP MOD) 73 % 54-74 LV Diastolic Length (4C) 7.7 cm LV Systolic Length (4C) 5.8 cm LV Stroke Volume (4C MOD) 57 ml RV Dimensions 2D/MM RVID Diastole (2D) 3.5 cm 2.1-3.5 Atria Name Value Normal LA Dimensions LA Dimension (MM) 3.9 cm 2.7-3.8 Report Signatures Amended by Dipak Henry DO on 03/26/2025 07:22 PM
[2025-03-26] MEDS: LORazepam INJ (*CRX) 2 MG/ML VIAL 0.5 MG IV PUSH ×3 (01:39→17:51)
[2025-03-26 05:00] LABS: Hematocrit 23.3 % (37.0-47.0); Hemoglobin 7.5 g/dL (12.0-15.0); Immature Granulocyte Percent A 0.4 % (0-0.5); Lymphocytes Absolute Auto 0.34 K/mm3 (0.9-3.2); Mean Corpuscular HGB Conc 32.2 g/dl (32-36); Mean Corpuscular Hemoglobin 27.2 pg (26-34); Mean Corpuscular Volume 84.4 fl (80-100); Nucleated Red Blood Cells Absolute Auto 0.000 K/mm3 (0.0-0.012); Nucleated Red Blood Cells Perc 0.0 % (0.0-0.2); Platelet Count Result 344 k/mm3 (150-375); Red Blood Count 2.76 M/mm3 (4.2-5.4); White Blood Count 7.9 K/mm3 (4.5-10.0)
[2025-03-26 05:24] LABS: Albumin Level 3.2 g/dL (3.5-5.1); Anion Gap 8 mmol/L (4-12); Blood Urea Nitrogen 44 mg/dL (7-17); Calcium 8.8 mg/dL (8.4-10.2); Carbon Dioxide 19 mmol/L (22-30); Chloride 101 mmol/L (98-107); Estimated CRCL calculation 13 ml/min; Estimated Glomerular Filt Rate 19; Glucose 99 mg/dL (65-110); Magnesium 2.4 mg/dL (1.6-2.3); Sodium 128 mmol/L (137-145)
[2025-03-26] MEDS: EPOETIN ALFA-EPBX 20,000 UNITS/ML VIAL 20000 UNITS SUB-Q (05:29)
[2025-03-26 05:31] LABS: Potassium 3.7 mmol/L (3.4-5.0)
[2025-03-26 05:56] LABS: Band Neutrophils Percent 0 % (0-6); Burr Cells 1+; Schistocytes None Seen
--- NOTE | 2025-03-26 07:49 | PM.PNCARD ---
Progress Note: A&P Assessment and Plan (1) CKD (chronic kidney disease): Code(s): N18.9 - Chronic kidney disease, unspecified Status: Chronic Assessment and Plan: Nephrology following. (2) Acute hyponatremia: Code(s): E87.1 - Hypo-osmolality and hyponatremia Status: Acute Assessment and Plan: Improving. (3) Diastolic CHF: Code(s): I50.30 - Unspecified diastolic (congestive) heart failure Status: Acute Assessment and Plan: Diastolic dysfunction is mild compared to degree of volume overload necessitating diuresis, likely due to CKD. Was on Bumetanide 1 mg daily and Metolazine 2.5 mg daily. Diuretics had been held since admission due to worsening kidney function again. Plan for diagnostic and therapeutic thoracentesis. Will hold off on diuretics as it could worsen sodium level and kidney function, and leave it up to nephrology. (4) Essential (primary) hypertension: Code(s): I10 - Essential (primary) hypertension Status: Acute Assessment and Plan: Stable. (5) Mixed hyperlipidemia: Code(s): E78.2 - Mixed hyperlipidemia Status: Acute Assessment and Plan: On Simvastatin. (6) Pericardial effusion: Code(s): I31.39 - Other pericardial effusion (noninflammatory) Status: Acute Assessment and Plan: Large on CT chest. Obtain echo. (7) Mediastinal lymphadenopathy: Code(s): R59.0 - Localized enlarged lymph nodes Status: Acute Assessment and Plan: Oncology following. This could be lymphoma or metastasis. Subjective Date/time seen: 03/26/25 07:49 Interval history: She was able to fall asleep last night with Ativan and still sleeping now. Exam Const: General: No awake Resp: Auscultation: no rales, no rhonchi, no wheezes and diminished lung sounds Cardio: Rate: regular rate Rhythm: regular rhythm Heart sounds: no murmurs Peripheral pulses: dorsalis pedis present Extrem: Right lower extremity: no edema Left lower extremity: no edema Objective Data Vital Signs Vital Signs: Vital Signs - 24 hr 03/25/25 08:00 03/25/25 08:12 03/25/25 10:00 Temperature Pulse Rate 76 73 74 Respiratory Rate Blood Pressure 139/52 L Pulse Oximetry 98 Oxygen Delivery 03/25/25 12:00 03/25/25 12:00 03/25/25 14:00 Temperature Pulse Rate 63 61 60 Respiratory Rate 18 Blood Pressure 135/50 L Pulse Oximetry 91 Oxygen Delivery 03/25/25 16:00 03/25/25 16:06 03/25/25 18:00 Temperature Pulse Rate 73 73 74 Respiratory Rate Blood Pressure 137/51 L Pulse Oximetry 98 Oxygen Delivery 03/25/25 20:00 03/25/25 20:00 03/25/25 20:00 Temperature 97 F L Pulse Rate 67 66 Respiratory Rate 18 Blood Pressure 144/48 H Pulse Oximetry 97 Oxygen Delivery Room Air 03/25/25 22:00 03/26/25 00:00 03/26/25 00:00 Temperature 97.4 F L Pulse Rate 73 65 Respiratory Rate 20 Blood Pressure 142/50 H Pulse Oximetry 96 Oxygen Delivery Room Air 03/26/25 00:00 03/26/25 02:00 03/26/25 03:53 Temperature Pulse Rate 68 71 Respiratory Rate Blood Pressure Pulse Oximetry Oxygen Delivery Room Air 03/26/25 04:00 03/26/25 04:00 03/26/25 06:00 Temperature 97.4 F L Pulse Rate 70 75 64 Respiratory Rate 20 Blood Pressure 115/66 Pulse Oximetry 97 Oxygen Delivery Intake/Output Intake/Output: Intake & Output 03/23/25 03/24/25 03/25/25 03/26/25 23:59 23:59 23:59 23:59 Intake Total 745 600 450 200 Output Total 850 1125 303 350 Balance -105 -525 147 -150 Meds/Results Medications: Active Medications Generic Name Dose Route Start Last Admin Trade Name Freq PRN Reason Stop Dose Admin Acetaminophen 650 mg 03/21/25 23:22 Acetaminophen 325 Mg Tablet PO Q6H PRN Pain or Fever Amlodipine Besylate 5 mg 03/21/25 23:25 03/25/25 20:31 Amlodipine Besylate 5 Mg Tablet PO Not Given Q12HR HEAVEN Artificial Tears 1 drop 03/22/25 09:00 03/25/25 20:31 Artificial Tears Ophth Soln 15 Ml Bottle EACH EYE Not Given QID HEAVEN Azelastine HCl 2 spray 03/22/25 09:00 03/25/25 10:50 Azelastine Hcl Nasal 0.1% 137 Mcg/Spr 30 Ml Btl NASAL 2 spray DAILY HEAVEN Administration Calcium Carbonate 500 mg 03/22/25 09:00 03/25/25 09:06 Calcium/Vitamin D 500 Mg/5 Mcg (200 I.U.) Tablet PO 500 mg QAM HEAVEN Administration Enoxaparin Sodium 30 mg 03/24/25 13:30 03/25/25 10:50 Enoxaparin 30 Mg/0.3 Ml Syringe SUB-Q 30 mg DAILY HEAVEN Administration Hydralazine HCl 25 mg 03/21/25 23:25 03/25/25 18:49 Hydralazine Hcl 25 Mg Tablet PO Not Given TID HEAVEN Levothyroxine Sodium 50 mcg 03/22/25 06:30 03/26/25 05:20 Levothyroxine Sodium 50 Mcg Tablet PO Not Given DAILY@0630 HEAVEN Lisinopril 30 mg 03/22/25 10:50 03/25/25 09:06 Lisinopril 10 Mg Tablet PO 10 mg QAM HEAVEN Administration Lorazepam 0.5 mg 03/25/25 17:30 03/26/25 01:39 Lorazepam Inj (*Crx) 2 Mg/Ml Vial IV PUSH 0.5 mg Q6H PRN Administration Agitation Melatonin 5 mg 03/21/25 23:25 03/25/25 20:31 Melatonin 5 Mg Tablet PO Not Given HS HEAVEN Nifedipine 60 mg 03/23/25 09:00 03/25/25 09:06 Nifedipine 30 Mg Tab.Er.24 PO 60 mg QAM HEAVEN Administration Olanzapine 5 mg 03/25/25 17:30 Olanzapine 10 Mg Inj Vial IM Q6H PRN Agitation Perflutren Lipid Microsphere 0 ml 03/25/25 17:59 Perflutren Lipid Microspheres 1.5 Ml Vial Diluted To 10 Ml Total Volume IV PUSH 03/28/25 17:59 ONCE PRN adequate visualization Protocol Simvastatin 20 mg 03/22/25 09:00 03/25/25 09:06 Simvastatin 20 Mg Tablet PO 20 mg QAM HEAVEN Administration Tamsulosin HCl 0.4 mg 03/24/25 13:45 03/25/25 09:07 Tamsulosin Hcl 0.4 Mg Capsule PO 0.4 mg QAM HEAVEN Administration Radiology Results: ITS Impressions Head/Neck CTA 03/21/25 19:38 IMPRESSION: 1. Moderate to severe calcified atheromatous disease within the carotid bulbs and proximal internal carotid arteries bilaterally. 2. . Percent stenosis per NASCET criteria is 27% on the right and 45% on the left. 3. Cervical lymphadenopathy. 4. Extensive venous collateralization within the posterior soft tissues of the head and neck. 5. No acute intracranial hemorrhage or suspicious mass effect. Brain MRI 03/25/25 13:11 IMPRESSION: 1. Normal aging brain with mild periventricular predominant scattered white matter T2 hyperintensity consistent with chronic small vessel ischemic disease. No acute intracranial process. 2. Mucus in the bilateral sphenoid sinuses. Correlate clinically for acute sinusitis. Chest X-Ray 03/25/25 13:14 Impression: 1: Pulmonary edema. 2: Bilateral pleural effusions. 3: Enlarged cardiopericardial silhouette. Cannot exclude pericardial effusion. Head CT 03/25/25 13:28 IMPRESSION: 1. Normal aging brain. No acute intracranial process. 2. Persistent sinus disease. Chest CT 03/25/25 15:59 IMPRESSION: Extensive mediastinal and hilar lymphadenopathy, for which malignancy is suspected. Large bilateral pleural effusions are redemonstrated, with only the bilateral upper lobes aerated. All findings are a significant interval change from previous CT examination of the abdomen and pelvis dated 10/08/2024, which was without lymphadenopathy and without pericardial effusion. No pleural effusions were detected on the previous examination for which cross-sectional imaging of the abdomen and pelvis is recommended. Labs Labs: Laboratory Results - last 24 hr 03/22/25 03/22/25 03/22/25 04:51 11:23 14:20 WBC RBC Hgb Hct MCV MCH MCHC RDW Plt Count MPV Immature Gran % (Auto) Neut % (Auto) Lymph % (Auto) [place] % (Auto) Eos % (Auto) Baso % (Auto) Lymph # (Auto) [place] # (Auto) Eos # (Auto) Baso # (Auto) Abs Immat Gran (auto) Absolute Neuts (auto) Absolute Nucleated RBC Band Neutrophils % Nucleated RBC % Platelet Estimate [place] Schistocytes Sodium Potassium Chloride Carbon Dioxide Anion Gap BUN Creatinine Estim Creat Clear Calc Estimated GFR Glucose Serum Osmolality 271 L Calcium Phosphorus Magnesium Ammonia Total Creatine Kinase NT-Pro-B Natriuret Pep Albumin Vitamin B12 Folate Urine Osmolality 324 U Free [place] Light Ch 1245.26 H IgG IgA IgM Urine Immunofixation Comment A Comment A GINNY Screen Negative 03/25/25 03/25/25 03/25/25 04:24 12:18 18:53 WBC RBC Hgb Hct MCV MCH MCHC RDW Plt Count MPV Immature Gran % (Auto) Neut % (Auto) Lymph % (Auto) [place] % (Auto) Eos % (Auto) Baso % (Auto) Lymph # (Auto) [place] # (Auto) Eos # (Auto) Baso # (Auto) Abs Immat Gran (auto) Absolute Neuts (auto) Absolute Nucleated RBC Band Neutrophils % Nucleated RBC % Platelet Estimate [place] Schistocytes Sodium Potassium Chloride Carbon Dioxide Anion Gap BUN Creatinine Estim Creat Clear Calc Estimated GFR Glucose Serum Osmolality Calcium Phosphorus Magnesium Ammonia < 9 L Total Creatine Kinase 71 NT-Pro-B Natriuret Pep 3860 H Albumin Vitamin B12 864.0 Folate 12.6 Urine Osmolality U Free [place] Light Ch IgG IgA IgM Urine Immunofixation GINNY Screen 03/25/25 03/26/25 18:54 04:31 WBC 7.9 RBC 2.76 L Hgb 7.5 L Hct 23.3 L MCV 84.4 MCH 27.2 MCHC 32.2 RDW 13.5 Plt Count 344 MPV 9.8 Immature Gran % (Auto) 0.4 Neut % (Auto) 89.3 H Lymph % (Auto) 4.3 L [place] % (Auto) 4.9 Eos % (Auto) 1.0 Baso % (Auto) 0.1 L Lymph # (Auto) 0.34 L [place] # (Auto) 0.4 Eos # (Auto) 0.1 Baso # (Auto) 0.0 Abs Immat Gran (auto) 0.03 Absolute Neuts (auto) 7.0 H Absolute Nucleated RBC 0.000 Band Neutrophils % 0 Nucleated RBC % 0.0 Platelet Estimate Adequate [place] 1+ Schistocytes None seen Sodium 127 L 128 L Potassium 3.5 3.7 Chloride 101 101 Carbon Dioxide 18 L 19 L Anion Gap 8 8 BUN 41 H 44 H Creatinine 2.33 H 2.42 H Estim Creat Clear Calc 14 13 Estimated GFR 20 L 19 L Glucose 131 H 99 Serum Osmolality Calcium 8.8 8.8 Phosphorus 5.0 H Magnesium 2.4 H Ammonia Total Creatine Kinase NT-Pro-B Natriuret Pep Albumin 3.2 L Vitamin B12 Folate Urine Osmolality U Free [place] Ch IgG 620 L IgA 158 IgM 269 H Urine Immunofixation GINNY Screen
[2025-03-26 09:38] LABS: INR 1.0; Prothrombin Time 13.8 Seconds (11.1-14.7)
[2025-03-26 09:39] LABS: Partial Thromboplastin Time 24.6 Seconds (22.3-36.8)
[2025-03-26 10:08] LABS: Osmolality, Urine 337 mOsmol/kg (.)
--- NOTE | 2025-03-26 10:26 | PCPTNOTE ---
Attempted PT evaluation. Per nursing, pt drowsy and not safe to participate safely with skilled therapy at this time. Will follow.
[2025-03-26 11:08] LABS: Immunoglobulin A, Qn 177 mg/dL (64-422); Immunoglobulin G, Qn 648 mg/dL (586-1602); Immunoglobulin M, Qn 283 mg/dL (26-217)
[2025-03-26 11:08] LABS: Immunoglobulin A, Qn 174 mg/dL (64-422); Immunoglobulin G, Qn 610 mg/dL (586-1602); Immunoglobulin M, Qn 254 mg/dL (26-217)
--- NOTE | 2025-03-26 11:40 | CY_PTH ---
PATIENT: Heavenly Sarmiento LOC: [facility] U#:[id number] AGE/SX: 85/F ROOM: 207 RE03/21/[address]: Ruchi Zhu MD : [id number] BED: 01 DIS: 03/27/2025 SPEC #: [id number] RECD: 03/26/25 12:59 STATUS: LIZA REQ #: [id number] REBEKAH: 03/26/25 11:[address]: Wenceslao Thompson DEPT: [facility] Cytology RECD BY: Jacquelyn Gallardo ENTERED: 03/26/25 13:00 SP TYPE: Cytology OTHR DR: Tisha Tubbs, MD Dipak Miramontes DO Riaz Naseer, MD Onyema Nnanna, MD Henry E. Purcell, MD Tissues: A - Pleural Fluid Procedures: Hematoxylin and Eosin Stain Cell Block Cytopathology Cytospin
[2025-03-26 13:02] LABS: Alveolar/Arterial O2 Gradient 96.0 mmHg; Carboxyhemoglobin 0.3 % THb (0-2.0); Fractional Inspired Oxygen 28 %; HCO3 ABG 20.0 mEq/l (22.0-26.0); Liters per Minute 2.0 LPM; Methemoglobin ABG 0.2 %THb (0-1.5); Modified Allen's Test Pass; Oxygen Content ABG 14.4 %vol (16.0-22.0); Oxygen Saturation ABG 94.5 % (95.0-100.0); PCO2 ABG 30.0 mmHg (35.0-45.0); PO2 ABG 68.2 mmHg (80.0-100.0); PO2 FiO2 Ratio Arterial Blood 2.44 %; Reduced Hemoglobin 6.8 %THb (0-5.0); Site Drawn RIGHT RADIAL
--- NOTE | 2025-03-26 13:32 | PM.PNNEP ---
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 was on metolazone as an outpatient urine electrolytes prerenal s/p 3% saline x 2 since admission on fluid restriction as well follow trend of repeat sodium levels (2) Acute kidney injury: Code(s): N17.9 - Acute kidney failure, unspecified Status: Acute Assessment and Plan: abrupt decline noted in January 2025 outpatient evaluation for this issue noted: renal ultrasound with medical renal disease nephrotic range proteinuria complements, ANCA, dsDNA-Ab, antiGBM-Ab negative SPEP with poorly defined band (possible M-spike) migrating in the gamma region UPEP with a monoclonal band in the gamma globulin region. 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; GINNY negative; + SSA s/p renal biopsy (on 03/26) for definitive diagnosis follow trend of labs and UOP (3) Stage 3b chronic kidney disease: Code(s): N18.32 - Chronic kidney disease, stage 3b Status: Acute Assessment and Plan: baseline creatinine running around 1.1 - 1.4mg/dl since 2020 presumably due to hypertension, vascular disease, and age-related change (4) Acute metabolic encephalopathy: Code(s): G93.41 - Metabolic encephalopathy Status: Acute Assessment and Plan: no real significant improvement per family since admission initially thought to be secondary to hyponatremia however, still persists even with improvement in sodium level CT of head negative CT of head and MRI of brain noted as well Neurology consulted (5) Anasarca: Code(s): R60.1 - Generalized edema Status: Acute Assessment and Plan: due to nephrotic range proteinuria, LIZ/CKD and mild pulmonary hypertension swelling/edema better however, still with issues with pulmonary edema and pleural effusions; pericardial effusion noted as well... results of CT chest (03/25) noted diuretics on hold given low sodium (but may need to restart) follow clinical exam (6) Anemia: Code(s): D64.9 - Anemia, unspecified Status: Chronic Assessment and Plan: as noted possibly related to LIZ/CKD and maybe malignancy(?) iron studies noted Epogen as per Hem/Onc follow trend of H/H (7) Essential (primary) hypertension: Code(s): I10 - Essential (primary) hypertension Status: Acute Assessment and Plan: difficult to control recently blood pressure adjustment noted follow trend of hemodynamics (8) Hypokalemia: Code(s): E87.6 - Hypokalemia Status: Acute Assessment and Plan: doing better suspect due to total body store depletion due to outpatient diuretics and possibly diminished oral intake replete as needed follow trend of K+ (9) Urinary retention: Code(s): R33.9 - Retention of urine, unspecified Status: Acute Assessment and Plan: as noted on admission marley catheter in place (10) Breast cancer: Code(s): C50.919 - Malignant neoplasm of unspecified site of unspecified female breast Status: Acute Assessment and Plan: recent diagnosis s/p lumpectomy further treatment planned(?) Will continue to follow. Subjective Date/time seen: 03/26/25 13:32 Interval history: Follow-up for acute kidney injury/acute renal failure on chronic kidney disease and hyponatremia. Resting comfortably at the time of my visit; just back from IR -- tolerated thoracentesis and kidney biopsy without any issues or problems; daughter at bedside and happy that she seems more calm/relaxed with IV ativan use; dosed with IV lasix yesterday given presence of bilateral pleural effusion noted on imaging yesterday. Exam Narrative: General: elderly but WD/WN female in NAD Heart: normal S1 and S2; no rub Lungs: decreased at the bases Abdomen: soft, nontender, nondistended, positive bowel sounds Extremities: no cyanosis or clubbing; trace edema Skin: warm and intact Objective Data Vital Signs Vital Signs: Vital Signs Temp Pulse Resp BP Pulse Ox O2 Del Method O2 Flow Rate 03/26/25 13:04 97.5 F L 86 24 H 138/53 L 95 03/26/25 12:00 75 03/26/25 12:00 96 Nasal Cannula 4 03/26/25 10:00 73 03/26/25 08:05 64 24 H 134/46 L 03/26/25 08:00 60 03/26/25 08:00 95 Nasal Cannula 3 03/26/25 06:00 64 03/26/25 04:00 97.4 F L 75 20 115/66 97 03/26/25 04:00 70 03/26/25 03:53 Room Air 03/26/25 02:00 71 03/26/25 00:00 68 03/26/25 00:00 Room Air 03/26/25 00:00 97.4 F L 65 20 142/50 H 96 03/25/25 22:00 73 03/25/25 20:00 66 03/25/25 20:00 Room Air 03/25/25 20:00 97 F L 67 18 144/48 H 97 Intake/Output Intake/Output: Intake & Output 03/23/25 03/24/25 03/25/25 03/26/25 23:59 23:59 23:59 23:59 Intake Total 745 600 450 200 Output Total 850 1264 900 2178 [facility]105 [facility] [phone] Meds/Results Medications: Active Medications Generic Name Dose Route Start Last Admin Trade Name Freq PRN Reason Stop Dose Admin Acetaminophen 650 mg 03/21/25 23:22 Acetaminophen 325 Mg Tablet PO Q6H PRN Pain or Fever Amlodipine Besylate 5 mg 03/21/25 23:25 03/26/25 13:14 Amlodipine Besylate 5 Mg Tablet PO Not Given Q12HR HEAVEN Artificial Tears 1 drop 03/22/25 09:00 03/26/25 16:50 Artificial Tears Ophth Soln 15 Ml Bottle EACH EYE Not Given QID [facility] Azelastine HCl 2 spray 03/22/25 09:00 03/26/25 13:14 Azelastine Hcl Nasal 0.1% 137 Mcg/Spr 30 Ml Btl NASAL Not Given DAILY [facility] Calcium Carbonate 500 mg 03/22/25 09:00 03/26/25 13:13 Calcium/Vitamin D 500 Mg/5 Mcg (200 I.U.) Tablet PO Not Given QAM [facility] Enoxaparin Sodium 30 mg 03/24/25 13:30 03/26/25 08:49 Enoxaparin 30 Mg/0.3 Ml Syringe SUB-Q Not Given DAILY [facility] Hydralazine HCl 25 mg 03/21/25 23:25 03/26/25 16:50 Hydralazine Hcl 25 Mg Tablet PO Not Given TID [facility] Levothyroxine Sodium 50 mcg 03/22/25 06:30 03/26/25 05:20 Levothyroxine Sodium 50 Mcg Tablet PO Not Given DAILY@0630 [facility] Lisinopril 30 mg 03/22/25 10:50 03/25/25 09:06 Lisinopril 10 Mg Tablet PO 10 mg QAM HEAVEN Administration Lorazepam 0.5 mg 03/25/25 17:30 03/26/25 17:51 Lorazepam Inj (*Crx) 2 Mg/Ml Vial IV PUSH 0.5 mg Q6H PRN Administration Agitation Melatonin 5 mg 03/21/25 23:25 03/25/25 20:31 Melatonin 5 Mg Tablet PO Not Given HS HEAVEN Nifedipine 60 mg 03/23/25 09:00 03/26/25 13:11 Nifedipine 30 Mg Tab.Er.24 PO Not Given QAM HEAVEN Olanzapine 5 mg 03/25/25 17:30 Olanzapine 10 Mg Inj Vial IM Q6H PRN Agitation Perflutren Lipid Microsphere 0 ml 03/25/25 17:59 Perflutren Lipid Microspheres 1.5 Ml Vial Diluted To 10 Ml Total Volume IV PUSH 03/28/25 17:59 ONCE PRN adequate visualization Protocol Simvastatin 20 mg 03/22/25 09:00 03/26/25 13:11 Simvastatin 20 Mg Tablet PO Not Given QAM [facility] Tamsulosin HCl 0.4 mg 03/24/25 13:45 03/26/25 13:10 Tamsulosin Hcl 0.4 Mg Capsule PO Not Given QAM [facility] Radiology Results: ITS Impressions Head/Neck CTA 03/21/25 19:38 IMPRESSION: 1. Moderate to severe calcified atheromatous disease within the carotid bulbs and proximal internal carotid arteries bilaterally. 2. . Percent stenosis per NASCET criteria is 27% on the right and 45% on the left. 3. Cervical lymphadenopathy. 4. Extensive venous collateralization within the posterior soft tissues of the head and neck. 5. No acute intracranial hemorrhage or suspicious mass effect. Brain MRI 03/25/25 13:11 IMPRESSION: 1. Normal aging brain with mild periventricular predominant scattered white matter T2 hyperintensity consistent with chronic small vessel ischemic disease. No acute intracranial process. 2. Mucus in the bilateral sphenoid sinuses. Correlate clinically for acute sinusitis. Head CT 03/25/25 13:28 IMPRESSION: 1. Normal aging brain. No acute intracranial process. 2. Persistent sinus disease. Chest CT 03/25/25 15:59 IMPRESSION: Extensive mediastinal and hilar lymphadenopathy, for which malignancy is suspected. Large bilateral pleural effusions are redemonstrated, with only the bilateral upper lobes aerated. All findings are a significant interval change from previous CT examination of the abdomen and pelvis dated 10/08/2024, which was without lymphadenopathy and without pericardial effusion. No pleural effusions were detected on the previous examination for which cross-sectional imaging of the abdomen and pelvis is recommended. Renal Biopsy Ultrasound 03/26/25 13:05 IMPRESSION: 1. Ultrasound-guided random left kidney core needle biopsy. Thoracentesis Ultrasound 03/26/25 13:05 IMPRESSION: 1. Successful ultrasound-guided thoracentesis yielding 1000 mL of clear straw-colored fluid. Chest X-Ray 03/26/25 16:30 IMPRESSION: Redemonstration of cardiomegaly, likely representing pericardial effusion, unchanged from CT examination dated 03/25/2025 (prior to thoracentesis). Bilateral pleural effusions, left greater than right with mild pulmonary vascular congestion. Labs Labs: Laboratory Tests 03/26/25 04:31 03/26/25 04:31 Calcium 8.8 Phosphorus 5.0 H Magnesium 2.4 H Albumin 3.2 L
--- NOTE | 2025-03-26 13:32 | P.PNNP_ITS ---
Progress Note: A&P Assessment and Plan (1) Hyponatremia: Code(s): E87.1 - Hypo-osmolality and hyponatremia Status: Acute Assessment and Plan: * acute on chronic * usually runs in the low 130s * evaluation/risk factors noted: * TSH okay * cortisol low but Cortrosyn stim test is okay * issues with pulmonary edema noted by CXR * no [employer] issues (head CT negative) * urinary retention noted on admission * does have a history of breast cancer * paraproteinemia noted * was on metolazone as an outpatient * urine electrolytes prerenal * s/p 3% saline x 2 since admission * on fluid restriction as well * follow trend of repeat sodium levels (2) Acute kidney injury: Code(s): N17.9 - Acute kidney failure, unspecified Status: Acute Assessment and Plan: * abrupt decline noted in January 2025 * outpatient evaluation for this issue noted: * renal ultrasound with medical renal disease * nephrotic range proteinuria * complements, ANCA, dsDNA-Ab, antiGBM-Ab negative * SPEP with poorly defined band (possible M-spike) migrating in the gamma region * UPEP with a monoclonal band in the gamma globulin region. 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; GINNY negative; + SSA * s/p renal biopsy (on 03/26) for definitive diagnosis * follow trend of labs and UOP (3) Stage 3b chronic kidney disease: Code(s): N18.32 - Chronic kidney disease, stage 3b Status: Acute Assessment and Plan: * baseline creatinine running around 1.1 - 1.4mg/dl since 2020 * presumably due to hypertension, vascular disease, and age-related change (4) Acute metabolic encephalopathy: Code(s): G93.41 - Metabolic encephalopathy Status: Acute Assessment and Plan: * no real significant improvement per family since admission * initially thought to be secondary to hyponatremia * however, still persists even with improvement in sodium level * CT of head negative * CT of head and MRI of brain noted as well * Neurology consulted (5) Anasarca: Code(s): R60.1 - Generalized edema Status: Acute Assessment and Plan: * due to nephrotic range proteinuria, LIZ/CKD and mild pulmonary hypertension * swelling/edema better * however, still with issues with pulmonary edema and pleural effusions; pericardial effusion noted as well... * results of CT chest (03/25) noted * diuretics on hold given low sodium (but may need to restart) * follow clinical exam (6) Anemia: Code(s): D64.9 - Anemia, unspecified Status: Chronic Assessment and Plan: * as noted * possibly related to LIZ/CKD and maybe malignancy(?) * iron studies noted * Epogen as per Hem/Onc * follow trend of H/H (7) Essential (primary) hypertension: Code(s): I10 - Essential (primary) hypertension Status: Acute Assessment and Plan: * difficult to control recently * blood pressure adjustment noted * follow trend of hemodynamics (8) Hypokalemia: Code(s): E87.6 - Hypokalemia Status: Acute Assessment and Plan: * doing better * suspect due to total body store depletion due to outpatient diuretics and possibly diminished oral intake * replete as needed * follow trend of K+ (9) Urinary retention: Code(s): R33.9 - Retention of urine, unspecified Status: Acute Assessment and Plan: * as noted on admission * marley catheter in place (10) Breast cancer: Code(s): C50.919 - Malignant neoplasm of unspecified site of unspecified female breast Status: Acute Assessment and Plan: * recent diagnosis * s/p lumpectomy * further treatment planned(?) Will continue to follow. L Subjective Date/time seen: 03/26/25 13:32 Interval history: Follow-up for acute kidney injury/acute renal failure on chronic kidney disease and hyponatremia. Resting comfortably at the time of my visit; just back from IR -- tolerated thoracentesis and kidney biopsy without any issues or problems; daughter at bedside and happy that she seems more calm/relaxed with IV ativan use; dosed with IV lasix yesterday given presence of bilateral pleural effusion noted on imaging yesterday. Exam 2 Narrative: General: elderly but WD/WN female in NAD Heart: normal S1 and S2; no rub Lungs: decreased at the bases Abdomen: soft, nontender, nondistended, positive bowel sounds Extremities: no cyanosis or clubbing; trace edema Skin: warm and intact Objective Data Vital Signs Vital Signs: Vital Signs Temp Pulse Resp BP Pulse Ox O2 Del Method O2 Flow Rate 03/26/25 13:04 97.5 F L 86 24 H 138/53 L 95 03/26/25 12:00 75 03/26/25 12:00 96 Nasal Cannula 4 03/26/25 10:00 73 03/26/25 08:05 64 24 H 134/46 L 03/26/25 08:00 60 03/26/25 08:00 95 Nasal Cannula 3 03/26/25 06:00 64 03/26/25 04:00 97.4 F L 75 20 115/66 97 03/26/25 04:00 70 03/26/25 03:53 Room Air 03/26/25 02:00 71 03/26/25 00:00 68 03/26/25 00:00 Room Air 03/26/25 00:00 97.4 F L 65 20 142/50 H 96 03/25/25 22:00 73 03/25/25 20:00 66 03/25/25 20:00 Room Air 03/25/25 20:00 97 F L 67 18 144/48 H 97 Intake/Output Intake/Output: Intake & Output 03/23/25 03/24/25 03/25/25 03/26/25 23:59 23:59 23:59 23:59 Intake Total 745 600 450 200 Output Total 850 6338 124 8131 [facility]105 -[phone] Meds/Results Medications: Active Medications Generic Name Dose Route Start Last Admin Trade Name Freq PRN Reason Stop Dose Admin Acetaminophen 650 mg 03/21/25 23:22 Acetaminophen 325 Mg Tablet PO Q6H PRN Pain or Fever Amlodipine Besylate 5 mg 03/21/25 23:25 03/26/25 13:14 Amlodipine Besylate 5 Mg Tablet PO Not Given Q12HR HEAVEN Artificial Tears 1 drop 03/22/25 09:00 03/26/25 16:50 Artificial Tears Ophth Soln 15 Ml Bottle EACH EYE Not Given QID HEAVEN Azelastine HCl 2 spray 03/22/25 09:00 03/26/25 13:14 Azelastine Hcl Nasal 0.1% 137 Mcg/Spr 30 Ml Btl NASAL Not Given DAILY HEAVEN Calcium Carbonate 500 mg 03/22/25 09:00 03/26/25 13:13 Calcium/Vitamin D 500 Mg/5 Mcg (200 I.U.) Tablet PO Not Given QAM HEAVEN Enoxaparin Sodium 30 mg 03/24/25 13:30 03/26/25 08:49 Enoxaparin 30 Mg/0.3 Ml Syringe SUB-Q Not Given DAILY HEAVEN Hydralazine HCl 25 mg 03/21/25 23:25 03/26/25 16:50 Hydralazine Hcl 25 Mg Tablet PO Not Given TID [facility] Levothyroxine Sodium 50 mcg 03/22/25 06:30 03/26/25 05:20 Levothyroxine Sodium 50 Mcg Tablet PO Not Given DAILY@0630 [facility] Lisinopril 30 mg 03/22/25 10:50 03/25/25 09:06 Lisinopril 10 Mg Tablet PO 10 mg QAM [facility] Administration Lorazepam 0.5 mg 03/25/25 17:30 03/26/25 17:51 Lorazepam Inj (*Crx) 2 Mg/Ml Vial IV PUSH 0.5 mg Q6H PRN Administration Agitation Melatonin 5 mg 03/21/25 23:25 03/25/25 20:31 Melatonin 5 Mg Tablet PO Not Given HS [facility] Nifedipine 60 mg 03/23/25 09:00 03/26/25 13:11 Nifedipine 30 Mg Tab.Er.24 PO Not Given QAM [facility] Olanzapine 5 mg 03/25/25 17:30 Olanzapine 10 Mg Inj Vial IM Q6H PRN Agitation Perflutren Lipid Microsphere 0 ml 03/25/25 17:59 Perflutren Lipid Microspheres 1.5 Ml Vial Diluted To 10 Ml Total Volume IV PUSH 03/28/25 17:59 ONCE PRN adequate visualization Protocol Simvastatin 20 mg 03/22/25 09:00 03/26/25 13:11 Simvastatin 20 Mg Tablet PO Not Given QAM [facility] Tamsulosin HCl 0.4 mg 03/24/25 13:45 03/26/25 13:10 Tamsulosin Hcl 0.4 Mg Capsule PO Not Given QAM [facility] Radiology Results: ITS Impressions Head/Neck CTA 03/21/25 19:38 IMPRESSION: 1. Moderate to severe calcified atheromatous disease within the carotid bulbs and proximal internal carotid arteries bilaterally. 2. . Percent stenosis per NASCET criteria is 27% on the right and 45% on the left. 3. Cervical lymphadenopathy. 4. Extensive venous collateralization within the posterior soft tissues of the head and neck. 5. No acute intracranial hemorrhage or suspicious mass effect. Brain MRI 03/25/25 13:11 IMPRESSION: 1. Normal aging brain with mild periventricular predominant scattered white matter T2 hyperintensity consistent with chronic small vessel ischemic disease. No acute intracranial process. 2. Mucus in the bilateral sphenoid sinuses. Correlate clinically for acute sinusitis. Head CT 03/25/25 13:28 IMPRESSION: 1. Normal aging brain. No acute intracranial process. 2. Persistent sinus disease. Chest CT 03/25/25 15:59 IMPRESSION: Extensive mediastinal and hilar lymphadenopathy, for which malignancy is suspected. Large bilateral pleural effusions are redemonstrated, with only the bilateral upper lobes aerated. All findings are a significant interval change from previous CT examination of the abdomen and pelvis dated 10/08/2024, which was without lymphadenopathy and without pericardial effusion. No pleural effusions were detected on the previous examination for which cross- sectional imaging of the abdomen and pelvis is recommended. Renal Biopsy Ultrasound 03/26/25 13:05 IMPRESSION: 1. Ultrasound-guided random left kidney core needle biopsy. Thoracentesis Ultrasound 03/26/25 13:05 IMPRESSION: 1. Successful ultrasound-guided thoracentesis yielding 1000 mL of clear straw- colored fluid. Chest X-Ray 03/26/25 16:30 IMPRESSION: Redemonstration of cardiomegaly, likely representing pericardial effusion, unchanged from CT examination dated 03/25/2025 (prior to thoracentesis). Bilateral pleural effusions, left greater than right with mild pulmonary vascular congestion. Labs Labs: Laboratory Tests 03/26/25 04:31 03/26/25 04:31 Calcium 8.8 Phosphorus 5.0 H Magnesium 2.4 H Albumin 3.2 L
--- NOTE | 2025-03-26 14:30 | P.PNIM_ITS ---
Progress Note: A&P Assessment and Plan (1) Acute hyponatremia: Code(s): E87.1 - Hypo-osmolality and hyponatremia Status: Acute Assessment and Plan: Improving Na 130 from 119 on admission On NS with 1600 cc fluid restriction n per Nephrology Metolazone on hold 03/25: sodium dipped down. will restart NS as confused and poor po intake (2) CKD (chronic kidney disease): Code(s): N18.9 - Chronic kidney disease, unspecified Status: Chronic Assessment and Plan: -CKD worsening over last 3 months, better today than February 19 -Cr 2.0, BUN 44, eGFR 24 and eCrCl 16 -Avoid nephrotoxins, hold metolazone and lisinopril Further workup GINNY, ESR, Immunofixation, kappa lambda ratio. Nephrology following, Oncology consulted per Neph request (3) Acute hypokalemia: Code(s): E87.6 - Hypokalemia Status: Acute Assessment and Plan: -Potassium 3.4 from 2.9 -Added magnesium level -continue replacement and monitor (4) Acute metabolic encephalopathy: Code(s): G93.41 - Metabolic encephalopathy Status: Acute Assessment and Plan: -See hyponatremia above -No evidence of infection, urine drug screen negative -CTA Head and Neck with calcified atheromatous disease and Cervical lymphadenopathy with known breast cancer -Urinary retention noted on admission and patient constantly complaining of needing to urinate, even after catheter insertion still persistent will repeat CT head. will need MRI brain as well, however restless, so might not readily happen. will consult neurology. delirium is a possibiltiy. on seroquel which will be stopped due to worsening agitation. zyprexa prn for now as tolerated (5) Breast cancer: Code(s): C50.919 - Malignant neoplasm of unspecified site of unspecified female breast Status: Acute Assessment and Plan: -Recent diagnosis, need to clarify treatment ongoing. (6) Hypothyroidism (acquired): Code(s): E03.9 - Hypothyroidism, unspecified Status: Chronic Assessment and Plan: -TSH wnl, continue levothyroxine (7) Benign hypertension with chronic kidney disease: Code(s): I12.9 - Hypertensive chronic kidney disease with stage 1 through stage 4 chronic kidney disease, or unspecified chronic kidney disease Status: Chronic Assessment and Plan: on lisinopril, nifedipine (8) Anemia: Code(s): D64.9 - Anemia, unspecified Status: Chronic Assessment and Plan: -Chronic and multifactoral including breast cancer and CKD worsening -Stable with HGB 9.6 on ER arrival (9) Urinary retention: Code(s): R33.9 - Retention of urine, unspecified Status: Acute Assessment and Plan: on marley Tamsulosin and Urology consulted (10) Insomnia: Code(s): G47.00 - Insomnia, unspecified Status: Chronic Assessment and Plan: Started on Seroquel nighttime . stop due to worsening agitation currentl on zyprexa prn Plan 85 y/o female with diastolic congestive heart failure had been diuresed with Bumetanide 1 mg daily and Metolazine 2.5 mg daily however patient Scr is rising and diuretics are hold, patient had ultrasound-guided thoracentesis yielding 1000 mL of clear straw-colored fluid. ct scab on chest showed extensive mediastinal and hilar lymphadenopathy is identified, along with a large pericardial effusion, clinical data abstractor is recommending pericardial window, patient remains clinically stable, will monitor Iron deficiency anemia Hb 8.2, Isat 14 IV iron 1000/1000 FOBT pending DVT prophylaxis on Sq Lovenox Awaiting PT/OT for discharge disposition Subjective Date/time seen: 03/26/25 14:30 Interval history: 85 y/o female with diastolic congestive heart failure had been diuresed with Bumetanide 1 mg daily and Metolazine 2.5 mg daily however patient Scr is rising and diuretics are hold, patient had ultrasound-guided thoracentesis yielding 1000 mL of clear straw-colored fluid. ct scab on chest showed extensive mediastinal and hilar lymphadenopathy is identified, along with a large pericardial effusion, clinical data abstractor is recommending pericardial window, patient remains clinically stable, will monitor Exam Narrative: Elderly frail Patient is comfortable, NAD HEENT: eyes are clear and none icteric LUNGS:CTA HEART: RR S1S2 ABD: BS+, Soft and nontender Lower extremities: no edema SKIN: nonjaundiced Neuro: grossly intact. Objective Data Vital Signs Vital Signs: Vital Signs - 24 hr 03/25/25 16:00 03/25/25 16:06 03/25/25 18:00 Temperature Pulse Rate 73 73 74 Respiratory Rate Blood Pressure 137/51 L Pulse Oximetry 98 Oxygen Delivery Oxygen Flow Rate 03/25/25 20:00 03/25/25 20:00 03/25/25 20:00 Temperature 36.1 C L Pulse Rate 67 66 Respiratory Rate 18 Blood Pressure 144/48 H Pulse Oximetry 97 Oxygen Delivery Room Air Oxygen Flow Rate 03/25/25 22:00 03/26/25 00:00 03/26/25 00:00 Temperature 36.3 C L Pulse Rate 73 65 Respiratory Rate 20 Blood Pressure 142/50 H Pulse Oximetry 96 Oxygen Delivery Room Air Oxygen Flow Rate 03/26/25 00:00 03/26/25 02:00 03/26/25 03:53 Temperature Pulse Rate 68 71 Respiratory Rate Blood Pressure Pulse Oximetry Oxygen Delivery Room Air Oxygen Flow Rate 03/26/25 04:00 03/26/25 04:00 03/26/25 06:00 Temperature 36.3 C L Pulse Rate 70 75 64 Respiratory Rate 20 Blood Pressure 115/66 Pulse Oximetry 97 Oxygen Delivery Oxygen Flow Rate 03/26/25 08:00 03/26/25 08:05 03/26/25 12:00 Temperature Pulse Rate 64 Respiratory Rate 24 H Blood Pressure 134/46 L Pulse Oximetry 95 96 Oxygen Delivery Nasal Cannula Nasal Cannula Oxygen Flow Rate 3 4 03/26/25 13:04 Temperature 36.4 C L Pulse Rate 86 Respiratory Rate 24 H Blood Pressure 138/53 L Pulse Oximetry 95 Oxygen Delivery Oxygen Flow Rate Intake/Output Intake/Output: Intake & Output 03/23/25 03/24/25 03/25/25 03/26/25 23:59 23:59 23:59 23:59 Intake Total 745 600 450 200 Output Total 850 5147 937 1532 Balance -105 525 147 1150 Meds/Results Medications: Active Medications Generic Name Dose Route Start Last Admin Trade Name Freq PRN Reason Stop Dose Admin Acetaminophen 650 mg 03/21/25 23:22 Acetaminophen 325 Mg Tablet PO Q6H PRN Pain or Fever Amlodipine Besylate 5 mg 03/21/25 23:25 03/26/25 13:14 Amlodipine Besylate 5 Mg Tablet PO Not Given Q12HR HEAVEN Artificial Tears 1 drop 03/22/25 09:00 03/26/25 13:14 Artificial Tears Ophth Soln 15 Ml Bottle EACH EYE Not Given QID HEAVEN Azelastine HCl 2 spray 03/22/25 09:00 03/26/25 13:14 Azelastine Hcl Nasal 0.1% 137 Mcg/Spr 30 Ml Btl NASAL Not Given DAILY [facility] Calcium Carbonate 500 mg 03/22/25 09:00 03/26/25 13:13 Calcium/Vitamin D 500 Mg/5 Mcg (200 I.U.) Tablet PO Not Given QAM [facility] Enoxaparin Sodium 30 mg 03/24/25 13:30 03/26/25 08:49 Enoxaparin 30 Mg/0.3 Ml Syringe SUB-Q Not Given DAILY [facility] Hydralazine HCl 25 mg 03/21/25 23:25 03/26/25 13:14 Hydralazine Hcl 25 Mg Tablet PO Not Given TID [facility] Levothyroxine Sodium 50 mcg 03/22/25 06:30 03/26/25 05:20 Levothyroxine Sodium 50 Mcg Tablet PO Not Given DAILY@0630 [facility] Lisinopril 30 mg 03/22/25 10:50 03/25/25 09:06 Lisinopril 10 Mg Tablet PO 10 mg QAM [facility] Administration Lorazepam 0.5 mg 03/25/25 17:30 03/26/25 10:36 Lorazepam Inj (*Crx) 2 Mg/Ml Vial IV PUSH 0.5 mg Q6H PRN Administration Agitation Melatonin 5 mg 03/21/25 23:25 03/25/25 20:31 Melatonin 5 Mg Tablet PO Not Given HS [facility] Nifedipine 60 mg 03/23/25 09:00 03/26/25 13:11 Nifedipine 30 Mg Tab.Er.24 PO Not Given QAM [facility] Olanzapine 5 mg 03/25/25 17:30 Olanzapine 10 Mg Inj Vial IM Q6H PRN Agitation Perflutren Lipid Microsphere 0 ml 03/25/25 17:59 Perflutren Lipid Microspheres 1.5 Ml Vial Diluted To 10 Ml Total Volume IV PUSH 03/28/25 17:59 ONCE PRN adequate visualization Protocol Simvastatin 20 mg 03/22/25 09:00 03/26/25 13:11 Simvastatin 20 Mg Tablet PO Not Given QAM [facility] Tamsulosin HCl 0.4 mg 03/24/25 13:45 03/26/25 13:10 Tamsulosin Hcl 0.4 Mg Capsule PO Not Given QAM [facility] Radiology Results: ITS Impressions Head/Neck CTA 03/21/25 19:38 IMPRESSION: 1. Moderate to severe calcified atheromatous disease within the carotid bulbs and proximal internal carotid arteries bilaterally. 2. . Percent stenosis per NASCET criteria is 27% on the right and 45% on the left. 3. Cervical lymphadenopathy. 4. Extensive venous collateralization within the posterior soft tissues of the head and neck. 5. No acute intracranial hemorrhage or suspicious mass effect. Brain MRI 03/25/25 13:11 IMPRESSION: 1. Normal aging brain with mild periventricular predominant scattered white matter T2 hyperintensity consistent with chronic small vessel ischemic disease. No acute intracranial process. 2. Mucus in the bilateral sphenoid sinuses. Correlate clinically for acute sinusitis. Head CT 03/25/25 13:28 IMPRESSION: 1. Normal aging brain. No acute intracranial process. 2. Persistent sinus disease. Chest CT 03/25/25 15:59 IMPRESSION: Extensive mediastinal and hilar lymphadenopathy, for which malignancy is suspected. Large bilateral pleural effusions are redemonstrated, with only the bilateral upper lobes aerated. All findings are a significant interval change from previous CT examination of the abdomen and pelvis dated 10/08/2024, which was without lymphadenopathy and without pericardial effusion. No pleural effusions were detected on the previous examination for which cross- sectional imaging of the abdomen and pelvis is recommended. Chest X-Ray 03/26/25 12:00 IMPRESSION: 1. Very small residual right pleural effusion with no pneumothorax post right thoracentesis. 2. Unchanged moderate-sized left pleural effusion. 3. Opacities at the medial right lung base and in the left mid to lower lung zone consistent with associated atelectasis and/or pneumonia. 4. Enlarged cardiac silhouette which on prior CT corresponding to a combination of cardiomegaly and a large pericardial effusion. Renal Biopsy Ultrasound 03/26/25 13:05 IMPRESSION: 1. Ultrasound-guided random left kidney core needle biopsy. Thoracentesis Ultrasound 03/26/25 13:05 IMPRESSION: 1. Successful ultrasound-guided thoracentesis yielding 1000 mL of clear straw- colored fluid. Labs Labs: Laboratory Results - last 24 hr 03/22/25 03/22/25 03/22/25 01:50 04:51 11:23 WBC RBC Hgb Hct MCV MCH MCHC RDW Plt Count MPV Immature Gran % (Auto) Neut % (Auto) Lymph % (Auto) [place] % (Auto) Eos % (Auto) Baso % (Auto) Lymph # (Auto) [place] # (Auto) Eos # (Auto) Baso # (Auto) Abs Immat Gran (auto) Absolute Neuts (auto) Absolute Nucleated RBC Band Neutrophils % Nucleated RBC % Platelet Estimate [place] Cells Schistocytes PT INR APTT Puncture Site ABG pH ABG pCO2 ABG pO2 ABG PO2/FiO2 Ratio ABG HCO3 ABG O2 Saturation ABG O2 Content ABG Base Excess A-a Gradient Oxyhemoglobin Carboxyhemoglobin Methemoglobin Reduced Hemoglobin Total Hemoglobin O2 Delivery Device O2 Liters/Min FiO2 Sodium Potassium Chloride Carbon Dioxide Anion Gap BUN Creatinine Estim Creat Clear Calc Estimated GFR Glucose Calcium Phosphorus Magnesium NT-Pro-B Natriuret Pep Albumin Vitamin B12 Folate Urine Osmolality U Free [place] Ch IgG 610 648 IgA 174 177 IgM 254 H 283 H GLORIA Interpretation Comment A Comment A Urine Immunofixation Comment A 03/22/25 03/23/25 03/25/25 14:20 18:45 18:53 WBC RBC Hgb Hct MCV MCH MCHC RDW Plt Count MPV Immature Gran % (Auto) Neut % (Auto) Lymph % (Auto) [place] % (Auto) Eos % (Auto) Baso % (Auto) Lymph # (Auto) [place] # (Auto) Eos # (Auto) Baso # (Auto) Abs Immat Gran (auto) Absolute Neuts (auto) Absolute Nucleated RBC Band Neutrophils % Nucleated RBC % Platelet Estimate [place] Cells Schistocytes PT INR APTT Puncture Site ABG pH ABG pCO2 ABG pO2 ABG PO2/FiO2 Ratio ABG HCO3 ABG O2 Saturation ABG O2 Content ABG Base Excess A-a Gradient Oxyhemoglobin Carboxyhemoglobin Methemoglobin Reduced Hemoglobin Total Hemoglobin O2 Delivery Device O2 Liters/Min FiO2 Sodium Potassium Chloride Carbon Dioxide Anion Gap BUN Creatinine Estim Creat Clear Calc Estimated GFR Glucose Calcium Phosphorus Magnesium NT-Pro-B Natriuret Pep 3860 H Albumin Vitamin B12 864.0 Folate 12.6 Urine Osmolality 337 U Free [place] Ch 1245.26 H IgG IgA IgM GLORIA Interpretation Urine Immunofixation Comment A 03/25/25 03/26/25 03/26/25 18:54 04:31 09:18 WBC 7.9 RBC 2.76 L Hgb 7.5 L Hct 23.3 L MCV 84.4 MCH 27.2 MCHC 32.2 RDW 13.5 Plt Count 344 MPV 9.8 Immature Gran % (Auto) 0.4 Neut % (Auto) 89.3 H Lymph % (Auto) 4.3 L [place] % (Auto) 4.9 Eos % (Auto) 1.0 Baso % (Auto) 0.1 L Lymph # (Auto) 0.34 L [place] # (Auto) 0.4 Eos # (Auto) 0.1 Baso # (Auto) 0.0 Abs Immat Gran (auto) 0.03 Absolute Neuts (auto) 7.0 H Absolute Nucleated RBC 0.000 Band Neutrophils % 0 Nucleated RBC % 0.0 Platelet Estimate Adequate [place] Cells 1+ Schistocytes None seen PT 13.8 INR 1.0 APTT 24.6 Puncture Site ABG pH ABG pCO2 ABG pO2 ABG PO2/FiO2 Ratio ABG HCO3 ABG O2 Saturation ABG O2 Content ABG Base Excess A-a Gradient Oxyhemoglobin Carboxyhemoglobin Methemoglobin Reduced Hemoglobin Total Hemoglobin O2 Delivery Device O2 Liters/Min FiO2 Sodium 127 L 128 L Potassium 3.5 3.7 Chloride 101 101 Carbon Dioxide 18 L 19 L Anion Gap 8 8 BUN 41 H 44 H Creatinine 2.33 H 2.42 H Estim Creat Clear Calc 14 13 Estimated GFR 20 L 19 L Glucose 131 H 99 Calcium 8.8 8.8 Phosphorus 5.0 H Magnesium 2.4 H NT-Pro-B Natriuret Pep Albumin 3.2 L Vitamin B12 Folate Urine Osmolality U Free [place] Ch IgG 620 L IgA 158 IgM 269 H GLORIA Interpretation Urine Immunofixation 03/26/25 12:56 WBC RBC Hgb Hct MCV MCH MCHC RDW Plt Count MPV Immature Gran % (Auto) Neut % (Auto) Lymph % (Auto) [place] % (Auto) Eos % (Auto) Baso % (Auto) Lymph # (Auto) [place] # (Auto) Eos # (Auto) Baso # (Auto) Abs Immat Gran (auto) Absolute Neuts (auto) Absolute Nucleated RBC Band Neutrophils % Nucleated RBC % Platelet Estimate [place] Cells Schistocytes PT INR APTT Puncture Site Right radial ABG pH 7.441 ABG pCO2 30.0 L ABG pO2 68.2 L ABG PO2/FiO2 Ratio 2.44 ABG HCO3 20.0 L ABG O2 Saturation 94.5 L ABG O2 Content 14.4 L ABG Base Excess -3.3 A-a Gradient 96.0 Oxyhemoglobin 92.7 Carboxyhemoglobin 0.3 Methemoglobin 0.2 Reduced Hemoglobin 6.8 H Total Hemoglobin 11.0 L O2 Delivery Device Nasal cannula O2 Liters/Min 2.0 FiO2 28 Sodium Potassium Chloride Carbon Dioxide Anion Gap BUN Creatinine Estim Creat Clear Calc Estimated GFR Glucose Calcium Phosphorus Magnesium NT-Pro-B Natriuret Pep Albumin Vitamin B12 Folate Urine Osmolality U Free [place] Ch IgG IgA IgM GLORIA Interpretation Urine Immunofixation
--- NOTE | 2025-03-26 19:53 | PC.NURSE ---
Spoke with Dr. Mcmahon regarding patient having consult order for pericardiocentesis. stated that he did not really have an wheel grinder to just do elective procedures, only emergency type of cases. Stated it would be in the best interest of the patient if Dr. Henry wants the procedure done then he should probably try to transfer the patient. Spoke with Dr. Henry and he said it wasn't emergent but yes he did want it done by the end of the week so if it isn't able to be done with heart care group then he wanted to transfer patient. Dr. Mcmahon said that it would not be able to get done. Called Dr. Henry again and asked if we could consult [facility] group, physician said yes if they would be able to see patient but he does not believe that they just see patients here. When speaking with the office, this was confirmed. Spoke with Dr. Zhu about all these conversations, he wanted to know family preferences of maybe where. After speaking with them they mentioned [facility]. ordered a stat chest xray and was then going to call facility. After speaking with family more they preferred [facility] even though patient has been accepted at [facility], called Dr. Zhu to come speak with family. After they're conversation he would attempt to call [facility].
--- NOTE | 2025-03-26 21:36 | P.PNCROSS_ITS ---
Event Note Event Note Event Note: I spoke to Dr. Hurtaod, Hospitalist, with [facility] in [place] who is accepting transfer since CT surgery accepted for need for pericardiocentesis.
--- NOTE | 2025-03-26 21:36 | PM.EVENT ---
Event Note Event Note Event Note: I spoke to Dr. Hurtado, Hospitalist, with [facility] in [place] who is accepting transfer since CT surgery accepted for need for pericardiocentesis.
[2025-03-27] VITALS (8 sets, daily range): BP systolic 160–169; BP diastolic 56–63; PULSE 73–100; RESP 24–28; TEMP 36.7–37.7; O2SAT 93–96
[2025-03-27 04:06] LABS: Hematocrit 24.4 % (37.0-47.0); Hemoglobin 7.8 g/dL (12.0-15.0); Immature Granulocyte Percent A 1.3 % (0-0.5); Lymphocytes Absolute Auto 0.52 K/mm3 (0.9-3.2); Mean Corpuscular HGB Conc 32.0 g/dl (32-36); Mean Corpuscular Hemoglobin 26.6 pg (26-34); Mean Corpuscular Volume 83.3 fl (80-100); Nucleated Red Blood Cells Absolute Auto 0.000 K/mm3 (0.0-0.012); Nucleated Red Blood Cells Perc 0.0 % (0.0-0.2); Platelet Count Result 362 k/mm3 (150-375); Red Blood Count 2.93 M/mm3 (4.2-5.4); White Blood Count 6.9 K/mm3 (4.5-10.0)
[2025-03-27 04:16] LABS: Albumin Level 3.2 g/dL (3.5-5.1); Anion Gap 8 mmol/L (4-12); Blood Urea Nitrogen 48 mg/dL (7-17); Calcium 8.6 mg/dL (8.4-10.2); Carbon Dioxide 18 mmol/L (22-30); Chloride 105 mmol/L (98-107); Estimated CRCL calculation 12 ml/min; Estimated Glomerular Filt Rate 16; Glucose 77 mg/dL (65-110); Magnesium 2.4 mg/dL (1.6-2.3); Potassium 3.7 mmol/L (3.4-5.0); Sodium 131 mmol/L (137-145)
--- NOTE | 2025-03-27 07:48 | PM.PNCARD ---
Progress Note: A&P Assessment and Plan (1) CKD (chronic kidney disease): Code(s): N18.9 - Chronic kidney disease, unspecified Status: Chronic Assessment and Plan: Nephrology following. (2) Acute hyponatremia: Code(s): E87.1 - Hypo-osmolality and hyponatremia Status: Acute Assessment and Plan: Improving. (3) Diastolic CHF: Code(s): I50.30 - Unspecified diastolic (congestive) heart failure Status: Acute Assessment and Plan: Diastolic dysfunction is mild compared to degree of volume overload necessitating diuresis, likely due to CKD. Was on Bumetanide 1 mg daily and Metolazine 2.5 mg daily. Diuretics had been held since admission due to worsening kidney function again. S/P right thoracentesis of 1 liter of fluid removed. Will hold off on diuretics as it could worsen sodium level and kidney function, and leave it up to nephrology. (4) Essential (primary) hypertension: Code(s): I10 - Essential (primary) hypertension Status: Acute Assessment and Plan: Stable. (5) Mixed hyperlipidemia: Code(s): E78.2 - Mixed hyperlipidemia Status: Acute Assessment and Plan: On Simvastatin. (6) Pericardial effusion: Code(s): I31.39 - Other pericardial effusion (noninflammatory) Status: Acute Assessment and Plan: Large on CT chest. 03/26/25 Echo: Mod-large pericardial effusion. Recommend pericardiocentesis for diagnostic and preventative of cardiac tamponade. Unfortunately, we do not have cardiology availability for this procedure here. Transfer to another facility for it. She has been accepted by [facility] for it, awaiting bed/transfer. (7) Mediastinal lymphadenopathy: Code(s): R59.0 - Localized enlarged lymph nodes Status: Acute Assessment and Plan: Oncology following. This could be lymphoma or metastasis. Subjective Date/time seen: 03/27/25 07:48 Interval history: She slept well last night again and is alert this morning. Denies chest pain and sob. Reports bowel discomfort. Exam Const: General: cooperative, healthy appearing, comfortable and awake Resp: Auscultation: no rales, no rhonchi, no wheezes and diminished lung sounds Cardio: Rate: regular rate Rhythm: regular rhythm Heart sounds: no murmurs Peripheral pulses: dorsalis pedis present Extrem: Right lower extremity: no edema Left lower extremity: no edema Objective Data Vital Signs Vital Signs: Vital Signs - 24 hr 03/26/25 08:00 03/26/25 08:00 03/26/25 08:05 Temperature Pulse Rate 60 64 Respiratory Rate 24 H Blood Pressure 134/46 L Pulse Oximetry 95 Oxygen Delivery Nasal Cannula Oxygen Flow Rate 3 03/26/25 10:00 03/26/25 12:00 03/26/25 12:00 Temperature Pulse Rate 73 75 Respiratory Rate Blood Pressure Pulse Oximetry 96 Oxygen Delivery Nasal Cannula Oxygen Flow Rate 4 03/26/25 13:04 03/26/25 14:00 03/26/25 16:00 Temperature 97.5 F L Pulse Rate 86 76 76 Respiratory Rate 24 H Blood Pressure 138/53 L Pulse Oximetry 95 Oxygen Delivery Oxygen Flow Rate 03/26/25 16:00 03/26/25 16:28 03/26/25 18:00 Temperature 97.5 F L Pulse Rate 70 95 Respiratory Rate 28 H Blood Pressure 143/52 H Pulse Oximetry 96 94 Oxygen Delivery Nasal Cannula Oxygen Flow Rate 1 03/26/25 19:57 03/26/25 20:00 03/26/25 20:00 Temperature 97.7 F Pulse Rate 98 92 Respiratory Rate 28 H Blood Pressure 148/57 H Pulse Oximetry 96 Oxygen Delivery Room Air Oxygen Flow Rate 03/26/25 22:00 03/26/25 23:43 03/26/25 23:47 Temperature 98.2 F Pulse Rate 77 90 Respiratory Rate 28 H Blood Pressure 153/56 H Pulse Oximetry 96 Oxygen Delivery Room Air Oxygen Flow Rate 03/26/25 23:59 03/27/25 00:00 03/27/25 02:00 Temperature Pulse Rate 73 98 Respiratory Rate Blood Pressure Pulse Oximetry 96 Oxygen Delivery Room Air Oxygen Flow Rate 03/27/25 03:37 03/27/25 04:00 03/27/25 04:00 Temperature 99.8 F H Pulse Rate 96 94 Respiratory Rate 28 H Blood Pressure 160/60 H Pulse Oximetry 96 Oxygen Delivery Room Air Oxygen Flow Rate 03/27/25 06:00 Temperature Pulse Rate 94 Respiratory Rate Blood Pressure Pulse Oximetry Oxygen Delivery Oxygen Flow Rate Intake/Output Intake/Output: Intake & Output 03/24/25 03/25/25 03/26/25 03/27/25 23:59 23:59 23:59 23:59 Intake Total 600 450 200 Output Total 1154 275 3532 375 Balance -525 147 -1275 -375 Meds/Results Medications: Active Medications Generic Name Dose Route Start Last Admin Trade Name Freq PRN Reason Stop Dose Admin Acetaminophen 650 mg 03/21/25 23:22 Acetaminophen 325 Mg Tablet PO Q6H PRN Pain or Fever Amlodipine Besylate 5 mg 03/21/25 23:25 03/26/25 22:57 Amlodipine Besylate 5 Mg Tablet PO Not Given Q12HR [facility] Artificial Tears 1 drop 03/22/25 09:00 03/26/25 22:58 Artificial Tears Ophth Soln 15 Ml Bottle EACH EYE Not Given QID [facility] Azelastine HCl 2 spray 03/22/25 09:00 03/26/25 13:14 Azelastine Hcl Nasal 0.1% 137 Mcg/Spr 30 Ml Btl NASAL Not Given DAILY [facility] Calcium Carbonate 500 mg 03/22/25 09:00 03/26/25 13:13 Calcium/Vitamin D 500 Mg/5 Mcg (200 I.U.) Tablet PO Not Given QAM [facility] Enoxaparin Sodium 30 mg 03/24/25 13:30 03/26/25 08:49 Enoxaparin 30 Mg/0.3 Ml Syringe SUB-Q Not Given DAILY [facility] Hydralazine HCl 25 mg 03/21/25 23:25 03/26/25 16:50 Hydralazine Hcl 25 Mg Tablet PO Not Given TID [facility] Levothyroxine Sodium 50 mcg 03/22/25 06:30 03/27/25 04:54 Levothyroxine Sodium 50 Mcg Tablet PO Not Given DAILY@0630 [facility] Lisinopril 30 mg 03/22/25 10:50 03/25/25 09:06 Lisinopril 10 Mg Tablet PO 10 mg QAM [facility] Administration Lorazepam 0.5 mg 03/25/25 17:30 03/26/25 17:51 Lorazepam Inj (*Crx) 2 Mg/Ml Vial IV PUSH 0.5 mg Q6H PRN Administration Agitation Melatonin 5 mg 03/21/25 23:25 03/26/25 22:58 Melatonin 5 Mg Tablet PO Not Given HS HEAVEN Nifedipine 60 mg 03/23/25 09:00 03/26/25 13:11 Nifedipine 30 Mg Tab.Er.24 PO Not Given QAM [facility] Olanzapine 5 mg 03/25/25 17:30 Olanzapine 10 Mg Inj Vial IM Q6H PRN Agitation Perflutren Lipid Microsphere 0 ml 03/25/25 17:59 Perflutren Lipid Microspheres 1.5 Ml Vial Diluted To 10 Ml Total Volume IV PUSH 03/28/25 17:59 ONCE PRN adequate visualization Protocol Simvastatin 20 mg 03/22/25 09:00 03/26/25 13:11 Simvastatin 20 Mg Tablet PO Not Given QAM [facility] Tamsulosin HCl 0.4 mg 03/24/25 13:45 03/26/25 13:10 Tamsulosin Hcl 0.4 Mg Capsule PO Not Given QAM [facility] Radiology Results: ITS Impressions Head/Neck CTA 03/21/25 19:38 IMPRESSION: 1. Moderate to severe calcified atheromatous disease within the carotid bulbs and proximal internal carotid arteries bilaterally. 2. . Percent stenosis per NASCET criteria is 27% on the right and 45% on the left. 3. Cervical lymphadenopathy. 4. Extensive venous collateralization within the posterior soft tissues of the head and neck. 5. No acute intracranial hemorrhage or suspicious mass effect. Brain MRI 03/25/25 13:11 IMPRESSION: 1. Normal aging brain with mild periventricular predominant scattered white matter T2 hyperintensity consistent with chronic small vessel ischemic disease. No acute intracranial process. 2. Mucus in the bilateral sphenoid sinuses. Correlate clinically for acute sinusitis. Head CT 03/25/25 13:28 IMPRESSION: 1. Normal aging brain. No acute intracranial process. 2. Persistent sinus disease. Chest CT 03/25/25 15:59 IMPRESSION: Extensive mediastinal and hilar lymphadenopathy, for which malignancy is suspected. Large bilateral pleural effusions are redemonstrated, with only the bilateral upper lobes aerated. All findings are a significant interval change from previous CT examination of the abdomen and pelvis dated 10/08/2024, which was without lymphadenopathy and without pericardial effusion. No pleural effusions were detected on the previous examination for which cross-sectional imaging of the abdomen and pelvis is recommended. Renal Biopsy Ultrasound 03/26/25 13:05 IMPRESSION: 1. Ultrasound-guided random left kidney core needle biopsy. Thoracentesis Ultrasound 03/26/25 13:05 IMPRESSION: 1. Successful ultrasound-guided thoracentesis yielding 1000 mL of clear straw-colored fluid. Chest X-Ray 03/26/25 16:30 IMPRESSION: Redemonstration of cardiomegaly, likely representing pericardial effusion, unchanged from CT examination dated 03/25/2025 (prior to thoracentesis). Bilateral pleural effusions, left greater than right with mild pulmonary vascular congestion. Labs Labs: Laboratory Results - last 24 hr 03/22/25 03/22/25 03/23/25 01:50 11:23 18:45 WBC RBC Hgb Hct MCV MCH MCHC RDW Plt Count MPV Immature Gran % (Auto) Neut % (Auto) Lymph % (Auto) [place] % (Auto) Eos % (Auto) Baso % (Auto) Lymph # (Auto) [place] # (Auto) Eos # (Auto) Baso # (Auto) Abs Immat Gran (auto) Absolute Neuts (auto) Absolute Nucleated RBC Nucleated RBC % PT INR APTT Puncture Site ABG pH ABG pCO2 ABG pO2 ABG PO2/FiO2 Ratio ABG HCO3 ABG O2 Saturation ABG O2 Content ABG Base Excess A-a Gradient Oxyhemoglobin Carboxyhemoglobin Methemoglobin Reduced Hemoglobin Total Hemoglobin O2 Delivery Device O2 Liters/Min FiO2 Sodium Potassium Chloride Carbon Dioxide Anion Gap BUN Creatinine Estim Creat Clear Calc Estimated GFR Glucose Calcium Phosphorus Magnesium Albumin CA 15-3 Antigen Urine Osmolality 337 IgG 610 648 IgA 174 177 IgM 254 H 283 H GLORIA Interpretation Comment A Comment A 03/25/25 03/26/25 03/26/25 18:53 09:18 12:56 WBC RBC Hgb Hct MCV MCH MCHC RDW Plt Count MPV Immature Gran % (Auto) Neut % (Auto) Lymph % (Auto) [place] % (Auto) Eos % (Auto) Baso % (Auto) Lymph # (Auto) [place] # (Auto) Eos # (Auto) Baso # (Auto) Abs Immat Gran (auto) Absolute Neuts (auto) Absolute Nucleated RBC Nucleated RBC % PT 13.8 INR 1.0 APTT 24.6 Puncture Site Right radial ABG pH 7.441 ABG pCO2 30.0 L ABG pO2 68.2 L ABG PO2/FiO2 Ratio 2.44 ABG HCO3 20.0 L ABG O2 Saturation 94.5 L ABG O2 Content 14.4 L ABG Base Excess -3.3 A-a Gradient 96.0 Oxyhemoglobin 92.7 Carboxyhemoglobin 0.3 Methemoglobin 0.2 Reduced Hemoglobin 6.8 H Total Hemoglobin 11.0 L O2 Delivery Device Nasal cannula O2 Liters/Min 2.0 FiO2 28 Sodium Potassium Chloride Carbon Dioxide Anion Gap BUN Creatinine Estim Creat Clear Calc Estimated GFR Glucose Calcium Phosphorus Magnesium Albumin CA 15-3 Antigen 12.6 Urine Osmolality IgG IgA IgM GLORIA Interpretation 03/27/25 03:35 WBC 6.9 RBC 2.93 L Hgb 7.8 L Hct 24.4 L MCV 83.3 MCH 26.6 MCHC 32.0 RDW 13.7 Plt Count 362 MPV 9.8 Immature Gran % (Auto) 1.3 H Neut % (Auto) 82.8 H Lymph % (Auto) 7.6 L [place] % (Auto) 5.3 Eos % (Auto) 2.6 Baso % (Auto) 0.4 Lymph # (Auto) 0.52 L [place] # (Auto) 0.4 Eos # (Auto) 0.2 Baso # (Auto) 0.0 Abs Immat Gran (auto) 0.09 H Absolute Neuts (auto) 5.7 Absolute Nucleated RBC 0.000 Nucleated RBC % 0.0 PT INR APTT Puncture Site ABG pH ABG pCO2 ABG pO2 ABG PO2/FiO2 Ratio ABG HCO3 ABG O2 Saturation ABG O2 Content ABG Base Excess A-a Gradient Oxyhemoglobin Carboxyhemoglobin Methemoglobin Reduced Hemoglobin Total Hemoglobin O2 Delivery Device O2 Liters/Min FiO2 Sodium 131 L Potassium 3.7 Chloride 105 Carbon Dioxide 18 L Anion Gap 8 BUN 48 H Creatinine 2.74 H Estim Creat Clear Calc 12 Estimated GFR 16 L Glucose 77 Calcium 8.6 Phosphorus 5.2 H Magnesium 2.4 H Albumin 3.2 L CA 15-3 Antigen Urine Osmolality IgG IgA IgM GLORIA Interpretation
[2025-03-27] MEDS: SIMVASTATIN 20 MG TABLET PO (09:25)
[2025-03-27] MEDS: LEVOTHYROXINE SODIUM 50 MCG TABLET PO (09:34)
[2025-03-27] MEDS: ENOXAPARIN 30 MG/0.3 ML SYRINGE SUB-Q (09:53)
[2025-03-27 15:09] LABS: Albumin 2.7 g/dL (2.9-4.4); Alpha-1-Globulin 0.4 g/dL (0.0-0.4); Alpha-2-Globulin 0.8 g/dL (0.4-1.0); Gamma Globulin 0.6 g/dL (0.4-1.8)
[2025-03-31 11:08] LABS: Immunoglobulin A, Qn 188 mg/dL (64-422); Immunoglobulin G, Qn 620 mg/dL (586-1602); Immunoglobulin M, Qn 250 mg/dL (26-217)
--- NOTE | 2025-04-01 18:01 | PM.TDS ---
Transfer Discharge Sum: Prov Provider Date of admission: 03/21/25 20:28 Primary care physician: Tisha Tubbs MD Admitting clinician: Amadou Soto MD Consults: 03/21/25 Consult to Physician Routine Comment: Consulting Provider: Yahir Marshall Reason for consultation: acute hyponatremia, moderately symptomatic Has provider been notified: Yes 03/24/25 Consult to Physician Routine Comment: Spoke with Dr and notified him of consult Consulting Provider: Yunior Bean Reason for consultation: altered mental status as noted by family since Monday (03/21) Has provider been notified: Yes 03/25/25 17:29 Consult to Physician Routine Comment: Spoke with Dr and notified him of consult Consulting Provider: Dipak Henry head greenskeeper/MD group to consult: cardiology Reason for consultation: chf Has provider been notified: Yes 03/25/25 17:32 Consult to Physician Routine Comment: Called exchange and notified them of consult Consulting Provider: Wenceslao Thompson Reason for consultation: possible myeloma Has provider been notified: Yes 03/26/25 Consult to Physician Routine Comment: Spoke with Dr about consult Consulting Provider: Alireza Mcmahon head greenskeeper/MD group to consult: HCG Reason for consultation: pericardiocentesis for diagnostic and therapeutic Has provider been notified: Yes DS: Admitting Diagnosis Discharge Date 03/27/25 Admitting Diagnosis Confusion, hyponatremia DS: Discharge Diagnosis Discharge Diagnosis (1) Acute hyponatremia: Code(s): E87.1 - Hypo-osmolality and hyponatremia Status: Acute Assessment and Plan: Improving Na 130 from 119 on admission On NS with 1600 cc fluid restriction n per Nephrology Metolazone on hold 03/25: sodium dipped down. will restart NS as confused and poor po intake (2) CKD (chronic kidney disease): Code(s): N18.9 - Chronic kidney disease, unspecified Status: Chronic Assessment and Plan: -CKD worsening over last 3 months, better today than February 19 -Cr 2.0, BUN 44, eGFR 24 and eCrCl 16 -Avoid nephrotoxins, hold metolazone and lisinopril Further workup IGNNY, ESR, Immunofixation, kappa lambda ratio. Nephrology following, Oncology consulted per Neph request (3) Acute hypokalemia: Code(s): E87.6 - Hypokalemia Status: Acute Assessment and Plan: -Potassium 3.4 from 2.9 -Added magnesium level -continue replacement and monitor (4) Acute metabolic encephalopathy: Code(s): G93.41 - Metabolic encephalopathy Status: Acute Assessment and Plan: -See hyponatremia above -No evidence of infection, urine drug screen negative -CTA Head and Neck with calcified atheromatous disease and Cervical lymphadenopathy with known breast cancer -Urinary retention noted on admission and patient constantly complaining of needing to urinate, even after catheter insertion still persistent will repeat CT head. will need MRI brain as well, however restless, so might not readily happen. will consult neurology. delirium is a possibiltiy. on seroquel which will be stopped due to worsening agitation. zyprexa prn for now as tolerated (5) Breast cancer: Code(s): C50.919 - Malignant neoplasm of unspecified site of unspecified female breast Status: Acute Assessment and Plan: -Recent diagnosis, need to clarify treatment ongoing. (6) Hypothyroidism (acquired): Code(s): E03.9 - Hypothyroidism, unspecified Status: Chronic Assessment and Plan: -TSH wnl, continue levothyroxine (7) Benign hypertension with chronic kidney disease: Code(s): I12.9 - Hypertensive chronic kidney disease with stage 1 through stage 4 chronic kidney disease, or unspecified chronic kidney disease Status: Chronic Assessment and Plan: on lisinopril, nifedipine (8) Anemia: Code(s): D64.9 - Anemia, unspecified Status: Chronic Assessment and Plan: -Chronic and multifactoral including breast cancer and CKD worsening -Stable with HGB 9.6 on ER arrival (9) Urinary retention: Code(s): R33.9 - Retention of urine, unspecified Status: Acute Assessment and Plan: on marley Tamsulosin and Urology consulted (10) Insomnia: Code(s): G47.00 - Insomnia, unspecified Status: Chronic Assessment and Plan: Started on Seroquel nighttime . stop due to worsening agitation currentl on zyprexa prn Plan 85 y/o female with diastolic congestive heart failure had been diuresed with Bumetanide 1 mg daily and Metolazine 2.5 mg daily however patient Scr is rising and diuretics are hold, patient had ultrasound-guided thoracentesis yielding 1000 mL of clear straw-colored fluid. ct scab on chest showed extensive mediastinal and hilar lymphadenopathy is identified, along with a large pericardial effusion, [employer] is recommending pericardial window, patient remains clinically stable, will monitor Iron deficiency anemia Hb 8.2, Isat 14 IV iron 1000/1000 FOBT pending DVT prophylaxis on Sq Lovenox Awaiting PT/OT for discharge disposition Transfer Discharge Sum: Med Medications Active and Home Medications: Home Medications calcium 600 mg (as carbonate)-vit D3 20 mcg (800 unit) chewable tablet (Caltrate plus D) 1 tablet PO DAILY 06/20/24 [History Confirmed 03/21/25] levothyroxine 50 mcg tablet 50 mcg PO DAILY #90 tabs 06/20/24 [Rx Confirmed 03/21/25] perfluorohexyloctane (PF) 100 % eye drops (Miebo (PF)) 1 drp EACH EYE QID 06/20/24 [History Confirmed 03/21/25] simvastatin 20 mg tablet See Rx Instructions .Route .COMPLEX #90 tabs 12/06/24 [Rx Confirmed 03/21/25] ergocalciferol (vitamin D2) 1,250 mcg (50,000 unit) capsule 50,000 unit PO [id number] 12/14/24 [History Confirmed 03/21/25] lorazepam 0.5 mg tablet 0.5 mg PO TID PRN anxiety #90 tabs 12/31/24 [Rx Confirmed 03/21/25] azelastine 205.5 mcg (0.15 %) nasal spray (Astepro Allergy) 2 spray intranasal DAILY #1 device 01/21/25 [Rx Confirmed 03/21/25] lisinopril 30 mg tablet 30 mg PO DAILY #90 tabs 01/21/25 [Rx Confirmed 03/21/25] bumetanide 1 mg tablet 1 mg PO BID #60 tabs 01/29/25 [Rx Confirmed 03/21/25] zolpidem 10 mg tablet (Ambien) 10 mg PO .HS PRN insomnia #30 tabs 02/11/25 [Rx Confirmed 03/21/25] hydralazine 25 mg tablet 25 mg PO TID #90 tabs 03/13/25 [Rx Confirmed 03/21/25] amlodipine 5 mg tablet 5 mg PO BID 03/21/25 [History Confirmed 03/21/25] metolazone 2.5 mg tablet See Rx Instructions .Route .COMPLEX 03/21/25 [History Confirmed 03/21/25] Transfer Discharge Sum: Hosp Hospital Course Hospital course: Heavenly Sarmiento is a 85 year old female 85 y/o female with diastolic congestive heart failure had been diuresed with Bumetanide 1 mg daily and Metolazine 2.5 mg daily however patient Scr is rising and diuretics are hold, patient had ultrasound-guided thoracentesis yielding 1000 mL of clear straw-colored fluid. ct scab on chest showed extensive mediastinal and hilar lymphadenopathy is identified, along with a large pericardial effusion, [employer] is recommending pericardial window, patient remains clinically stable, will monitor. Discussed with family they would like patient to be transferred for the pericaridiocentesis, called the [facility] [address] and spoke Dr. Luis M Gannon and he accepted the patient however patient family decided to go to [facility] and patient was transferred. Patient Condition: Stable Time Spent with Patient Time attestation: Total time spent providing and/or coordinating transfer services: Exam Narrative: Elderly frail Patient is comfortable, NAD HEENT: eyes are clear and none icteric LUNGS:CTA HEART: RR S1S2 ABD: BS+, Soft and nontender Lower extremities: no edema SKIN: nonjaundiced Neuro: grossly intact. DS: Data Data Completed and Pending Completed studies during hospitalization: Pending at discharge 03/26/25 11:40 Cytology [PTH] Routine
== END 2025-03-27 12:21 | disposition short-term general hospital (02) | DRG 640 ==
LOC: ANHED 20:37 → ANHIMU 21:20
PROVIDERS: General Practice; Internal Medicine; Internal Medicine Hematology & Oncology; Internal Medicine Nephrology; Nurse Practitioner; Admitting Provider Internal Medicine; Emergency Provider Student in an Organized Health Care Education/Training Program; PCP Family Medicine; Visit Provider Family Medicine
DX: E87.1 Hypo-osmolality and hyponatremia (principal); G93.41 Metabolic encephalopathy; I13.0 Hypertensive heart and chronic kidney disease with heart failure and stage 1 through stage 4 chronic kidney disease, or unspecified chronic kidney disease; I31.39 Other pericardial effusion (noninflammatory); I50.32 Chronic diastolic (congestive) heart failure; N17.9 Acute kidney failure, unspecified; J90 Pleural effusion, not elsewhere classified; C50.919 Malignant neoplasm of unspecified site of unspecified female breast; R33.9 Retention of urine, unspecified; D63.1 Anemia in chronic kidney disease; E03.9 Hypothyroidism, unspecified; E55.9 Vitamin D deficiency, unspecified; E78.2 Mixed hyperlipidemia; E27.9 Disorder of adrenal gland, unspecified; E04.2 Nontoxic multinodular goiter; E87.6 Hypokalemia; F32.A Depression, unspecified; F41.9 Anxiety disorder, unspecified; G47.00 Insomnia, unspecified; K11.7 Disturbances of salivary secretion; K58.9 Irritable bowel syndrome, unspecified; M81.0 Age-related osteoporosis without current pathological fracture; N18.32 Chronic kidney disease, stage 3b; R59.0 Localized enlarged lymph nodes; R30.0 Dysuria; S02.2XXD Fracture of nasal bones, subsequent encounter for fracture with routine healing; V49.9XXD Car occupant (driver) (passenger) injured in unspecified traffic accident, subsequent encounter; Z90.49 Acquired absence of other specified parts of digestive tract
CPT/HCPCS: 32555; 36415; 36600; 50200; 70450; 70486; 70496; 70498; 70553; 71045; 71250; 76942; 80048; 80053; 80069; 80143; 80179; 80307; 81001; 82077; 82140; 82274; 82375; 82533; 82550; 82570; 82607; 82668; 82728; 82746; 82784; 82805; 83050; 83521; 83540; 83550; 83735; 83880; 83921; 83930; 83935; 84100; 84132; 84133; 84155; 84165; 84238; 84295; 84300; 84439; 84443; 84480; 84484; 84540; 85018; 85025; 85046; 85610; 85652; 85730; 86038; 86235; 86300; 86334; 86335; 88108; 88300; 88305; 88313; 88329; 88346; 88348; 88350; 90471; 90715; 93005; 93306; 96360; 99282; 99284; 99285; A9270; A9577; J0834; J1650; J1756; J1938; J2060; J2359; J3480; J7030; J7050; J7131; Q5105; Q9967

== ENCOUNTER 2025-07-09 09:37 | Outpatient (CLI) | payer MEDICARE, SELFPAY ==
--- NOTE | 2025-07-09 09:59 | ECHO_ITS ---
Patient Info Name: Heavenly Sarmiento Age: 85 years : 1940 Gender: Female Ht: 64 in Wt: 120 lbs BSA: 1.57 m2 HR: 75 bpm BP: 158 / 77 mmHg Heart Rhythm: Sinus Rhythm Technical Quality: Good Exam Date: 07/09/2025 10:02 AM Patient Status: O Admit Date: 07/09/2025 Exam Type: CA echo doppler color flow Complete two-dimensional, color flow and Doppler transthoracic echocardiogram is performed. [employer] Operator: Marla Llamas Attending Provider: Dipak Henry DO Summary 1. Complete two-dimensional, color flow and Doppler transthoracic echocardiogram is performed. 2. Left ventricular chamber dimension is normal. 3. Left ventricular systolic function is normal, estimated at 65-70. 4. The left ventricular diastolic function is grade I diastolic dysfunction. 5. E/e' 15 is elevated. 6. Left atrial chamber dimension is mildly enlarged. 7. There is mild aortic valve sclerosis. 8. There is trace aortic valve regurgitation. 9. No pulmonary hypertension, estimated pulmonary arterial systolic pressure is 28 mmHg. 10. There is trace pulmonic regurgitation. 11. There is trivial pericardial effusion. Left Ventricle E/e' 15 is elevated. Left ventricular chamber dimension is normal. Left ventricular systolic function is normal, estimated at 65-70. The left ventricular diastolic function is grade I diastolic dysfunction. Right Ventricle Right ventricular chamber dimension is normal. Right ventricular systolic function is normal. Left Atria Left atrial chamber dimension is mildly enlarged. Right Atria Right atrial chamber dimension is normal. Aortic Valve The aortic valve is trileaflet. There is mild aortic valve sclerosis. There is no aortic valve stenosis. There is trace aortic valve regurgitation. Pulmonic Valve There is trace pulmonic regurgitation. Mitral Valve There is no mitral valve stenosis. There is no mitral valve regurgitation. Tricuspid Valve There is no tricuspid valve regurgitation. No pulmonary hypertension, estimated pulmonary arterial systolic pressure is 28 mmHg. Pericardium/Pleural There is trivial pericardial effusion. Inferior Vena Cava Normal inferior vena cava with >50% collapse upon inspiration consistent with normal right atrial pressure, 5 mmHg. Aorta The aortic root size at the sinus of Valsalva is normal. Left Ventricular Outflow Tract Name Value Normal LVOT 2D LVOT Diameter 2.0 cm LVOT Doppler LVOT Peak Velocity 102 cm/s LVOT Peak Gradient 4 mmHg LVOT Mean Gradient 2 mmHg LVOT VTI 23 cm LVOT VTI/AV VTI Ratio 0.7 LVOT Stroke Volume 76 ml LVOT CO 4.4 l/min LVOT CI 2.8 l/min/m2 Pulmonic Valve Name Value Normal RVOT Doppler RVOT Peak Velocity 76 cm/s RVOT Peak Gradient 2 mmHg PV Doppler PV Peak Velocity 100 cm/s PV Peak Gradient 4 mmHg Mitral Valve Name Value Normal MV Diastolic Function MV E Peak Velocity 87 cm/s MV A Peak Velocity 125 cm/s MV E/A 0.7 MV Decel Time (PW) 166 ms MV Annular TDI MV E/e' (Septal) 20.8 MV E/e' (Lateral) 12.3 MV E/e' (Average) 16.6 Tricuspid Valve Name Value Normal TV Regurgitation Doppler TR Peak Velocity 241 cm/s TR Peak Gradient 23 mmHg Estimated PAP/RSVP RA Pressure 5 mmHg <=5 PA Systolic Pressure 28 mmHg <36 RV Systolic Pressure 28 mmHg <36 TV Annular TDI TV Lateral Perla s' Velocity 7.6 cm/s >=9.5 Aorta Name Value Normal Ascending Aorta Ao Root Diameter (MM) 3.5 cm Ao Root Diam Index (MM) 2.2 cm/m2 Aortic Valve Name Value Normal AV Doppler AV Peak Velocity 158 cm/s AV Peak Gradient 10 mmHg AV Mean Gradient 5 mmHg AV VTI 34 cm AV Area (Cont Eq VTI) 2.3 cm2 >=3.0 AV Area (Cont Eq Odell) 2.1 cm2 AV DI (Odell) 0.65 AV Regurgitation 2D LVOT Area 3.3 cm2 Ventricles Name Value Normal LV Dimensions 2D/MM IVS Diastolic Thickness (2D) 1.2 cm 0.6-1.0 LVID Diastole (2D) 4.7 cm 3.8-5.2 LVIW Diastolic Thickness (2D) 1.1 cm 0.6-0.9 LVID Systole (2D) 3.1 cm 2.2-3.5 LVOT Diameter 2.0 cm LV Mass (2D Cubed) 207.55 g 67.00-162.00 LV Mass Index (2D Cubed) 132 g/m2 43-95 Relative Wall Thickness (2D) 0.48 <=0.42 LV Fractional Shortening/Ejection Fraction 2D/MM LV Fractional Shortening (2D) 34 % 27-45 LV EF (2D Teichholz) 63 % LV Diastolic Volume (4C MOD) 57 ml LV EF (4C MOD) 69 % LV Diastolic Volume (2C MOD) 73 ml LV EF (2C MOD) 65 % LV Diastolic Volume (BP MOD) 67 ml 46-106 LV Diastolic Volume Index (BP MOD) 43 ml/m2 29-61 LV Systolic Volume (BP MOD) 22 ml 14-42 LV Systolic Volume Index (BP MOD) 14 ml/m2 8-24 LV EF (BP MOD) 67 % 54-74 LV Diastolic Length (4C) 8.4 cm LV Systolic Length (4C) 7.1 cm LV Stroke Volume (4C MOD) 40 ml Atria Name Value Normal LA Dimensions LA Dimension (MM) 4.0 cm 2.7-3.8 LA Volume (4C A-L) 66 ml LA Volume (BP A-L) 60 ml RA Dimensions RA Area (4C) 17.4 cm2 <=18.0 Report Signatures
== END 2025-07-09 09:38 | disposition home or self-care (01) ==
PROVIDERS: PCP Student in an Organized Health Care Education/Training Program; Visit Provider Internal Medicine Cardiovascular Disease
DX: I31.39 Other pericardial effusion (noninflammatory) (principal); I08.3 Combined rheumatic disorders of mitral, aortic and tricuspid valves
CPT/HCPCS: 93306